=== PATIENT | male | born 1965 | race Caucasian/White ===

== ENCOUNTER 2021-06-26 15:10 | Emergency (ER) | payer OTHER, SELFPAY ==
[2021-06-26 15:10] VITALS: BP 147/91; PULSE 74; RESP 16; TEMP 36.4; O2SAT 99; BMI 35.6
--- NOTE | 2021-06-26 15:42 | EX.ED.VIS.EY ---
HPI History of Present Illness Chief Complaint: Vision Prob Informant: patient Onset/Context/Timing Location: Bilateral Eyes Onset: Days Context: Gradual Onset Timing: Continuous Current Severity: Mild Maximum Severity: Mild Associated Symptoms Associated Symptoms - Eyes: Photophobia; Negative for Burning, Crusting, Drainage, Eyelid swelling, Foreign body sensation, Itching, Matting and Redness History of injury: No Visual correction: Glasses Narrative Narrative: 56-year-old male history of migraine headaches and hypertension. States on Thursday he was driving to work he noticed the lights were bothering his eyes and they were kind of hazy around the lights or halos. He saw an temporary help agency referral clerk who told him there is nothing structurally wrong with his eyes. He has had no trauma. He wears glasses but not contacts. He is also developed now a headache in his forehead he does have a history of migraines. He denies any other complaints. He has had no head trauma. Patient had no fever. He has no other neurological symptoms. Prior similar symptoms: No Recent Illness/Hospitalization: No PFSH PFSH Allergy/AdvReac Type Severity Reaction Status Date / Time No Known Allergies Allergy Verified 06/26/21 15:10 Social History Smoking Status: Never smoker ROS ROS ED ROS Narrative Headache. Bilateral phobia and eye pain Review of Systems ROS Unobtainable: Denies due to encephalopathy Constitutional Constitutional ED: Denies fever(s) Eyes Eyes: Denies change in vision ENT ENT ED: Denies ear pain Cardiovascular Cardiovascular: Denies chest pain Respiratory/Chest Respiratory/Chest: Denies cough or dyspnea Gastrointestinal Gastrointestinal: Denies abdominal pain Genitourinary Genitourinary ED: Denies dysuria Musculoskeletal Musculoskeletal: Denies myalgias Integumentary Denies rash Neurologic Neurologic: Reports headache(s) Psychiatric Psychiatric: Denies depression Endocrine Endocrinology: Denies polyuria Hematologic/Lymphatic Hematologic/Lymphatic: Denies easy bruising Allergic/Immunologic Allergic/Immunologic ED: Denies urticaria EXAM Physical Exam Narrative Exam Narrative: Male no acute distress. Vital signs stable afebrile. H EENT exam shows rhinorrhea and lightish motions are intact. He seated in darkened room. No facial droop. No signs of trauma. Eyelids are normal. The eyes him cells are unremarkable other than he has pain with flashing lights in his eyes. There is no erythema. No drainage or discharge. No redness or swelling. Lungs clear to auscultation. Heart regular rhythm. Abdomen soft and nontender. Moving all 4 extremities. Neurovascular intact. Neuro exam normal. Const Vital Signs: 06/26/21 15:10 Temperature 97.6 F L Temperature Source Temporal Pulse Rate 74 Respiratory Rate 16 Blood Pressure 147/91 H Blood Pressure Mean 109 Pulse Ox 99 Oxygen Delivery Method Room Air HEENT atraumatic; Negative for trauma or tenderness Nose: external nose normal Eyes General Eye ED: Yes normal appearance of both eyes and normal light reflex; Negative for decreased light reflex, increased light reflex, enophthalmos, exophthalmos, proptosis, pale conjunctiva or scleral icterus Visual Acuity: Negative for complete vision loss Alignment: alignment normal Periorbital: periorbital findings normal Eyelid: eyelids normal Conjunctiva: conjunctiva normal Sclera: sclera normal Cornea: cornea normal Pupil: PERRL and accommodation reflex normal; Negative for anisocoria, dilated, fixed, irregular, not reactive, sluggish, Kwasi Asha pupil, pupil size - right, pupil size - left or pinpoint Direct Ophthalmoscopy: normal light reflex Neck no lymphadenopathy, supple and no JVD Resp normal respiratory effort, no retractions, no use of accessory muscles, clear to auscultation bilaterally and percussion normal Cardio regular rate, regular rhythm, S1 normal heart sound, S2 normal heart sound and no murmurs GI non-tender, non-distended and no masses Auscultation: normoactive bowel sounds Palpation: soft Back/Spine no CVA tenderness Extremity normal to inspection General Extremety ED: Negative for edema General Extremity: Negative for edema Neuro oriented x3, CN's II-XII intact bilaterally, moves all extremities and no sensory deficits noted Sensorium / Orientation: alert, oriented to person, oriented to place and oriented to time; Negative for orientation impaired Motor Exam: strength 5/5 throughout Psych Attitude: No agitated Mood & Affect: Negative for depressed or tearful Skin no wounds Lesions: no lesions Rashes: no rashes MDM MDM MDM Narrative Medical decision making narrative: He tolerated the 36-year-old male bilateral photophobia headache I think this may be a migraine. Last eye exam normal and his neurologic exam is normal. Will be treated with IV fluids, Toradol, Compazine and Benadryl and reassess. Repeat exam at 7:00 patient doing well. Neurologic exam normal. His photophobia is improved. His headache is almost resolved. He feels comfortable being discharged home. Discharge Plan Triage Chief Complaint: Vision Prob ED Provider: Jorge Rowland Dx/Rx/DC Orders Clinical Impression: Headache, migraine, Photophobia Instructions: ED, Migraine (Classical) Primary Care Provider: Care Physician,No Primary Referrals: Chino Fontenot MD [STAFF PHYSICIAN] - As Needed NOT,DEFINED [NON-STAFF] - Activity Restrictions/Additional Instructions: Plenty of fluids and rest. Motrin and Tylenol for pain. Follow-up with your primary care physician. Disposition Disposition: Home, Self Care
[2021-06-26] MEDS: Ketorolac 30 MG/ML Syringe IV (16:02)
[2021-06-26] MEDS: DiphenhydrAMINE 50 MG/ML Syringe IV (16:03)
[2021-06-26] MEDS: proCHLORPERazine 10 MG/2 ML Vial IV (16:06)
--- NOTE | 2021-06-26 17:12 | CM.ED ---
SW Note Referral Source: Case Find Referral Reason: No PCP SW met with patient. He reports that he has an appointment with Dr. Douglas PARIS at the [facility] at the end of July. No further SW needs reported at this time. SW remains available. Yin CHUNG
== END 2021-06-26 19:06 | disposition home or self-care (01) ==
PROVIDERS: Emergency Provider Emergency Medicine
DX: G43.909 Migraine, unspecified, not intractable, without status migrainosus (principal); I10 Essential (primary) hypertension
CPT/HCPCS: 96374; 96375; 99283; J7030; A4216

== ENCOUNTER → 2022-03-13 | Outpatient (CLI) | payer BC, SELFPAY ==
--- NOTE | 2022-03-13 15:57 | RAD_ITS ---
STUDY: X-RAY - LEFT KNEE REASON FOR EXAM: Male, 56 years old. KNEE PAIN TECHNIQUE: 3 view(s) of the knee. COMPARISON: None. FINDINGS: BONES: No fracture demonstrated. Mild degenerative changes of all 3 joint compartments with joint space narrowing, subchondral sclerosis and osteophytes. JOINTS: No dislocation. SOFT TISSUES: Unremarkable. RAD/Knee 3 Views IMPRESSION: No evidence of fracture. Degenerative changes. Electronically Signed: Cindy Canchola MD at 7:32 EDT ,
--- NOTE | 2022-03-13 15:57 | RAD_ITS ---
STUDY: X-RAY - LUMBAR SPINE REASON FOR EXAM: Male, 56 years old. BACK PAIN TECHNIQUE: 5 view(s) of the lumbar spine were obtained. COMPARISON: None FINDINGS: Surgical hardware with posterior vertical bars and pedicle screws and interbody device at L5-S1. Vertebral bodies are normal height. No definite fracture demonstrated. No subluxation. Mild disc space narrowing and facet arthropathy most pronounced at L4-5. No paravertebral soft tissue mass identified. RAD/L/S Spine Min 4 Views IMPRESSION: Postsurgical changes and degenerative changes. No evidence of fracture or subluxation. Electronically Signed: Cindy Canchola MD at 7:35 EDT ,
== END | disposition home or self-care (01) ==
LOC: MTRAD 15:55
PROVIDERS: PCP Internal Medicine; Referring Provider Nurse Practitioner Family; Visit Provider Nurse Practitioner Family
DX: M25.562 Pain in left knee (principal); M54.50 Low back pain, unspecified; M96.1 Postlaminectomy syndrome, not elsewhere classified
CPT/HCPCS: 72110; 73562

== ENCOUNTER 2022-04-05 16:34 | Emergency (ER) | payer BC, OTHER, SELFPAY ==
[2022-04-05 16:37] VITALS: BP 139/84; PULSE 92; RESP 16; TEMP 36.3; O2SAT 94; BMI 33.9
[2022-04-05 16:40] VITALS: BP 139/84; PULSE 92; RESP 16; TEMP 36.3; O2SAT 94
--- NOTE | 2022-04-05 17:18 | CT_ITS ---
INDICATION: Cough, COVID, bruising, PE EXAMINATION: CTA CHEST, ABDOMEN AND PELVIS WITH CONTRAST - TECHNIQUE: A CTA of the chest, abdomen, and pelvis is obtained with sagittal and coronal reconstructed MIP views. Three-dimensional surface rendered sequence of the thoracic and abdominal aorta was obtained. A radiation dose optimization technique was used for this scan. mL of Isovue-370. Oral contrast: None. COMPARISON: None. FINDINGS: CT CHEST: THORACIC AORTA: No atheromatous disease, no aneurysmal changes or dissection. ABDOMINAL AORTA: No aneurysm or dissection. No significant atheromatous disease. The iliac arteries are unremarkable. LUNGS: The lungs are well-expanded without acute or chronic changes. No effusions or pneumothorax. MEDIASTINUM: The thyroid gland is normal. No mediastinal or hilar adenopathy. HEART: Heart is normal size. No pericardial effusion. No CAD. CT ABDOMEN AND PELVIS: LIVER: The liver enhances homogeneously. No masses identified. GALLBLADDER: Status post cholecystectomy. SPLEEN: Normal. PANCREAS: No masses or inflammation. ADRENAL GLANDS: Normal. KIDNEYS AND URETERS: The kidneys both enhance appropriately. There are normal size and shape. No hydronephrosis or nephrolithiasis. No renal masses or cysts. STOMACH: Status post gastric surgery, possibly gastric jejunostomy. SMALL BOWEL: No abnormal distention of the small bowel. MESENTERY: No mesenteric inflammation. No ascites. COLON: No significant diverticulosis, masses or inflammation. The colon otherwise is normal. There is a large fatty ileocecal valve. APPENDIX: The appendix is not visualized. IVC: Normal. RETROPERITONEUM: No retroperitoneal lymphadenopathy. PELVIC STRUCTURES: Normal bladder. SOFT TISSUES ABDOMEN: Status post repair of umbilical hernia with mesh. No residual recurrent hernia. SOFT TISSUE CHEST: The extrathoracic soft tissues are normal. BONES: Status post discectomy, interbody fusion, transpedicular fixation at L5/S1. Chronic mild wedge compression fracture of L2 without retropulsion into the spinal canal. CT/CTA Chst, Abd, Pel W and/or WO IMPRESSION: No CT evidence of pulmonary embolism. Normal contrast-enhanced CT of the chest. Normal contrast-enhanced CT of the abdomen and pelvis. Electronically Signed: Anuj Cunha MD at 19:03 EDT ,
--- NOTE | 2022-04-05 17:21 | EX.ED.DYSGE1 ---
HPI History of Present Illness Chief Complaint: Other, Pain/Inj Informant: patient Narrative Narrative: Patient presents with bruising that started on his left lower flank and is now in the supraumbilical and epigastric area. This started yesterday. He thought it was from harsh coughing because a recent COVID. He started with COVID symptoms about 2 weeks ago. He had cough with some slightly pugh sputum production. He is still coughing and bringing up some more pale-colored sputum. No hemoptysis. He still has some dyspnea but is markedly improved. He does have chronic dyspnea and uses CPAP. He is not having the sore throat or headaches now. He is not having fevers now. He is eating and drinking normally. He denies any injury. But he has noticed bruising that started and then continues today. The area is sore. Pressing on it makes it worse and rest makes it better. Denies any fall impact or trauma directly other than coughing. [facility] Medical History Chronic pain COVID Hypertension Intestinal adhesions with partial obstruction Leg fracture Migraines Home Medications amitriptyline 10 mg tablet 20 mg PO QHS 04/05/22 [History Last Taken Unknown] [id number]-ybuulpzblmint-wwqbopvb 50 mg-300 mg-40 mg capsule (Fioricet) 1 cap PO Q6H PRN Migraine Headache 04/05/22 [History Last Taken Unknown] duloxetine 60 mg capsule,delayed release 60 mg PO QHS 04/05/22 [History Last Taken Unknown] gabapentin 600 mg tablet 1,200 mg PO QHS 04/05/22 [History Last Taken Unknown] gabapentin 600 mg tablet 600 mg PO BID 04/05/22 [History Last Taken Unknown] hydromorphone 4 mg tablet 4 mg PO Q6H PRN Back Pain 04/05/22 [History Last Taken Unknown] levocetirizine 5 mg tablet 5 mg PO QHS 04/05/22 [History Last Taken Unknown] lisinopril 40 mg tablet 40 mg PO DAILY 04/05/22 [History Last Taken Unknown] methocarbamol 500 mg tablet 500 mg PO TID 04/05/22 [History Last Taken Unknown] pantoprazole 40 mg tablet,delayed release 40 mg PO DAILY 04/05/22 [History Last Taken Unknown] trazodone 100 mg tablet 200 mg PO QHS 04/05/22 [History Last Taken Unknown] Allergy/AdvReac Type Severity Reaction Status Date / Time No Known Allergies Allergy Verified 04/05/22 16:40 Surgical History (Reviewed 04/05/22 @ 17: by Dr. Jordan Garcia MD) Gastric bypass status for obesity H/O hernia repair H/O spinal fusion Total knee replacement status Social History (Reviewed 04/05/22 @ : by Dr. Jordan Garcia MD) Smoking Status: Never smoker ROS ROS ED Constitutional Constitutional ED: Denies chills, fever(s) or subjective Eyes Eyes: Denies change in vision ENT ENT ED: Denies rhinorrhea or sore throat Cardiovascular Cardiovascular: Denies chest pain, palpitations or racing heartbeat Respiratory/Chest Respiratory/Chest: Reports cough, dyspnea and sputum Gastrointestinal Gastrointestinal: Reports other Details: See history of present ; Denies diarrhea, nausea or vomiting Genitourinary Genitourinary ED: Denies hematuria Musculoskeletal Musculoskeletal: Denies arthralgias or myalgias Integumentary Reports rash and other Details: See history of present illness. Neurologic Neurologic: Denies headache(s) Endocrine Endocrinology: Denies polydipsia or polyuria Hematologic/Lymphatic Hematologic/Lymphatic: Reports other Details: Patient did not has any anticoagulation use at all. I went through his med list on his phone. ; Denies easy bleeding or easy bruising Allergic/Immunologic Allergic/Immunologic ED: Denies urticaria EXAM Physical Exam Const Vital Signs: 04/05/22 16:37 04/05/22 16:40 04/05/22 16:40 Temperature 97.4 F L 97.4 F L Temperature Source Temporal Temporal Pulse Rate 92 92 Respiratory Rate 16 16 Respiratory Pattern Normal Blood Pressure 139/84 H 139/84 H Blood Pressure Mean 102 102 Pulse Ox 94 94 Oxygen Delivery Method Room Air Room Air Positive well nourished, well developed and obese General Appearance ED: well developed and NAD Nutritional Appearance: obese HEENT Reports moist mucous membranes HEENT Narrative: No petechiae. Eyes General Eye ED: Negative for scleral icterus Neck no lymphadenopathy Resp normal respiratory effort and clear to auscultation bilaterally Auscultation: Negative for rales, rhonchi or wheezes Cardio regular rate, regular rhythm and no murmurs Rate: Negative for tachycardic GI GI Narrative: Patient has some mild bruising in the epigastric area near his prior midline scar. I feel no actual hematoma though. He does have some mild tenderness just to the left of center. He has pretty notable hematoma bruising on the left lower flank. But it stops very abruptly at his belt line. This leads me to believe is more likely from a superficial source. Again, I do not feel a firm hematoma. Remainder of exam of abdomen is actually quite benign. Back/Spine no CVA tenderness Extremity normal to inspection General Extremety ED: Negative for edema General Extremity: Negative for edema Neuro Sensorium / Orientation: alert Skin Skin Narrative: See above. MDM MDM MDM Narrative Medical decision making narrative: Patient seen CT shows nonspecific elevation of white count and decreased hemoglobin. Platelets are actually high which is likely due to recent viral infection. Coagulation studies are normal. Electrolytes liver function test show no marked abnormalities. CT scan also shows no acute process. I can see stranding in the soft tissue consistent with a hematoma but no intra-abdominal source, pulmonary embolism, dissection etc. I believe he is safe for discharge. He is comfortable with the plan. Lab Data Attestation: I reviewed the patient's lab results. Labs: Laboratory Results - last 24 hr 04/05/22 04/05/22 04/05/22 17:40 17:40 17:40 WBC 12.0 H RBC 3.88 L Hgb 11.9 L Hct 35.2 L MCV 90.7 MCH 30.7 MCHC 33.8 RDW Std Deviation 43.6 RDW Coeff of Cari 13.3 Plt Count 559 H MPV 8.4 Immature Gran % (Auto) 1.300 H Neut % (Auto) 74.3 H Lymph % (Auto) 15.4 L M[place] % (Auto) 6.8 Eos % (Auto) 1.8 Baso % (Auto) 0.4 Absolute Neuts (auto) 8.9 H Absolute Lymphs (auto) 1.85 Nucleated RBC % 0 PT 13.4 INR 1.1 APTT 29.4 Sodium 139 Potassium 4.2 Chloride 102 Carbon Dioxide 32.0 Anion Gap 5 BUN 11 Creatinine 0.80 Estim Creat Clear Calc 110.47 Est GFR (MDRD) Af Amer 129 Est GFR (MDRD) Non-Af 106 BUN/Creatinine Ratio 13.8 Glucose 102 Calcium 9.0 Total Bilirubin 0.50 AST 20 ALT 33 Alkaline Phosphatase 124 H Total Protein 7.0 Albumin 3.3 Globulin 3.7 Albumin/Globulin Ratio 0.9 Radiography Diagnostic Testing: Clinical Impression(s) from Imaging Studies Chest/Abdomen/Pelvis CTA 04/05/22 17:18 IMPRESSION: No CT evidence of pulmonary embolism. Normal contrast-enhanced CT of the chest. Normal contrast-enhanced CT of the abdomen and pelvis. Electronically Signed: Anuj Cunha MD at 19:03 EDT , Discharge Plan Triage Chief Complaint: Other, Pain/Inj ED Provider: Jordan Garcia Dx/Rx/DC Orders Clinical Impression: Abdominal wall hematoma Instructions: ED Hematoma Prescriptions: No Action methocarbamol 500 mg Tablet 500 mg PO TID gabapentin 600 mg Tablet 600 mg PO BID gabapentin 600 mg Tablet 1,200 mg PO QHS trazodone 100 mg Tablet 200 mg PO QHS amitriptyline 10 mg Tablet 20 mg PO QHS pantoprazole 40 mg Tablet,Delayed Release (Dr/Ec) 40 mg PO DAILY hydromorphone 4 mg Tablet 4 mg PO Q6H PRN (Reason: Back Pain) lisinopril 40 mg Tablet 40 mg PO DAILY duloxetine 60 mg Capsule,Delayed Release(Dr/Ec) 60 mg PO QHS levocetirizine 5 mg Tablet 5 mg PO QHS [id number]-mnudghuikusps-[id number] [Fioricet] 50-300-40 mg Capsule 1 cap PO Q6H PRN (Reason: Migraine Headache) Primary Care Provider: Regan Tan Referrals: Regan Tan MD [Primary Care Provider] - 1 Week if not improving Disposition Disposition: Home, Self Care
[2022-04-05 17:54] LABS: Absolute Lymphocyte Count 1.85 X10^3/uL (0.83-4.51); Absolute Neutrophil Count 8.9 X10^3/uL (2.0-7.7); Basophil# 0.05 X10^3/uL; Basophil% 0.4 % (0-1); Eosinophil# 0.22 X10^3/uL; Eosinophils% 1.8 % (0-5); Hematocrit 35.2 % (40-54); Hemoglobin 11.9 g/dL (13.0-16.5); Lymphocyte # 1.85 X10^3/ul (0.83-4.51); Lymphocyte % 15.4 % (19-41); Mean Corp Hgb Conc 33.8 g/dL (32-36); Mean Corpuscular Hgb 30.7 pg (27.0-32.0); Mean Corpuscular Volume 90.7 fL (80-94); Mean Platelet Vol. 8.4 fl (6.2-12.0); Monocyte# 0.81 X10^3/uL; Monocyte% 6.8 % (0-10); NRBC Flagged by Analyzer 0 % (0-5); Neutrophil # 8.91 X10^3/uL (2.7-7.7); Neutrophil % 74.3 % (47-70); Platelet Count 559 K/mm3 (150-450); RBC Distribution Width CV 13.3 % (11.6-14.6); RBC Distribution Width SD 43.6 fl (35.1-43.9); Red Blood Count 3.88 M/mm3 (4.6-6.2)
[2022-04-05 18:02] LABS: International Normalized Ratio 1.1; Prothrombin Time (Protime)PT. 13.4 SECONDS (11.7-14.9)
[2022-04-05 18:03] LABS: Partial Thromboplast Time 29.4 Seconds (24.1-36.2)
[2022-04-05 18:12] LABS: ALB/GLOB Ratio 0.9 RATIO (0.9-2.4); AST(SGOT) 20 U/L (15-37); Alanine Aminotransfer ALT/SGPT 33 U/L (16-61); Albumin, Serum 3.3 g/dL (3.2-5.0); Alkaline Phosphatase 124 U/L (45-117); Anion Gap 5 (5-15); BUN 11 mg/dL (7-18); BUN/Creat Ratio 13.8 RATIO (10-20); Chloride 102 mmol/L (98-107); EST Glomerular Filtration Rate 106 mL/min (>60); Est Glom Filt Rate - Afr Amer 129 mL/min (>60); Estimated Creatinine Clearance 110.47 ml/min; Globulin 3.7 g/dL (2.2-4.2); Glucose 102 mg/dL (74-106); Potassium 4.2 mmol/L (3.5-5.1); Sodium Level 139 mmol/L (136-145)
[2022-04-05 19:16] VITALS: BP 144/82; PULSE 92; RESP 16; O2SAT 94
== END 2022-04-05 19:19 | disposition home or self-care (01) ==
PROVIDERS: Emergency Provider Emergency Medicine; PCP Internal Medicine; Visit Provider Emergency Medicine
DX: S30.1XXA Contusion of abdominal wall, initial encounter (principal); R06.00 Dyspnea, unspecified; I10 Essential (primary) hypertension; Z86.16 Personal history of COVID-19; X58.XXXA Exposure to other specified factors, initial encounter; Z98.84 Bariatric surgery status
CPT/HCPCS: 71275; 74174; 80053; 85025; 85610; 85730; 99283; J7030; Q9967; A4216

== ENCOUNTER 2022-04-30 15:56 | Emergency (ER) | payer BC, OTHER, SELFPAY ==
[2022-04-30 16:00] VITALS: BP 142/84; PULSE 81; RESP 16; TEMP 37.1; O2SAT 94; BMI 36.3
--- NOTE | 2022-04-30 16:36 | EKG12_ITS ---
Test Reason : ABD PAIN Blood Pressure : / mmHG Vent. Rate : 077 BPM Atrial Rate : 077 BPM P-R Int : 124 ms QRS Dur : 096 ms QT Int : 370 ms P-R-T Axes : 034 103 109 degrees QTc Int : 418 ms Normal sinus rhythm Low voltage QRS Borderline ECG Confirmed by MATIAS PARIS, XENIA ([id number]), brands editor JUN VERNON ([id number]) on 05/01/2022 2:04:01 P M Referred By: ROWAN Confirmed By:NANCY SALCEDO MD
--- NOTE | 2022-04-30 16:38 | EX.ED.DYSGE1 ---
HPI History of Present Illness Chief Complaint: Abd Pain Informant: patient Narrative Narrative: Patient presents with left upper quadrant pain that started sometime on Thursday. It is now occasionally radiating around to the left flank area. He has no chest pain or trouble breathing. He has no nausea or vomiting but he is a little bit decreased appetite. He has no change in his bowel habits and is moving them normally. No blood. No fevers or chills. Nothing consistently makes it better. Pressing on it makes it worse. Occasionally motion makes it worse but not as consistently. Patient did have a Jhonatan-en-Y gastric bypass but it was approximately 20 years ago and he has had no complications for some time. He had 1 episode of bowel obstruction but with that was caused by mesh and adhesions and the mesh was removed. He has no distention of his abdomen. He has had no urinary symptoms. He has no bruising this time. [facility] Medical History Chronic pain COVID Hypertension Intestinal adhesions with partial obstruction Leg fracture Migraines Home Medications amitriptyline 10 mg tablet 20 mg PO QHS 04/05/22 [History Last Taken Unknown] jochxukzkn-gacogjynrgygy-khkxkvhl 50 mg-300 mg-40 mg capsule (Fioricet) 1 cap PO Q6H PRN Migraine Headache 04/05/22 [History Last Taken Unknown] duloxetine 60 mg capsule,delayed release 60 mg PO QHS 04/05/22 [History Last Taken Unknown] gabapentin 600 mg tablet 1,200 mg PO QHS 04/05/22 [History Last Taken Unknown] gabapentin 600 mg tablet 600 mg PO BID 04/05/22 [History Last Taken Unknown] hydromorphone 4 mg tablet 4 mg PO Q6H PRN Back Pain 04/05/22 [History Last Taken Unknown] levocetirizine 5 mg tablet 5 mg PO QHS 04/05/22 [History Last Taken Unknown] lisinopril 40 mg tablet 40 mg PO DAILY 04/05/22 [History Last Taken Unknown] methocarbamol 500 mg tablet 500 mg PO TID 04/05/22 [History Last Taken Unknown] pantoprazole 40 mg tablet,delayed release 40 mg PO DAILY 04/05/22 [History Last Taken Unknown] trazodone 100 mg tablet 200 mg PO QHS 04/05/22 [History Last Taken Unknown] Allergy/AdvReac Type Severity Reaction Status Date / Time ampicillin AdvReac Nausea/Vom/ Verified 04/30/22 15:57 Diarrhea Surgical History Gastric bypass status for obesity H/O hernia repair H/O spinal fusion Total knee replacement status Social History Smoking Status: Never smoker ROS ROS ED Constitutional Constitutional ED: Denies chills, fever(s) or subjective Eyes Eyes: Denies change in vision ENT ENT ED: Denies rhinorrhea or sore throat Cardiovascular Cardiovascular: Denies chest pain, palpitations or racing heartbeat Respiratory/Chest Respiratory/Chest: Denies cough, dyspnea or dyspnea on exertion Gastrointestinal Gastrointestinal: Reports abdominal pain; Denies constipation, diarrhea, melena, nausea or vomiting Genitourinary Genitourinary ED: Denies dysuria, hematuria or urinary frequency Musculoskeletal Musculoskeletal: Denies arthralgias or myalgias Integumentary Denies abscess or rash Neurologic Neurologic: Denies paresthesias or weakness Psychiatric Psychiatric: Denies anxiety Endocrine Endocrinology: Denies polydipsia or polyuria Hematologic/Lymphatic Hematologic/Lymphatic: Denies easy bleeding or easy bruising Allergic/Immunologic Allergic/Immunologic ED: Denies urticaria EXAM Physical Exam Const Vital Signs: 04/30/22 16:00 Temperature 98.7 F Temperature Source Temporal Pulse Rate 81 Respiratory Rate 16 Blood Pressure 142/84 H Blood Pressure Mean 103 Pulse Ox 94 Oxygen Delivery Method Room Air Positive well nourished and well developed General Appearance ED: well developed and NAD; Negative for cyanotic or diaphoretic HEENT Reports moist mucous membranes Resp normal respiratory effort and clear to auscultation bilaterally Resp Narrative: No pain with a deep breath Cardio regular rate, regular rhythm and no murmurs GI normal to inspection, nondistended, normoactive bowel sounds GI Narrative: Abdomen is soft nondistended. No rashes. No bruising. There is isolated mild left upper quadrant tenderness but very mild. No rebound or guarding. No mass. No hernia. Palpation: soft Back/Spine no CVA tenderness Extremity normal to inspection Neuro oriented x3 Sensorium / Orientation: alert Psych mental status grossly normal Skin no rashes or lesions noted and no wounds MDM MDM MDM Narrative Medical decision making narrative: Patient CBC shows minimal anemia that is not an explanation for his overall tiredness. Electrolytes are overall unremarkable. Liver function test lactic acid was unremarkable. I had a troponin because of a subtle change in inferior leads but his symptoms are not consistent with heart disease and troponin is totally negative. Urine is clean I discussed options with the patient. He has significant tiredness and some soreness in left upper quadrant. I explained that this could be splenomegaly. There is no indication of rupture. I do not palpate it. His abdomen is relatively benign. He now states he has had chronic fatigue syndrome since his 20s and occasionally it comes back and this is somewhat like it. I explained he should not take part in any impact sports or activities. If he worsens pain we will scan her images upper quadrant but at this point we agree that is not required. He would like to go home and rest. He is already on outpatient pain meds for chronic pain. Lab Data Attestation: I reviewed the patient's lab results. Labs: Laboratory Results - last 24 hr 04/30/22 04/30/22 04/30/22 16:45 16:45 16:45 WBC 9.1 RBC 3.89 L Hgb 11.8 L Hct 35.3 L MCV 90.7 MCH 30.3 MCHC 33.4 RDW Std Deviation 44.9 H RDW Coeff of Cari 13.3 Plt Count 279 MPV 9.0 Immature Gran % (Auto) 0.200 Neut % (Auto) 64.9 Lymph % (Auto) 22.2 [place] % (Auto) 8.6 Eos % (Auto) 3.3 Baso % (Auto) 0.8 Absolute Neuts (auto) 5.9 Absolute Lymphs (auto) 2.01 Nucleated RBC % 0 Sodium 135 L Potassium 4.6 Chloride 100 Carbon Dioxide 31.0 Anion Gap 4 L BUN 16 Creatinine 0.85 Estim Creat Clear Calc 103.97 Est GFR (MDRD) Af Amer 120 Est GFR (MDRD) Non-Af 99 BUN/Creatinine Ratio 18.9 Glucose 108 H Lactic Acid 0.5 Calcium 8.8 Total Bilirubin 0.40 AST 29 ALT 36 Alkaline Phosphatase 96 Troponin I High Sens Total Protein 6.8 Albumin 3.4 Globulin 3.4 Albumin/Globulin Ratio 1.0 Lipase 65 L Urine Color Urine Clarity Urine pH Ur Specific [place] Urine Protein Urine Glucose (UA) Urine Ketones Urine Occult Blood Urine Nitrite Urine Bilirubin Urine Urobilinogen Ur Leukocyte Esterase Urine RBC Urine WBC Ur Squamous Epith Cells Urine Bacteria Urine Mucus 04/30/22 04/30/22 16:45 17:25 WBC RBC Hgb Hct MCV MCH MCHC RDW Std Deviation RDW Coeff of Cari Plt Count MPV Immature Gran % (Auto) Neut % (Auto) Lymph % (Auto) [place] % (Auto) Eos % (Auto) Baso % (Auto) Absolute Neuts (auto) Absolute Lymphs (auto) Nucleated RBC % Sodium Potassium Chloride Carbon Dioxide Anion Gap BUN Creatinine Estim Creat Clear Calc Est GFR (MDRD) Af Amer Est GFR (MDRD) Non-Af BUN/Creatinine Ratio Glucose Lactic Acid Calcium Total Bilirubin AST ALT Alkaline Phosphatase Troponin I High Sens 4 Total Protein Albumin Globulin Albumin/Globulin Ratio Lipase Urine Color Yellow Urine Clarity Clear Urine pH 6.5 Ur Specific [place] 1.010 Urine Protein Negative Urine Glucose (UA) Normal Urine Ketones Negative Urine Occult Blood Negative Urine Nitrite Negative Urine Bilirubin Negative Urine Urobilinogen Normal Ur Leukocyte Esterase Negative Urine RBC 0 SEEN Urine WBC 0 SEEN Ur Squamous Epith Cells 0 SEEN Urine Bacteria 0 SEEN Urine Mucus 0 SEEN EKG Initial EKG: Comments: EKG done due to upper abdominal pain at 57 years old and read by me. EKG shows normal sinus rhythm. Overall rate of 77. No ventricular ectopy. No acute ST elevation. WA interval, QRS duration and QTc normal. Discharge Plan Triage Chief Complaint: Abd Pain ED Provider: Jordan Garcia Dx/Rx/DC Orders Clinical Impression: Abdominal pain, left upper quadrant, Fatigue Instructions: ED Abdominal Pain Unkn Cause Male... Prescriptions: No Action methocarbamol 500 mg Tablet 500 mg PO TID gabapentin 600 mg Tablet 600 mg PO BID gabapentin 600 mg Tablet 1,200 mg PO QHS trazodone 100 mg Tablet 200 mg PO QHS amitriptyline 10 mg Tablet 20 mg PO QHS pantoprazole 40 mg Tablet,Delayed Release (Dr/Ec) 40 mg PO DAILY hydromorphone 4 mg Tablet 4 mg PO Q6H PRN (Reason: Back Pain) lisinopril 40 mg Tablet 40 mg PO DAILY duloxetine 60 mg Capsule,Delayed Release(Dr/Ec) 60 mg PO QHS levocetirizine 5 mg Tablet 5 mg PO QHS [id number]-aogsdaednslgr-aqbg [Fioricet] 50-300-40 mg Capsule 1 cap PO Q6H PRN (Reason: Migraine Headache) Primary Care Provider: Regan Tan Referrals: Regan Tan MD [Primary Care Provider] - 3-5 Days if not improving Disposition Disposition: Home, Self Care
[2022-04-30 17:08] LABS: Absolute Lymphocyte Count 2.01 X10^3/uL (0.83-4.51); Absolute Neutrophil Count 5.9 X10^3/uL (2.0-7.7); Basophil# 0.07 X10^3/uL; Basophil% 0.8 % (0-1); Eosinophils% 3.3 % (0-5); Hematocrit 35.3 % (40-54); Hemoglobin 11.8 g/dL (13.0-16.5); Lymphocyte # 2.01 X10^3/ul (0.83-4.51); Lymphocyte % 22.2 % (19-41); Mean Corp Hgb Conc 33.4 g/dL (32-36); Mean Corpuscular Hgb 30.3 pg (27.0-32.0); Mean Corpuscular Volume 90.7 fL (80-94); Monocyte# 0.78 X10^3/uL; Monocyte% 8.6 % (0-10); NRBC Flagged by Analyzer 0 % (0-5); Neutrophil # 5.88 X10^3/uL (2.7-7.7); Neutrophil % 64.9 % (47-70); Platelet Count 279 K/mm3 (150-450); RBC Distribution Width CV 13.3 % (11.6-14.6); RBC Distribution Width SD 44.9 fl (35.1-43.9); Red Blood Count 3.89 M/mm3 (4.6-6.2); White Blood Count 9.1 K/mm3 (4.4-11.0)
[2022-04-30 17:28] LABS: AST(SGOT) 29 U/L (15-37); Alanine Aminotransfer ALT/SGPT 36 U/L (16-61); Albumin, Serum 3.4 g/dL (3.2-5.0); Alkaline Phosphatase 96 U/L (45-117); Anion Gap 4 (5-15); BUN 16 mg/dL (7-18); BUN/Creat Ratio 18.9 RATIO (10-20); Calcium,Total 8.8 mg/dL (8.5-10.1); Chloride 100 mmol/L (98-107); Creatinine, Serum 0.85 mg/dL (0.70-1.30); EST Glomerular Filtration Rate 99 mL/min (>60); Est Glom Filt Rate - Afr Amer 120 mL/min (>60); Estimated Creatinine Clearance 103.97 ml/min; Globulin 3.4 g/dL (2.2-4.2); Glucose 108 mg/dL (74-106); Lipase 65 U/L (73-393); Potassium 4.6 mmol/L (3.5-5.1); Protein, Total 6.8 g/dL (6.4-8.2); Sodium Level 135 mmol/L (136-145)
[2022-04-30 17:34] LABS: Bacteria 0 SEEN /hpf (None Seen); Mucous, Urine 0 SEEN /hpf (<or=2+); Red Blood Cells-Urine 0 SEEN /hpf (0-5); Squamous Epithelial Cells - UA 0 SEEN /hpf (0-5); White Blood Cells 0 SEEN /hpf (0-5)
[2022-04-30 17:40] LABS: Lactic Acid 0.5 mmol/L (0.4-1.9)
[2022-04-30 17:51] LABS: Color, Urine Yellow (Yellow); Glucose, Dipstick Normal (Normal); Ketone-Dipstick Negative (Negative); Leukocyte Esterase-Dipstick Negative /ul (Negative); Nitrite-Dipstick Negative (Negative); Occult Blood-Urine Negative /ul (Negative); Protein-Dipstick Negative (Negative); Urine Bilirubin Dipstick Negative (Negative); Urine Clarity Clear (Clear); Urine Urobilinogen Normal (Normal); Urine pH 6.5 (5.0 - 8.0)
[2022-04-30 18:35] LABS: Troponin-I HS 4 pg/mL (3.0-78.0)
[2022-04-30 19:20] VITALS: RESP 18
== END 2022-04-30 19:20 | disposition home or self-care (01) ==
PROVIDERS: Emergency Provider Emergency Medicine; PCP Internal Medicine; Visit Provider Emergency Medicine
DX: R10.12 Left upper quadrant pain (principal); D64.9 Anemia, unspecified; I10 Essential (primary) hypertension; G89.29 Other chronic pain; R53.83 Other fatigue; Z86.16 Personal history of COVID-19; Z98.84 Bariatric surgery status
CPT/HCPCS: 80053; 81001; 83605; 83690; 84484; 85025; 93005; 99283

== ENCOUNTER 2022-05-21 17:16 | Inpatient (IN) | payer BC, OTHER, SELFPAY ==
[2022-05-21] VITALS (9 sets, daily range): BP systolic 159–177; BP diastolic 74–92; PULSE 83–109; RESP 18–20; TEMP 36.3–37.1; O2SAT 93–97; BMI 35.6; BMI 36.2
--- NOTE | 2022-05-21 18:14 | ED.VIS.DYS ---
HPI History of Present Illness Chief Complaint: Cold Sx Narrative Narrative: 57-year-old male presenting with cough, shortness of breath, overall generalized weakness. He states he had COVID at the end of March which was confirmed. He took 3 days of the Paxil [place] but stopped because it tasted so awful. He states he never really recovered he is coughing and more short of breath and is progressively worse. He does not have any fevers anymore. He is not vomiting. He states he has chronic back pain and takes gabapentin and Dilaudid for this at home. Patient was seen by his PCP today and he was ambulated with pulse ox and dropped to 88%. Patient states that he is coughing but does not have specific chest pain. [facility] Medical History (Updated 05/21/22 @ 21:39 by Aida Foote) Anemia Chronic pain COVID CPAP (continuous positive airway pressure) dependence Hypertension Intestinal adhesions with partial obstruction Leg fracture Migraines Sleep apnea Home Medications amitriptyline 10 mg tablet 20 mg PO QHS 04/05/22 [History Last Taken 05/20/22] lwtrgoxukd-hjmilvcmrbkvo-tgkiadgv 50 mg-300 mg-40 mg capsule (Fioricet) 1 cap PO Q6H PRN Migraine Headache 04/05/22 [History Last Taken 05/20/22] duloxetine 60 mg capsule,delayed release 60 mg PO QHS 04/05/22 [History Last Taken 05/21/22] gabapentin 600 mg tablet 1,200 mg PO QHS 04/05/22 [History Last Taken 05/20/22] gabapentin 600 mg tablet 600 mg PO BID 04/05/22 [History Last Taken 05/21/22] hydromorphone 4 mg tablet 4 mg PO Q6H PRN Back Pain 04/05/22 [History Last Taken 05/21/22] levocetirizine 5 mg tablet 5 mg PO QHS 04/05/22 [History Last Taken 05/20/22] lisinopril 40 mg tablet 40 mg PO DAILY 04/05/22 [History Last Taken 05/21/22] methocarbamol 500 mg tablet 500 mg PO TID 04/05/22 [History Last Taken 05/21/22] pantoprazole 40 mg tablet,delayed release 40 mg PO DAILY 04/05/22 [History Last Taken 05/21/22] trazodone 100 mg tablet 200 mg PO QHS 04/05/22 [History Last Taken 05/20/22] Allergy/AdvReac Type Severity Reaction Status Date / Time ampicillin AdvReac Nausea/Vom/ Verified 05/21/22 17:18 Diarrhea Family History (Updated 05/21/22 @ 21:[address] Roberta Mckeon, DO) Other Hypertension Surgical History Gastric bypass status for obesity H/O hernia repair H/O spinal fusion Total knee replacement status Social History (Updated 05/21/22 @ 21:[address] Roberta Mckeon DO) household members: spouse housing: house Smoking Status: Never smoker alcohol intake: current alcohol intake frequency: 0-2 drinks per day details: Drinks 1 shot of whiskey with soda daily substance use type: does not use ROS ROS ED Eyes Eyes: Denies change in vision or diplopia ENT ENT ED: Reports rhinorrhea; Denies sore throat Cardiovascular Cardiovascular: Denies chest pain Respiratory/Chest Respiratory/Chest: Reports cough, dyspnea and dyspnea on exertion Gastrointestinal Gastrointestinal: Denies abdominal pain, nausea or vomiting Genitourinary Genitourinary ED: Denies dysuria or hematuria Musculoskeletal Musculoskeletal: Reports myalgias Integumentary Denies abscess or Abrasions Neurologic Neurologic: Denies headache(s) or paresthesias Psychiatric Psychiatric: Denies anxiety or depression EXAM Physical Exam Const Vital Signs: 05/21/22 17:16 05/21/22 17:43 05/21/22 18:30 Temperature 97.4 F L Temperature Source Temporal Pulse Rate 109 H Respiratory Rate 20 H Respiratory Effort Short of Breath Respiratory Depth Normal Respiratory Pattern Normal Blood Pressure 175/92 H Blood Pressure Mean 119 Pulse Ox 94 93 Oxygen Delivery Method Room Air Room Air Room Air Oxygen Flow Rate (L/min) 05/21/22 19:15 Temperature Temperature Source Pulse Rate Respiratory Rate 18 Respiratory Effort Respiratory Depth Respiratory Pattern Blood Pressure Blood Pressure Mean Pulse Ox 95 Oxygen Delivery Method Nasal Cannula Oxygen Flow Rate (L/min) 2 Positive well nourished General Appearance ED: NAD; Negative for pallor HEENT Reports moist mucous membranes atraumatic Eyes PERRL and EOMs intact bilaterally General Eye ED: Negative for pale conjunctiva or scleral icterus Neck no lymphadenopathy and supple Resp normal respiratory effort Auscultation: rhonchi throughout Cardio regular rhythm Rate: tachycardic GI non-tender Back/Spine no CVA tenderness Neuro oriented x3 and CN's II-XII intact bilaterally Sensorium / Orientation: alert Speech: speech normal Motor Exam: strength 5/5 throughout Psych mental status grossly normal Skin no wounds General Skin Exam: Negative for jaundice or pallor MDM MDM MDM Narrative Medical decision making narrative: Patient presents with persistent shortness of breath after having COVID in March. Has been coughing. He denies recent fevers. He is tachycardic, tachypneic on arrival and he was hypoxic down to 88% on room air while ambulating in the doctor's office today. Sepsis work-up initiated. Patient denies any pain right now and does not want anything. He does not feel nauseous. I will ambulate with pulse ox as well. Patient states that he is usually treated with steroids and albuterol for bronchitis when he gets ill. He does not have a specific diagnosis of asthma or COPD. Blood work is obtained and CBC shows a slight leukocytosis at 13.2. Hemoglobin stable 11.7. Platelets normal at 330. Renal function electrolytes within normal limits. Urinalysis negative for infection. High-sensitivity troponin is 7. EKG sinus rhythm with a ventricular rate of 82 bpm without sign of ischemic change or dysrhythmia on my interpretation. Lactic acid 0.5. Coagulation studies normal. Chest x-ray on my interpretation shows no acute cardiopulmonary process. Given recent history of illness and COVID I did obtain a CTA of the chest which shows bibasilar pneumonia. Patient was ambulated in the hallway without oxygen and dropped to 87% on room air. He will need to be admitted for this. Patient was discussed with the hospitalist. We will start Rocephin and azithromycin in ER. Cultures are pending. Impression: 1. Bilateral pneumonia 2. Leukocytosis 3. Hypoxic respiratory failure Lab Data Attestation: I reviewed the patient's lab results. Labs: Laboratory Results - last 24 hr 05/21/22 05/21/22 05/21/22 18:25 18:35 18:35 WBC 13.2 H RBC 3.89 L Hgb 11.7 L Hct 35.1 L MCV 90.2 MCH 30.1 MCHC 33.3 RDW Std Deviation 44.8 H RDW Coeff of Cari 13.6 Plt Count 330 MPV 9.2 Immature Gran % (Auto) 0.500 Neut % (Auto) 78.1 H Lymph % (Auto) 10.6 L [place] % (Auto) 8.2 Eos % (Auto) 2.2 Baso % (Auto) 0.4 Absolute Neuts (auto) 10.4 H Absolute Lymphs (auto) 1.40 Nucleated RBC % 0 PT INR Sodium 137 Potassium 4.0 Chloride 102 Carbon Dioxide 30.0 Anion Gap 5 BUN 10 Creatinine 0.76 Estim Creat Clear Calc 116.29 Est GFR (MDRD) Af Amer 136 Est GFR (MDRD) Non-Af 112 BUN/Creatinine Ratio 13.2 Glucose 97 Lactic Acid Calcium 8.9 Troponin I High Sens 7 Urine Color Yellow Urine Clarity Clear Urine pH 7.0 Ur Specific [place] 1.010 Urine Protein Negative Urine Glucose (UA) Normal Urine Ketones Negative Urine Occult Blood Negative Urine Nitrite Negative Urine Bilirubin Negative Urine Urobilinogen 4 H Ur Leukocyte Esterase Negative Urine RBC 0 SEEN Urine WBC 0 SEEN Ur Squamous Epith Cells 0 SEEN Urine Bacteria 0 SEEN Urine Mucus 0 SEEN 05/21/22 05/21/22 18:35 18:35 WBC RBC Hgb Hct MCV MCH MCHC RDW Std Deviation RDW Coeff of Cari Plt Count MPV Immature Gran % (Auto) Neut % (Auto) Lymph % (Auto) [place] % (Auto) Eos % (Auto) Baso % (Auto) Absolute Neuts (auto) Absolute Lymphs (auto) Nucleated RBC % PT 14.0 INR 1.1 Sodium Potassium Chloride Carbon Dioxide Anion Gap BUN Creatinine Estim Creat Clear Calc Est GFR (MDRD) Af Amer Est GFR (MDRD) Non-Af BUN/Creatinine Ratio Glucose Lactic Acid 0.5 Calcium Troponin I High Sens Urine Color Urine Clarity Urine pH Ur Specific [place] Urine Protein Urine Glucose (UA) Urine Ketones Urine Occult Blood Urine Nitrite Urine Bilirubin Urine Urobilinogen Ur Leukocyte Esterase Urine RBC Urine WBC Ur Squamous Epith Cells Urine Bacteria Urine Mucus Radiography Diagnostic Testing: Clinical Impression(s) from Imaging Studies Chest X-Ray 05/21/22 18:36 IMPRESSION: No acute cardiopulmonary disease. Electronically Signed: Dina Morris MD at 19:09 EDT [place] Location ID and State: [id number] / Tel , Service support , Chest CTA 05/21/22 19:25 IMPRESSION: Bilateral lower lobe pneumonia. Old healed granulomatous disease. Electronically Signed: Dina Morris MD at 20:26 EDT [place] Location ID and State: [id number] / Tel , Service support , Discharge Plan Disposition Disposition: Acute Care Hospital [facility] Discharge Date/Time: 05/21/22 21:17
--- NOTE | 2022-05-21 18:36 | RAD_ITS ---
EXAM: XR CHEST, 1 VIEW CLINICAL INDICATION: chest pain TECHNIQUE: Frontal view of the chest. This report was created using [employer] report generation technology. COMPARISON: CTA chest 04/05/2022. FINDINGS: LUNGS AND PLEURAL SPACES: Unremarkable. No consolidation or edema. No pneumothorax. No effusion. HEART: Unremarkable. Cardiac silhouette not enlarged. MEDIASTINUM: Central airways and mediastinal contour are unremarkable. BONES/JOINTS: Unremarkable. No displaced fracture. No destructive or sclerotic lesions. Visualized joint spaces are unremarkable. SOFT TISSUES: Unremarkable. RAD/Chest 1 View (Portable) IMPRESSION: No acute cardiopulmonary disease. Electronically Signed: Dina Morris MD at 19:09 EDT Reading Location ID and State: [id number] / Tel , Service support ,
[2022-05-21 18:45] LABS: Bacteria 0 SEEN /hpf (None Seen); Mucous, Urine 0 SEEN /hpf (<or=2+); Red Blood Cells-Urine 0 SEEN /hpf (0-5); Squamous Epithelial Cells - UA 0 SEEN /hpf (0-5); White Blood Cells 0 SEEN /hpf (0-5)
[2022-05-21 18:48] LABS: Absolute Neutrophil Count 10.4 X10^3/uL (2.0-7.7); Basophil# 0.05 X10^3/uL; Basophil% 0.4 % (0-1); Eosinophil# 0.29 X10^3/uL; Eosinophils% 2.2 % (0-5); Hematocrit 35.1 % (40-54); Hemoglobin 11.7 g/dL (13.0-16.5); Lymphocyte % 10.6 % (19-41); Mean Corp Hgb Conc 33.3 g/dL (32-36); Mean Corpuscular Hgb 30.1 pg (27.0-32.0); Mean Corpuscular Volume 90.2 fL (80-94); Mean Platelet Vol. 9.2 fl (6.2-12.0); Monocyte# 1.08 X10^3/uL; Monocyte% 8.2 % (0-10); NRBC Flagged by Analyzer 0 % (0-5); Neutrophil # 10.35 X10^3/uL (2.7-7.7); Neutrophil % 78.1 % (47-70); Platelet Count 330 K/mm3 (150-450); RBC Distribution Width CV 13.6 % (11.6-14.6); RBC Distribution Width SD 44.8 fl (35.1-43.9); Red Blood Count 3.89 M/mm3 (4.6-6.2); White Blood Count 13.2 K/mm3 (4.4-11.0)
[2022-05-21 18:56] LABS: International Normalized Ratio 1.1
[2022-05-21 18:57] LABS: Color, Urine Yellow (Yellow); Glucose, Dipstick Normal (Normal); Ketone-Dipstick Negative (Negative); Leukocyte Esterase-Dipstick Negative /ul (Negative); Nitrite-Dipstick Negative (Negative); Occult Blood-Urine Negative /ul (Negative); Protein-Dipstick Negative (Negative); Urine Bilirubin Dipstick Negative (Negative); Urine Clarity Clear (Clear); Urine Urobilinogen 4 mg/dl (Normal)
[2022-05-21 19:06] LABS: Anion Gap 5 (5-15); BUN 10 mg/dL (7-18); BUN/Creat Ratio 13.2 RATIO (10-20); Calcium,Total 8.9 mg/dL (8.5-10.1); Chloride 102 mmol/L (98-107); Creatinine, Serum 0.76 mg/dL (0.70-1.30); EST Glomerular Filtration Rate 112 mL/min (>60); Est Glom Filt Rate - Afr Amer 136 mL/min (>60); Estimated Creatinine Clearance 116.29 ml/min; Glucose 97 mg/dL (74-106); Sodium Level 137 mmol/L (136-145); Troponin-I HS 7 pg/mL (3.0-78.0)
[2022-05-21 19:12] LABS: Lactic Acid 0.5 mmol/L (0.4-1.9)
--- NOTE | 2022-05-21 19:25 | CT_ITS ---
EXAM: CT ANGIOGRAPHY CHEST WITHOUT AND WITH INTRAVENOUS CONTRAST CLINICAL INDICATION: hypoxic respiratory failure TECHNIQUE: Helically acquired angiography images were obtained of the chest without and with intravenous contrast. This CT exam was performed using one or more of the following dose reduction techniques: automated exposure control, adjustment of the mA and/or kV according to patient size, and/or use of iterative reconstruction technique. This report was created using [email or web address] report generation technology. MIP reconstructed images were created and reviewed. CONTRAST: IV 100mL [id number] COMPARISON: 04/05/2022. FINDINGS: PULMONARY ARTERIES: Unremarkable. Normal in caliber. No evidence of pulmonary embolism. AORTA: Unremarkable. Normal in caliber. No evidence of dissection. GREAT VESSELS OF AORTIC ARCH: Unremarkable. Normal in caliber. No evidence of dissection. LUNGS AND PLEURAL SPACES: Patchy airspace disease in the lower lobes bilaterally, greater on the left. Very mild airspace disease in the upper lobes. No mass. No pleural effusion or thickening. HEART: Unremarkable. Heart size is normal. No pericardial effusion. No signs of right heart strain, ratio of right ventricle to left ventricle measures less than 1. MEDIASTINUM: Esophagus is unremarkable. No hiatal hernia. Calcified right hilar lymph nodes. THYROID: Unremarkable. No thyroid lesions. BONES/JOINTS: Unremarkable. No suspicious lytic or blastic abnormality. CT/CTA Chest W/WO Contrast IMPRESSION: Bilateral lower lobe pneumonia. Old healed granulomatous disease. Electronically Signed: Dina Morris MD at 20:26 EDT Reading Location ID and State: [id number] / Tel , Service support ,
--- NOTE | 2022-05-21 21:06 | PCM.HP.STD ---
HPI - General General Date of Admission: 05/21/22 Date of Service: 05/21/22 Chief Complaint: Shortness of breath HPI Narrative ANGELA NG, is a 57 M who presented to the emergency department at [facility] on 04/20/2022 with a chief complaint of shortness of breath. Patient evidently had COVID at the end of March and has had ongoing coughing however in the last week he is developed a more persistent cough that has been productive of brown sputum. He denies any fever but complains of some intermittent chills and sweats. He indicates he has had significant rhinorrhea and postnasal drip. He denies any nausea or vomiting, diarrhea or constipation. He denies any tingling or numbness. He does report increased fatigue and decreased appetite. Vital signs on presentation showed a temperature of 97.4, heart rate 109, blood pressure 175/92, respiratory rate of 20, pulse ox of 94% on room air. He was ambulated and oxygen dropped to 87% on room air with exertion. CBC shows a mild leukocytosis with a white count of 13.2 and a left shift was present. He also was noted to have a mild chronic stable anemia with a hemoglobin of 11.7. Coags were normal. His chemistry panel was completely normal. Troponin was 7. Lactate was 0.5. EKG shows normal sinus rhythm with normal intervals and no ST-T wave changes consistent with acute ischemia. His chest x-ray showed no acute cardiopulmonary process however a CTA of his chest was suggestive of bilateral lower lobe infiltrates. In the emergency department he was started on community-acquired coverage with ceftriaxone and azithromycin and request for admission was made given his hypoxia with exertion. [facility] Medical History Anemia Chronic pain COVID Hypertension Intestinal adhesions with partial obstruction Leg fracture Migraines Home Medications amitriptyline 10 mg tablet 20 mg PO QHS 04/05/22 [History Last Taken Unknown] xjulsgnyta-hgeyhifeclrzm-cwmaaejk 50 mg-300 mg-40 mg capsule (Fioricet) 1 cap PO Q6H PRN Migraine Headache 04/05/22 [History Last Taken Unknown] duloxetine 60 mg capsule,delayed release 60 mg PO QHS 04/05/22 [History Last Taken Unknown] gabapentin 600 mg tablet 1,200 mg PO QHS 04/05/22 [History Last Taken Unknown] gabapentin 600 mg tablet 600 mg PO BID 04/05/22 [History Last Taken Unknown] hydromorphone 4 mg tablet 4 mg PO Q6H PRN Back Pain 04/05/22 [History Last Taken Unknown] levocetirizine 5 mg tablet 5 mg PO QHS 04/05/22 [History Last Taken Unknown] lisinopril 40 mg tablet 40 mg PO DAILY 04/05/22 [History Last Taken Unknown] methocarbamol 500 mg tablet 500 mg PO TID 04/05/22 [History Last Taken Unknown] pantoprazole 40 mg tablet,delayed release 40 mg PO DAILY 04/05/22 [History Last Taken Unknown] trazodone 100 mg tablet 200 mg PO QHS 04/05/22 [History Last Taken Unknown] Allergy/AdvReac Type Severity Reaction Status Date / Time ampicillin AdvReac Nausea/Vom/ Verified 05/21/22 17:18 Diarrhea Family History (Updated 05/21/22 @ 21:[address] Roberta Mckeon DO) Other Hypertension Surgical History Gastric bypass status for obesity H/O hernia repair H/O spinal fusion Total knee replacement status Social History (Updated 05/21/22 @ 21:[address] Roberta Mckeon DO) household members: spouse housing: house Smoking Status: Never smoker alcohol intake: current alcohol intake frequency: 0-2 drinks per day details: Drinks 1 shot of whiskey with soda daily substance use type: does not use ROS Constitutional Constitutional: Reports chills, fatigue, malaise and weakness; Denies anorexia, change in weight, fever(s), night sweats or other Eyes Eyes: Denies blurry vision, change in eye color, change in vision, discharge from eye(s), double vision, erythema, eye pain, loss of vision or other ENT HEENT: Reports nasal congestion, nasal discharge and post nasal drip; Denies abnormal hearing, dysphagia, ear pain, epistaxis, headache(s), hearing loss, sinus pressure, sore throat or other Cardiovascular Cardiovascular: Reports dyspnea on exertion; Denies chest pain, claudication, edema, lightheadedness, orthopnea, palpitations, paroxysmal nocturnal dyspnea, rapid heart rate, syncope or other Respiratory/Chest Respiratory/Chest: Reports cough, dyspnea, excessive phlegm production, productive cough and shortness of breath with exertion; Denies hemoptysis, shortness of breath at rest, wheezing or other Gastrointestinal Gastrointestinal: Denies abdominal pain, coffee ground emesis, constipation, diarrhea, dyspepsia, hematemesis, hematochezia, loose stools, melena, nausea, vomiting or other Genitourinary Genitourinary: Denies burning urination, difficulty urinating, dysuria, hematuria, nocturia, urinary frequency, urinary hesitancy, urinary incontinence, urinary urgency or other Musculoskeletal Musculoskeletal: Reports back pain and joint stiffness; Denies arthralgias, joint pain, joint swelling, myalgias, neck pain or other Neurologic Neurologic: Denies abnormal gait, abnormal speech, confusion, disequilibrium, dizziness, focal weakness, headache(s), numbness, paresthesias, seizure-like activity, seizures, syncope, tingling, tremor(s) or other Psychiatric Psychiatric: Reports anxiety and depression; Denies homicidal ideation, suicidal ideation or other Endocrine Endocrinology: Denies change in body appearance, cold intolerance, excessive sweating, heat intolerance, polydipsia, polyuria or other Hematologic/Lymphatic Hematologic/Lymphatic: Denies anemia, easy bleeding, easy bruising, lymphadenopathy or other Allergic/Immunologic Allergic/Immunologic: Denies rhinitis, hives, eczemia, asthma or other Vital Signs Vital Signs Vital Signs: 05/21/22 17:16 05/21/22 17:43 05/21/22 18:30 Temperature 97.4 F L Temperature Source Temporal Pulse Rate 109 H Respiratory Rate 20 H Respiratory Effort Short of Breath Respiratory Depth Normal Respiratory Pattern Normal Blood Pressure 175/92 H Blood Pressure Mean 119 Pulse Ox 94 93 Oxygen Delivery Method Room Air Room Air Room Air Oxygen Flow Rate (L/min) 05/21/22 19:15 Temperature Temperature Source Pulse Rate Respiratory Rate 18 Respiratory Effort Respiratory Depth Respiratory Pattern Blood Pressure Blood Pressure Mean Pulse Ox 95 Oxygen Delivery Method Nasal Cannula Oxygen Flow Rate (L/min) 2 Weight Weight: 119 kg Body Mass Index (BMI) 35.6 Physical Exam Const alert, oriented x3, no apparent distress and well nourished Constitutional Narrative: Middle-aged white male lying in bed, iPad on abdomen, at bedside, patient appears comfortable at this time with no signs of respiratory distress and nontoxic-appearing General Appearance: cooperative HEENT normocephalic, head/scalp atraumatic, hearing grossly normal bilaterally and moist oral mucous membranes HEENT Narrative: Dentition is good, Mallampati is 1, no thrush is present Mouth: oral and palatal mucosa normal Eyes PERRL, EOMs intact bilaterally and conjunctivae normal Eyes Narrative: No scleral icterus Neck no lymphadenopathy, supple and no carotid bruits Neck Narrative: Trachea midline, no thyroid enlargement Resp normal respiratory effort, no retractions, no use of accessory muscles and No clear to auscultation bilaterally Resp Narrative: Diminished at bases with few crackles at bilateral bases Auscultation: crackles; Negative for rhonchi or wheezes Cardio regular rate, regular rhythm, S1 normal heart sound, S2 normal heart sound, no murmurs, no rub, no gallops, no clicks and no JVD GI normal to inspection, nondistended, normoactive bowel sounds, soft to palpation, non-tender and non-distended; Negative for hepatosplenomegaly Extremity no clubbing, cyanosis or edema Extremity Narrative: 2+ pedal pulses Skin no rashes or lesions noted, no wounds, skin turgor normal, no jaundice, no petechiae and no mottling Neuro oriented x3, CN's II-XII intact bilaterally, moves all extremities and no focal motor deficits Speech: speech normal Motor Exam: strength 5/5 throughout Psych affect normal Psych Narrative: Appropriately interactive, pleasant Results Lab / Micro Data Attestation: I reviewed the patient's lab results. Result Diagrams: 05/21/22 18:35 05/21/22 18:35 Labs: Laboratory Results - last 24 hr 05/21/22 18:25: Urine Color Yellow, Urine Clarity Clear, Urine pH 7.0, Ur Specific [place] 1.010, Urine Protein Negative, Urine Glucose (UA) Normal, Urine Ketones Negative, Urine Occult Blood Negative, Urine Nitrite Negative, Urine Bilirubin Negative, Urine Urobilinogen 4 H, Ur Leukocyte Esterase Negative, Urine RBC 0 SEEN, Urine WBC 0 SEEN, Ur Squamous Epith Cells 0 SEEN, Urine Bacteria 0 SEEN, Urine Mucus 0 SEEN 05/21/22 18:35: WBC 13.2 H, RBC 3.89 L, Hgb 11.7 L, Hct 35.1 L, MCV 90.2, MCH 30.1, MCHC 33.3, RDW Std Deviation 44.8 H, RDW Coeff of Cari 13.6, Plt Count 330, MPV 9.2, Immature Gran % (Auto) 0.500, Neut % (Auto) 78.1 H, Lymph % (Auto) 10.6 L, [place] % (Auto) 8.2, Eos % (Auto) 2.2, Baso % (Auto) 0.4, Absolute Neuts (auto) 10.4 H, Absolute Lymphs (auto) 1.40, Nucleated RBC % 0 05/21/22 18:35: Sodium 137, Potassium 4.0, Chloride 102, Carbon Dioxide 30.0, Anion Gap 5, BUN 10, Creatinine 0.76, Estim Creat Clear Calc 116.29, Est GFR (MDRD) Af Amer 136, Est GFR (MDRD) Non-Af 112, BUN/Creatinine Ratio 13.2, Glucose 97, Calcium 8.9, Troponin I High Sens 7 05/21/22 18:35: PT 14.0, INR 1.1 05/21/22 18:35: Lactic Acid 0.5 Micro: Microbiology 05/21/22 18:24 Interface Orders Rapid RSV (DFA) - Final 05/21/22 18:24 Mucosa - Nasopharyngeal Influenza Types A,B Direct FA (DELFINO) - Final Radiology Impression Chest X-Ray 05/21/22 18:36 IMPRESSION: No acute cardiopulmonary disease. Electronically Signed: Dina Morris MD at 19:09 EDT Reading Location ID and State: [place] Garcia MD Tel , Service support , Chest CTA 05/21/22 19:25 IMPRESSION: Bilateral lower lobe pneumonia. Old healed granulomatous disease. Electronically Signed: Dina Morris MD at 20:26 EDT Reading Location ID and State: [place] Garcia MD Tel , Service support , Assessment & Plan Assessment/Plan (1) Pneumonia: (2) Hypoxia: (3) Leukocytosis: PLAN: Plan Hypoxia secondary to community-acquired pneumonia -Unclear if this is viral or bacterial etiology -CTA performed emergency department shows bilateral lower lobe pneumonia with no PE -Curb 65 score is 0 however patient was hypoxic with exertion requiring 2 L of oxygen for sat of 87% on room air -Sat at rest was 90 and 92 on room air -Given the above I will admit as observation as if he was not hypoxic with exertion he could be managed as an outpatient with oral antibiotics -Flu and RSV are negative -Check respiratory viral panel -Patient had recent COVID at the end of March -Check sputum culture -Aggressive pulmonary toilet with nebulizers -I-S -Acapella -Check strep pneumo and Legionella antigens -Start ceftriaxone and azithromycin Leukocytosis -Likely related to the above -Mild at 13.2 -Repeat CBC in a.m. Chronic low back pain -Continue high at home hydromorphone -Continue home Ativan -Continue home amitriptyline GERD -Continue home Protonix Hypertension -Continue lisinopril History of migraine headaches -As needed Fioricet per home med reconciliation Depression -Continue home duloxetine -Continue home trazodone DVT prophylaxis -Lovenox 40 mg daily subcu -SCDs CODE STATUS -Full code as per discussion prior to admission the emergency department with his at bedside Charges/Coding Visit Charges OBSV E&M: 87589 Initial observation care L2
[2022-05-21] MEDS: HYDROmorphone 2 MG TABLET 4 MG PO (22:44)
[2022-05-21] MEDS: Gabapentin 600 MG Tablet 1200 MG PO (22:44)
[2022-05-21] MEDS: DULoxetine Hcl 60 MG Capsule PO (22:45)
[2022-05-21] MEDS: guaiFENesin 1,200 MG Tablet 1200 MG PO (22:46)
[2022-05-21] MEDS: Loratadine 10 MG Tablet PO (22:46)
[2022-05-22] VITALS (8 sets, daily range): BP systolic 145–152; BP diastolic 68–83; PULSE 72–85; RESP 16–20; TEMP 36.6–36.9; O2SAT 93–97
[2022-05-22] MEDS: traZODone 100 MG Tablet 200 MG PO ×2 (00:09→23:10)
[2022-05-22] MEDS: Amitriptyline 10 MG Tablet 20 MG PO ×2 (00:10→23:09)
[2022-05-22] MEDS: Methocarbamol 500 MG Tablet PO ×4 (00:10→23:09)
[2022-05-22 03:25] LABS: M R Staph aureus DNA By PCR Negative (Negative); Probe Check PASS; Specimen Processing Control PASS
[2022-05-22 06:40] LABS: Absolute Lymphocyte Count 1.23 X10^3/uL (0.83-4.51); Absolute Neutrophil Count 8.6 X10^3/uL (2.0-7.7); Basophil# 0.05 X10^3/uL; Basophil% 0.5 % (0-1); Eosinophil# 0.25 X10^3/uL; Eosinophils% 2.3 % (0-5); Hematocrit 33.3 % (40-54); Hemoglobin 11.2 g/dL (13.0-16.5); Lymphocyte # 1.23 X10^3/ul (0.83-4.51); Lymphocyte % 11.1 % (19-41); Mean Corp Hgb Conc 33.6 g/dL (32-36); Mean Corpuscular Hgb 30.4 pg (27.0-32.0); Mean Corpuscular Volume 90.2 fL (80-94); Mean Platelet Vol. 9.3 fl (6.2-12.0); Monocyte# 0.96 X10^3/uL; Monocyte% 8.6 % (0-10); NRBC Flagged by Analyzer 0 % (0-5); Neutrophil # 8.58 X10^3/uL (2.7-7.7); Neutrophil % 77.1 % (47-70); Platelet Count 307 K/mm3 (150-450); RBC Distribution Width CV 13.6 % (11.6-14.6); RBC Distribution Width SD 44.9 fl (35.1-43.9); Red Blood Count 3.69 M/mm3 (4.6-6.2); White Blood Count 11.1 K/mm3 (4.4-11.0)
[2022-05-22] MEDS: Ipratropium/Albuterol Sulfate 3 ML AMPUL.NEB INHALATION ×3 (06:52→19:45)
[2022-05-22 07:07] LABS: ALB/GLOB Ratio 0.9 RATIO (0.9-2.4); AST(SGOT) 18 U/L (15-37); Alanine Aminotransfer ALT/SGPT 33 U/L (16-61); Albumin, Serum 2.9 g/dL (3.2-5.0); Alkaline Phosphatase 97 U/L (45-117); Anion Gap 3 (5-15); BUN 9 mg/dL (7-18); BUN/Creat Ratio 12.6 RATIO (10-20); Calcium,Total 8.5 mg/dL (8.5-10.1); Chloride 105 mmol/L (98-107); Creatinine, Serum 0.72 mg/dL (0.70-1.30); EST Glomerular Filtration Rate 120 mL/min (>60); Est Glom Filt Rate - Afr Amer 145 mL/min (>60); Estimated Creatinine Clearance 119.11 ml/min; Globulin 3.3 g/dL (2.2-4.2); Glucose 97 mg/dL (74-106); Magnesium 2.2 mg/dL (1.6-2.6); Phosphorus 3.6 mg/dL (2.5-4.9); Potassium 4.1 mmol/L (3.5-5.1); Protein, Total 6.2 g/dL (6.4-8.2); Sodium Level 138 mmol/L (136-145)
--- NOTE | 2022-05-22 07:59 | PCM.PN.HOSP ---
Subjective Subjective Follow-up for hypoxia due to community-acquired pneumonia. Patient has cough and bringing up brownish sputum. No fever. Objective Data Objective Data Vital Signs: Vital Signs Temp Pulse Resp BP Pulse Ox O2 Del Method O2 Flow Rate 98.2 F 85 17 146/75 H 93 Nasal Cannula 2 05/22/22 05:42 05/22/22 06:53 05/22/22 06:53 05/22/22 05:42 05/22/22 06:53 05/22/22 06:53 05/22/22 06:53 Oxygen Flow Rate (L/min) 2 Oxygen Delivery Method Nasal Cannula Weight: 259 lb 11.272 oz Body Mass Index (BMI) 36.2 Intake & Output: Intake and Output for Last 24 Hours 05/20/22 05/21/22 05/22/22 23:59 23:59 23:59 Intake Total 255 / 255 Output Total 750 / 750 800 / 800 Balance -495 / -495 -800 / -800 Lab / Micro Data Result Diagrams: 05/22/22 05:55 05/22/22 05:55 Labs: Laboratory Results - last 24 hr 05/21/22 18:25: Urine Color Yellow, Urine Clarity Clear, Urine pH 7.0, Ur Specific [place] 1.010, Urine Protein Negative, Urine Glucose (UA) Normal, Urine Ketones Negative, Urine Occult Blood Negative, Urine Nitrite Negative, Urine Bilirubin Negative, Urine Urobilinogen 4 H, Ur Leukocyte Esterase Negative, Urine RBC 0 SEEN, Urine WBC 0 SEEN, Ur Squamous Epith Cells 0 SEEN, Urine Bacteria 0 SEEN, Urine Mucus 0 SEEN 05/21/22 18:35: WBC 13.2 H, RBC 3.89 L, Hgb 11.7 L, Hct 35.1 L, MCV 90.2, MCH 30.1, MCHC 33.3, RDW Std Deviation 44.8 H, RDW Coeff of Cari 13.6, Plt Count 330, MPV 9.2, Immature Gran % (Auto) 0.500, Neut % (Auto) 78.1 H, Lymph % (Auto) 10.6 L, [place] % (Auto) 8.2, Eos % (Auto) 2.2, Baso % (Auto) 0.4, Absolute Neuts (auto) 10.4 H, Absolute Lymphs (auto) 1.40, Nucleated RBC % 0 05/21/22 18:35: Sodium 137, Potassium 4.0, Chloride 102, Carbon Dioxide 30.0, Anion Gap 5, BUN 10, Creatinine 0.76, Estim Creat Clear Calc 116.29, Est GFR (MDRD) Af Amer 136, Est GFR (MDRD) Non-Af 112, BUN/Creatinine Ratio 13.2, Glucose 97, Calcium 8.9, Troponin I High Sens 7 05/21/22 18:35: PT 14.0, INR 1.1 05/21/22 18:35: Lactic Acid 0.5 05/22/22 00:05: MRSA (PCR) Negative 05/22/22 05:55: WBC 11.1 H, RBC 3.69 L, Hgb 11.2 L, Hct 33.3 L, MCV 90.2, MCH 30.4, MCHC 33.6, RDW Std Deviation 44.9 H, RDW Coeff of Cari 13.6, Plt Count 307, MPV 9.3, Immature Gran % (Auto) 0.400, Neut % (Auto) 77.1 H, Lymph % (Auto) 11.1 L, [place] % (Auto) 8.6, Eos % (Auto) 2.3, Baso % (Auto) 0.5, Absolute Neuts (auto) 8.6 H, Absolute Lymphs (auto) 1.23, Nucleated RBC % 0 05/22/22 05:55: Sodium 138, Potassium 4.1, Chloride 105, Carbon Dioxide 30.0, Anion Gap 3 L, BUN 9, Creatinine 0.72, Estim Creat Clear Calc 119.11, Est GFR (MDRD) Af Amer 145, Est GFR (MDRD) Non-Af 120, BUN/Creatinine Ratio 12.6, Glucose 97, Calcium 8.5, Phosphorus 3.6, Magnesium 2.2, Total Bilirubin 0.40, AST 18, ALT 33, Alkaline Phosphatase 97, Total Protein 6.2 L, Albumin 2.9 L, Globulin 3.3, Albumin/Globulin Ratio 0.9 Micro: Microbiology 05/21/22 22:10 Mucosa - Nasopharyngeal Respiratory Panel (PCR) - Final 05/21/22 18:25 Urine, Random Legionella Antigen - Final 05/21/22 18:25 Urine, Random Streptococcus pneumoniae Antigen (M - Final 05/21/22 18:24 Interface Orders Rapid RSV (DFA) - Final 05/21/22 18:24 Mucosa - Nasopharyngeal Influenza Types A,B Direct FA (DELFINO) - Final Radiography Diagnostic Testing: Radiology Impression Chest X-Ray 05/21/22 18:36 IMPRESSION: No acute cardiopulmonary disease. Electronically Signed: Dina Morris MD at 19:09 EDT Reading Location ID and State: [place] Tel , Service support , Chest CTA 05/21/22 19:25 IMPRESSION: Bilateral lower lobe pneumonia. Old healed granulomatous disease. Electronically Signed: Dina Morris MD at 20:26 EDT Reading Location ID and State: Juan / Tel , Service support , Physical Exam Narrative Patient has thick brownish sputum production and cough. Patient had COVID infection probably first week of March and he got cleared on the last week with negative COVID test. I do not know what exact COVID test he had with a rapid antigen or PCR. Currently patient has bilateral lobar pneumonia. Denies history of smoking, current or past. Denies chronic lung disease or heart disease, stroke or liver disease. No fever. Physical exam General: Alert, Oriented x3, Cooperative HEENT: Atraumatic, PERRLA, EOMI, Normocephalic Oral: No Gingival or Mucosal Lesions/ Ulcerations Neck: Supple, No JVD, Negative Carotid Bruits Lungs: Air entry diminished in bilateral lung bases. Bilateral coarse crepitations. On 2 L of oxygen. No tachypnea. Cardiovascular: Regular rate, Regular Rhythm, Normal S1, Normal S2, No murmurs Abdomen: Bowel Sounds Present, Soft, Non Tender, Non-Distended : No renal angle tenderness. No suprapubic tenderness. Extremities: No edema, Capillary Refill Less than 3 Seconds Skin: No rashes, No breakdown Musculoskeletal: No Tenderness to Palpation of Joints or Extremities Neurological: Cranial nerves II-XII grossly intact, DTR 2+/4 and Symmetrical, Neuro grossly intact Psych/Mental Status: Normal Affect, Appropriate. Assessment & Plan Assessment/Plan (1) Pneumonia: (2) Hypoxia: (3) Leukocytosis: PLAN: Plan 1. Community-acquired pneumonia and mild hypoxia: Patient is being admitted in [facility] floor. CTA and chest x-ray initially reviewed and shows bilateral pneumonia with no PE. Patient does not meet criteria for acute hypoxic respiratory failure. Curb 65 score is 0. Pulse ox 97% on room air currently on 2 L of oxygen. Patient flu and RSV rapid antigens, respiratory panel and urinary antigens negative. Preliminary sputum culture growing normal respiratory contreras. On IV ceftriaxone and Zithromax. Continue incentive spirometry, PEP and Mucinex D. Patient had mild leukocytosis, improving Chronic low back pain -Continue high at home hydromorphone -Continue home Ativan -Continue home amitriptyline GERD -Continue home Protonix Hypertension -Continue lisinopril History of migraine headaches -As needed Fioricet per home med reconciliation Depression -Continue home duloxetine -Continue home trazodone DVT prophylaxis -Lovenox 40 mg daily subcu -SCDs CODE STATUS-Full code Clinical Impression(s) from Imaging Studies Chest X-Ray 05/21/22 18:36 IMPRESSION: No acute cardiopulmonary disease. Electronically Signed: Dina Morris MD at 19:09 EDT Reading Location ID and State: [place] Garcia MD Tel , Service support , Chest CTA 05/21/22 19:25 IMPRESSION: Bilateral lower lobe pneumonia. Old healed granulomatous disease. Electronically Signed: Dina Morris MD at 20:26 EDT Reading Location ID and State: [place] Garcia MD Tel , Service support , Microbiology Past 72 Hours 05/21/22 23:20 Sputum, Expectorated/Coughed Gram Stain - Final 05/21/22 23:20 Sputum, Expectorated/Coughed Respiratory Culture - Preliminary Appears to be normal respiratory contreras. Further studies to follow. 05/21/22 22:10 Mucosa - Nasopharyngeal Respiratory Panel (PCR) - Final 05/21/22 18:25 Urine, Random Legionella Antigen - Final 05/21/22 18:25 Urine, Random Streptococcus pneumoniae Antigen (M - Final 05/21/22 18:24 Interface Orders Rapid RSV (DFA) - Final 05/21/22 18:24 Mucosa - Nasopharyngeal Influenza Types A,B Direct FA (DELFINO) - Final Laboratory Results 05/21/22 18:25: Urine Color Yellow, Urine Clarity Clear, Urine pH 7.0, Ur Specific [place] 1.010, Urine Protein Negative, Urine Glucose (UA) Normal, Urine Ketones Negative, Urine Occult Blood Negative, Urine Nitrite Negative, Urine Bilirubin Negative, Urine Urobilinogen 4 H, Ur Leukocyte Esterase Negative, Urine RBC 0 SEEN, Urine WBC 0 SEEN, Ur Squamous Epith Cells 0 SEEN, Urine Bacteria 0 SEEN, Urine Mucus 0 SEEN 05/21/22 18:35: WBC 13.2 H, RBC 3.89 L, Hgb 11.7 L, Hct 35.1 L, MCV 90.2, MCH 30.1, MCHC 33.3, RDW Std Deviation 44.8 H, RDW Coeff of Cari 13.6, Plt Count 330, MPV 9.2, Immature Gran % (Auto) 0.500, Neut % (Auto) 78.1 H, Lymph % (Auto) 10.6 L, [place] % (Auto) 8.2, Eos % (Auto) 2.2, Baso % (Auto) 0.4, Absolute Neuts (auto) 10.4 H, Absolute Lymphs (auto) 1.40, Nucleated RBC % 0 05/21/22 18:35: Sodium 137, Potassium 4.0, Chloride 102, Carbon Dioxide 30.0, Anion Gap 5, BUN 10, Creatinine 0.76, Estim Creat Clear Calc 116.29, Est GFR (MDRD) Af Amer 136, Est GFR (MDRD) Non-Af 112, BUN/Creatinine Ratio 13.2, Glucose 97, Calcium 8.9, Troponin I High Sens 7 05/21/22 18:35: PT 14.0, INR 1.1 05/21/22 18:35: Lactic Acid 0.5 05/22/22 00:05: MRSA (PCR) Negative 05/22/22 05:55: WBC 11.1 H, RBC 3.69 L, Hgb 11.2 L, Hct 33.3 L, MCV 90.2, MCH 30.4, MCHC 33.6, RDW Std Deviation 44.9 H, RDW Coeff of Cari 13.6, Plt Count 307, MPV 9.3, Immature Gran % (Auto) 0.400, Neut % (Auto) 77.1 H, Lymph % (Auto) 11.1 L, [place] % (Auto) 8.6, Eos % (Auto) 2.3, Baso % (Auto) 0.5, Absolute Neuts (auto) 8.6 H, Absolute Lymphs (auto) 1.23, Nucleated RBC % 0 05/22/22 05:55: Sodium 138, Potassium 4.1, Chloride 105, Carbon Dioxide 30.0, Anion Gap 3 L, BUN 9, Creatinine 0.72, Estim Creat Clear Calc 119.11, Est GFR (MDRD) Af Amer 145, Est GFR (MDRD) Non-Af 120, BUN/Creatinine Ratio 12.6, Glucose 97, Calcium 8.5, Phosphorus 3.6, Magnesium 2.2, Total Bilirubin 0.40, AST 18, ALT 33, Alkaline Phosphatase 97, Total Protein 6.2 L, Albumin 2.9 L, Globulin 3.3, Albumin/Globulin Ratio 0.9 Charges/Coding Visit Charges Inpatient E&M: 70674 Subs Hosp L2
[2022-05-22] MEDS: Gabapentin 600 MG Tablet PO ×2 (08:17→16:30)
--- NOTE | 2022-05-22 10:20 | CASEMGMT ---
DALJIT ESPINOZA Assessment: Face to Face with pt for initial transition planning/care coordination assessment. DALJIT ESPINOZA introduced self and role at [facility], pt voices understanding and consents to assessment. Pt is A/O x4 and answers all questions appropriately at this time. Pt in bed advising he has a Migraine. Lights were turned down per Pt's request. Care providers, pharmacy, and demographics verified/updated. Admitting Dx: Hypoxic respiratory failure, bilateral pneumonia. PCP: Dominick. Specialists: Pain Management, [facility]. Pt unsure of Physician. Preferred Pharmacy: [facility]. Insurance: [employer]. Prescription Benefit: yes. LW/HPOA: Pt denies having a LW/DPOA. LNOK: Estella Ridley, . Living Arrangements: Pt lives with his and [id number] in a one story home with no steps to enter. Pt reports being I in ADLs. Transportation: Pt drives self and denies concerns with transportation. Pt's can assist if needed. DME/HHC/SNF: Pt reports having the following at home: walker, wheelchair, grab bars, and a shower chair. Pt denied using any of the DME but has it if needed. Pt reports having SN, PT, and OT HHC in the past. Pt said he wasn't living in the area during that time so doesn't know the name of the provider. Pt denied any SNF stays. Pt denied having oxygen at home but is currently on oxygen at [facility]. Pt states no concerns with going home at time of dc. Pt states no further concerns/needs. CM to follow. Advised pt to ask CM if any further question/concerns/needs arise, voices understanding. Pt Goal: Home. Plan: Home. ? ?
[2022-05-22] MEDS: Acetaminophen/Butalbital/Caffe 1 Tablet PO ×2 (10:33→20:59)
[2022-05-22] MEDS: Lisinopril 40 MG Tablet PO (10:34)
[2022-05-22] MEDS: Enoxaparin 40 MG/0.4 ML Syringe SC (10:34)
[2022-05-22] MEDS: Pantoprazole Sodium 40 MG Tablet PO (10:34)
[2022-05-22] MEDS: HYDROmorphone 2 MG TABLET 4 MG PO ×3 (10:38→23:07)
[2022-05-22] MEDS: guaiFENesin 1,200 MG Tablet 1200 MG PO ×2 (11:50→23:09)
[2022-05-22] MEDS: Gabapentin 600 MG Tablet 1200 MG PO (23:08)
[2022-05-22] MEDS: Loratadine 10 MG Tablet PO (23:09)
[2022-05-22] MEDS: DULoxetine Hcl 60 MG Capsule PO (23:10)
[2022-05-23] VITALS (10 sets, daily range): BP systolic 146–164; BP diastolic 69–86; PULSE 73–96; RESP 18–21; TEMP 36.7–36.9; O2SAT 91–97
[2022-05-23] MEDS: HYDROmorphone 2 MG TABLET 4 MG PO (06:09)
[2022-05-23] MEDS: Acetaminophen/Butalbital/Caffe 1 Tablet PO (06:09)
[2022-05-23 07:15] LABS: Absolute Lymphocyte Count 1.49 X10^3/uL (0.83-4.51); Absolute Neutrophil Count 6.1 X10^3/uL (2.0-7.7); Basophil# 0.07 X10^3/uL; Basophil% 0.8 % (0-1); Eosinophils% 3.4 % (0-5); Hemoglobin 11.8 g/dL (13.0-16.5); Lymphocyte # 1.49 X10^3/ul (0.83-4.51); Lymphocyte % 16.8 % (19-41); Mean Corp Hgb Conc 33.7 g/dL (32-36); Mean Corpuscular Hgb 30.1 pg (27.0-32.0); Mean Corpuscular Volume 89.3 fL (80-94); Mean Platelet Vol. 9.5 fl (6.2-12.0); Monocyte# 0.88 X10^3/uL; Monocyte% 9.9 % (0-10); NRBC Flagged by Analyzer 0 % (0-5); Neutrophil # 6.11 X10^3/uL (2.7-7.7); Neutrophil % 68.7 % (47-70); Platelet Count 329 K/mm3 (150-450); RBC Distribution Width CV 13.4 % (11.6-14.6); RBC Distribution Width SD 43.8 fl (35.1-43.9); Red Blood Count 3.92 M/mm3 (4.6-6.2); White Blood Count 8.9 K/mm3 (4.4-11.0)
[2022-05-23 07:44] LABS: Anion Gap 5 (5-15); BUN 8 mg/dL (7-18); Calcium,Total 8.9 mg/dL (8.5-10.1); Chloride 103 mmol/L (98-107); Creatinine, Serum 0.67 mg/dL (0.70-1.30); EST Glomerular Filtration Rate 130 mL/min (>60); Est Glom Filt Rate - Afr Amer 157 mL/min (>60); Glucose 102 mg/dL (74-106); Potassium 3.8 mmol/L (3.5-5.1); Sodium Level 138 mmol/L (136-145)
--- NOTE | 2022-05-23 07:55 | DCINST_ITS ---
Discharge Instructions Diet Discharge Diet: No restrictions Activity Discharge Activity: Return to Normal Activity Weight Bearing Status: Weight bearing as tolerated Dressing / Incision Call your doctor if you observe: Fever of 101 or Higher, Coldness, Increased Pain, Numbness or Tingling, Change in Color, Inability to urinate, Inability to have a bowel movement, Shortness of breath, Dizziness, Fainting spells, Swelling in the ankles, Chest pain, Prolonged hiccupping, Increased palpitations (irregular heartbeat), Calf discomfort and Uncontrolled pain Follow Up Care Test Results: Test results from this visit will be discussed in further detail at your follow- up appointment, if applicable. Discharge Plan Admission Admit Date/Time: 05/21/22 20:49 Primary Reason for Your Visit: bilateral pneumonia Attending Provider: Oswald Root Primary Care Provider: Regan Tan Consulting Providers: Roberta Mckeon Discharge Orders/Prescriptions Prescriptions: New levofloxacin 500 mg tablet 500 mg PO DAILY Qty: 5 0RF gabapentin 600 mg Tablet 1,200 mg PO QHS Qty: 0 0RF pseudoephedrine-guaifenesin [Mucus D] 60-600 mg tablet extended release 12 hr 1 tab PO BID Qty: 14 0RF Continued methocarbamol 500 mg Tablet 500 mg PO TID gabapentin 600 mg Tablet 600 mg PO BID amitriptyline 10 mg Tablet 20 mg PO QHS pantoprazole 40 mg Tablet,Delayed Release (Dr/Ec) 40 mg PO DAILY hydromorphone 4 mg Tablet 4 mg PO Q6H PRN (Reason: Back Pain) lisinopril 40 mg Tablet 40 mg PO DAILY duloxetine 60 mg Capsule,Delayed Release(Dr/Ec) 60 mg PO QHS levocetirizine 5 mg Tablet 5 mg PO QHS gufzcbisqz-krfygfbjzmlzt-typr [Fioricet] 50-300-40 mg Capsule 1 cap PO Q6H PRN (Reason: Migraine Headache) Held trazodone 100 mg Tablet 200 mg PO QHS Hold Instructions: Decreased to 100 mg daily at bedtime while patient is taking Levaquin because of drug drug interaction with levofloxacin Discontinued gabapentin 600 mg Tablet 1,200 mg PO QHS Referrals / Follow Up: Regan Tan MD [Primary Care Provider] - Within 2 Weeks Disposition Disposition (needs filled in before D/C Order can be placed): Home, Self Care
[2022-05-23] MEDS: Enoxaparin 40 MG/0.4 ML Syringe SC (08:36)
[2022-05-23] MEDS: guaiFENesin 1,200 MG Tablet 1200 MG PO (08:36)
[2022-05-23] MEDS: Methocarbamol 500 MG Tablet PO (08:36)
[2022-05-23] MEDS: Lisinopril 40 MG Tablet PO (08:36)
[2022-05-23] MEDS: Pantoprazole Sodium 40 MG Tablet PO (08:36)
[2022-05-23] MEDS: Gabapentin 600 MG Tablet PO (08:38)
[2022-05-23] MEDS: Ipratropium/Albuterol Sulfate 3 ML AMPUL.NEB INHALATION (09:11)
[2022-05-23] MEDS: Ibuprofen 600 MG Tablet PO (09:53)
--- NOTE | 2022-05-23 11:36 | DS.PCM_ITS ---
Providers Date of Admission: 05/21/22 Date of Discharge: 05/23/22 Primary Care Physician: Dr. Regan Tan MD Reason For Visit: HYPOXIC RESPIRATORY FAILURE, BILATERAL PNEUMONIA Diagnosis Discharge Diagnosis (1) Pneumonia: Status: Acute Code(s): J18.9 - Pneumonia, unspecified organism (2) Hypoxia: Status: Acute Code(s): R09.02 - Hypoxemia (3) Leukocytosis: Status: Acute Code(s): D72.829 - Elevated white blood cell count, unspecified Medications at Discharge Home Medications amitriptyline 10 mg tablet 20 mg PO QHS 04/05/22 kaadpdpngc-nzxuaihiibyik-gftgvynq 50 mg-300 mg-40 mg capsule (Fioricet) 1 cap PO Q6H PRN Migraine Headache 04/05/22 duloxetine 60 mg capsule,delayed release 60 mg PO QHS 04/05/22 gabapentin 600 mg tablet 600 mg PO BID 04/05/22 hydromorphone 4 mg tablet 4 mg PO Q6H PRN Back Pain 04/05/22 levocetirizine 5 mg tablet 5 mg PO QHS 04/05/22 lisinopril 40 mg tablet 40 mg PO DAILY 04/05/22 methocarbamol 500 mg tablet 500 mg PO TID 04/05/22 pantoprazole 40 mg tablet,delayed release 40 mg PO DAILY 04/05/22 trazodone 100 mg tablet 200 mg PO QHS 04/05/22 gabapentin 600 mg tablet 1,200 mg PO QHS #0 tabs 05/23/22 levofloxacin 500 mg tablet 500 mg PO DAILY #5 tabs 05/23/22 pseudoephedrine-guaifenesin ER 60 mg-600 mg tablet,extend release 12hr (Mucus D) 1 tab PO BID cold symptoms #14 tabs 05/23/22 Hospital Course Summary of Care Provided Hospital Course: This 49-year-old patient [facility] was admitted with chief complaint of shortness of breath, persistent cough productive of brownish sputum and mild hypoxia. Patient had COVID infection probably first week of March and he got cleared on the last week with negative COVID test. 1. Community-acquired pneumonia and mild hypoxia: [facility]. CTA and chest x-ray initially reviewed and shows bilateral pneumonia with no PE. Patient does not meet criteria for acute hypoxic respiratory failure. Curb 65 score is 0. Pulse ox 97% on room air currently on 2 L of oxygen. Patient flu and RSV rapid antigens, respiratory panel and urinary antigens negative. Preliminary sputum culture growing normal respiratory contreras. On IV ceftriaxone and Zithromax. Continue incentive spirometry, PEP and Mucinex D. Patient had mild leukocytosis, improving 05/23: Patient discharged on 5 more days of Levaquin to complete a total of 7 days of antibiotic. Patient pulse ox is 91% on room air. Chronic low back pain -Continue high at home hydromorphone -Continue home Ativan -Continue home amitriptyline. Patient on gabapentin 600 mg twice daily and 1200 mg p.o. at bedtime home dose. GERD -Continue home Protonix Hypertension -Continue lisinopril History of migraine headaches -As needed Fioricet per home med reconciliation Depression -Continue home duloxetine -Continue home trazodone DVT prophylaxis -Lovenox 40 mg daily subcu -SCDs CODE STATUS-Full code Discharge medication reconciliation done. Discharge follow-up instructions completed. Discharge process discussed with the patient and all questions were answered to patient's satisfaction. Total time spent, exact 35 minutes on discharge meds reconciliation, examination, coordination of care with nurses and ancillary staff, review of imaging and blood test and discussion with the patient on follow-up instru ctions. Clinical Impression(s) from Imaging Studies Chest X-Ray 05/21/22 18:36 IMPRESSION: No acute cardiopulmonary disease. Electronically Signed: Dina Morris MD at 19:09 EDT Reading Location ID and State: Juan Garcia MD Tel , Service support , Chest CTA 05/21/22 19:25 IMPRESSION: Bilateral lower lobe pneumonia. Old healed granulomatous disease. Electronically Signed: Dina Morris MD at 20:26 EDT Reading Location ID and State: Juan Garcia MD Tel , Service support , Microbiology Past 72 Hours 05/21/22 23:20 Sputum, Expectorated/Coughed Gram Stain - Final 05/21/22 23:20 Sputum, Expectorated/Coughed Respiratory Culture - Preliminary Appears to be normal respiratory contreras. Further studies to follow. 05/21/22 22:10 Mucosa - Nasopharyngeal Respiratory Panel (PCR) - Final 05/21/22 18:25 Urine, Random Legionella Antigen - Final 05/21/22 18:25 Urine, Random Streptococcus pneumoniae Antigen (M - Final 05/21/22 18:24 Interface Orders Rapid RSV (DFA) - Final 05/21/22 18:24 Mucosa - Nasopharyngeal Influenza Types A,B Direct FA ([facility]) - Final Laboratory Results 05/21/22 18:25: Urine Color Yellow, Urine Clarity Clear, Urine pH 7.0, Ur Specific [place] 1.010, Urine Protein Negative, Urine Glucose (UA) Normal, Urine Ketones Negative, Urine Occult Blood Negative, Urine Nitrite Negative, Urine Bilirubin Negative, Urine Urobilinogen 4 H, Ur Leukocyte Esterase Negative, Urine RBC 0 SEEN, Urine WBC 0 SEEN, Ur Squamous Epith Cells 0 SEEN, Urine Bacteria 0 SEEN, Urine Mucus 0 SEEN 05/21/22 18:35: WBC 13.2 H, RBC 3.89 L, Hgb 11.7 L, Hct 35.1 L, MCV 90.2, MCH 30.1, MCHC 33.3, RDW Std Deviation 44.8 H, RDW Coeff of Cari 13.6, Plt Count 330, MPV 9.2, Immature Gran % (Auto) 0.500, Neut % (Auto) 78.1 H, Lymph % (Auto) 10.6 L, [place]cd[place] % (Auto) 8.2, Eos % (Auto) 2.2, Baso % (Auto) 0.4, Absolute Neuts (auto) 10.4 H, Absolute Lymphs (auto) 1.40, Nucleated RBC % 0 05/21/22 18:35: Sodium 137, Potassium 4.0, Chloride 102, Carbon Dioxide 30.0, Anion Gap 5, BUN 10, Creatinine 0.76, Estim Creat Clear Calc 116.29, Est GFR (MDRD) Af Amer 136, Est GFR (MDRD) Non-Af 112, BUN/Creatinine Ratio 13.2, Glucose 97, Calcium 8.9, Troponin I High Sens 7 05/21/22 18:35: PT 14.0, INR 1.1 05/21/22 18:35: Lactic Acid 0.5 05/22/22 00:05: MRSA (PCR) Negative 05/22/22 05:55: WBC 11.1 H, RBC 3.69 L, Hgb 11.2 L, Hct 33.3 L, MCV 90.2, MCH 30.4, MCHC 33.6, RDW Std Deviation 44.9 H, RDW Coeff of Cari 13.6, Plt Count 307, MPV 9.3, Immature Gran % (Auto) 0.400, Neut % (Auto) 77.1 H, Lymph % (Auto) 11.1 L, [place]cdowell % (Auto) 8.6, Eos % (Auto) 2.3, Baso % (Auto) 0.5, Absolute Neuts (auto) 8.6 H, Absolute Lymphs (auto) 1.23, Nucleated RBC % 0 05/22/22 05:55: Sodium 138, Potassium 4.1, Chloride 105, Carbon Dioxide 30.0, Anion Gap 3 L, BUN 9, Creatinine 0.72, Estim Creat Clear Calc 119.11, Est GFR (MDRD) Af Amer 145, Est GFR (MDRD) Non-Af 120, BUN/Creatinine Ratio 12.6, Glucose 97, Calcium 8.5, Phosphorus 3.6, Magnesium 2.2, Total Bilirubin 0.40, AST 18, ALT 33, Alkaline Phosphatase 97, Total Protein 6.2 L, Albumin 2.9 L, Globulin 3.3, Albumin/Globulin Ratio 0.9 Physical Exam Narrative The patient patient has bilateral lobar pneumonia. Denies history of smoking, current or past. Denies chronic lung disease or heart disease, stroke or liver disease. No fever. Physical exam General: Alert, Oriented x3, Cooperative HEENT: Atraumatic, PERRLA, EOMI, Normocephalic Oral: No Gingival or Mucosal Lesions/ Ulcerations Neck: Supple, No JVD, Negative Carotid Bruits Lungs: Air entry diminished in bilateral lung bases. Bilateral coarse crepitations. On 2 L of oxygen. No tachypnea. Cardiovascular: Regular rate, Regular Rhythm, Normal S1, Normal S2, No murmurs Abdomen: Bowel Sounds Present, Soft, Non Tender, Non-Distended : No renal angle tenderness. No suprapubic tenderness. Extremities: No edema, Capillary Refill Less than 3 Seconds Skin: No rashes, No breakdown Musculoskeletal: No Tenderness to Palpation of Joints or Extremities Neurological: Cranial nerves II-XII grossly intact, DTR 2+/4 and Symmetrical, Neuro grossly intact Psych/Mental Status: Normal Affect, Appropriate. Weight / BMI Weight Weight: 259 lb 11.272 oz Body Mass Index (BMI) 36.2 ABG / Lab / Microbiology Data Result Diagrams: 05/23/22 05:35 05/23/22 05:35 Laboratory: Laboratory Results - last 24 hr 05/23/22 05:35: WBC 8.9, RBC 3.92 L, Hgb 11.8 L, Hct 35.0 L, MCV 89.3, MCH 30.1, MCHC 33.7, RDW Std Deviation 43.8, RDW Coeff of Cari 13.4, Plt Count 329, MPV 9.5, Immature Gran % (Auto) 0.400, Neut % (Auto) 68.7, Lymph % (Auto) 16.8 L, Mcdowell % (Auto) 9.9, Eos % (Auto) 3.4, Baso % (Auto) 0.8, Absolute Neuts (auto) 6.1, Absolute Lymphs (auto) 1.49, Nucleated RBC % 0 05/23/22 05:35: Sodium 138, Potassium 3.8, Chloride 103, Carbon Dioxide 30.0, Anion Gap 5, BUN 8, Creatinine 0.67 L, Estim Creat Clear Calc 128.00, Est GFR (MDRD) Af Amer 157, Est GFR (MDRD) Non-Af 130, BUN/Creatinine Ratio 12.0, Glucose 102, Calcium 8.9 Microbiology: Microbiology 05/21/22 18:25 Urine, Clean Catch Urine Culture - Preliminary Mixed Gram Positive Organisms 05/21/22 23:20 Sputum, Expectorated/Coughed Gram Stain - Final 05/21/22 23:20 Sputum, Expectorated/Coughed Respiratory Culture - P reliminary Appears to be normal respiratory contreras. Further studies to follow. 05/21/22 22:10 Mucosa - Nasopharyngeal Respiratory Panel (PCR) - Final 05/21/22 18:25 Urine, Random Legionella Antigen - Final 05/21/22 18:25 Urine, Random Streptococcus pneumoniae Antigen (M - Final 05/21/22 18:24 Interface Orders Rapid RSV (DFA) - Final 05/21/22 18:24 Mucosa - Nasopharyngeal Influenza Types A,B Direct FA ([facility]) - Final D/C Instructions Discharge Diet: No restrictions Weight Bearing Status: Weight bearing as tolerated Call your doctor if you observe: Fever of 101 or Higher, Coldness, Increased Pain, Numbness or Tingling, Change in Color, Inability to urinate, Inability to have a bowel movement, Shortness of breath, Dizziness, Fainting spells, Swelling in the ankles, Chest pain, Prolonged hiccupping, Increased palpitations (irregular heartbeat), Calf discomfort and Uncontrolled pain Meaningful Use Info Meaningful Use Diagnoses (Choose all that apply): None applicable Discharge Plan Admission Admit Date/Time: 05/21/22 20:49 Primary Reason for Your Visit: bilateral pneumonia Attending Provider: Oswald Root Primary Care Provider: Regan Tan Consulting Providers: Roberta Mckeon Discharge Orders/Prescriptions Prescriptions: New levofloxacin 500 mg tablet 500 mg PO DAILY Qty: 5 0RF gabapentin 600 mg Tablet 1,200 mg PO QHS Qty: 0 0RF pseudoephedrine-guaifenesin [Mucus D] 60-600 mg tablet extended release 12 hr 1 tab PO BID Qty: 14 0RF Continued methocarbamol 500 mg Tablet 500 mg PO TID gabapentin 600 mg Tablet 600 mg PO BID amitriptyline 10 mg Tablet 20 mg PO QHS pantoprazole 40 mg Tablet,Delayed Release (Dr/Ec) 40 mg PO DAILY hydromorphone 4 mg Tablet 4 mg PO Q6H PRN (Reason: Back Pain) lisinopril 40 mg Tablet 40 mg PO DAILY duloxetine 60 mg Capsule,Delayed Release(Dr/Ec) 60 mg PO QHS levocetirizine 5 mg Tablet 5 mg PO QHS unkgftfkph-ygxssjndgoklx-gpln [Fioricet] 50-300-40 mg Capsule 1 cap PO Q6H PRN (Reason: Migraine Headache) Held trazodone 100 mg Tablet 200 mg PO QHS Hold Instructions: Decreased to 100 mg daily at bedtime while patient is taking Levaquin because of drug drug interaction with levofloxacin Discontinued gabapentin 600 mg Tablet 1,200 mg PO QHS Referrals / Follow Up: Regan Tan MD [Primary Care Provider] - Within 2 Weeks Disposition Disposition (needs filled in before D/C Order can be placed): Home, Self Care Charges/Coding Visit Charges Inpatient E&M: 93778 Disch Hosp
== END 2022-05-23 13:35 | disposition home or self-care (01) | DRG 195 ==
LOC: ED 18:44 → MS3 05-22 07:26
PROVIDERS: Admitting Provider Internal Medicine; Emergency Provider Student in an Organized Health Care Education/Training Program; PCP Internal Medicine; Visit Provider Internal Medicine
DX: J18.9 Pneumonia, unspecified organism (principal); D72.829 Elevated white blood cell count, unspecified; K21.9 Gastro-esophageal reflux disease without esophagitis; I10 Essential (primary) hypertension; F32.A Depression, unspecified; G89.29 Other chronic pain; Z86.16 Personal history of COVID-19; M54.50 Low back pain, unspecified; R09.02 Hypoxemia
CPT/HCPCS: 36415; 71045; 71275; 80048; 80053; 81001; 83605; 83735; 84100; 84484; 85025; 85610; 87040; 87070; 87077; 87086; 87088; 87205; 87449; 87633; 87641; 87804; 87807; 93005; 94640; 94667; 94668; 99251; 99285; J7030; Q9967; A4216; G0463; J0696; J3490

== ENCOUNTER 2022-06-18 16:56 | Emergency (ER) | payer BC, OTHER, SELFPAY ==
[2022-06-18] VITALS (7 sets, daily range): BP systolic 137–149; BP diastolic 68–94; PULSE 74–94; RESP 12–18; TEMP 36.6; O2SAT 93–98; BMI 35.5
--- NOTE | 2022-06-18 17:25 | RAD_ITS ---
STUDY: X-RAY CHEST REASON FOR EXAM: Male, 57 years old. SOB TECHNIQUE: AP portable COMPARISON: 05/21/2022 FINDINGS: The lungs are clear and expanded. There is no demonstrated pleural abnormality. Normal size heart. Normal mediastinum. Calcified right infrahilar nodes.. Normal visualized pulmonary arteries. Normal visualized aortic arch and descending thoracic aorta. Normal visualized thoracic spine. Normal visualized ribs, clavicles, and shoulders. There is no demonstrated abnormality of the visualized soft tissue structures of the upper abdomen. There has been clearing of the bibasilar interstitial infiltrates. No new infiltrates identified RAD/Chest 1 View (Portable) IMPRESSION: Old granulomatous disease on the right. No acute cardiopulmonary pathology Electronically Signed: Monty Crane MD at 17:38 EST ,
[2022-06-18 17:33] LABS: Absolute Lymphocyte Count 1.22 X10^3/uL (0.83-4.51); Absolute Neutrophil Count 9.2 X10^3/uL (2.0-7.7); Basophil# 0.04 X10^3/uL; Basophil% 0.4 % (0-1); Eosinophil# 0.06 X10^3/uL; Eosinophils% 0.5 % (0-5); Hematocrit 41.5 % (40-54); Hemoglobin 13.5 g/dL (13.0-16.5); Lymphocyte # 1.22 X10^3/ul (0.83-4.51); Lymphocyte % 10.7 % (19-41); Mean Corp Hgb Conc 32.5 g/dL (32-36); Mean Corpuscular Hgb 28.8 pg (27.0-32.0); Mean Corpuscular Volume 88.7 fL (80-94); Mean Platelet Vol. 8.9 fl (6.2-12.0); Monocyte# 0.82 X10^3/uL; Monocyte% 7.2 % (0-10); NRBC Flagged by Analyzer 0 % (0-5); Neutrophil # 9.19 X10^3/uL (2.7-7.7); Neutrophil % 80.8 % (47-70); Platelet Count 283 K/mm3 (150-450); RBC Distribution Width CV 13.8 % (11.6-14.6); RBC Distribution Width SD 44.5 fl (35.1-43.9); Red Blood Count 4.68 M/mm3 (4.6-6.2); White Blood Count 11.4 K/mm3 (4.4-11.0)
[2022-06-18 17:48] LABS: Anion Gap 7 (5-15); BUN 5 mg/dL (7-18); BUN/Creat Ratio 6.2 RATIO (10-20); Calcium,Total 9.3 mg/dL (8.5-10.1); Chloride 98 mmol/L (98-107); Creatinine, Serum 0.81 mg/dL (0.70-1.30); EST Glomerular Filtration Rate 104 mL/min (>60); Est Glom Filt Rate - Afr Amer 125 mL/min (>60); Estimated Creatinine Clearance 105.87 ml/min; Glucose 141 mg/dL (74-106); Potassium 3.9 mmol/L (3.5-5.1); Sodium Level 137 mmol/L (136-145)
[2022-06-18] MEDS: 0.9% Normal Saline 1,000 ML 999 ML IV (19:17)
--- NOTE | 2022-06-18 19:39 | EX.ED.DYSGE1 ---
HPI History of Present Illness Chief Complaint: General Illness Narrative Narrative: Patient has a history of recent pneumonia with hypoxia with admission, he has ANDREW and is on a CPAP at night. He feels like he has been having loose stools for the past few days, he also feels lightheaded when he stands up. He has no fevers or chills. He has no cough or congestion. His dyspnea is baseline and he does not feel any worse today. He has no cough. He has no abdominal pain. No back pain. [facility] Medical History Anemia Chronic pain COVID CPAP (continuous positive airway pressure) dependence Hypertension Intestinal adhesions with partial obstruction Leg fracture Migraines Pneumonia Sleep apnea Home Medications amitriptyline 10 mg tablet 20 mg PO QHS 04/05/22 [History Last Taken 05/20/22] adgqishwqf-jbauumzufloyr-uvwwbfkd 50 mg-300 mg-40 mg capsule (Fioricet) 1 cap PO Q6H PRN Migraine Headache 04/05/22 [History Last Taken 05/20/22] duloxetine 60 mg capsule,delayed release 60 mg PO QHS 04/05/22 [History Last Taken 05/21/22] gabapentin 600 mg tablet 600 mg PO BID 04/05/22 [History Last Taken 05/21/22] hydromorphone 4 mg tablet 4 mg PO Q6H PRN Back Pain 04/05/22 [History Last Taken 05/21/22] levocetirizine 5 mg tablet 5 mg PO QHS 04/05/22 [History Last Taken 05/20/22] lisinopril 40 mg tablet 40 mg PO DAILY 04/05/22 [History Last Taken 05/21/22] methocarbamol 500 mg tablet 500 mg PO TID 04/05/22 [History Last Taken 05/21/22] pantoprazole 40 mg tablet,delayed release 40 mg PO DAILY 04/05/22 [History Last Taken 05/21/22] trazodone 100 mg tablet 200 mg PO QHS 04/05/22 [History Last Taken 05/20/22] gabapentin 600 mg tablet 1,200 mg PO QHS #0 tabs 05/23/22 [Rx Last Taken Unknown] levofloxacin 500 mg tablet 500 mg PO DAILY #5 tabs 05/23/22 [Rx Last Taken Unknown] pseudoephedrine-guaifenesin ER 60 mg-600 mg tablet,extend release 12hr (Mucus D) 1 tab PO BID cold symptoms #14 tabs 05/23/22 [Rx Last Taken Unknown] Allergy/AdvReac Type Severity Reaction Status Date / Time ampicillin AdvReac Nausea/Vom/ Verified 06/18/22 16:57 Diarrhea Family History Other Hypertension Surgical History Gastric bypass status for obesity H/O hernia repair H/O spinal fusion Total knee replacement status Social History household members: spouse housing: house Smoking Status: Never smoker alcohol intake: current alcohol intake frequency: 0-2 drinks per day details: Drinks 1 shot of whiskey with soda daily substance use type: does not use ROS ROS ED ROS Narrative Past medical history: Reviewed, includes ANDREW, chronic pain, hypertension, GERD and migraines Medications: Reviewed Social history: Noncontributory Review of systems: All systems negative except as indicated General: No fever Eyes: No visual changes ENT: No upper airway congestion, normal voice Neck: No neck pain Cardiovascular: No chest pain. He does feel lightheaded. No palpitations. Respiratory: No shortness of breath or cough Gastrointestinal: No abdominal pain, nausea vomiting or diarrhea Genitourinary: No dysuria Musculoskeletal: Denies myalgias no difficulty with ambulation Skin: No rash Neurological: No memory loss, confusion or any focal weakness Psych: No recent behavioral changes Hematologic: No easy bleeding or easy bruising EXAM Physical Exam Narrative Exam Narrative: Physical exam General: Well nourished, Well developed, No Acute Distress Head: Normocephalic, Atraumatic Eyes: Conjunctiva not pale ENT: Moist mucous membranes Neck: Supple, Nontender, No lymphadenopathy Cardiovascular: Regular rate, Regular rhythm Respiratory: No distress, coarse breath sounds but speaks in full sentences some end expiratory wheezing. Abdomen: Soft, Nontender, Nondistended Back: Nontender, Normal Inspection. Negative for: CVA tenderness Extremities: Nontender, No edema, no calf pain Skin: Normal color, No rash Neurological: Alert, Normal Strength, Normal Sensation Psychological: Normal affect Const Vital Signs: 06/18/22 16:58 06/18/22 17:03 06/18/22 17:03 Temperature 97.8 F Temperature Source Temporal Pulse Rate 88 Respiratory Rate 18 15 Respiratory Effort Respiratory Pattern Blood Pressure 144/77 H Blood Pressure Mean 99 Pulse Ox 97 95 94 Oxygen Delivery Method Room Air Room Air Room Air 06/18/22 17:01 06/18/22 17:56 06/18/22 18:36 Temperature 97.8 F 97.8 F Temperature Source Temporal Temporal Pulse Rate 88 83 Respiratory Rate 15 14 Respiratory Effort Normal Non-Labored Respiratory Pattern Normal Blood Pressure 144/77 H 149/83 H Blood Pressure Mean 99 105 Pulse Ox 94 93 Oxygen Delivery Method Room Air Room Air 06/18/22 20:16 06/18/22 20:31 Temperature 97.8 F Temperature Source Temporal Pulse Rate 83 74 Respiratory Rate 18 12 Respiratory Effort Respiratory Pattern Normal Blood Pressure 143/94 H Blood Pressure Mean 110 Pulse Ox 98 Oxygen Delivery Method Room Air MDM MDM Lab Data Labs: Laboratory Results - last 24 hr 06/18/22 06/18/22 17:25 17:25 WBC 11.4 H RBC 4.68 Hgb 13.5 Hct 41.5 MCV 88.7 MCH 28.8 MCHC 32.5 RDW Std Deviation 44.5 H RDW Coeff of Cari 13.8 Plt Count 283 MPV 8.9 Immature Gran % (Auto) 0.400 Neut % (Auto) 80.8 H Lymph % (Auto) 10.7 L [place] % (Auto) 7.2 Eos % (Auto) 0.5 Baso % (Auto) 0.4 Absolute Neuts (auto) 9.2 H Absolute Lymphs (auto) 1.22 Nucleated RBC % 0 Sodium 137 Potassium 3.9 Chloride 98 Carbon Dioxide 32.0 Anion Gap 7 BUN 5 L Creatinine 0.81 Estim Creat Clear Calc 105.87 Est GFR (MDRD) Af Amer 125 Est GFR (MDRD) Non-Af 104 BUN/Creatinine Ratio 6.2 L Glucose 141 H Calcium 9.3 Radiography Diagnostic Testing: Clinical Impression(s) from Imaging Studies Chest X-Ray 06/18/22 17:25 IMPRESSION: Old granulomatous disease on the right. No acute cardiopulmonary pathology Electronically Signed: Monty Crane MD at 17:38 EST , X-ray read by me and radiology shows chronic changes no acute changes EKG Initial EKG: Comments: Sinus rhythm with a rate of 79. Normal IL and QTc intervals. No ischemic changes. Treatment and Re-Evaluation Narrative: Patient appears well, I did listen to him again and he had some wheezing I gave him a breathing treatment and significantly improved he wants to be discharged after the IV fluids which I think is reasonable. If anything changes he is to return. Discharge Plan Triage Chief Complaint: General Illness ED Provider: Tono Calles Dx/Rx/DC Orders Clinical Impression: Wheezing, Dehydration Instructions: Dehydration Prescriptions: No Action methocarbamol 500 mg Tablet 500 mg PO TID gabapentin 600 mg Tablet 600 mg PO BID trazodone 100 mg Tablet 200 mg PO QHS Hold Instructions: Decreased to 100 mg daily at bedtime while patient is taking Levaquin because of drug drug interaction with levofloxacin amitriptyline 10 mg Tablet 20 mg PO QHS pantoprazole 40 mg Tablet,Delayed Release (Dr/Ec) 40 mg PO DAILY hydromorphone 4 mg Tablet 4 mg PO Q6H PRN (Reason: Back Pain) lisinopril 40 mg Tablet 40 mg PO DAILY duloxetine 60 mg Capsule,Delayed Release(Dr/Ec) 60 mg PO QHS levocetirizine 5 mg Tablet 5 mg PO QHS xkudbvqrzy-uiuvudzhjnlnj-wtiq [Fioricet] 50-300-40 mg Capsule 1 cap PO Q6H PRN (Reason: Migraine Headache) levofloxacin 500 mg tablet 500 mg PO DAILY Qty: 5 0RF gabapentin 600 mg Tablet 1,200 mg PO QHS Qty: 0 0RF pseudoephedrine-guaifenesin [Mucus D] 60-600 mg tablet extended release 12 hr 1 tab PO BID Qty: 14 0RF Primary Care Provider: Regan Tan Referrals: Regan Tan MD [Primary Care Provider] - 3-5 Days Disposition Disposition: Home, Self Care
[2022-06-18] MEDS: Ipratropium/Albuterol Sulfate 3 ML AMPUL.NEB INHALATION (20:27)
== END 2022-06-18 21:30 | disposition home or self-care (01) ==
PROVIDERS: Emergency Provider Emergency Medicine; PCP Internal Medicine; Visit Provider Emergency Medicine
DX: R06.2 Wheezing (principal); E86.0 Dehydration; G47.33 Obstructive sleep apnea (adult) (pediatric); Z86.16 Personal history of COVID-19
CPT/HCPCS: 71045; 80048; 85025; 87811; 93005; 94640; 94760; 96360; 99283; J7030

== ENCOUNTER → 2022-11-25 | Outpatient (CLI) | payer BC, OTHER, SELFPAY ==
--- NOTE | 2022-11-25 13:39 | CPS ---
Sterile saline for inhalation dose given as well as increasing doses of Methacholine. Patient received all doses of Methacholine except for the last dose of 16mg/ml due to meeting the requirements to stop methacholine challenge. 16mg/ml dose was discarded in the pharmaceutical waste bin.
--- NOTE | 2022-11-25 14:37 | BRONCHALL ---
Bronchoprovocation Challenge Bronchoprovocation Challenge Bronchoprovocation Challenge: BRONCHOPROVOCATION STUDY INTERPRETATION Brief HPI: Patient is a 57 year old male, currently under the care of Fern Carrillo, who presents to [facility] for a bronchoprovocation study secondary to diagnosis of asthma. Respiratory therapist reports good effort and reproducible results. Interpretation: Initial spirometry showed no large airways obstructive ventilatory defect. The patient was then given increasingly concentrated doses of methacholine in a stepwise/standardized fashion, using a modified ATS protocol. [The patient had a significant reduction in FEV1 by] 33% and a calculated PD20 of 0.085. Impression: Positive bronchoprovocation study in a range consistent with a diagnosis of asthma
== END | disposition home or self-care (01) ==
LOC: PSN 13:03
PROVIDERS: PCP Internal Medicine
DX: J45.30 Mild persistent asthma, uncomplicated (principal)
CPT/HCPCS: 94070; 95070; J3490; J7674

== ENCOUNTER → 2023-09-02 | Outpatient (CLI) | payer BC, SELFPAY ==
--- NOTE | 2023-09-02 16:16 | MRI_ITS ---
EXAM: MR LUMBAR SPINE WITHOUT INTRAVENOUS CONTRAST CLINICAL INDICATION: DDD, lbp, left hip pain TECHNIQUE: Multiplanar and multisequence MR images of the lumbar spine without intravenous contrast. Magnetic field strength 1.5 T. COMPARISON: Lumbosacral spine x-rays 03/13/2022. FINDINGS: VERTEBRAE: S1 laminectomy. SPINAL CORD: Unremarkable. Normal position and signal intensity of the conus medullaris. SOFT TISSUES: Unremarkable. /SPINAL CANAL/NEURAL FORAMINA: L1-L2: Unremarkable. Normal disc height and morphology. Normal spinal canal and lateral recesses. Normal neuroforamina. L2-L3: Unremarkable. Normal disc height and morphology. Normal spinal canal and lateral recesses. Normal neuroforamina. L3-L4: Mild loss of disc height and disc signal. Mild generalized disc bulge. AP diameter of the dural sac measures 8 mm. Mild ligamentum flavum thickening bilaterally. Canal appears congenitally narrowed. Normal neuroforamina. L4-L5: Moderate disc space narrowing. Congenital narrowing of the canal. Generalized disc bulge and mild central disc protrusion. AP diameter of the dural sac measures 8 mm. Ligamentum flavum thickening bilaterally. Normal neuroforamina. L5-S1: Discectomy with intervertebral spacer. No spinal canal or foraminal stenosis. Posterior fusion L5-S1 with pedicle screws and rods. MRI/Spine Lumbar (Routine) IMPRESSION: 1. L3-L4 mild spondylosis. 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 2. L4-L5 mild spondylosis. Mild spinal stenosis due to congenital narrowing of the canal, mild generalized disc bulge and central disc protrusion, and ligamentum flavum thickening. 3. L5-S1 discectomy with intervertebral spacer. No spinal canal or foraminal stenosis. 4. S1 laminectomy. 5. Posterior fusion L5-S1 with pedicle screws and rods. Electronically Signed: Leonel Mayen MD at 2:21 EST ,
== END | disposition home or self-care (01) ==
PROVIDERS: PCP Internal Medicine; Referring Provider Anesthesiology Pain Medicine; Visit Provider Anesthesiology Pain Medicine
DX: M51.37 Other intervertebral disc degeneration, lumbosacral region (principal)
CPT/HCPCS: 72148

== ENCOUNTER 2023-10-01 16:42 | Emergency (ER) | payer BC, SELFPAY ==
[2023-10-01] VITALS (11 sets, daily range): BP systolic 149–173; BP diastolic 60–95; PULSE 57–81; RESP 10–19; TEMP 36–36.3; O2SAT 92–98; BMI 40.7
--- NOTE | 2023-10-01 17:00 | EDS_ITS ---
HPI History of Present Illness Chief Complaint: Edema Informant: patient Narrative Narrative: 58-year-old male presenting to the emergency room stating that he is miserable from sinus issues and that his legs are swollen. Patient has a history of sinus issues and was recently on steroids as well as doxycycline. He states continues to have congestion. But what brought him to the emergency room is that he went to urgent care mention the leg swelling and they were concerned about the possibility of heart failure. He denies any chest pain or palpitations. He denies any significant dyspnea. No fevers. He states has not had leg swelling before. He does have a history of obstructive sleep apnea but does not wear CPAP due to his asthma and that CPAP causes him to have anxiety makes his breathing worse. He states he has been urinating. He denies any known renal issues. He states he had a heart cath in 2017 that was negative for vascular disease. He does not recall any recent echocardiogram. [facility] Medical History Anemia Chronic pain COVID CPAP (continuous positive airway pressure) dependence Hypertension Intestinal adhesions with partial obstruction Leg fracture Migraines Pneumonia Sleep apnea Home Medications amitriptyline 10 mg tablet 20 mg PO QHS 04/05/22 [History Last Taken 05/20/22] kaibyxtwev-mtujhzqwfbhit-mognquke 50 mg-300 mg-40 mg capsule (Fioricet) 1 cap PO Q6H PRN Migraine Headache 04/05/22 [History Last Taken 05/20/22] duloxetine 60 mg capsule,delayed release 60 mg PO QHS 04/05/22 [History Last Taken 05/21/22] gabapentin 600 mg tablet 600 mg PO BID 04/05/22 [History Last Taken 05/21/22] hydromorphone 4 mg tablet 4 mg PO Q6H PRN Back Pain 04/05/22 [History Last Taken 05/21/22] lisinopril 40 mg tablet 40 mg PO DAILY 04/05/22 [History Last Taken 05/21/22] pantoprazole 40 mg tablet,delayed release 40 mg PO DAILY 04/05/22 [History Last Taken 05/21/22] trazodone 100 mg tablet 200 mg PO QHS 04/05/22 [History Last Taken 05/20/22] gabapentin 600 mg tablet 1,200 mg (2 x 600 mg) PO QHS #0 tabs 05/23/22 [Rx Last Taken Unknown] pseudoephedrine-guaifenesin ER 60 mg-600 mg tablet,extend release 12hr (Mucus D) 1 tab PO BID cold symptoms #14 tabs 05/23/22 [Rx Last Taken Unknown] baclofen 10 mg tablet 10 mg PO TID 10/01/23 [History Last Taken Unknown] furosemide 40 mg tablet (Lasix) 40 mg PO BID #10 tabs 10/01/23 [Rx Last Taken Unknown] triamcinolone acetonide 55 mcg nasal spray aerosol (Nasacort) 2 spray intranasal DAILY #16.9 mL 10/01/23 [Rx Last Taken Unknown] Allergy/AdvReac Type Severity Reaction Status Date / Time ampicillin AdvReac Nausea/Vom/ Verified 10/01/23 16:43 Diarrhea Family History Other Hypertension Surgical History Gastric bypass status for obesity H/O hernia repair H/O spinal fusion Total knee replacement status Social History household members: spouse housing: house Smoking Status: Never smoker alcohol intake: current alcohol intake frequency: 0-2 drinks per day details: Drinks 1 shot of whiskey with soda daily substance use type: does not use ROS ROS ED Constitutional Constitutional ED: Denies chills or weight loss Eyes Eyes: Denies change in vision or diplopia ENT ENT ED: Reports rhinorrhea and other Details: Nasal congestion ; Denies ear pain or sore throat Cardiovascular Cardiovascular: Reports other Details: Bilateral lower leg swelling ; Denies chest pain, orthopnea, palpitations or racing heartbeat Respiratory/Chest Respiratory/Chest: Reports cough; Denies dyspnea or orthopnea Gastrointestinal Gastrointestinal: Denies abdominal pain, diarrhea, nausea or vomiting Genitourinary Genitourinary ED: Denies dysuria, hematuria or urinary frequency Musculoskeletal Musculoskeletal: Denies arthralgias or myalgias Integumentary Denies abscess or rash Neurologic Neurologic: Denies headache(s) or weakness Psychiatric Psychiatric: Denies anxiety, depression, suicidal ideation or suicidal thoughts Endocrine Endocrinology: Denies polydipsia, polyphagia or polyuria Allergic/Immunologic Allergic/Immunologic ED: Denies mouth swelling, tongue swelling or urticaria EXAM Physical Exam Const Vital Signs: 10/01/23 16:43 10/01/23 17:00 10/01/23 17:50 Temperature 96.8 F L Temperature Source Temporal Pulse Rate 76 71 Respiratory Rate 18 18 Respiratory Pattern Normal Blood Pressure 173/93 H 152/90 H Blood Pressure Mean 119 110 Pulse Ox 92 94 Oxygen Delivery Method Room Air Room Air Positive well nourished, well developed and obese General Appearance ED: well developed Nutritional Appearance: obese HEENT Reports normocephalic, head/scalp atraumatic and moist mucous membranes HEENT Narrative: Patient with turbinate edema Eyes PERRL and EOMs intact bilaterally Neck no lymphadenopathy, supple and no JVD Resp normal respiratory effort and clear to auscultation bilaterally Cardio regular rate, regular rhythm and no murmurs GI normal to inspection, nondistended, normoactive bowel sounds and non-tender Palpation: soft Back/Spine no CVA tenderness and normal ROM Extremity General Extremety ED: Yes edema General Extremity: edema bilateral lower extremity Details: moderate Neuro oriented x3 and CN's II-XII intact bilaterally Sensorium / Orientation: alert Motor Exam: strength 5/5 throughout Psych mental status grossly normal Mood & Affect: Negative for depressed or tearful Skin no rashes or lesions noted and no wounds MDM MDM MDM Narrative Medical decision making narrative: EKG showed a sinus rhythm without ischemic changes. I do not see right atrial enlargement on the EKG. My independent interpretation of the chest x-ray is no acute process. No overt signs of heart failure. Hemoglobin 12.3. White count 8.4 platelet count of 207. BNP is 27 troponin is 7 creatinine 0.81 with a potassium of 4.3. Clinically I am concerned about the potential for pulmonary artery hypertension and right-sided heart failure. I do not believe he needs to be admitted to obtain an echocardiogram. We talked about other causes of lymphedema including salt in the diet and vascular disease. Will be placing him on Lasix and have him follow-up next week with his primary care doctor. Talked we talked about compression socks and elevation. As far as his sinusitis/nasal congestion. He has been using Afrin spray. I cautioned him about prolonged use and rebound which he understands. When I recommend some Nasacort spray and he may benefit from an ENT valve. History & Record Review Discussion w/independent historian: Patient Lab Data Attestation: I reviewed the patient's lab results. Labs: Laboratory Results - last 24 hr 10/01/23 17:43 WBC 8.4 RBC 4.07 L Hgb 12.3 L Hct 36.9 L MCV 90.7 MCH 30.2 MCHC 33.3 RDW Std Deviation 42.2 RDW Coeff of Cari 12.8 Plt Count 207 MPV 10.5 Immature Gran % (Auto) 0.400 Neut % (Auto) 62.4 Lymph % (Auto) 20.1 Park % (Auto) 10.2 H Eos % (Auto) 6.1 H Baso % (Auto) 0.8 Absolute Neuts (auto) 5.2 Absolute Lymphs (auto) 1.69 Nucleated RBC % 0 Differential Comment SCANNED Sodium 137 Potassium 4.3 Chloride 104 Carbon Dioxide 28.0 Anion Gap 5 BUN 12 Creatinine 0.81 Estim Creat Clear Calc 136.41 Est GFR (MDRD) Af Amer 125 Est GFR (MDRD) Non-Af 103 BUN/Creatinine Ratio 14.7 Glucose 99 Calcium 8.9 Troponin I High Sens 7 B-Natriuretic Peptide 27.3 Radiography Diagnostic Testing: Clinical Impression(s) from Imaging Studies Chest X-Ray 10/01/23 17:31 IMPRESSION: No acute cardiopulmonary pathology Electronically Signed: Monty Crane MD at 17:56 EDT Reading Location ID and State: [address] [place] [address] Tel , Service support , EKG Initial EKG: Attestation: I personally reviewed and interpreted this EKG as follows: Comments: Normal sinus rhythm ventricular rate of 68 bpm Discharge Plan Triage Chief Complaint: Edema ED Provider: Zaheer Saenz Dx/Rx/DC Orders Clinical Impression: Swelling of both lower extremities, Sinusitis Instructions: ED Peripheral Edema, Bilateral Prescriptions: New furosemide [Lasix] 40 mg tablet 40 mg PO BID Qty: 10 0RF triamcinolone acetonide [Nasacort] 55 mcg aerosol,spray 2 spray intranasal DAILY Qty: 16.9 0RF Rx Instructions: administer into each nostril No Action gabapentin 600 mg Tablet 600 mg PO BID trazodone 100 mg Tablet 200 mg PO QHS Hold Instructions: Decreased to 100 mg daily at bedtime while patient is taking Levaquin because of drug drug interaction with levofloxacin amitriptyline 10 mg Tablet 20 mg PO QHS pantoprazole 40 mg Tablet,Delayed Release (Dr/Ec) 40 mg PO DAILY hydromorphone 4 mg Tablet 4 mg PO Q6H PRN (Reason: Back Pain) lisinopril 40 mg Tablet 40 mg PO DAILY duloxetine 60 mg Capsule,Delayed Release(Dr/Ec) 60 mg PO QHS atqtilnzci-sdkaiagbzjoda-wdke [Fioricet] 50-300-40 mg Capsule 1 cap PO Q6H PRN (Reason: Migraine Headache) gabapentin 600 mg Tablet 1,200 mg PO QHS Qty: 0 0RF pseudoephedrine-guaifenesin [Mucus D] 60-600 mg tablet extended release 12 hr 1 tab PO BID Qty: 14 0RF baclofen 10 mg tablet 10 mg PO TID Primary Care Provider: Regan Tan Referrals: Regan Tan MD [Primary Care Provider] - 5-7 Days Disposition Disposition: Home, Self Care
--- NOTE | 2023-10-01 17:31 | RAD_ITS ---
STUDY: X-RAY CHEST REASON FOR EXAM: Male, 58 years old. hypertension TECHNIQUE: AP portable COMPARISON: June 18, 2022. FINDINGS: The lungs are clear and expanded. There is no demonstrated pleural abnormality. Normal size heart. Normal mediastinum. Tiny calcified right hilar nodes. Normal visualized pulmonary arteries. Normal visualized aortic arch and descending thoracic aorta. Normal visualized thoracic spine. Normal visualized ribs, clavicles, and shoulders. There is no demonstrated abnormality of the visualized soft tissue structures of the upper abdomen. RAD/Chest 1 View (Portable) IMPRESSION: No acute cardiopulmonary pathology Electronically Signed: Monty Crane MD at 17:56 EDT ,
[2023-10-01 17:51] LABS: Absolute Lymphocyte Count 1.69 X10^3/uL (0.83-4.51); Absolute Neutrophil Count 5.2 X10^3/uL (2.0-7.7); Basophil# 0.07 X10^3/uL; Basophil% 0.8 % (0-1); Eosinophil# 0.51 X10^3/uL; Eosinophils% 6.1 % (0-5); Hematocrit 36.9 % (40-54); Hemoglobin 12.3 g/dL (13.0-16.5); Lymphocyte # 1.69 X10^3/ul (0.83-4.51); Lymphocyte % 20.1 % (19-41); Mean Corp Hgb Conc 33.3 g/dL (32-36); Mean Corpuscular Hgb 30.2 pg (27.0-32.0); Mean Corpuscular Volume 90.7 fL (80-94); Mean Platelet Vol. 10.5 fl (6.2-12.0); Monocyte# 0.86 X10^3/uL; Monocyte% 10.2 % (0-10); NRBC Flagged by Analyzer 0 % (0-5); Neutrophil # 5.24 X10^3/uL (2.7-7.7); Neutrophil % 62.4 % (47-70); POSITIVE COUNT YES; Platelet Count 207 K/mm3 (150-450); RBC Distribution Width CV 12.8 % (11.6-14.6); RBC Distribution Width SD 42.2 fl (35.1-43.9); Red Blood Count 4.07 M/mm3 (4.6-6.2); White Blood Count 8.4 K/mm3 (4.4-11.0)
[2023-10-01 17:56] LABS: Differential Indicated SCAN CRITERIA MET
[2023-10-01 18:10] LABS: Differential Comment SCANNED
[2023-10-01 18:15] LABS: Anion Gap 5 (5-15); BUN 12 mg/dL (7-18); BUN/Creat Ratio 14.7 RATIO (10-20); Calcium,Total 8.9 mg/dL (8.5-10.1); Chloride 104 mmol/L (98-107); Creatinine, Serum 0.81 mg/dL (0.70-1.30); EST Glomerular Filtration Rate 103 mL/min (>60); Est Glom Filt Rate - Afr Amer 125 mL/min (>60); Estimated Creatinine Clearance 136.41 ml/min; Glucose 99 mg/dL (74-106); Potassium 4.3 mmol/L (3.5-5.1); Sodium Level 137 mmol/L (136-145); Troponin-I HS 7 pg/mL (3.0-78.0)
[2023-10-01 18:22] LABS: BNP,B-Type NATRIURETIC PEPTIDE 27.3 pg/mL (0-100)
--- OUTSIDE RECORDS SUMMARY | 2023-10-01 22:38 | XMS RPT_ITS | CCD ---
Author Name Unknown Address [address] [place] [address] Organization [facility] Care Team Providers Care Bail Agent Name Role Phone NO, PHYSICIAN Unavailable Unavailable Jamir, Sanjana L Primary Care Provider Jamir, Sanjana L Primary Care Provider [phone] RAMSES LOWE Referring Unavailable JAMIR, SANJANA L Primary Care Unavailable JAMIR, SANJANA L Primary Care Unavailable ANTONIO TOURE Referring Unavailable JAMIR, SANJANA L Primary Care Unavailable JAMIR, SANJANA L Primary Care Unavailable KAELYN SIERRA Referring Unavailable JAMIR, SANJANA L Primary Care Unavailable SIERRAKAELYN Referring Unavailable JAMIR, SANJANA L Primary Care Unavailable KAELYN SIERRA Referring Unavailable JAMIR, SANJANA L Primary Care Unavailable LEONIDAS HAYDEN Attending Unavailab le Jamir, Sanjana Goldie Primary Care Unavailable Jamir, Sanjana Goldie Consulting Unavailable LEONIDAS HAYDEN Attending Unavailab le Jamir, Sanjana Goldie Primary Care Unavailable STEPH HICKEY Attending Unavailable Kemmerer, Sanjana Goldie Primary Care Unavailable Jamir, Sanjana Goldie Consulting Unavailable LEONIDAS HAYDEN Attending Unavailab le Jamir, Sanjana Goldie Primary Care Unavailable FLORESITA MORENO Attending Unavailable FLORESITA MORENO Admitting Unavailable UNKNOWN, PHYSICIAN Primary Care Unavailable UNKNOWN, PHYSICIAN Referring Unavailable UNKNOWN, PHYSICIAN Referring Unavailable MACEY FISH Surgeon Unavailable MACEY FISH Attending Unavailable MACEY FISH Admitting Unavailable [place] Procedure Practitioner Unavailab le UNKNOWN, PHYSICIAN Primary Care Unavailable Regan Echavarria MD Primary Care Provider [phone] Regan Echavarria MD Primary Care Provider [phone] Regan Echavarria MD Primary Care Provider [phone] ITALIA, REGAN Bowling Primary Care Unavailable RAYNA BECERRA Attending Unavailable ITALIA, JOAQUIN Primary Care Unavailable TRACY, FERN Lomax Attending Unavailable ECHAVARRIA, JOAQUIN Primary Care Unavailable TRACY, FERN Lomax Attending Unavailable ITALIA, JOAQUIN Primary Care Unavailable ITALIA, REGAN Bowling Attending Unavailable TRACY, FERN Lomax Referring Unavailable ECHAVARRIA, JOAQUIN Primary Care Unavailable TRACY, FERN Lomax Attending Unavailable TRACY, FERN Lomax Referring Unavailable ECHAVARRIA, JOAQUIN Primary Care Unavailable ITALIA, JOAUQIN Primary Care Unavailable ERIN LEAL Attending Unavailable ITALIA, JOAQUIN Referring Unavailable ECHAVARRIA, JOAQUIN Primary Care Unavailable TRACY, FERN Lomax Attending Unavailable ECHAVARRIA, JOAQUIN Primary Care Unavailable ECHAVARRIA, JOAQUIN Primary Care Unavailable SANG CAMACHO Attending Unavailable ITALIA, JOAQUIN Primary Care Unavailable RAYNA BECERRA Referring Unavailable AN RIDLEY Attending Unavailable ECHAVARRIA, JOAQUIN Primary Care Unavailable Allergies Allergy Classification Reported Allergen(s) Allergy Type Date of Onset Reaction(s) Facility (18 sources) Morphine Drug Allergy 7 Other (See Comments), Mental Status Change [place], [place] (1 source) [address],00; Translations: [53024,00] Propensity to adverse reactions (disorder) 0 [facility] Repository (20 sources) Ampicillin; Translations: [AMPICILLIN] Drug Allergy 2 GI Upset [facility] Medications Current Medications Medication Drug Class(es) Dates Sig (Normalized) Sig (Original) acetaminophen 325 mg / butalbital 50 mg / caffeine 40 mg oral tablet (20 sources) Barbiturate, Central Nervous System Stimulant, Methylxanthine Start: 09-17-2023 End: 10-17-2023 take 1 tablet by mouth every four hours as needed for headache acetaminophen 325 mg-caffeine 40 mg-butalbital 50 mg (FIORICET) per tablet Indications: Migraine with aura and without status migrainosus, not intractable Take 1 tablet by mouth every 4 hours as needed for headache for up to 30 days. 30 tablet 0 09/17/2023 10/17/2023 Active Completed/Discontinued Medications Medication Drug Class(es) Dates Sig (Normalized) Sig (Original) [id number] 200 actuat albuterol 0.09 mg/actuat metered dose inhaler (20 sources) beta2-Adrenergic Agonist Start: 12-29-2022 End: 01-28-2023 albuterol (PROVENTIL) 2.5 mg /3 mL (0.083 %) nebulizer solution Indications: Mild intermittent asthma without complication Use 3 mL via nebulizer every 4 hours as needed for wheezing/shortness of breath. Use over 5-15minutes. 90 mL 3 12/29/2022 Active Problems Active Problems Problem Classification Problem Date Documented Date Episodic/Chronic Abdominal pain (1 source) Upper abdominal pain; Translations: [Upper abdominal pain, unspecified] Episodic Asthma (20 sources) Mild intermittent asthma; Translations: [Mild intermittent asthma, uncomplicated] Onset: 10-27-2022 Chronic Chronic ulcer of skin (4 sources) Ulcer of lower extremity; Translations: [Skin ulcer of left lower leg, limited to breakdown of skin (HCC)] Onset: 12-13-2019 12-13-2019 Chronic Conditions associated with dizziness or vertigo (1 source) Postural dizziness; Translations: [Dizziness and giddiness] Episodic Deficiency and other anemia (1 source) Anemia; Translations: [Anemia, unspecified] Episodic Disorders of lipid metabolism (20 sources) Hypercholesterolemia; Translations: [Pure hypercholesterolemia, unspecified] Onset: 08-19-2021 08-19-2021 Chronic Esophageal disorders (20 sources) Gastroesophageal reflux disease; Translations: [Gastro-esophageal reflux disease without esophagitis] Onset: 08-19-2021 08-19-2021 Chronic Essential hypertension (20 sources) Essential hypertension; Translations: [Essential (primary) hypertension] Onset: 08-19-2021 08-19-2021 Chronic Gout and other crystal arthropathies (20 sources) Gout; Translations: [Gout, unspecified] Onset: 08-19-2021 08-19-2021 Chronic Headache; including migraine (20 sources) Migraine; Translations: [Migraine, unspecified, not intractable, without status migrainosus] Onset: 08-19-2021 08-19-2021 Chronic Immunizations and screening for infectious disease (3 sources) Needs influenza immunization; Translations: [Encounter for immunization] Episodic Malaise and fatigue (2 sources) Fatigue; Translations: [Other fatigue] Episodic Mood disorders (20 sources) Depressive disorder; Translations: [Depressive disorder] Onset: 08-19-2021 08-19-2021 Chronic Other circulatory disease (1 source) Orthostatic hypotension; Translations: [Orthostatic hypotension] Episodic Other injuries and conditions due to external causes (4 sources) Traumatic hematoma; Translations: [Traumatic hematoma of left lower leg, initial encounter] Onset: 12-13-2019 12-13-2019 Episodic Other lower respiratory disease (5 sources) Cough; Translations: [Acute cough] Episodic Other lower respiratory disease (2 sources) Dyspnea; Translations: [Shortness of breath] Episodic Other lower respiratory disease (1 source) Hypoxia; Translations: [Hypoxemia] Episodic Other lower respiratory disease (1 source) Wheezing; Translations: [Wheezing] Episodic Other male genital disorders (20 sources) Male erectile dysfunction, unspecified; Translations: [Impotence of organic origin] Onset: 08-20-2021 08-20-2021 Chronic Other nutritional; endocrine; and metabolic disorders (20 sources) Obese class II; Translations: [Obesity, unspecified] Onset: 08-19-2021 08-19-2021 Chronic Other skin disorders (1 source) Disorder of flank; Translations: [Disorder of pigmentation, unspecified] Episodic Other upper respiratory disease (20 sources) Seasonal allergy; Translations: [Other seasonal allergic rhinitis] Onset: 08-20-2021 08-20-2021 Chronic Other upper respiratory disease (1 source) Allergic rhinitis; Translations: [Allergic rhinitis, unspecified] Chronic Other upper respiratory disease (2 sources) Chronic rhinitis; Translations: [Chronic rhinitis] Chronic Other upper respiratory disease (1 source) Allergic rhinitis, unspecified; Translations: [Allergic rhinitis, unspecified seasonality, unspecified trigger] Onset: 10-27-2022 Chronic Other upper respiratory infections (3 sources) Sinusitis; Translations: [Chronic sinusitis, unspecified] Chronic Other upper respiratory infections (2 sources) Acute sinusitis; Translations: [Acute sinusitis, unspecified] Episodic Pneumonia (except that caused by tuberculosis or sexually transmitted disease) (1 source) Infective pneumonia; Translations: [Pneumonia, unspecified organism] Episodic Residual codes; unclassified (20 sources) Obstructive sleep apnea syndrome; Translations: [Obstructive sleep apnea (adult) (pediatric)] Onset: 12-30-2021 Chronic Residual codes; unclassified (1 source) Daytime somnolence; Translations: [Other hypersomnia] 09-28-2023 Chronic Residual codes; unclassified (1 source) Obstructive sleep apnea (adult) (pediatric); Translations: [ANDREW (obstructive sleep apnea)] Onset: 12-30-2021 Chronic Spondylosis; intervertebral disc disorders; other back problems (20 sources) Lumbar post-laminectomy syndrome; Translations: [Postlaminectomy syndrome, not elsewhere classified] Onset: 08-19-2021 08-21-2021 Chronic Past or Other Problems Problem Classification Problem Date Documented Da te Episodic/Chronic Fracture of upper limb (6 sources) Fracture of proximal phalanx of finger; Translations: [Disp fx of proximal phalanx of right little finger with routine heal] Onset: 12-23-2016 12-23-2016 Episodic Other screening for suspected conditions (not mental disorders or infectious disease) (2 sources) Patient encounter status; Translations: [Encounter for screening for malignant neoplasm of colon] Onset: 04-29-2023 04-28-2023 Episodic Residual codes; unclassified (20 sources) Insomnia; Translations: [Insomnia, unspecified] Onset: 08-20-2021 08-20-2021 Episodic Spondylosis; intervertebral disc disorders; other back problems (20 sources) Lumbosacral radiculopathy; Translations: [Radiculopathy, lumbosacral region] Onset: 08-21-2021 08-21-2021 Episodic Substance-related disorders (18 sources) Continuous opioid dependence; Translations: [Opioid use, unspecified, uncomplicated] Onset: 12-29-2022 12-29-2022 Episodic Results Test Name Value Interpretation Reference Range Facil ity Vital Signs Date Time Vital Sign Value Performing Clinician Facility 09-28-2023 15:39-0400 Body weight 130.82 kg Sang Camacho APRN.CNP Work Phone: [facility] 09-28-2023 15:39-0400 Diastolic blood pressure 61 mm[Hg] Sang Camacho APRN.CNP Work Phone: [facility] 09-28-2023 15:39-0400 Heart rate 75 /min Sang Janice BOX FINISHER.[employer] LEAD FORMER Work Phone: [facility] 09-28-2023 15:39-0400 Respiratory rate 18 /min Sang Janice [employer] FINISHER.[employer] LEAD FORMER Work Phone: [facility] 09-28-2023 15:39-0400 SaO2% (BldA) [Mass fraction] 94 % Sang Janice [employer] FINISHER.[employer] LEAD FORMER Work Phone: [facility] 09-28-2023 15:39-0400 Systolic blood pressure 136 mm[Hg] Sang Janice BOX FINISHER.[employer] LEAD FORMER Work Phone: [facility] 09-01-2023 14:42-0500 Body weight 127.01 kg An Ridley MD Work Phone: [facility] 09-01-2023 14:42-0500 Heart rate 80 /min An Ridley MD Work Phone: [facility] 09-01-2023 14:42-0500 Respiratory rate 17 /min An Ridley MD Work Phone: [facility] 09-01-2023 14:42-0500 SaO2% (BldA) [Mass fraction] 93 % An Ridley MD Work Phone: [facility] 06-03-2023 15:23-0500 Body weight 127.01 kg Fern Tracy PA-C Work Phone: [facility] 06-03-2023 15:23-0500 Diastolic blood pressure 82 mm[Hg] Fern Tracy PA-C Work Phone: [facility] 06-03-2023 15:23-0500 Heart rate 71 /min Fern Tracy PA-C Work Phone: [facility] 06-03-2023 15:23-0500 Respiratory rate 17 /min Fern Tarcy PA-C Work Phone: [facility] 06-03-2023 15:23-0500 SaO2% (BldA) [Mass fraction] 95 % Fern Tracy PA-C Work Phone: [facility] 06-03-2023 15:23-0500 Systolic blood pressure 136 mm[Hg] Fern Tracy PA-C Work Phone: [facility] 04-29-2023 11:54-0400 Diastolic blood pressure 77 mm[Hg] Erin Leal MD Work Phone: [facility] 04-29-2023 11:54-0400 Heart rate 70 /min Erin Leal MD Work Phone: [facility] 04-29-2023 11:54-0400 SaO2% (BldA) [Mass fraction] 92 % Erin Leal MD Work Phone: [facility] 04-29-2023 11:54-0400 Systolic blood pressure 129 mm[Hg] Erin Leal MD Work Phone: [facility] 04-29-2023 11:44-0400 Respiratory rate 16 /min Erin Leal MD Work Phone: [facility] 04-29-2023 09:56-0400 Body temperature 97.11 [degF] Erin Leal MD Work Phone: [facility] 02-25-2023 15:31-0400 Body height 182.9 cm Fern Tracy PA-C Work Phone: [facility] 02-25-2023 15:31-0400 Body weight 126.1 kg Fern Tracy PA-C Work Phone: [facility] 02-25-2023 15:31-0400 Diastolic blood pressure 68 mm[Hg] Fern Tracy PA-C Work Phone: [facility] 02-25-2023 15:31-0400 Heart rate 78 /min Fern Tracy PA-C Work Phone: [facility] 02-25-2023 15:31-0400 Respiratory rate 12 /min Fern Tracy PA-C Work Phone: [facility] 02-25-2023 15:31-0400 SaO2% (BldA) [Mass fraction] 94 % Fern Tracy PA-C Work Phone: [facility] 02-25-2023 15:31-0400 Systolic blood pressure 108 mm[Hg] Fern Conleyone PA-C Work Phone: [facility] 01-05-2023 15:02-0400 Body weight 124.29 kg Fern Conleyone PA-C Work Phone: [facility] 10-27-2022 15:25-0400 Body weight 125.19 kg Fern Tracy PA-C Work Phone: [facility] 08-25-2022 14:42-0500 Body height 177.8 cm Pulm Wstr Work Phone: [facility] 08-25-2022 14:42-0500 Body weight 120.2 kg Pulm Wstr Work Phone: [facility] 08-25-2022 14:42-0500 Heart rate 83 /min Pulm Wstr Work Phone: [facility] 08-25-2022 14:42-0500 Respiratory rate 14 /min Pulm Wstr Work Phone: [facility] 08-25-2022 14:42-0500 SaO2% (BldA) [Mass fraction] 97 % Pulm Wstr Work Phone: [facility] 07-24-2022 16:53-0500 Body temperature 98.49 [degF] Angela Salinas BOX FINISHER.STEM LEAD FORMER Work Phone: [facility] 07-24-2022 16:53-0500 Diastolic blood pressure 86 mm[Hg] Angela Salinas [employer]OX FINISHER.STEM LEAD FORMER Work Phone: [facility] 07-24-2022 16:53-0500 Heart rate 88 /min Angela Salinas BOX FINISHER.STEM LEAD FORMER Work Phone: [facility] 07-24-2022 16:53-0500 Respiratory rate 18 /min Angela Salinas BOX FINISHER.STEM LEAD FORMER Work Phone: [facility] 07-24-2022 16:53-0500 SaO2% (BldA) [Mass fraction] 97 % Angela Salinas BOX FINISHER.STEM LEAD FORMER Work Phone: [facility] 07-24-2022 16:53-0500 Systolic blood pressure 148 mm[Hg] Angela Salinas BOX FINISHER.STEM LEAD FORMER Work Phone: [facility] 07-07-2022 17:43-0500 Diastolic blood pressure 88 mm[Hg] Regan Echavarria MD Work Phone: [facility] 07-07-2022 17:43-0500 Heart rate 83 /min Regan Echavarria MD Work Phone: [facility] 07-07-2022 17:43-0500 Systolic blood pressure 138 mm[Hg] Regan Echavarria MD Work Phone: [facility] 07-07-2022 17:39-0500 Body temperature 97.3 [degF] Regan Echavarria MD Work Phone: [facility] 07-07-2022 17:39-0500 Body weight 116.57 kg Regan Echavarria MD Work Phone: [facility] 07-07-2022 17:39-0500 Respiratory rate 12 /min Regan Echavarria MD Work Phone: [facility] 06-18-2022 16:05-0500 Body temperature 96.91 [degF] Rayna Older BOX FINISHER.STEM LEAD FORMER Work Phone: [facility] 06-18-2022 16:05-0500 Body weight 115.67 kg Rayna Older BOX FINISHER.STEM LEAD FORMER Work Phone: [facility] 06-18-2022 16:05-0500 Diastolic blood pressure 78 mm[Hg] Rayna Older BOX FINISHER.STEM LEAD FORMER Work Phone: [facility] 06-18-2022 16:05-0500 Heart rate 95 /min Rayna Older BOX FINISHER.STEM LEAD FORMER Work Phone: [facility] 06-18-2022 16:05-0500 Respiratory rate 20 /min Rayna Older BOX FINISHER.STEM LEAD FORMER Work Phone: [facility] 06-18-2022 16:05-0500 SaO2% (BldA) [Mass fraction] 96 % Rayna Older BOX FINISHER.STEM LEAD FORMER Work Phone: [facility] 06-18-2022 16:05-0500 Systolic blood pressure 140 mm[Hg] Rayna Older BOX FINISHER.STEM LEAD FORMER Work Phone: [facility] 05-29-2022 17:44-0500 Body temperature 96.49 [degF] Regan Echavarria MD Work Phone: [facility] 05-29-2022 17:44-0500 Body weight 118.39 kg Regan Echavarria MD Work Phone: [facility] 05-29-2022 17:44-0500 Diastolic blood pressure 70 mm[Hg] Regan Echavarria MD Work Phone: [facility] 05-29-2022 17:44-0500 Heart rate 81 /min Regan Echavarria MD Work Phone: [facility] 05-29-2022 17:44-0500 Respiratory rate 16 /min Regan Echavarira MD Work Phone: [facility] 05-29-2022 17:44-0500 SaO2% (BldA) [Mass fraction] 97 % Regan Echavarria MD Work Phone: [facility] 05-29-2022 17:44-0500 Systolic blood pressure 130 mm[Hg] Regan Echavarria MD Work Phone: [facility] 05-21-2022 16:47-0400 Body temperature 97.11 [degF] Rayna Older BOX FINISHER.STEM LEAD FORMER Work Phone: [facility] 05-21-2022 16:47-0400 Body weight 117.48 kg Rayna Older BOX FINISHER.STEM LEAD FORMER Work Phone: [facility] 05-21-2022 16:47-0400 Diastolic blood pressure 88 mm[Hg] Rayna Older BOX FINISHER.STEM LEAD FORMER Work Phone: [facility] 05-21-2022 16:47-0400 Heart rate 100 /min Rayna Older BOX FINISHER.STEM LEAD FORMER Work Phone: [facility] 05-21-2022 16:47-0400 Respiratory rate 18 /min Rayna Older BOX FINISHER.STEM LEAD FORMER Work Phone: [facility] 05-21-2022 16:47-0400 SaO2% (BldA) [Mass fraction] 93 % Rayna Older BOX FINISHER.STEM LEAD FORMER Work Phone: [facility] 05-21-2022 16:47-0400 Systolic blood pressure 152 mm[Hg] Rayna Older BOX FINISHER.STEM LEAD FORMER Work Phone: [facility] 04-16-2022 16:08-0400 Diastolic blood pressure 86 mm[Hg] Regan Echavarria MD Work Phone: [facility] 04-16-2022 16:08-0400 Heart rate 77 /min Regan Echavarria MD Work Phone: [facility] 04-16-2022 16:08-0400 Systolic blood pressure 144 mm[Hg] Regan Echavarria MD Work Phone: [facility] 04-16-2022 15:56-0400 Body temperature 97 [degF] Regan Echavarria MD Work Phone: [facility] 04-16-2022 15:56-0400 Body weight 118.3 kg Regan Echavarria MD Work Phone: [facility] 04-16-2022 15:56-0400 Respiratory rate 16 /min Regan Echavarria MD Work Phone: [facility] 12-30-2021 14:01-0400 Diastolic blood pressure 74 mm[Hg] Rayna Older BOX FINISHER.STEM LEAD FORMER Work Phone: [facility] 12-30-2021 14:01-0400 Systolic blood pressure 130 mm[Hg] Rayna Older BOX FINISHER.STEM LEAD FORMER Work Phone: [facility] 12-30-2021 13:45-0400 Body weight 118.84 kg Rayna Older BOX FINISHER.STEM LEAD FORMER Work Phone: [facility] 12-30-2021 13:45-0400 Heart rate 88 /min Rayna Older BOX FINISHER.STEM LEAD FORMER Work Phone: [facility] 12-30-2021 13:45-0400 Respiratory rate 14 /min Rayna Older BOX FINISHER.STEM LEAD FORMER Work Phone: [facility] 12-27-2019 13:21-0400 BMI (Body Mass Index) 33.91 kg/m2 [facility], [place] 12-27-2019 13:21-0400 Body Temperature 95.59 [degF] [facility], [place] 12-27-2019 13:21-0400 Body weight 113.4 kg [facility] , [place] 12-27-2019 13:21-0400 BP Diastolic 77 mm[Hg] [facility] , [place] 12-27-2019 13:21-0400 BP Systolic 137 mm[Hg] [facility] , [place] 12-27-2019 13:21-0400 Height 182.9 cm [facility] , [place] 12-27-2019 13:21-0400 Pulse (Heart Rate) 92 /min [facility], [place] 12-27-2019 13:21-0400 Pulse Oximetry 94 % [facility] , [place] 12-27-2019 13:21-0400 Respiratory Rate 16 /min [facility], [place] 12-20-2019 16:08-0400 Body Temperature 99.61 [degF] [facility], [place] 12-20-2019 16:08-0400 BP Diastolic 76 mm[Hg] [facility] , [place] 12-20-2019 16:08-0400 BP Systolic 141 mm[Hg] [facility] , [place] 12-20-2019 16:08-0400 Pulse (Heart Rate) 97 /min [facility], [place] 12-20-2019 16:08-0400 Pulse Oximetry 94 % [facility] , [place] 12-20-2019 16:08-0400 Respiratory Rate 16 /min [facility], [place] 12-13-2019 15:56-0400 Body Temperature 99.1 [degF] [facility] , [place] 12-13-2019 15:56-0400 BP Diastolic 79 mm[Hg] [facility] , [place] 12-13-2019 15:56-0400 BP Systolic 141 mm[Hg] [facility] , [place] 12-13-2019 15:56-0400 Pulse (Heart Rate) 93 /min [facility], [place] 12-13-2019 15:56-0400 Pulse Oximetry 98 % [facility] , [place] 12-13-2019 15:56-0400 Respiratory Rate 16 /min [place], [place] Encounters Encounter Date Encounter Type Care Provider Facility Start: 09-28-2023 ambulatory SANG CAMACHO Facility :[facility] Start: 09-28-2023 End: 09-28-2023 Patient encounter procedure Sang Camacho APRN.CNP Work Phone: Neurology Procedures Date Procedure Procedure Detail Performing Clinician Start: 06-03-2023 INFLUENZA VACCINE, A GE 6 MO - 64 YR, QUADRIVALENT (AFLURIA, FLULAVAL, FLUZONE) Fern Carrillo PA-C Work Phone: Start: 04-29-2023 Colonoscopy flx dx w /collj spec when pfrmd Regan Echavarria MD Work Phone: Start: 04-29-2023 Colonoscopy Erin Leal MD Work Phone: Start: 08-25-2022 Nitric oxide gas determination An Ridley MD Work Phone: Start: 08-25-2022 Brncdilat rspse spmt ry pre&post-brncdilat admn An Ridley MD Work Phone: Start: 04-16-2022 INFLUENZA VACCINE QUADRIVALENT 6 MO - 63 YRS IM Regan Echavarria MD Work Phone: Start: 08-24-2021 Lipid 1996 panel - S leticia or Plasma Erin Leal MD Work Phone: Start: 07-04-2020 ANESTH KNEE ARTHROPLASTY FLORESITA MORENO Start: 07-04-2020 Arthrp kne condyle&p latu medial&lat compartments FLORESITA MORENO Start: 07-04-2020 KNEE ARTHROSCOPY/SURGERY FLORESITA MORENO Start: 07-04-2020 REMOVAL OF SUPPORT IMPLANT MACEY FISH Start: 06-30-2020 Antibody screen FLORESITA Dash ZEESHAN Plan of Treatment Date Care Activity Detail Author Start: 04-16-2032 Urine microalbumin profile [facility] Start: 08-24-2026 Lipid 1996 panel - S leticia or Plasma Lipid Screening [facility] Start: 08-24-2026 Lipid panel Lipid Screening [facility] Start: 08-24-2026 LIPID SCREEN LIPID SCREEN [facility] Start: 08-24-2026 PROSTATE CANCER SCRE ENING DISCUSSION PROSTATE CANCER SCREENING DISCUSSION [facility] Start: 08-24-2026 Prostate specific an tigen measurement Prostate Cancer Screening Discussion [facility] Start: 06-03-2025 DIABETES SCREEN DIABETES SCREEN [facility] Start: 06-03-2025 Diabetes Screening Diabetes Screenin g [facility] Start: 04-29-2025 DIABETES SCREEN DIABETES SCREEN [facility] Start: 08-24-2024 DIABETES SCREEN DIABETES SCREEN [facility] Start: 07-01-2024 Annual PCP Team International Relations Professor katia Disease Visit Annual PCP Team Chronic Disease Visit [facility] Start: 04-29-2024 Colonoscopy Colonoscopy [facility] Start: 04-29-2024 Colorectal Cancer Screening Colorectal Cancer Screening [facility] Start: 04-29-2024 Screening for malign ant neoplasm of colon [facility] Start: 02-26-2024 BP CONTROLLED (<130/80) BP CONTROLLE D (<130/80) [facility] Start: 01-06-2024 BP CONTROLLED (<130/80) BP CONTROLLE D (<130/80) [facility] Start: 12-30-2023 ANNUAL PCP TEAM CLERICAL OFFICE KATIA DISEASE VISIT ANNUAL PCP TEAM CHRONIC DISEASE VISIT [facility] Start: 12-04-2023 BP CONTROLLED (<130/80) BP CONTROLLE D (<130/80) [facility] Start: 10-28-2023 BP CONTROLLED (<130/80) BP CONTROLLE D (<130/80) [facility] Start: 07-07-2023 ANNUAL PCP TEAM CLERICAL OFFICE KATIA DISEASE VISIT ANNUAL PCP TEAM CHRONIC DISEASE VISIT [facility] Start: 07-07-2023 COVID-19 VACCINE (4 - Booster for Pfizer series) COVID-19 VACCINE (4 - Booster for Pfizer series) [facility] Immunizations Immunization Date Immunization Notes Care Provider Fa cility 07-01-2023 pneumococcal conjuga te (PCV20) vaccine, 20 valent (PREVNAR 20) An Ridley MD Work Phone: [facility] 06-03-2023 influenza, injectabl e, quadrivalent, contains preservative Fern Carrillo PA-C Work Phone: [facility] 04-16-2022 influenza, injectabl e, quadrivalent, contains preservative Regan Echavarria MD Work Phone: [facility] Work Phone: 04-16-2022 tetanus toxoid, redu johnathon diphtheria toxoid, and acellular pertussis vaccine, adsorbed Regan Echavarria MD Work Phone: [facility] Work Phone: 04-16-2022 influenza virus vacc ine, unspecified formulation Erin Leal MD Work Phone: [facility] 08-19-2021 influenza, injectabl e, quadrivalent, contains preservative Regan Echavarria MD Work Phone: [facility] Work Phone: 07-10-2021 COVID-19 vaccine, ag e 12+ yr ([employer]-Dibbz - PURPLE TOP) Regan Echavarria MD Work Phone: [facility] Work Phone: 10-02-2020 COVID-19 vaccine, ag e 12+ yr (P[employer]ZER-[employer]IONTE[employer] - PURPLE TOP) Regan Echavarria MD Work Phone: [facility] Work Phone: 09-11-2020 COVID-19 vaccine, ag e 12+ yr (PFIZER-BIONTECH - PURPLE TOP) Regan Echavarria MD Work Phone: [facility] Work Phone: 07-01-2019 pneumococcal polysaccharide vaccine, 23 valent Regan Echavarria MD Work Phone: [facility] Work Phone: Payers Date Payer Category Payer Unknown SELF 2022 Unknown [id number] 2022 Unknown [id number] 2021 Unknown [facility]LY [facility] [id number] 2021-Present [phone] [address] [place] [address] PPO [id number] 2019 Unknown 2014 Unknown EMELINA CABRERA NICHOLE xxxxxxxxxxx 2014-Present [phone] [address] [place] [address] xxxxxxxxxxx [id number] 2014 Unknown [id number] 1964 Unknown [id number] 1964 Unknown [id number] 1964 Unknown [id number] 1964 Unknown [id number] 1964 Unknown [id number] 1964 Unknown [id number] 1964 Unknown [id number] 1964 Unknown [id number] 1964 Unknown [id number] 1964 Unknown [id number] 1964 Unknown [id number] 1964 Unknown [id number] 1964 Unknown [id number] Social History Date Type Detail Facility Start: 12-23-2016 End: 05-21-2022 Tobacco smoking status VAIS Never smoker [facility] Work Phone: Start: 12-23-2016 End: 12-27-2019 Alcohol intake Current non-drinker of alcohol (finding) [place], [place] Sex Assigned At Not on file [place] Exposure to SARS-CoV -2 (event) Unable to assess [place] [facility] consumption unknown [facility] Start: 1965 Sex Assigned At Male [facility] Start: 12-30-2021 End: 05-21-2022 Tobacco use and exposure Smokeless tobacco non-user [facility] Work Phone: Start: 12-30-2021 End: 06-03-2023 Alcohol intake Current drinker of alcohol (finding) [facility] Start: 12-30-2021 End: 12-29-2022 Alcohol intake [facility] Start: 12-29-2021 End: 07-06-2022 History SDOH Alcohol Frequency 4 [facility] Start: 12-29-2021 End: 04-16-2022 History SDOH Alcohol Std Drinks 1 [facility] Start: 12-29-2021 End: 07-06-2022 History SDOH Social Connections Phone 5 [facility] Start: 12-29-2021 End: 07-06-2022 History SDOH Social Connections [facility] 3 [facility] Start: 12-29-2021 End: 07-06-2022 History SDOH Food Worry 2 [facility] Start: 12-15-2021 End: 06-17-2022 Exposure to SARS-CoV-2 (event) Not sure [facility] Start: 03-28-2022 End: 04-07-2022 Exposure to SARS-CoV-2 (event) Yes [facility] Start: 07-06-2022 History SDOH Social Connections Meetings 98 [facility] Start: 07-05-2022 End: 12-29-2022 Social connection and isolation panel [facility] Do you belong to any clubs or organizations such as synagogue groups, [employer] or athletic groups, or school groups? No [facility] How often do you att end meetings of the clubs or organizations you belong to? Patient refused [facility] Are you now , , , , never or living with a partner? [facility] How often to you hav e a drink containing alcohol? 2-3 time sa week [facility] How many standard dr inks containing alcohol do you have on a typical day? 1 or 2 [facility] How often do you hav e 6 or more drinks on 1 occasion? Never [facility] Do you feel stress - tense, restless, nervous, or anxious, or unable to sleep at night because your mind is troubled all the time - these days [OSQ] Only a little [facility] (I/We) worried wheth er (my/our) food would run out before (I/we) got money to buy more. Never true [facility] Start: 08-15-2021 Gender identity Identifies as male gender (finding) [facility] Start: 08-15-2021 Sexual orientation Heterosexual (finding) [facility] Start: 04-29-2023 Alcohol Comment 4x week [facility] Start: 09-01-2023 End: 09-28-2023 Alcohol intake Ex-drinker (finding) [facility] Start: 07-01-2023 Alcohol Comment drinks about one cider a day [facility] Clinical Notes 08-19-2021 to 09-28-2023 Sang Camacho APRN.BONNY - 09/28/2023 3:30 PM EDTTelephone Encounter - Rayna Becerra APRN.BONNY - 09/28/2023 10:02 AM EDTTelephone Encounter - Tiffanie Capellan Ma - 09/28/2023 9:42 AM EDT Note Date & Type Note Facility 09-28-2023 Note HNO ID: [id number] Author: SANG CAMACHO APRN.STEM LEAD FORMER Service: ? Author Type: Nurse Practitioner Type: Progress Notes Filed: 09/28/2023 16:22 Note Text: [facility] New Patient Evaluation PATIENT NAME: Wolf Ridley DATE OF SERVICE: September 28, 2023 CONSULTING PROVIDER: Rayna Becerra [address] [facility] [address] REASON FOR CONSULT: Rayna Becerra sends the patient for an opinion about ANDREW, CPAP intolerant, interested in [facility]. My findings and recommendations will be transmitted electronically via shared medical record to the consulting provider. HPI: Wolf Ridley is a 58 year old male. Sleep-related history: ANDREW, CPAP intolerant, interested in [employer]. He has excessive daytime sleepiness. He tried different masks for PAP--always felt claustrophobic. Taking trazodone 200 mg and amitriptyline 20 mg to help with sleep. Still not sleeping well due to pain--has a knee injury. SLEEP-WAKE SCHEDULE Bedtime: 8:30 PM. Reads in bed. He does not have a hard time falling asleep. Wake time: 6:15-6:45 AM, with an alarm. After falling asleep: he wakes up 1-2 time(s) per night, because of the need to urinate. Able to fall back asleep quickly. On weekends, he sleeps until noon or 1 PM. Average total sleep time (in a 24 hour period): 7-9 hours. SLEEP-RELATED DETAILS Preferred sleep position: back Breathing disturbances and other behaviors during sleep: snoring. Bruxism: No GERD or aspiration: No Waking up with heart pounding or racing: No Anxiety or rumination: No He does not report having an urge to move the legs in the evening (when resting) that is accompanied or caused by uncomfortable and/or unpleasant sensations in the legs. He has not been told that he has leg kicking during sleep. He denies any history of parasomnias. Excessive daytime sleepiness / fatigue is a problem. Excessive Daytime sleepiness/fatigue has been a problem for 1 years. There is no history of a viral illness or significant head injury prior to the start of daytime sleepiness. He does not report sleep paralysis or sleep-related hallucinations or cataplexy WAKE-RELATED DETAILS He works but is not a shift worker. He does have difficulty with memory or concentration. He denies falling asleep or dozing off when driving. But does feel sleepy while driving to work in [employer]. He does take naps, more frequently recently, 1 hr, not refreshing He does drink 4 caffeinated beverages per day. Iced tea He has gained 30 pounds since 2 yrs. Patient Questionnaires Sleep Scores PHQ-9 12/28/2021 Score 4 PROMIS Global Health - (T-Scores - the mean of general population = 50. Five points is a clinically meaningful difference.) 05/27/2023 06/01/2023 06/30/2023 Physical T-Score 34.9 32.4 34.9 Mental T-Score 50.8 59 50.8 PAST TREATMENTS: CPAP--used it in 2000 prior to bariatric surgery, like it then. Tried CPAP again in 2020 but didn't tolerate mask then; has tried several times since then w/o success. Now has asthma which seems to make tolerating mask worse. PRIOR SLEEP STUDIES: 2020 not available for today's visit, he can't recall where it was done PAST MEDICAL HISTORY Diagnosis Date Arthritis Asthma Chronic pain 08/19/2021 Closed fracture of distal end of right femur ([facility]) 06/30/2019 Closed fracture of right tibial plateau 06/30/2019 Complication of surgical procedure 08/19/2021 COVID-19 03/26/2022 Deep vein thrombosis (DVT) ([facility]) 06/30/2019 setting R leg fracture Depressive disorder 08/19/2021 Erectile dysfunction 08/20/2021 GERD (gastroesophageal reflux disease) 08/19/2021 Gout 08/19/2021 HTN (hypertension) Hypercholesterolemia 08/19/2021 Insomnia 08/20/2021 Lumbosacral radiculopathy 08/21/2021 Migraine headache 08/19/2021 ANDREW on CPAP Pneumonia 05/21/2022 Postlaminectomy syndrome of lumbosacral region 08/19/2021 Secondary male hypogonadism 2018 Traumatic hematoma of left lower leg 11/23/2019 Left leg ulcer PAST SURGICAL HISTORY Procedure Laterality Date BACK SURGERY HX 2007 COLONOSCOPY 04/29/2023 repeat 1 year, MAC sedation recommended. COLONOSCOPY SCREENING 06/02/2019 x 5, last one [facility]. FRACTURE SURGERY GASTRIC BYPASS HX 2001 INGUINAL HERNIA REPAIR HX Left 1981 LEFT HEART CATH,PERCUTANEOUS 2015 normal. PAST SURGICAL HISTORY OF Right 2019 ORIF R knee fractures REMOVE MESH FROM ABD WALL 2004 adhesions REPAIR ABDOMINAL HERNIA 2001 TONSILLECTOMY HX TOTAL KNEE REPLACEMENT Right 07/04/2020 Complex R knee arthroplasty ACTIVE PROBLEM LIST Obesity, Class II, Bmi 35-39.9 Postlaminectomy Syndrome of Lumbosacral Region Depressive Disorder Gout Hypercholesterolemia Migraine Headache Primary Hypertension Gerd (Gastroesophageal Reflux Disease) Erectile Dysfunction Seasonal Allergies Insomnia Lumbosacral Radiculopathy Andrew (Obstructive Sleep Apnea) Mild Intermittent Asthm (more content not included)... [facility] 09-28-2023 History of Present illness Narrative Images from the original note were not included. [facility] New Patient Evaluation PATIENT NAME: Wolf Ridley DATE OF SERVICE: September 28, 2023 CONSULTING PROVIDER: Rayna Becerra [address] [facility] [address] REASON FOR CONSULT: Rayna Becerra sends the patient for an opinion about ANDREW, CPAP intolerant, interested in [employer]. My findings and recommendations will be transmitted electronically via shared medical record to the consulting provider. HPI: Wolf Ridley is a 58 year old male. Sleep-related history: ANDREW, CPAP intolerant, interested in [employer]. He has excessive daytime sleepiness. He tried different masks for PAP--always felt claustrophobic. Taking trazodone 200 mg and amitriptyline 20 mg to help with sleep. Still not sleeping well due to pain--has a knee injury. SLEEP-WAKE SCHEDULE Bedtime: 8:30 PM. Reads in bed. He does not have a hard time falling asleep. Wake time: 6:15-6:45 AM, with an alarm. After falling asleep: he wakes up 1-2 time(s) per night, because of the need to urinate. Able to fall back asleep quickly. On weekends, he sleeps until noon or 1 PM. Average total sleep time (in a 24 hour period): 7-9 hours. SLEEP-RELATED DETAILS Preferred sleep position: back Breathing disturbances and other behaviors during sleep: snoring. Bruxism: No GERD or aspiration: No Waking up with heart pounding or racing: No Anxiety or rumination: No He does not report having an urge to move the legs in the evening (when resting) that is accompanied or caused by uncomfortable and/or unpleasant sensations in the legs. He has not been told that he has leg kicking during sleep. He denies any history of parasomnias. Excessive daytime sleepiness / fatigue is a problem. Excessive Daytime sleepiness/fatigue has been a problem for 1 years. There is no history of a viral illness or significant head injury prior to the start of daytime sleepiness. He does not report sleep paralysis or sleep-related hallucinations or cataplexy WAKE-RELATED DETAILS He works but is not a shift worker. He does have difficulty with memory or concentration. He denies falling asleep or dozing off when driving. But does feel sleepy while driving to work in [place]. He does take naps, more frequently recently, 1 hr, not refreshing He does drink 4 caffeinated beverages per day. Iced tea He has gained 30 pounds since 2 yrs. Patient Questionnaires Sleep Scores PHQ-9 12/28/2021 Score 4 PROMIS Global Health - (T-Scores - the mean of general population = 50. Five points is a clinically meaningful difference.) 05/27/2023 06/01/2023 06/30/2023 Physical T-Score 34.9 32.4 34.9 Mental T-Score 50.8 59 50.8 PAST TREATMENTS: CPAP--used it in 2000 prior to bariatric surgery, like it then. Tried CPAP again in 2020 but didn't tolerate mask then; has tried several times since then w/o success. Now has asthma which seems to make tolerating mask worse. PRIOR SLEEP STUDIES: 2020 not available for today's visit, he can't recall where it was done PAST MEDICAL HISTORY Diagnosis Date Arthritis Asthma Chronic pain 08/19/2021 Closed fracture of distal end of right femur ([facility]) 06/30/2019 Closed fracture of right tibial plateau 06/30/2019 Complication of surgical procedure 08/19/2021 COVID-19 03/26/2022 Deep vein thrombosis (DVT) ([facility]) 06/30/2019 setting R leg fracture Depressive disorder 08/19/2021 Erectile dysfunction 08/20/2021 GERD (gastroesophageal reflux disease) 08/19/2021 Gout 08/19/2021 HTN (hypertension) Hypercholesterolemia 08/19/2021 Insomnia 08/20/2021 Lumbosacral radiculopathy 08/21/2021 Migraine headache 08/19/2021 ANDREW on CPAP Pneumonia 05/21/2022 Postlaminectomy syndrome of lumbosacral region 08/19/2021 Secondary male hypogonadism 2018 Traumatic hematoma of left lower leg 11/23/2019 Left leg ulcer PAST SURGICAL HISTORY Procedure Laterality Date BACK SURGERY HX 2007 COLONOSCOPY 04/29/2023 repeat 1 year, MAC sedation recommended. COLONOSCOPY SCREENING 06/02/2019 x 5, last one [facility]. FRACTURE SURGERY GASTRIC BYPASS HX 2001 INGUINAL HERNIA REPAIR HX Left 1981 LEFT HEART CATH,PERCUTANEOUS 2016 normal. PAST SURGICAL HISTORY OF Right 2019 ORIF R knee fractures REMOVE MESH FROM ABD WALL 2004 adhesions REPAIR ABDOMINAL HERNIA 2001 TONSILLECTOMY HX TOTAL KNEE REPLACEMENT Right 07/04/2020 Complex R knee arthroplasty ACTIVE PROBLEM LIST Obesity, Class II, Bmi 35-39.9 Postlaminectomy Syndrome of Lumbosacral Region Depressive Disorder Gout Hypercholesterolemia Migraine Headache Primary Hypertension Gerd (Gastroesophageal Reflux Disease) Erectile Dysfunction Seasonal Allergies Insomnia Lumbosacral Radiculopathy Andrew (Obstructive Sleep Apnea) Mild Intermittent Asthma Without Complication Chronic, Continuous Use of Opioids Allergies As of Date: 09/28/2023 Allergen Noted Reaction AMPICILLIN 04/30/2022 GI Upset Fully Assessed 09/28/2023 CURRENT MEDICATIONS: acetaminophen 325 mg-caffeine 40 mg-butalbital 50 mg (FIORICET) per tablet Take 1 tablet by mouth every 4 hours as needed for headache for up to 30 days. meloxicam (MOBIC) 15 mg tablet lisinopril (ZESTRIL) 40 mg tablet Take 1 tablet by mouth once daily. pregabalin (LYRICA) 75 mg capsule Take 1 capsule by mouth three times a day. amLODIPine (NORVASC) 2.5 mg tablet Take 1 tablet by mouth once daily. amitriptyline (ELAVIL) 10 mg tablet Take 2 tablets by mouth daily at bedtime. traZODone (DESYREL) 100 mg tablet Take 2 tablets by mouth daily at bedtime. albuterol HFA (VENTOLIN HFA) 90 mcg/actuation inhaler Inhale 2 Puffs as instructed every 4 hours as needed for wheezing/shortness of breath. fluticasone (FLOVENT HFA) 110 mcg/actuation inhaler Inhale 2 Puffs as instructed twice daily. VIA SPACER THEN RINSE AND GARGLE MOUTH WITH WATER. sildenafil (VIAGRA) 100 mg tablet Take 1 tablet by mouth as needed. pantoprazole DR (PROTONIX) 40 mg tablet Take 1 tablet by mouth once daily. DULoxetine (CYMBALTA) 60 mg capsule Take 1 capsule by mouth once daily. At bedtime levocetirizine 5 mg tablet Take 1 tablet by mouth once daily. HYDROmorphone (DILAUDID) 4 mg tablet Take 1 tablet by mouth every 6 hours as needed (FROM PAIN MANAGEMENT). methocarbamol (ROBAXIN) 500 mg tablet Take 500 mg by mouth three times daily. carBAMazepine (TEGRETOL) 200 mg tablet Take 200 mg by mouth twice daily. albuterol (PROVENTIL) 2.5 mg /3 mL (0.083 %) nebulizer solution Use 3 mL via nebulizer every 4 hours as needed for wheezing/shortness of breath. Use over 5-15minutes. Review of Systems Constitutional: Positive for fatigue. Cardiovascular: Negative for palpitations. Gastrointestinal: Negative for heartburn. Genitourinary: Positive for nocturia. Musculoskeletal: Positive for arthralgias (knee) and back pain. Neurological: Positive for headaches (sometimes morning). SOCIAL HISTORY: Social History Tobacco Use Smoking status: Never Smokeless tobacco: Never Vaping Use Vaping Use: Never used Substance Use Topics Alcohol use: Not Currently Alcohol/week: 7.0 standard drinks of alcohol Types: 7 Standard drinks or equivalent per week Comment: drinks about one cider a day Drug use: Never FAMILY HISTORY: FAMILY HISTORY Problem Relation Age of Onset Colon Cancer Mother Heart Father Asthma Sister There is a family history of: Sleep apnea. Relative: father and sister PHYSICAL EXAMINATION: Vital Signs: BP 136/61 Pulse 75 Resp 18 Wt 130.8 kg (288 lb 6.4 oz) SpO2 94% BMI 40.38 kg/m PHYSICAL EXAM: General appearance: pleasant, appears to be in pain Mental status: alert and oriented, able to provide own history Constitutional: obese Skin: No visible rashes on exposed skin Neuro: No focal deficits observed, no tremors IMPRESSION/PLAN: G47.33 ANDREW (obstructive sleep apnea) (primary encounter diagnosis) G47.19 Excessive daytime sleepiness Wolf Ridley is a 58 year old male with ANDREW. Hx CPAP intolerance. He snores, has unrefreshing sleep, excessive daytime sleepiness. PMH of chronic pain in back and knee, obesity, migraines, HTN, HLD, asthma, GERD. Hx ANDREW, severity unknown. Will update sleep study. Discussed treatment with oral mandibular advancement device for mild ANDREW (or even moderate since he doesn't tolerate PAP therapy). We discussed hypoglossal nerve stimulation ([employer])--at this time his BMI (40.38) is higher than insurance will accept. [facility] criteria: 18 years of age or older Moderate to Severe ANDREW - AHI range 15-100 - <25% central apneas Appropriate upper airway anatomy - Without complete concentric collapse at the level of soft palate (during sedated endoscopy) Unable to use CPAP - Inability to use (less than 5 nights per week of usage; usage defined as greater than 4 hours of usage per night), or - Unwillingness to use (for example, a patient returns the system after attempting to use it) BMI <40 per [facility] (<35 Medicare, 32-25 commercial insurance depending on plan) - Home Sleep Apnea Test (HST) to evaluate for obstructive sleep apnea. Will update sleep study to determine severity of ANDREW. Will notify him of result, discuss next steps. - Discussed with the patient the possible diagnosis, causes, and conditions associated with obstructive sleep apnea. - Avoid driving when drowsy. Recommend that if you are dozing off while driving, that you do not drive until your sleepiness is appropriately treated. -Encouraged healthy lifestyle with adequate sleep ( 7-9 hours per night), diet and exercise. - Results are usually available within 7-10 business days. If you do not hear from us within 1-2 weeks after testing, please contact us directly. - Follow up visit TBD Sang Camacho APRN.STEM LEAD FORMER documented in this encounter [facility] 09-28-2023 Miscellaneous Notes If he is still experiencing symptoms from July and August he needs to be seen in the office for further evaluation Rayna Becerra APRN.STEM LEAD FORMER Seen [facility] 08/10/23, and pulm on 09/01/23 documented in this encounter [facility] 09-24-2023 Miscellaneous Notes Phone call placed patient reported CPAP x3 years prior, reported DME in 2021 as [facility] ph [phone]. Patient unsure where sleep study was performed, reported PCP as [facility] phone number [phone], CPAP used approximately two months upon receipt, attempted in 2021 for one week, no usage to date. Faxed medical records request to [facility] fax # [phone]. Faxed CPAP download request to [facility] fax # [phone]. Chelle Branch LPN documented in this encounter [facility] 09-17-2023 Miscellaneous Notes Rx taken to medical records. Patient notified. Demetrio Proctor Ma Spoke with pt and information listed below given. Pt verbalizes understanding. Dina Branch LPN Patient has been identified by name and date of : Yes Patient phones for refill(s): Requested Prescriptions Pending Prescriptions Disp Refills acetaminophen 325 mg-caffeine 40 mg-butalbital 50 mg (FIORICET) per tablet 30 tablet 0 Sig: Take 1 tablet by mouth every 4 hours as needed for headache for up to 30 days. Date of last office visit in primary care: 07/01/2023 Date of next office visit in primary care: 01/01/2024 Please advise. Thank you. Clemencia Solomon LPN. documented in this encounter [facility] 09-01-2023 Note HNO ID: [id number] Author: AN RIDLEY MD Service: ? Author Type: Physician Type: Progress Notes Filed: 09/01/2023 21:31 Note Text: . Respiratory [place] Note Patient name: Wolf Ridley PCP: Regan Echavarria MD CC: Follow-up asthma HPI: Wolf Ridley 58 year old male never smoker with PMH significant for obesity, status post gastric bypass, migraine headaches, ANDREW on CPAP, DVT, GERD, gout, HLD, HTN, with persistent respiratory issues following COVID-pneumonia 05/2022. Imaging negative for pulmonary embolism but pertinent for bilateral patchy lower lobe infiltrates, PFTs shows small airways obstruction and exhaled nitric oxide level was slightly elevated, bronchospasm confirmed by positive DELFINO. Started on inhaled corticosteroid, Flovent, with as needed albuterol. At [facility] with HAYDEE, he was complaining of headaches which he felt may be related to Singulair. He has known chronic rhinosinusitis. Headaches resolved once stopped Singulair. Today he states that he had recent bronchitis requiring a course of oral steroids. No current wheezing, chest pain, shortness of breath. His current major complaint is of back pain. He has had previous spinal fusion and is being evaluated for possible surgery. PAST MEDICAL HISTORY Diagnosis Date Arthritis Asthma Chronic pain 08/19/2021 Closed fracture of distal end of right femur (HCC) 06/30/2019 Closed fracture of right tibial plateau 06/30/2019 Complication of surgical procedure 08/19/2021 COVID-19 03/26/2022 Deep vein thrombosis (DVT) (HCC) 06/30/2019 setting R leg fracture Depressive disorder 08/19/2021 Erectile dysfunction 08/20/2021 GERD (gastroesophageal reflux disease) 08/19/2021 Gout 08/19/2021 HTN (hypertension) Hypercholesterolemia 08/19/2021 Insomnia 08/20/2021 Lumbosacral radiculopathy 08/21/2021 Migraine headache 08/19/2021 ANDREW on CPAP Pneumonia 05/21/2022 Postlaminectomy syndrome of lumbosacral region 08/19/2021 Secondary male hypogonadism 2018 Traumatic hematoma of left lower leg 11/23/2019 Left leg ulcer ALLERGIES Allergen Reactions Ampicillin GI Upset acetaminophen 325 mg-caffeine 40 mg-butalbital 50 mg (FIORICET) per tablet Take 1 tablet by mouth every 4 hours as needed for headache for up to 30 days. albuterol HFA (VENTOLIN HFA) 90 mcg/actuation inhaler Inhale 2 Puffs as instructed every 4 hours as needed for wheezing/shortness of breath. fluticasone (FLOVENT HFA) 110 mcg/actuation inhaler Inhale 2 Puffs as instructed twice daily. VIA SPACER THEN RINSE AND GARGLE MOUTH WITH WATER. albuterol (PROVENTIL) 2.5 mg /3 mL (0.083 %) nebulizer solution Use 3 mL via nebulizer every 4 hours as needed for wheezing/shortness of breath. Use over 5-15minutes. meloxicam (MOBIC) 15 mg tablet predniSONE (DELTASONE) 10 mg tablet Take two tablets daily for 5 days, one tablet daily for 10 days lisinopril (ZESTRIL) 40 mg tablet Take 1 tablet by mouth once daily. pregabalin (LYRICA) 75 mg capsule Take 1 capsule by mouth three times a day. amLODIPine (NORVASC) 2.5 mg tablet Take 1 tablet by mouth once daily. amitriptyline (ELAVIL) 10 mg tablet Take 2 tablets by mouth daily at bedtime. traZODone (DESYREL) 100 mg tablet Take 2 tablets by mouth daily at bedtime. sildenafil (VIAGRA) 100 mg tablet Take 1 tablet by mouth as needed. pantoprazole DR (PROTONIX) 40 mg tablet Take 1 tablet by mouth once daily. DULoxetine (CYMBALTA) 60 mg capsule Take 1 capsule by mouth once daily. At bedtime levocetirizine 5 mg tablet Take 1 tablet by mouth once daily. (Patient not taking: Reported on 08/10/2023) HYDROmorphone (DILAUDID) 4 mg tablet Take 1 tablet by mouth every 6 hours as needed (FROM PAIN MANAGEMENT). methocarbamol (ROBAXIN) 500 mg tablet Take 500 mg by mouth three times daily. carBAMazepine (TEGRETOL) 200 mg tablet Take 200 mg by mouth twice daily. Social History Tobacco Use Smoking status: Never Smokeless tobacco: Never Vaping Use Vaping Use: Never used Substance Use Topics Alcohol use: Not Currently Alcohol/week: 7.0 standard drinks of alcohol Types: 7 Standard drinks or equivalent per week Comment: drinks about one cider a day Drug use: Never FAMILY HISTORY Problem Relation Age of Onset Colon Cancer Mother Heart Father Asthma Sister PAST SURGICAL HISTORY Procedure Laterality Date BACK SURGERY HX 2006 COLONOSCOPY 04/29/2023 repeat 1 year, MAC sedation recommended. COLONOSCOPY SCREENING 06/02/2019 x 5, last one [facility]. FRACTURE SURGERY GASTRIC BYPASS HX 2001 INGUINAL HERNIA REPAIR HX Left 1982 LEFT HEART CATH,PERCUTANEOUS 2016 normal. PAST SURGICAL HISTORY OF Right 2019 ORIF R knee fractures REMOVE MESH FROM ABD WALL 2004 adhesions REPAIR ABDOMINAL HERNIA 2001 TONSILLECTOMY HX TOTAL KNEE REPLACEMENT Right 07/04/2020 Complex R knee arthroplasty PMH, Social history, family history and surgical history reviewed and upda (more content not included)... [facility] 09-01-2023 History of Present illness Narrative Images from the original note were not included. . [facility] [place] Note Patient name: Wolf Ridley PCP: Regan Echavarria MD CC: Follow-up asthma HPI: Wolf Ridley 58 year old male never smoker with PMH significant for obesity, status post gastric bypass, migraine headaches, ANDREW on CPAP, DVT, GERD, gout, HLD, HTN, with persistent respiratory issues following COVID-pneumonia 05/2022. Imaging negative for pulmonary embolism but pertinent for bilateral patchy lower lobe infiltrates, PFTs shows small airways obstruction and exhaled nitric oxide level was slightly elevated, bronchospasm confirmed by positive DELFINO. Started on inhaled corticosteroid, Flovent, with as needed albuterol. At [facility] with HAYDEE, he was complaining of headaches which he felt may be related to Singulair. He has known chronic rhinosinusitis. Headaches resolved once stopped Singulair. Today he states that he had recent bronchitis requiring a course of oral steroids. No current wheezing, chest pain, shortness of breath. His current major complaint is of back pain. He has had previous spinal fusion and is being evaluated for possible surgery. PAST MEDICAL HISTORY Diagnosis Date Arthritis Asthma Chronic pain 08/19/2021 Closed fracture of distal end of right femur ([facility]) 06/30/2019 Closed fracture of right tibial plateau 06/30/2019 Complication of surgical procedure 08/19/2021 COVID-19 03/26/2022 Deep vein thrombosis (DVT) ([facility]) 06/30/2019 setting R leg fracture Depressive disorder 08/19/2021 Erectile dysfunction 08/20/2021 GERD (gastroesophageal reflux disease) 08/19/2021 Gout 08/19/2021 HTN (hypertension) Hypercholesterolemia 08/19/2021 Insomnia 08/20/2021 Lumbosacral radiculopathy 08/21/2021 Migraine headache 08/19/2021 ANDREW on CPAP Pneumonia 05/21/2022 Postlaminectomy syndrome of lumbosacral region 08/19/2021 Secondary male hypogonadism 2018 Traumatic hematoma of left lower leg 11/23/2019 Left leg ulcer ALLERGIES Allergen Reactions Ampicillin GI Upset acetaminophen 325 mg-caffeine 40 mg-butalbital 50 mg (FIORICET) per tablet Take 1 tablet by mouth every 4 hours as needed for headache for up to 30 days. albuterol HFA (VENTOLIN HFA) 90 mcg/actuation inhaler Inhale 2 Puffs as instructed every 4 hours as needed for wheezing/shortness of breath. fluticasone (FLOVENT HFA) 110 mcg/actuation inhaler Inhale 2 Puffs as instructed twice daily. VIA SPACER THEN RINSE AND GARGLE MOUTH WITH WATER. albuterol (PROVENTIL) 2.5 mg /3 mL (0.083 %) nebulizer solution Use 3 mL via nebulizer every 4 hours as needed for wheezing/shortness of breath. Use over 5-15minutes. meloxicam (MOBIC) 15 mg tablet predniSONE (DELTASONE) 10 mg tablet Take two tablets daily for 5 days, one tablet daily for 10 days lisinopril (ZESTRIL) 40 mg tablet Take 1 tablet by mouth once daily. pregabalin (LYRICA) 75 mg capsule Take 1 capsule by mouth three times a day. amLODIPine (NORVASC) 2.5 mg tablet Take 1 tablet by mouth once daily. amitriptyline (ELAVIL) 10 mg tablet Take 2 tablets by mouth daily at bedtime. traZODone (DESYREL) 100 mg tablet Take 2 tablets by mouth daily at bedtime. sildenafil (VIAGRA) 100 mg tablet Take 1 tablet by mouth as needed. pantoprazole DR (PROTONIX) 40 mg tablet Take 1 tablet by mouth once daily. DULoxetine (CYMBALTA) 60 mg capsule Take 1 capsule by mouth once daily. At bedtime levocetirizine 5 mg tablet Take 1 tablet by mouth once daily. (Patient not taking: Reported on 08/10/2023) HYDROmorphone (DILAUDID) 4 mg tablet Take 1 tablet by mouth every 6 hours as needed (FROM PAIN MANAGEMENT). methocarbamol (ROBAXIN) 500 mg tablet Take 500 mg by mouth three times daily. carBAMazepine (TEGRETOL) 200 mg tablet Take 200 mg by mouth twice daily. Social History Tobacco Use Smoking status: Never Smokeless tobacco: Never Vaping Use Vaping Use: Never used Substance Use Topics Alcohol use: Not Currently Alcohol/week: 7.0 standard drinks of alcohol Types: 7 Standard drinks or equivalent per week Comment: drinks about one cider a day Drug use: Never FAMILY HISTORY Problem Relation Age of Onset Colon Cancer Mother Heart Father Asthma Sister PAST SURGICAL HISTORY Procedure Laterality Date BACK SURGERY HX 2006 COLONOSCOPY 04/29/2023 repeat 1 year, MAC sedation recommended. COLONOSCOPY SCREENING 06/02/2019 x 5, last one [facility]. FRACTURE SURGERY GASTRIC BYPASS HX 2001 INGUINAL HERNIA REPAIR HX Left 1982 LEFT HEART CATH,PERCUTANEOUS 2016 normal. PAST SURGICAL HISTORY OF Right 2019 ORIF R knee fractures REMOVE MESH FROM ABD WALL 2004 adhesions REPAIR ABDOMINAL HERNIA 2001 TONSILLECTOMY HX TOTAL KNEE REPLACEMENT Right 07/04/2020 Complex R knee arthroplasty PMH, Social history, family history and surgical history reviewed and updated in EMR REVIEW OF SYSTEMS: CONSTITUTIONAL: No fevers, chills, nightsweats, unintended weight loss HEENT: Current nasal congestion/sinus symptoms but no postnasal drip or headache CARDIOVASCULAR: No chest pain, dyspnea, palpitations, orthopnea. Chronic edema PULM: ]]See HPI GI: No dysphagia/odynophagia, problematic reflux NEURO: No new balance problems, peripheral weakness/paresthesias or numbness of concern. MUSC-SKEL: Back pain PSY: No concerns regarding depression, anxiety INTEGUMENTARY: No new skin changes or rashes PHYSICAL EXAMINATION: Pulse 80 Resp 17 Wt 280 lb (127.0kg) SpO2 93% General Appearance: Obese male, NAD. Skin: Skin color, texture, turgor normal, no suspicious rashes or lesions. Head: Normocephalic, no masses, lesions, tenderness or abnormalities. Eyes: Sclera, conjunctiva normal. Oropharynx: No oral lesions or thrush. Neck: No JVD, masses, adenopathy. Lungs: Not labored, normal to percussion. Rhonchi and wheezes on the right Heart: Regular rate and rhythm, no murmur. Extremities: Edema left leg, no clubbing. Assessment/Plan: 1. Mild intermittent asthma, with exacerbation -Recent bronchitis with persistent wheezing -Longer course of oral steroids -Continue Flovent and as needed albuterol 2. Chronic rhinosinusitis -Unable to take Singulair -Continue antihistamines and Flonase nasal spray 3. Class II obesity -BMI 39 -Previous gastric bypass. Should consider Elida Ridley MD [facility] [place] documented in this encounter [facility] 08-10-2023 Note HNO ID: [id number] Author: KAUSHIK ALVARADO APRN.STEM LEAD FORMER Service: ? Author Type: Nurse Practitioner Type: Progress Notes Filed: 08/10/2023 13:59 Note Text: Subjective Cough Associated symptoms include shortness of breath and wheezing. Pertinent negatives include no chills and no sore throat. Wolf Ridley is a 58 year old male who presents with 3 days of cough, chest congestion, wheezing and shortness of breath. He has not had a fever or nasal congestion/drainage. He has been using robaxin and mucinex and albuterol inhaler. Cough is worse at night and productive. He has a history of bronchitis. Sees pulmonology on 08/21/23 for follow up. Review of Systems Constitutional: Negative for chills and fever. HENT: Negative for congestion and sore throat. Respiratory: Positive for cough, sputum production, shortness of breath and wheezing. Cardiovascular: Negative. Musculoskeletal: Positive for back pain. BP 120/72 Pulse 100 Temp 36.1 ?C (97 ?F) Resp 20 Wt 122.9 kg (271 lb) SpO2 97% BMI 37.94 kg/m? PAST MEDICAL HISTORY Diagnosis Date Arthritis Asthma Chronic pain 08/19/2021 Closed fracture of distal end of right femur (HCC) 06/30/2019 Closed fracture of right tibial plateau 06/30/2019 Complication of surgical procedure 08/19/2021 COVID-19 03/26/2022 Deep vein thrombosis (DVT) ([facility]) 06/30/2019 setting R leg fracture Depressive disorder 08/19/2021 Erectile dysfunction 08/20/2021 GERD (gastroesophageal reflux disease) 08/19/2021 Gout 08/19/2021 HTN (hypertension) Hypercholesterolemia 08/19/2021 Insomnia 08/20/2021 Lumbosacral radiculopathy 08/21/2021 Migraine headache 08/19/2021 ANDREW on CPAP Pneumonia 05/21/2022 Postlaminectomy syndrome of lumbosacral region 08/19/2021 Secondary male hypogonadism 2019 Traumatic hematoma of left lower leg 11/23/2019 Left leg ulcer PAST SURGICAL HISTORY Procedure Laterality Date BACK SURGERY HX 2007 COLONOSCOPY 04/29/2023 repeat 1 year, MAC sedation recommended. COLONOSCOPY SCREENING 06/02/2019 x 5, last one [facility]. FRACTURE SURGERY GASTRIC BYPASS HX 2001 INGUINAL HERNIA REPAIR HX Left 1982 LEFT HEART CATH,PERCUTANEOUS 2016 normal. PAST SURGICAL HISTORY OF Right 2019 ORIF R knee fractures REMOVE MESH FROM ABD WALL 2004 adhesions REPAIR ABDOMINAL HERNIA 2001 TONSILLECTOMY HX TOTAL KNEE REPLACEMENT Right 07/04/2020 Complex R knee arthroplasty ALLERGIES Ampicillin MEDICATIONS lisinopril (ZESTRIL) 40 mg tablet Take 1 tablet by mouth once daily. pregabalin (LYRICA) 75 mg capsule Take 1 capsule by mouth three times a day. acetaminophen 325 mg-caffeine 40 mg-butalbital 50 mg (FIORICET) per tablet Take 1 tablet by mouth every 4 hours as needed for headache for up to 30 days. amLODIPine (NORVASC) 2.5 mg tablet Take 1 tablet by mouth once daily. amitriptyline (ELAVIL) 10 mg tablet Take 2 tablets by mouth daily at bedtime. traZODone (DESYREL) 100 mg tablet Take 2 tablets by mouth daily at bedtime. albuterol HFA (VENTOLIN HFA) 90 mcg/actuation inhaler Inhale 2 Puffs as instructed every 4 hours as needed for wheezing/shortness of breath. fluticasone (FLOVENT HFA) 110 mcg/actuation inhaler Inhale 2 Puffs as instructed twice daily. VIA SPACER THEN RINSE AND GARGLE MOUTH WITH WATER. albuterol (PROVENTIL) 2.5 mg /3 mL (0.083 %) nebulizer solution Use 3 mL via nebulizer every 4 hours as needed for wheezing/shortness of breath. Use over 5-15minutes. sildenafil (VIAGRA) 100 mg tablet Take 1 tablet by mouth as needed. pantoprazole DR (PROTONIX) 40 mg tablet Take 1 tablet by mouth once daily. DULoxetine (CYMBALTA) 60 mg capsule Take 1 capsule by mouth once daily. At bedtime HYDROmorphone (DILAUDID) 4 mg tablet Take 1 tablet by mouth every 6 hours as needed (FROM PAIN MANAGEMENT). methocarbamol (ROBAXIN) 500 mg tablet Take 500 mg by mouth three times daily. carBAMazepine (TEGRETOL) 200 mg tablet Take 200 mg by mouth twice daily. predniSONE (DELTASONE) 20 mg tablet Take 2 tablets by mouth once daily for 4 days. Take daily with food. benzonatate (TESSALON PERLE) 100 mg capsule Take 2 capsules by mouth three times a day as needed for up to 10 days. levocetirizine 5 mg tablet Take 1 tablet by mouth once daily. (Patient not taking: Reported on 08/10/2023) FAMILY HISTORY Problem Relation Age of Onset Colon Cancer Mother Heart Father Asthma Sister Social History Tobacco Use Smoking status: Never Smokeless tobacco: Never Vaping Use Vaping Use: Never used Substance Use Topics Alcohol use: Not Currently Alcohol/week: 7.0 standard drinks of alcohol Types: 7 Standard drinks or equivalent per week Comment: drinks about one cider a day Drug use: Never Objective Physical Exam Vitals and nursing note reviewed. Constitutional: Appearance: Normal appearance. Cardiovascular: Rate and Rhythm: Normal rate and regular rhythm. Heart sounds: Normal heart sounds. (more content not included)... [place] [id number] Note HNO ID: [id number] Author: Rayna Becerra, SCOTT.STEM LEAD FORMER Service: ? Author Type: Nurse Practitioner Type: Progress Notes Filed: 07/01/2023 5:41 PM Note Text: CC: Patient presents with: Physical: 6 months HPI Wolf Ridley is a 58 year old male who presents today for above. He has chronic sinus issues, currently taking Zyrtec without any relief. He has tried various OTC treatments without any improvement including Flonase and antihistamines. 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 He has sleep apnea and is intolerant to CPAP. Has tried multiple masks. Would like to discuss Inspire device. Exercise: has limited mobility and can not participate in aerobic exercise. Diet: Watches diet for salt (salty snacks, added salt, processed frozen/canned foods), sugary/sweet snacks, unhealthy fats: Yes Review of Systems Constitutional: Positive for fatigue. Negative for chills, diaphoresis, fever and unexpected weight change. HENT: Positive for sinus pressure. Respiratory: Negative for cough, chest tightness, shortness of breath and wheezing. Cardiovascular: Negative for chest pain, palpitations and leg swelling. Gastrointestinal: Negative for abdominal pain, blood in stool, constipation and diarrhea. PAST MEDICAL HISTORY Diagnosis Date Arthritis Asthma Chronic pain 08/19/2021 Closed fracture of distal end of right femur ([facility]) 06/30/2019 Closed fracture of right tibial plateau 06/30/2019 Complication of surgical procedure 08/19/2021 COVID-19 03/26/2022 Deep vein thrombosis (DVT) (HCC) 06/30/2019 setting R leg fracture Depressive disorder 08/19/2021 Erectile dysfunction 08/20/2021 GERD (gastroesophageal reflux disease) 08/19/2021 Gout 08/19/2021 HTN (hypertension) Hypercholesterolemia 08/19/2021 Insomnia 08/20/2021 Lumbosacral radiculopathy 08/21/2021 Migraine headache 08/19/2021 ANDREW on CPAP Pneumonia 05/21/2022 Postlaminectomy syndrome of lumbosacral region 08/19/2021 Secondary male hypogonadism 2019 Traumatic hematoma of left lower leg 11/23/2019 Left leg ulcer PAST SURGICAL HISTORY Procedure Laterality Date BACK SURGERY HX 2007 COLONOSCOPY 04/29/2023 repeat 1 year, MAC sedation recommended. COLONOSCOPY SCREENING 06/02/2019 x 5, last one [facility]. FRACTURE SURGERY GASTRIC BYPASS HX 2001 INGUINAL HERNIA REPAIR HX Left 1982 LEFT HEART CATH,PERCUTANEOUS 2016 normal. PAST SURGICAL HISTORY OF Right 2019 ORIF R knee fractures REMOVE MESH FROM ABD WALL 2004 adhesions REPAIR ABDOMINAL HERNIA 2001 TONSILLECTOMY HX TOTAL KNEE REPLACEMENT Right 07/04/2020 Complex R knee arthroplasty ALLERGIES Ampicillin MEDICATIONS pregabalin (LYRICA) 75 mg capsule Take 1 capsule by mouth three times a day. acetaminophen 325 mg-caffeine 40 mg-butalbital 50 mg (FIORICET) per tablet Take 1 tablet by mouth every 4 hours as needed for headache for up to 30 days. amLODIPine (NORVASC) 2.5 mg tablet Take 1 tablet by mouth once daily. amitriptyline (ELAVIL) 10 mg tablet Take 2 tablets by mouth daily at bedtime. traZODone (DESYREL) 100 mg tablet Take 2 tablets by mouth daily at bedtime. albuterol HFA (VENTOLIN HFA) 90 mcg/actuation inhaler Inhale 2 Puffs as instructed every 4 hours as needed for wheezing/shortness of breath. fluticasone (FLOVENT HFA) 110 mcg/actuation inhaler Inhale 2 Puffs as instructed twice daily. VIA SPACER THEN RINSE AND GARGLE MOUTH WITH WATER. albuterol (PROVENTIL) 2.5 mg /3 mL (0.083 %) nebulizer solution Use 3 mL via nebulizer every 4 hours as needed for wheezing/shortness of breath. Use over 5-15minutes. sildenafil (VIAGRA) 100 mg tablet Take 1 tablet by mouth as needed. pantoprazole DR (PROTONIX) 40 mg tablet Take 1 tablet by mouth once daily. DULoxetine (CYMBALTA) 60 mg capsule Take 1 capsule by mouth once daily. At bedtime levocetirizine 5 mg tablet Take 1 tablet by mouth once daily. lisinopril (ZESTRIL) 40 mg tablet Take 1 tablet by mouth once daily. HYDROmorphone (DILAUDID) 4 mg tablet Take 1 tablet by mouth every 6 hours as needed (FROM PAIN MANAGEMENT). methocarbamol (ROBAXIN) 500 mg tablet Take 500 mg by mouth three times daily. carBAMazepine (TEGRETOL) 200 mg tablet Take 200 mg by mouth twice daily. FAMILY HISTORY Problem Relation Age of Onset Colon Cancer Mother Heart Father Asthma Sister Social History Tobacco Use Smoking status: Never Smokeless tobacco: Never Vaping Use Vaping Use: Never used Substance Use Topics Alcohol use: Yes Alcohol/week: 4.3 standard drinks of alcohol Types: 3 Glasses of Wine (5oz), 1 Mixed Drinks per week Comment: 4x week Drug use: Never BP 126/82 Pulse 96 Temp 36.3 ?C (97.4 ?F) (Temporal) Resp 14 Ht 180 cm (5' 10.87 ) Wt 124.3 kg (274 lb) SpO2 98% BMI 38.36 kg/m? Physical Exam Vitals reviewed. Constitutional: Appearance: Normal appearance. Neck: Thyro (more content not included)... [facility] 06-03-2023 Note HNO ID: [id number] Author: Fern Carrillo PA-C Service: ? Author Type: Physician Control Systems Specialist Type: Progress Notes Filed: 06/03/2023 4:00 PM Note Text: Patient: Wolf Ridley PCP: Regan Echavarria MD CC: follow-up HPI: Wolf Ridley 58 year old male never smoker with PMH significant for morbid obesity s/p gastric bypass, migraines, ANDREW on CPAP, provoked DVT, GERD, gout, HLD, chronic back pain s/p fusion 2007, HTN, history of Covid 03/2022, treated with Paxlovid, but discontinued after a couple of days secondary to metallic taste. Covid infection followed by pneumonia. He was hospitalized at [facility] 05/21 - 05/23/2022 with pneumonia and hypoxemia. CTA negative for PE, but pertinent for bilateral mainly lower lobe patchy infiltrates left greater than right. He had influenza A around [place] time and since that time had increased cough, wheezing and SOB. PFTs demonstrate small airway obstruction and slight elevation of exhaled nitric oxide level consistent with asthma. Patient had DELFINO done at [facility] 11/25/2022 which was positive for asthma. Current therapy with Flovent and Singulair with as needed Albuterol. Today, patient states he has not been using his Flovent. He was under the impression that it was as needed. Minimal wheezing at night. No significant cough, sputum production or SOB. Has headaches that he attributes to allergies. He is not sure if the Singulair is contributing. PAST MEDICAL HISTORY Diagnosis Date Arthritis Asthma Chronic pain 08/19/2021 Closed fracture of distal end of right femur ([facility]) 06/30/2019 Closed fracture of right tibial plateau 06/30/2019 Complication of surgical procedure 08/19/2021 COVID-19 03/26/2022 Deep vein thrombosis (DVT) ([facility]) 06/30/2019 setting R leg fracture Depressive disorder 08/19/2021 Erectile dysfunction 08/20/2021 GERD (gastroesophageal reflux disease) 08/19/2021 Gout 08/19/2021 HTN (hypertension) Hypercholesterolemia 08/19/2021 Insomnia 08/20/2021 Lumbosacral radiculopathy 08/21/2021 Migraine headache 08/19/2021 ANDREW on CPAP Pneumonia 05/21/2022 Postlaminectomy syndrome of lumbosacral region 08/19/2021 Secondary male hypogonadism 2018 Traumatic hematoma of left lower leg 11/23/2019 Left leg ulcer Allergies: Ampicillin GI Upset acetaminophen 325 mg-caffeine 40 mg-butalbital 50 mg (FIORICET) per tablet Take 1 tablet by mouth every 4 hours as needed for headache for up to 30 days. amLODIPine (NORVASC) 2.5 mg tablet Take 1 tablet by mouth once daily. amitriptyline (ELAVIL) 10 mg tablet Take 2 tablets by mouth daily at bedtime. traZODone (DESYREL) 100 mg tablet Take 2 tablets by mouth daily at bedtime. montelukast (SINGULAIR) 10 mg tablet Take 1 tablet by mouth daily at bedtime. albuterol HFA (VENTOLIN HFA) 90 mcg/actuation inhaler Inhale 2 Puffs as instructed every 4 hours as needed for wheezing/shortness of breath. fluticasone (FLOVENT HFA) 110 mcg/actuation inhaler Inhale 2 Puffs as instructed twice daily. VIA SPACER THEN RINSE AND GARGLE MOUTH WITH WATER. albuterol (PROVENTIL) 2.5 mg /3 mL (0.083 %) nebulizer solution Use 3 mL via nebulizer every 4 hours as needed for wheezing/shortness of breath. Use over 5-15minutes. sildenafil (VIAGRA) 100 mg tablet Take 1 tablet by mouth as needed. pantoprazole DR (PROTONIX) 40 mg tablet Take 1 tablet by mouth once daily. DULoxetine (CYMBALTA) 60 mg capsule Take 1 capsule by mouth once daily. At bedtime levocetirizine 5 mg tablet Take 1 tablet by mouth once daily. lisinopril (ZESTRIL) 40 mg tablet Take 1 tablet by mouth once daily. pregabalin (LYRICA) 100 mg capsule Take 100 mg by mouth three times daily. HYDROmorphone (DILAUDID) 4 mg tablet Take 1 tablet by mouth every 6 hours as needed (FROM PAIN MANAGEMENT). methocarbamol (ROBAXIN) 500 mg tablet Take 500 mg by mouth three times daily. carBAMazepine (TEGRETOL) 200 mg tablet Take 200 mg by mouth twice daily. Social History Tobacco Use Smoking status: Never Smokeless tobacco: Never Vaping Use Vaping Use: Never used Substance Use Topics Alcohol use: Yes Alcohol/week: 4.3 standard drinks of alcohol Types: 3 Glasses of Wine (5oz), 1 Mixed Drinks per week Comment: 4x week Drug use: Never Family History Problem Relation Age of Onset Colon Cancer Mother Heart Father Asthma Sister PAST SURGICAL HISTORY Procedure Laterality Date BACK SURGERY HX 2007 COLONOSCOPY SCREENING 06/02/2019 x 5, last one [facility]. FRACTURE SURGERY GASTRIC BYPASS HX 2001 INGUINAL HERNIA REPAIR HX Left 1982 LEFT HEART CATH,PERCUTANEOUS 2015 normal. PAST SURGICAL HISTORY OF Right 2019 ORIF R knee fractures REMOVE MESH FROM ABD WALL 2004 adhesions REPAIR ABDOMINAL HERNIA 2001 TONSILLECTOMY HX TOTAL KNEE REPLACEMENT Right 07/04/2020 Complex R knee arthroplasty I reviewed the past medical history, family h (more content not included)... [facility] 06-03-2023 Instructions Fern Carrillo PA-C - 06/03/2023 3:47 PM EST Stop Singulair at this time secondary to headaches to see if it is contributing. If after 1 month you do not feel the headaches are any different and your allergy are worse then resume the Singulair. If after 1 month you do not feel the headaches are any different and your allergies are well controlled, stay off of Singulair until August. If after 1 month you feel the headaches are significantly improved with being off Singulair, stay off Singulair documented in this encounter [facility] 06-03-2023 History of Present illness Narrative Images from the original note were not included. Patient: Wolf Ridley PCP: Regan Echavarria MD CC: follow-up HPI: Wolf Ridley 58 year old male never smoker with PMH significant for morbid obesity s/p gastric bypass, migraines, ANDREW on CPAP, provoked DVT, GERD, gout, HLD, chronic back pain s/p fusion 2007, HTN, history of Covid 03/2022, treated with Paxlovid, but discontinued after a couple of days secondary to metallic taste. Covid infection followed by pneumonia. He was hospitalized at [facility] 05/21 - 05/23/2022 with pneumonia and hypoxemia. CTA negative for PE, but pertinent for bilateral mainly lower lobe patchy infiltrates left greater than right. He had influenza A around [place] time and since that time had increased cough, wheezing and SOB. PFTs demonstrate small airway obstruction and slight elevation of exhaled nitric oxide level consistent with asthma. Patient had DELFINO done at [facility] 11/25/2022 which was positive for asthma. Current therapy with Flovent and Singulair with as needed Albuterol. Today, patient states he has not been using his Flovent. He was under the impression that it was as needed. Minimal wheezing at night. No significant cough, sputum production or SOB. Has headaches that he attributes to allergies. He is not sure if the Singulair is contributing. PAST MEDICAL HISTORY Diagnosis Date Arthritis Asthma Chronic pain 08/19/2021 Closed fracture of distal end of right femur (HCC) 06/30/2019 Closed fracture of right tibial plateau 06/30/2019 Complication of surgical procedure 08/19/2021 COVID-19 03/26/2022 Deep vein thrombosis (DVT) (HCC) 06/30/2019 setting R leg fracture Depressive disorder 08/19/2021 Erectile dysfunction 08/20/2021 GERD (gastroesophageal reflux disease) 08/19/2021 Gout 08/19/2021 HTN (hypertension) Hypercholesterolemia 08/19/2021 Insomnia 08/20/2021 Lumbosacral radiculopathy 08/21/2021 Migraine headache 08/19/2021 ANDREW on CPAP Pneumonia 05/21/2022 Postlaminectomy syndrome of lumbosacral region 08/19/2021 Secondary male hypogonadism 2019 Traumatic hematoma of left lower leg 11/23/2019 Left leg ulcer Allergies: Ampicillin GI Upset acetaminophen 325 mg-caffeine 40 mg-butalbital 50 mg (FIORICET) per tablet Take 1 tablet by mouth every 4 hours as needed for headache for up to 30 days. amLODIPine (NORVASC) 2.5 mg tablet Take 1 tablet by mouth once daily. amitriptyline (ELAVIL) 10 mg tablet Take 2 tablets by mouth daily at bedtime. traZODone (DESYREL) 100 mg tablet Take 2 tablets by mouth daily at bedtime. montelukast (SINGULAIR) 10 mg tablet Take 1 tablet by mouth daily at bedtime. albuterol HFA (VENTOLIN HFA) 90 mcg/actuation inhaler Inhale 2 Puffs as instructed every 4 hours as needed for wheezing/shortness of breath. fluticasone (FLOVENT HFA) 110 mcg/actuation inhaler Inhale 2 Puffs as instructed twice daily. VIA SPACER THEN RINSE AND GARGLE MOUTH WITH WATER. albuterol (PROVENTIL) 2.5 mg /3 mL (0.083 %) nebulizer solution Use 3 mL via nebulizer every 4 hours as needed for wheezing/shortness of breath. Use over 5-15minutes. sildenafil (VIAGRA) 100 mg tablet Take 1 tablet by mouth as needed. pantoprazole DR (PROTONIX) 40 mg tablet Take 1 tablet by mouth once daily. DULoxetine (CYMBALTA) 60 mg capsule Take 1 capsule by mouth once daily. At bedtime levocetirizine 5 mg tablet Take 1 tablet by mouth once daily. lisinopril (ZESTRIL) 40 mg tablet Take 1 tablet by mouth once daily. pregabalin (LYRICA) 100 mg capsule Take 100 mg by mouth three times daily. HYDROmorphone (DILAUDID) 4 mg tablet Take 1 tablet by mouth every 6 hours as needed (FROM PAIN MANAGEMENT). methocarbamol (ROBAXIN) 500 mg tablet Take 500 mg by mouth three times daily. carBAMazepine (TEGRETOL) 200 mg tablet Take 200 mg by mouth twice daily. Social History Tobacco Use Smoking status: Never Smokeless tobacco: Never Vaping Use Vaping Use: Never used Substance Use Topics Alcohol use: Yes Alcohol/week: 4.3 standard drinks of alcohol Types: 3 Glasses of Wine (5oz), 1 Mixed Drinks per week Comment: 4x week Drug use: Never Family History Problem Relation Age of Onset Colon Cancer Mother Heart Father Asthma Sister PAST SURGICAL HISTORY Procedure Laterality Date BACK SURGERY HX 2006 COLONOSCOPY SCREENING 06/02/2019 x 5, last one [facility]. FRACTURE SURGERY GASTRIC BYPASS HX 2001 INGUINAL HERNIA REPAIR HX Left 1982 LEFT HEART CATH,PERCUTANEOUS 2016 normal. PAST SURGICAL HISTORY OF Right 2019 ORIF R knee fractures REMOVE MESH FROM ABD WALL 2004 adhesions REPAIR ABDOMINAL HERNIA 2001 TONSILLECTOMY HX TOTAL KNEE REPLACEMENT Right 07/04/2020 Complex R knee arthroplasty I reviewed the past medical history, family history, social history and surgical history with changes noted above and updated in EMR. IMMUNIZATIONS Prevnar - xx Pneumovax 23 - 07/01/2019 Influenza - 06/03/2023 COVID-19 - most recent 07/10/2021 ROS: General: No fevers, chills or night sweats. No unintended weight loss. Appetite good. Eyes, Ears, nose, throat: Post nasal drip, rhinorrhea. No purulent nasal discharge, epistaxis. No hoarseness. Vision stable. Cardiac: No angina, edema, orthopnea. Resp: See HPI. GI: No heartburn, dysphagia. Musculoskeletal: Chronic back pain. Neuro: No focal weakness, tremor. Skin: No new skin changes or rash. Dry skin. Otherwise negative. PHYSICAL EXAMINATION: BP 136/82 Pulse 71 Resp 17 Wt 127 kg (280 lb) SpO2 95% BMI 37.97 kg/m Gen: No acute distress. Cooperative with examination. HEENT: Normocephalic. Sclera, conjunctiva clear. Oral hygeine and dentition good. No thrush. Resp: No stridor, accessory respiratory muscle use, supra-sternal or intercostal retractions. No wheezes, crackles. CV: Regular rythm. Heart tones normal. Radial pulses normal. MSK: No kyphoscoliosis. Ext: Warm and well perfused. No clubbing, cyanosis, edema. Skin: No rash, ecchymoses. Neuro: Mental status normal. Affect normal. No tremor. DATA: [facility], 11/2022 Positive bronchoprovocation study in a range consistent with asthma. Exhaled nitric oxide (Linda), 08/25/2022: 23 (normal < 20). PFT, 08/25/2022 IMPRESSION: Spirometry is normal. FVL conformation show small airways obstruction. There was not a significant bronchodilator response. Electronically Signed On 08-25-2022 17:07:14 EST by An Ridley M.D. CXR, 07/24/2022 IMPRESSION: No acute radiographic abnormality. RESULT: Lines, tubes, and devices: None. Lungs and pleura: No consolidation. No lung mass. No pleural effusion. No pneumothorax. Cardiomediastinal silhouette: Normal cardiomediastinal silhouette. Bones and soft tissues: Unremarkable. ASSESSMENT/PLAN: 1. Mild persistent asthma without complication - ICD9: 493.90, ICD10: J45.30 (primary diagnosis) Instructed patient to use Flovent daily. Rinse mouth after each use to help prevent oral thrush. Albuterol HFA inhaler, 2 inhalations 10-15 minutes prior to activities associated with shortness of breath, and as needed for rescue relief of shortness of breath or wheezing, up to 4 times daily. Stop Singulair at this time secondary to headaches to see if it is contributing. - If after 1 month you do not feel the headaches are any different and your allergy are worse then resume the Singulair. - If after 1 month you do not feel the headaches are any different and your allergies are well controlled, stay off of Singulair until August. - If after 1 month you feel the headaches are significantly improved with being off Singulair, stay off Singulair 2. Chronic rhinosinusitis - ICD9: 472.0, 473.9, ICD10: J32.9 See #1. 3. Need for influenza vaccination - ICD9: V04.81, ICD10: Z23 - INFLUENZA VACCINE, AGE 6 MO - 64 YR, QUADRIVALENT (AFLURIA, FLULAVAL, FLUZONE) Portions of this documentation were copied and pasted from previous office visit notes in order to provide a cohesive continuity of the history. The note has been reviewed and edited and updated as necessary. Fern Carrillo PA-C documented in this encounter [facility] 04-29-2023 Nurse Note Arrived in phase II via cart. Left lateral position. Sedated, but responds to verbal stimuli. Color normal; skin warm and dry. Respirations wnl and unlabored. Abdomen soft and with + bowel sounds in quads X 4. Patient resting comfortably. Mylene Lynch RN documented in this encounter [facility] 04-29-2023 History and physical note UPDATED PROCEDURAL SEDATION HISTORY AND PHYSICAL EXAMINATION SERVICE DATE: 04/29/2023 SERVICE TIME: 9:45 PHYSICAL EXAM MUST BE COMPLETED ON ADMISSION PROCEDURE: colonoscopy, possible biopsies Procedure Indications: screening for colon cancer The History and Physical (completed in the past 30 days) has been reviewed and the patient has been examined. The contents accurately reflect the patient's condition with the following additions or revisions since the H&P was completed. ASA Class: ASA Class:: Patient with severe systemic disease Examination indicates no changes. AIRWAY: Airway Visualization of Uvula: Yes Mouth opening greater than 2 fingerbreadths: Yes Neck Full Range of Motion: Yes LUNGS: Lungs clear to auscultation CARDIAC: Regular rhythm,Regular rate Provisional Diagnosis/Treatment Plan: colonoscopy, possible biopsies SEDATION GOAL: Moderate This H&P can be found in the Electronic Medical Record . SIGNATURE: Erin Leal MD PATIENT NAME: Wolf Ridley DATE: April 29, 2023 TIME: 9:50 AM Source Note - Erin Leal MD - 04/29/2023 10:30 AM EDT HISTORY AND PHYSICAL Wolf Ridley 1965 REFERRING PHYSICIAN: Regan Echavarria MD CHIEF COMPLAINT: No chief complaint on file. HPI: The patient is a 58 year old male presents for screening for colon cancer via colonoscopy The patient denies blood in stools, denies abdominal pain, and denies changes in bowel habits. The patient notes that a parent of colon cancer, was dx'd at the age of 70s. The patient has had previous colonoscopy in 2019. PAST MEDICAL HISTORY Diagnosis Date Chronic pain 08/19/2021 Closed fracture of distal end of right femur (HCC) 06/30/2019 Closed fracture of right tibial plateau 06/30/2019 Complication of surgical procedure 08/19/2021 COVID-19 03/26/2022 Deep vein thrombosis (DVT) (HCC) 06/30/2019 setting R leg fracture Depressive disorder 08/19/2021 Erectile dysfunction 08/20/2021 GERD (gastroesophageal reflux disease) 08/19/2021 Gout 08/19/2021 HTN (hypertension) Hypercholesterolemia 08/19/2021 Insomnia 08/20/2021 Lumbosacral radiculopathy 08/21/2021 Migraine headache 08/19/2021 ANDREW on CPAP Pneumonia 05/21/2022 Postlaminectomy syndrome of lumbosacral region 08/19/2021 Secondary male hypogonadism 2018 Traumatic hematoma of left lower leg 11/23/2019 Left leg ulcer PAST SURGICAL HISTORY Procedure Laterality Date BACK SURGERY HX 2007 COLONOSCOPY SCREENING 06/02/2019 x 5, last one [facility]. GASTRIC BYPASS HX 2001 INGUINAL HERNIA REPAIR HX Left 1981 LEFT HEART CATH,PERCUTANEOUS 2015 normal. PAST SURGICAL HISTORY OF Right 2019 ORIF R knee fractures REMOVE MESH FROM ABD WALL 2004 adhesions REPAIR ABDOMINAL HERNIA 2001 TOTAL KNEE REPLACEMENT Right 07/04/2020 Complex R knee arthroplasty Current Outpatient Medications Medication Sig acetaminophen 325 mg-caffeine 40 mg-butalbital 50 mg (FIORICET) per tablet Take 1 tablet by mouth every 4 hours as needed for headache for up to 30 days. albuterol (PROVENTIL) 2.5 mg /3 mL (0.083 %) nebulizer solution Use 3 mL via nebulizer every 4 hours as needed for wheezing/shortness of breath. Use over 5-15minutes. albuterol HFA (VENTOLIN HFA) 90 mcg/actuation inhaler Inhale 2 Puffs as instructed every 4 hours as needed for wheezing/shortness of breath. amitriptyline (ELAVIL) 10 mg tablet Take 2 tablets by mouth daily at bedtime. amLODIPine (NORVASC) 2.5 mg tablet Take 1 tablet by mouth once daily. carBAMazepine (TEGRETOL) 200 mg tablet Take 200 mg by mouth twice daily. DULoxetine (CYMBALTA) 60 mg capsule Take 1 capsule by mouth once daily. At bedtime fluticasone (FLOVENT HFA) 110 mcg/actuation inhaler Inhale 2 Puffs as instructed twice daily. VIA SPACER THEN RINSE AND GARGLE MOUTH WITH WATER. HYDROmorphone (DILAUDID) 4 mg tablet Take 1 tablet by mouth every 6 hours as needed (FROM PAIN MANAGEMENT). levocetirizine 5 mg tablet Take 1 tablet by mouth once daily. lisinopril (ZESTRIL) 40 mg tablet Take 1 tablet by mouth once daily. methocarbamol (ROBAXIN) 500 mg tablet Take 500 mg by mouth three times daily. montelukast (SINGULAIR) 10 mg tablet Take 1 tablet by mouth daily at bedtime. pantoprazole DR (PROTONIX) 40 mg tablet Take 1 tablet by mouth once daily. pregabalin (LYRICA) 100 mg capsule Take 100 mg by mouth three times daily. sildenafil (VIAGRA) 100 mg tablet Take 1 tablet by mouth as needed. traZODone (DESYREL) 100 mg tablet Take 2 tablets by mouth daily at bedtime. No current facility-administered medications for this encounter. ALLERGIES: Ampicillin PERSONAL HISTORY: Social History Tobacco Use Smoking status: Never Smokeless tobacco: Never Vaping Use Vaping Use: Never used Substance Use Topics Alcohol use: Yes Alcohol/week: 7.0 standard drinks of alcohol Types: 7 Glasses of Wine (5oz) per week Drug use: Never FAMILY HISTORY Problem Relation Age of Onset Colon Cancer Mother Heart Father Asthma Sister REVIEW OF SYSTEMS: Denies fevers. Denies chest pain Denies shortness of breath Physical examination: Vital signs in chart, reviewed and noted by me General - WD/WN in no apparent distress, alert and oriented Head - Normocephalic. EOM intact with sclera clear. Mouth with mucus membranes moist. Neck - supple with no jugular venous distention noted. Trachea is midline. Lungs - clear to auscultation. Normal breath sounds. No rales/rhonchi/wheezing noted. Heart - normal heart sounds. No rubs/clicks/murmurs noted. Regular rate. Abdomen - soft and benign. Extremities - no pitting edema noted. Skin - Normal skin integrity. Neurological - non focal Psych - calm and appropriate Impression: screening for colon cancer, Discussion/Plan/Recommendations: I have discussed the above with the patient. I have offered colonoscopy , possible biopsies I have explained the procedure to the patient. I have counseled the patient as to the risks of the procedure, including but not limited to: infection, bleeding, injury to any intrabdominal organs such as liver/spleen, perforation of the GI tract, inability to complete the procedure, complications of anesthesia, etc. - the patient understands. The patient wishes to proceed. I have answered all questions to the patient s satisfaction and the patient has no further questions. Erin Leal MD HISTORY AND PHYSICAL Wolf Ridley 1965 REFERRING PHYSICIAN: Regan Echavarria MD CHIEF COMPLAINT: No chief complaint on file. HPI: The patient is a 58 year old male presents for screening for colon cancer via colonoscopy The patient denies blood in stools, denies abdominal pain, and denies changes in bowel habits. The patient notes that a parent of colon cancer, was dx'd at the age of 70s. The patient has had previous colonoscopy in 2019. PAST MEDICAL HISTORY Diagnosis Date Chronic pain 08/19/2021 Closed fracture of distal end of right femur (HCC) 06/30/2019 Closed fracture of right tibial plateau 06/30/2019 Complication of surgical procedure 08/19/2021 COVID-19 03/26/2022 Deep vein thrombosis (DVT) (HCC) 06/30/2019 setting R leg fracture Depressive disorder 08/19/2021 Erectile dysfunction 08/20/2021 GERD (gastroesophageal reflux disease) 08/19/2021 Gout 08/19/2021 HTN (hypertension) Hypercholesterolemia 08/19/2021 Insomnia 08/20/2021 Lumbosacral radiculopathy 08/21/2021 Migraine headache 08/19/2021 ANDREW on CPAP Pneumonia 05/21/2022 Postlaminectomy syndrome of lumbosacral region 08/19/2021 Secondary male hypogonadism 2019 Traumatic hematoma of left lower leg 11/23/2019 Left leg ulcer PAST SURGICAL HISTORY Procedure Laterality Date BACK SURGERY HX 2006 COLONOSCOPY SCREENING 06/02/2019 x 5, last one [facility]. GASTRIC BYPASS HX 2001 INGUINAL HERNIA REPAIR HX Left 1981 LEFT HEART CATH,PERCUTANEOUS 2016 normal. PAST SURGICAL HISTORY OF Right 2019 ORIF R knee fractures REMOVE MESH FROM ABD WALL 2004 adhesions REPAIR ABDOMINAL HERNIA 2001 TOTAL KNEE REPLACEMENT Right 07/04/2020 Complex R knee arthroplasty Current Outpatient Medications Medication Sig acetaminophen 325 mg-caffeine 40 mg-butalbital 50 mg (FIORICET) per tablet Take 1 tablet by mouth every 4 hours as needed for headache for up to 30 days. albuterol (PROVENTIL) 2.5 mg /3 mL (0.083 %) nebulizer solution Use 3 mL via nebulizer every 4 hours as needed for wheezing/shortness of breath. Use over 5-15minutes. albuterol HFA (VENTOLIN HFA) 90 mcg/actuation inhaler Inhale 2 Puffs as instructed every 4 hours as needed for wheezing/shortness of breath. amitriptyline (ELAVIL) 10 mg tablet Take 2 tablets by mouth daily at bedtime. amLODIPine (NORVASC) 2.5 mg tablet Take 1 tablet by mouth once daily. carBAMazepine (TEGRETOL) 200 mg tablet Take 200 mg by mouth twice daily. DULoxetine (CYMBALTA) 60 mg capsule Take 1 capsule by mouth once daily. At bedtime fluticasone (FLOVENT HFA) 110 mcg/actuation inhaler Inhale 2 Puffs as instructed twice daily. VIA SPACER THEN RINSE AND GARGLE MOUTH WITH WATER. HYDROmorphone (DILAUDID) 4 mg tablet Take 1 tablet by mouth every 6 hours as needed (FROM PAIN MANAGEMENT). levocetirizine 5 mg tablet Take 1 tablet by mouth once daily. lisinopril (ZESTRIL) 40 mg tablet Take 1 tablet by mouth once daily. methocarbamol (ROBAXIN) 500 mg tablet Take 500 mg by mouth three times daily. montelukast (SINGULAIR) 10 mg tablet Take 1 tablet by mouth daily at bedtime. pantoprazole DR (PROTONIX) 40 mg tablet Take 1 tablet by mouth once daily. pregabalin (LYRICA) 100 mg capsule Take 100 mg by mouth three times daily. sildenafil (VIAGRA) 100 mg tablet Take 1 tablet by mouth as needed. traZODone (DESYREL) 100 mg tablet Take 2 tablets by mouth daily at bedtime. No current facility-administered medications for this encounter. ALLERGIES: Ampicillin PERSONAL HISTORY: Social History Tobacco Use Smoking status: Never Smokeless tobacco: Never Vaping Use Vaping Use: Never used Substance Use Topics Alcohol use: Yes Alcohol/week: 7.0 standard drinks of alcohol Types: 7 Glasses of Wine (5oz) per week Drug use: Never FAMILY HISTORY Problem Relation Age of Onset Colon Cancer Mother Heart Father Asthma Sister REVIEW OF SYSTEMS: Denies fevers. Denies chest pain Denies shortness of breath Physical examination: Vital signs in chart, reviewed and noted by me General - WD/WN in no apparent distress, alert and oriented Head - Normocephalic. EOM intact with sclera clear. Mouth with mucus membranes moist. Neck - supple with no jugular venous distention noted. Trachea is midline. Lungs - clear to auscultation. Normal breath sounds. No rales/rhonchi/wheezing noted. Heart - normal heart sounds. No rubs/clicks/murmurs noted. Regular rate. Abdomen - soft and benign. Extremities - no pitting edema noted. Skin - Normal skin integrity. Neurological - non focal Psych - calm and appropriate Impression: screening for colon cancer, Discussion/Plan/Recommendations: I have discussed the above with the patient. I have offered colonoscopy , possible biopsies I have explained the procedure to the patient. I have counseled the patient as to the risks of the procedure, including but not limited to: infection, bleeding, injury to any intrabdominal organs such as liver/spleen, perforation of the GI tract, inability to complete the procedure, complications of anesthesia, etc. - the patient understands. The patient wishes to proceed. I have answered all questions to the patient s satisfaction and the patient has no further questions. Erin Leal MD documented in this encounter [facility] 03-24-2023 Miscellaneous Notes Last office visit: 12/29/22 Next appointment scheduled: 07/01/23 Last labs: 06/03/22 Patient phones requesting refills as follows: Requested Prescriptions Pending Prescriptions Disp Refills acetaminophen 325 mg-caffeine 40 mg-butalbital 50 mg (FIORICET) per tablet 30 tablet 0 Sig: Take 1 tablet by mouth every 4 hours as needed for headache. Sera Fernandez LPN documented in this encounter [facility] 03-24-2023 Miscellaneous Notes ANTOLIN 02/25/23 Patient phones requesting refills as follows: Requested Prescriptions Pending Prescriptions Disp Refills montelukast (SINGULAIR) 10 mg tablet 30 tablet 5 Sig: Take 1 tablet by mouth daily at bedtime. Please review and advise. Tati Nation LPN documented in this encounter [facility] 03-09-2023 Miscellaneous Notes Last office visit: 12/29/2022 Next appointment scheduled: 07/01/23 Patient phones requesting refills as follows: Requested Prescriptions Pending Prescriptions Disp Refills albuterol HFA (VENTOLIN HFA) 90 mcg/actuation inhaler 1 Each 0 Sig: Inhale 2 Puffs as instructed every 4 hours as needed for wheezing/shortness of breath. Please review and advise. Sera Fernandez LPN documented in this encounter [facility] 03-04-2023 Miscellaneous Notes Called in verbal order for Fioricet, spoke to Piper/pharmacist/[place]. Clemencia Solomon LPN Please call pharmacy with verbal order Rayna Mac APRN.BONNY Piper with [facility] called and the prescription for Fioricet still did not come thru with an electronic signature. She reports that Dr. Echavarria's office can call with a verbal. This has happen in the past for this prescription. Dina Branch LPN documented in this encounter [facility] 03-03-2023 Miscellaneous Notes Pharmacy called and the prescription for Fioricet did not come thru completely and she is asking to have it sent again to the pharmacy. Dina Branch LPN documented in this encounter [facility] 03-02-2023 Miscellaneous Notes ANTOLIN: 12/29/2022 Last refill: 02/07/2023 QTY: 30 Refills: 0 documented in this encounter [facility] 02-25-2023 Note HNO ID: [id number] Author: Fern Carrillo PA-C Service: ? Author Type: Physician Control Systems Specialist Type: Progress Notes Filed: 02/25/2023 3:55 PM Note Text: Patient: Wolf Ridley PCP: Regan Echavarria MD CC: follow up HPI: Wolf Ridley 57 year old male never smoker with PMH significant for morbid obesity s/p gastric bypass, migraines, ANDREW on CPAP, provoked DVT, GERD, gout, HLD, chronic back pain s/p fusion 2007, HTN, history of Covid 03/2022, treated with Paxlovid, but discontinued after a couple of days secondary to metallic taste. Covid infection followed by pneumonia. He was hospitalized at [facility] 05/21 - 05/23/2022 with pneumonia and hypoxemia. CTA negative for PE, but pertinent for bilateral mainly lower lobe patchy infiltrates left greater than right. He had influenza A around [place] time and since that time had increased cough, wheezing and SOB. PFTs demonstrate small airway obstruction and slight elevation of exhaled nitric oxide level consistent with asthma. Patient had DELFINO done at [facility] 11/25/2022 which was positive for asthma. Current therapy with Flovent and Singulair with as needed Albuterol. Today, patient reports improvement in symptoms with Singulair. Denies headaches or mood changes. Has not needed Albuterol. Daily cough productive of phlegm. No hemoptysis. Wheezing. Exertional dyspnea with climbing stairs. No nocturnal awakenings. PAST MEDICAL HISTORY Diagnosis Date Chronic pain 08/19/2021 Closed fracture of distal end of right femur ([facility]) 06/30/2019 Closed fracture of right tibial plateau 06/30/2019 Complication of surgical procedure 08/19/2021 COVID-19 03/26/2022 Deep vein thrombosis (DVT) ([facility]) 06/30/2019 setting R leg fracture Depressive disorder 08/19/2021 Erectile dysfunction 08/20/2021 GERD (gastroesophageal reflux disease) 08/19/2021 Gout 08/19/2021 HTN (hypertension) Hypercholesterolemia 08/19/2021 Insomnia 08/20/2021 Lumbosacral radiculopathy 08/21/2021 Migraine headache 08/19/2021 ANDREW on CPAP Pneumonia 05/21/2022 Postlaminectomy syndrome of lumbosacral region 08/19/2021 Secondary male hypogonadism 2019 Traumatic hematoma of left lower leg 11/23/2019 Left leg ulcer Allergies: Ampicillin GI Upset acetaminophen 325 mg-caffeine 40 mg-butalbital 50 mg (FIORICET) per tablet Take 1 tablet by mouth every 4 hours as needed for headache. fluticasone (FLOVENT HFA) 110 mcg/actuation inhaler Inhale 2 Puffs as instructed twice daily. VIA SPACER THEN RINSE AND GARGLE MOUTH WITH WATER. montelukast (SINGULAIR) 10 mg tablet Take 1 tablet by mouth daily at bedtime. amitriptyline (ELAVIL) 10 mg tablet Take 2 tablets by mouth daily at bedtime. albuterol (PROVENTIL) 2.5 mg /3 mL (0.083 %) nebulizer solution Use 3 mL via nebulizer every 4 hours as needed for wheezing/shortness of breath. Use over 5-15minutes. albuterol HFA (VENTOLIN HFA) 90 mcg/actuation inhaler Inhale 2 Puffs as instructed every 4 hours as needed for wheezing/shortness of breath. sildenafil (VIAGRA) 100 mg tablet Take 1 tablet by mouth as needed. pantoprazole DR (PROTONIX) 40 mg tablet Take 1 tablet by mouth once daily. traZODone (DESYREL) 100 mg tablet Take 2 tablets by mouth daily at bedtime. DULoxetine (CYMBALTA) 60 mg capsule Take 1 capsule by mouth once daily. At bedtime levocetirizine 5 mg tablet Take 1 tablet by mouth once daily. lisinopril (ZESTRIL) 40 mg tablet Take 1 tablet by mouth once daily. amLODIPine (NORVASC) 2.5 mg tablet Take 1 tablet by mouth once daily. pregabalin (LYRICA) 100 mg capsule HYDROmorphone (DILAUDID) 4 mg tablet Take 1 tablet by mouth every 6 hours as needed (FROM PAIN MANAGEMENT). methocarbamol (ROBAXIN) 500 mg tablet Take 500 mg by mouth three times daily. carBAMazepine (TEGRETOL) 200 mg tablet Take 200 mg by mouth twice daily. Social History Tobacco Use Smoking status: Never Smokeless tobacco: Never Vaping Use Vaping Use: Never used Substance Use Topics Alcohol use: Yes Alcohol/week: 7.0 standard drinks of alcohol Types: 7 Glasses of Wine (5oz) per week Drug use: Never Family History Problem Relation Age of Onset Colon Cancer Mother Heart Father Asthma Sister PAST SURGICAL HISTORY Procedure Laterality Date BACK SURGERY HX 2007 COLONOSCOPY SCREENING 06/02/2019 x 5, last one [facility]. GASTRIC BYPASS HX 2001 INGUINAL HERNIA REPAIR HX Left 1982 LEFT HEART CATH,PERCUTANEOUS 2016 normal. PAST SURGICAL HISTORY OF Right 2019 ORIF R knee fractures REMOVE MESH FROM ABD WALL 2004 adhesions REPAIR ABDOMINAL HERNIA 2001 TOTAL KNEE REPLACEMENT Right 07/04/2020 Complex R knee arthroplasty I reviewed the past medical history, family history, social history and surgical history with changes noted above and updated in EMR. IMMUNIZATIONS Prevnar - xx Pneumovax 23 - 07/01/2019 Influenza - 04/16/2022 COVID-19 - (more content not included)... [facility] 02-25-2023 History of Present illness Narrative Images from the original note were not included. Patient: Wolf Ridley PCP: Regan Echavarria MD CC: follow up HPI: Wolf Ridley 57 year old male never smoker with PMH significant for morbid obesity s/p gastric bypass, migraines, ANDREW on CPAP, provoked DVT, GERD, gout, HLD, chronic back pain s/p fusion 2007, HTN, history of Covid 03/2022, treated with Paxlovid, but discontinued after a couple of days secondary to metallic taste. Covid infection followed by pneumonia. He was hospitalized at [facility] 05/21 - 05/23/2022 with pneumonia and hypoxemia. CTA negative for PE, but pertinent for bilateral mainly lower lobe patchy infiltrates left greater than right. He had influenza A around [place] time and since that time had increased cough, wheezing and SOB. PFTs demonstrate small airway obstruction and slight elevation of exhaled nitric oxide level consistent with asthma. Patient had DELFINO done at [facility] 11/25/2022 which was positive for asthma. Current therapy with Flovent and Singulair with as needed Albuterol. Today, patient reports improvement in symptoms with Singulair. Denies headaches or mood changes. Has not needed Albuterol. Daily cough productive of phlegm. No hemoptysis. Wheezing. Exertional dyspnea with climbing stairs. No nocturnal awakenings. PAST MEDICAL HISTORY Diagnosis Date Chronic pain 08/19/2021 Closed fracture of distal end of right femur ([facility]) 06/30/2019 Closed fracture of right tibial plateau 06/30/2019 Complication of surgical procedure 08/19/2021 COVID-19 03/26/2022 Deep vein thrombosis (DVT) ([facility]) 06/30/2019 setting R leg fracture Depressive disorder 08/19/2021 Erectile dysfunction 08/20/2021 GERD (gastroesophageal reflux disease) 08/19/2021 Gout 08/19/2021 HTN (hypertension) Hypercholesterolemia 08/19/2021 Insomnia 08/20/2021 Lumbosacral radiculopathy 08/21/2021 Migraine headache 08/19/2021 ANDREW on CPAP Pneumonia 05/21/2022 Postlaminectomy syndrome of lumbosacral region 08/19/2021 Secondary male hypogonadism 2019 Traumatic hematoma of left lower leg 11/23/2019 Left leg ulcer Allergies: Ampicillin GI Upset acetaminophen 325 mg-caffeine 40 mg-butalbital 50 mg (FIORICET) per tablet Take 1 tablet by mouth every 4 hours as needed for headache. fluticasone (FLOVENT HFA) 110 mcg/actuation inhaler Inhale 2 Puffs as instructed twice daily. VIA SPACER THEN RINSE AND GARGLE MOUTH WITH WATER. montelukast (SINGULAIR) 10 mg tablet Take 1 tablet by mouth daily at bedtime. amitriptyline (ELAVIL) 10 mg tablet Take 2 tablets by mouth daily at bedtime. albuterol (PROVENTIL) 2.5 mg /3 mL (0.083 %) nebulizer solution Use 3 mL via nebulizer every 4 hours as needed for wheezing/shortness of breath. Use over 5-15minutes. albuterol HFA (VENTOLIN HFA) 90 mcg/actuation inhaler Inhale 2 Puffs as instructed every 4 hours as needed for wheezing/shortness of breath. sildenafil (VIAGRA) 100 mg tablet Take 1 tablet by mouth as needed. pantoprazole DR (PROTONIX) 40 mg tablet Take 1 tablet by mouth once daily. traZODone (DESYREL) 100 mg tablet Take 2 tablets by mouth daily at bedtime. DULoxetine (CYMBALTA) 60 mg capsule Take 1 capsule by mouth once daily. At bedtime levocetirizine 5 mg tablet Take 1 tablet by mouth once daily. lisinopril (ZESTRIL) 40 mg tablet Take 1 tablet by mouth once daily. amLODIPine (NORVASC) 2.5 mg tablet Take 1 tablet by mouth once daily. pregabalin (LYRICA) 100 mg capsule HYDROmorphone (DILAUDID) 4 mg tablet Take 1 tablet by mouth every 6 hours as needed (FROM PAIN MANAGEMENT). methocarbamol (ROBAXIN) 500 mg tablet Take 500 mg by mouth three times daily. carBAMazepine (TEGRETOL) 200 mg tablet Take 200 mg by mouth twice daily. Social History Tobacco Use Smoking status: Never Smokeless tobacco: Never Vaping Use Vaping Use: Never used Substance Use Topics Alcohol use: Yes Alcohol/week: 7.0 standard drinks of alcohol Types: 7 Glasses of Wine (5oz) per week Drug use: Never Family History Problem Relation Age of Onset Colon Cancer Mother Heart Father Asthma Sister PAST SURGICAL HISTORY Procedure Laterality Date BACK SURGERY HX 2007 COLONOSCOPY SCREENING 06/02/2019 x 5, last one [facility] GASTRIC BYPASS HX 2001 INGUINAL HERNIA REPAIR HX Left 1982 LEFT HEART CATH,PERCUTANEOUS 2016 normal. PAST SURGICAL HISTORY OF Right 2020 ORIF R knee fractures REMOVE MESH FROM ABD WALL 2004 adhesions REPAIR ABDOMINAL HERNIA 2001 TOTAL KNEE REPLACEMENT Right 07/04/2020 Complex R knee arthroplasty I reviewed the past medical history, family history, social history and surgical history with changes noted above and updated in EMR. IMMUNIZATIONS Prevnar - xx Pneumovax 23 - 07/01/2019 Influenza - 04/16/2022 COVID-19 - 07/10/2021, 10/02/2020, 09/11/2020 ROS: General: No fevers, chills or night sweats. No unintended weight loss. Appetite good. Eyes, Ears, nose, throat: Post nasal drip, rhinorrhea. No purulent nasal discharge, epistaxis. No hoarseness. Vision stable. Cardiac: No angina, edema, orthopnea. Resp: See HPI. GI: No heartburn, dysphagia. Musculoskeletal: Chronic back pain. Neuro: No headache, focal weakness, tremor. Skin: No rash. Otherwise negative. PHYSICAL EXAMINATION: BP 108/68 (BP Site: Left Arm, BP Position: Sitting, BP Cuff Size: Large Adult) Pulse 78 Resp 12 Ht 182.9 cm (6') Wt 126.1 kg (278 lb) SpO2 94% BMI 37.70 kg/m Gen: No acute distress. Cooperative with examination. HEENT: Normocephalic. Sclera, conjunctiva clear. Oral hygeine and dentition good. No thrush. Resp: No stridor, accessory respiratory muscle use, supra-sternal or intercostal retractions. No wheezes, crackles. CV: Regular rythm. Heart tones normal. Radial pulses normal. Abd: Non distended. MSK: No kyphoscoliosis. Ext: Warm and well perfused. No clubbing, cyanosis, edema. Skin: No rash, ecchymoses. Neuro: Mental status normal. Affect normal. No tremor. DATA: DELFINO, 11/2022 Positive bronchoprovocation study in a range consistent with asthma. Exhaled nitric oxide (Linda), 08/25/2022: 23 (normal < 20). PFT, 08/25/2022 IMPRESSION: Spirometry is normal. FVL conformation show small airways obstruction. There was not a significant bronchodilator response. Electronically Signed On 08-25-2022 17:07:14 EST by An Ridley M.D. CXR, 07/24/2022 IMPRESSION: No acute radiographic abnormality. RESULT: Lines, tubes, and devices: None. Lungs and pleura: No consolidation. No lung mass. No pleural effusion. No pneumothorax. Cardiomediastinal silhouette: Normal cardiomediastinal silhouette. Bones and soft tissues: Unremarkable. ASSESSMENT/PLAN: 1. Mild persistent asthma without complication - ICD9: 493.90, ICD10: J45.30 (primary diagnosis) DELFINO positive for asthma. Considered changing therapy to ICS/LABA, but patient concerned that he will get jittery as Albuterol makes him feel this way. Albuterol HFA inhaler, 2 inhalations 10-15 minutes prior to activities associated with shortness of breath, and as needed for rescue relief of shortness of breath or wheezing, up to 4 times daily. Continue Singulair Portions of this documentation were copied and pasted from previous office visit notes in order to provide a cohesive continuity of the history. The note has been reviewed and edited and updated as necessary. Fern Carrillo PA-C documented in this encounter [facility] 01-29-2023 Miscellaneous Notes Patient calling back for refill of Fioricet. He states he filled the script sent in on 01/20/23 to [facility] and has some left. But he is going on vacation for two and a half weeks, leaving today and is requesting a refill so he has enough medication to take while on vacation. He says he has been under a lot of stress which has been triggering migraines and he is taking Fioricet every other day. [facility] Sandra Dudley, RN documented in this encounter [facility] 01-19-2023 Miscellaneous Notes Patient has been identified by name and date of : Yes Patient phones for refill(s): Requested Prescriptions Pending Prescriptions Disp Refills acetaminophen 325 mg-caffeine 40 mg-butalbital 50 mg (FIORICET) per tablet 30 tablet 0 Sig: Take 1 tablet by mouth every 4 hours as needed for headache. Date of last office visit in primary care: 12/29/2022 Yearly: 07/01/2023 Last 2 Encounter Wt Readings: Date: Wt: 01/05/2023 124.3 kg (274 lb) 12/29/2022 121.6 kg (268 lb) Previous labs/tests for medication: Not applicable Please advise. Thank you. Clemencia Solomon LPN documented in this encounter [facility] 01-05-2023 Note HNO ID: [id number] Author: Fern Carrillo PA-C Service: ? Author Type: Physician Control Systems Specialist Type: Progress Notes Filed: 01/05/2023 4:31 PM Note Text: Patient: Wolf Ridley PCP: Regan Echavarria MD CC: asthma HPI: Wolf Ridley 57 year old male never smoker with PMH significant for morbid obesity s/p gastric bypass, migraines, ANDREW on CPAP, provoked DVT, GERD, gout, HLD, chronic back pain s/p fusion 2007, HTN, history of Covid 03/2022, treated with Paxlovid, but discontinued after a couple of days secondary to metallic taste. Covid infection followed by pneumonia. He was hospitalized at [facility] 05/21 - 05/23/2022 with pneumonia and hypoxemia. CTA negative for PE, but pertinent for bilateral mainly lower lobe patchy infiltrates left greater than right. He had influenza A around [place] time and since that time had increased cough, wheezing and SOB. PFTs demonstrate small airway obstruction and slight elevation of exhaled nitric oxide level consistent with asthma. Patient had DELFINO done at [facility] 11/25/2022 which was positive for asthma. Today, he states his asthma symptoms were worse with the Arnuity. Daily cough that is worse with laying down. Productive of bright yellow phlegm. No hemoptysis. Wheezing. Exertional dyspnea with minimal effort. Does not wear CPAP. States with his sinus congestion it makes it harder to breath. PAST MEDICAL HISTORY Diagnosis Date Chronic pain 08/19/2021 Closed fracture of distal end of right femur ([facility]) 06/30/2019 Closed fracture of right tibial plateau 06/30/2019 Complication of surgical procedure 08/19/2021 COVID-19 03/26/2022 Deep vein thrombosis (DVT) ([facility]) 06/30/2019 setting R leg fracture Depressive disorder 08/19/2021 Erectile dysfunction 08/20/2021 GERD (gastroesophageal reflux disease) 08/19/2021 Gout 08/19/2021 HTN (hypertension) Hypercholesterolemia 08/19/2021 Insomnia 08/20/2021 Lumbosacral radiculopathy 08/21/2021 Migraine headache 08/19/2021 ANDREW on CPAP Pneumonia 05/21/2022 Postlaminectomy syndrome of lumbosacral region 08/19/2021 Secondary male hypogonadism 2018 Traumatic hematoma of left lower leg 11/23/2019 Left leg ulcer Allergies: Ampicillin GI Upset amitriptyline (ELAVIL) 10 mg tablet Take 2 tablets by mouth daily at bedtime. albuterol (PROVENTIL) 2.5 mg /3 mL (0.083 %) nebulizer solution Use 3 mL via nebulizer every 4 hours as needed for wheezing/shortness of breath. Use over 5-15minutes. albuterol HFA (VENTOLIN HFA) 90 mcg/actuation inhaler Inhale 2 Puffs as instructed every 4 hours as needed for wheezing/shortness of breath. sildenafil (VIAGRA) 100 mg tablet Take 1 tablet by mouth as needed. pantoprazole DR (PROTONIX) 40 mg tablet Take 1 tablet by mouth once daily. traZODone (DESYREL) 100 mg tablet Take 2 tablets by mouth daily at bedtime. DULoxetine (CYMBALTA) 60 mg capsule Take 1 capsule by mouth once daily. At bedtime acetaminophen 325 mg-caffeine 40 mg-butalbital 50 mg (FIORICET) per tablet Take 1 tablet by mouth every 4 hours as needed for headache. levocetirizine 5 mg tablet Take 1 tablet by mouth once daily. lisinopril (ZESTRIL) 40 mg tablet Take 1 tablet by mouth once daily. amLODIPine (NORVASC) 2.5 mg tablet Take 1 tablet by mouth once daily. pregabalin (LYRICA) 100 mg capsule HYDROmorphone (DILAUDID) 4 mg tablet Take 1 tablet by mouth every 6 hours as needed (FROM PAIN MANAGEMENT). methocarbamol (ROBAXIN) 500 mg tablet Take 500 mg by mouth three times daily. carBAMazepine (TEGRETOL) 200 mg tablet Take 200 mg by mouth twice daily. Social History Tobacco Use Smoking status: Never Smokeless tobacco: Never Vaping Use Vaping Use: Never used Substance Use Topics Alcohol use: Yes Alcohol/week: 7.0 standard drinks Types: 7 Glasses of Wine (5oz) per week Drug use: Never Family History Problem Relation Age of Onset Colon Cancer Mother Heart Father Asthma Sister PAST SURGICAL HISTORY Procedure Laterality Date BACK SURGERY HX 2006 COLONOSCOPY SCREENING 06/02/2019 x 5, last one [facility]. GASTRIC BYPASS HX 2001 INGUINAL HERNIA REPAIR HX Left 1981 LEFT HEART CATH,PERCUTANEOUS 2016 normal. PAST SURGICAL HISTORY OF Right 2019 ORIF R knee fractures REMOVE MESH FROM ABD WALL 2004 adhesions REPAIR ABDOMINAL HERNIA 2001 TOTAL KNEE REPLACEMENT Right 07/04/2020 Complex R knee arthroplasty I reviewed the past medical history, family history, social history and surgical history with changes noted above and updated in EMR. IMMUNIZATIONS Prevnar - xx Pneumovax - 07/01/2019 Influenza - 04/16/2022 COVID- - 07/10/2021, 10/02/2020, 09/11/2020 ROS: General: No fevers, chills or night sweats. No unintended weight loss. Appetite good. Eyes, Ears, nose, throat: Post nasal drip, rhinorrhea. No purulent nasal discharge, epistaxis. No hoarseness. Vision stable. Card (more content not included)... [facility] 01-05-2023 History of Present illness Narrative Images from the original note were not included. Patient: Wolf Ridley PCP: Regan Echavarria MD CC: asthma HPI: Wolf Ridley 57 year old male never smoker with PMH significant for morbid obesity s/p gastric bypass, migraines, ANDREW on CPAP, provoked DVT, GERD, gout, HLD, chronic back pain s/p fusion 2007, HTN, history of Covid 03/2022, treated with Paxlovid, but discontinued after a couple of days secondary to metallic taste. Covid infection followed by pneumonia. He was hospitalized at [facility] 05/21 - 05/23/2022 with pneumonia and hypoxemia. CTA negative for PE, but pertinent for bilateral mainly lower lobe patchy infiltrates left greater than right. He had influenza A around [place] time and since that time had increased cough, wheezing and SOB. PFTs demonstrate small airway obstruction and slight elevation of exhaled nitric oxide level consistent with asthma. Patient had DELFINO done at [facility] 11/25/2022 which was positive for asthma. Today, he states his asthma symptoms were worse with the Arnuity. Daily cough that is worse with laying down. Productive of bright yellow phlegm. No hemoptysis. Wheezing. Exertional dyspnea with minimal effort. Does not wear CPAP. States with his sinus congestion it makes it harder to breath. PAST MEDICAL HISTORY Diagnosis Date Chronic pain 08/19/2021 Closed fracture of distal end of right femur ([facility]) 06/30/2019 Closed fracture of right tibial plateau 06/30/2019 Complication of surgical procedure 08/19/2021 COVID-19 03/26/2022 Deep vein thrombosis (DVT) ([facility]) 06/30/2019 setting R leg fracture Depressive disorder 08/19/2021 Erectile dysfunction 08/20/2021 GERD (gastroesophageal reflux disease) 08/19/2021 Gout 08/19/2021 HTN (hypertension) Hypercholesterolemia 08/19/2021 Insomnia 08/20/2021 Lumbosacral radiculopathy 08/21/2021 Migraine headache 08/19/2021 ANDREW on CPAP Pneumonia 05/21/2022 Postlaminectomy syndrome of lumbosacral region 08/19/2021 Secondary male hypogonadism 2019 Traumatic hematoma of left lower leg 11/23/2019 Left leg ulcer Allergies: Ampicillin GI Upset amitriptyline (ELAVIL) 10 mg tablet Take 2 tablets by mouth daily at bedtime. albuterol (PROVENTIL) 2.5 mg /3 mL (0.083 %) nebulizer solution Use 3 mL via nebulizer every 4 hours as needed for wheezing/shortness of breath. Use over 5-15minutes. albuterol HFA (VENTOLIN HFA) 90 mcg/actuation inhaler Inhale 2 Puffs as instructed every 4 hours as needed for wheezing/shortness of breath. sildenafil (VIAGRA) 100 mg tablet Take 1 tablet by mouth as needed. pantoprazole DR (PROTONIX) 40 mg tablet Take 1 tablet by mouth once daily. traZODone (DESYREL) 100 mg tablet Take 2 tablets by mouth daily at bedtime. DULoxetine (CYMBALTA) 60 mg capsule Take 1 capsule by mouth once daily. At bedtime acetaminophen 325 mg-caffeine 40 mg-butalbital 50 mg (FIORICET) per tablet Take 1 tablet by mouth every 4 hours as needed for headache. levocetirizine 5 mg tablet Take 1 tablet by mouth once daily. lisinopril (ZESTRIL) 40 mg tablet Take 1 tablet by mouth once daily. amLODIPine (NORVASC) 2.5 mg tablet Take 1 tablet by mouth once daily. pregabalin (LYRICA) 100 mg capsule HYDROmorphone (DILAUDID) 4 mg tablet Take 1 tablet by mouth every 6 hours as needed (FROM PAIN MANAGEMENT). methocarbamol (ROBAXIN) 500 mg tablet Take 500 mg by mouth three times daily. carBAMazepine (TEGRETOL) 200 mg tablet Take 200 mg by mouth twice daily. Social History Tobacco Use Smoking status: Never Smokeless tobacco: Never Vaping Use Vaping Use: Never used Substance Use Topics Alcohol use: Yes Alcohol/week: 7.0 standard drinks Types: 7 Glasses of Wine (5oz) per week Drug use: Never Family History Problem Relation Age of Onset Colon Cancer Mother Heart Father Asthma Sister PAST SURGICAL HISTORY Procedure Laterality Date BACK SURGERY HX 2007 COLONOSCOPY SCREENING 06/02/2019 x 5, last one [facility]. GASTRIC BYPASS HX 2001 INGUINAL HERNIA REPAIR HX Left 1982 LEFT HEART CATH,PERCUTANEOUS 2016 normal. PAST SURGICAL HISTORY OF Right 2019 ORIF R knee fractures REMOVE MESH FROM ABD WALL 2004 adhesions REPAIR ABDOMINAL HERNIA 2001 TOTAL KNEE REPLACEMENT Right 07/04/2020 Complex R knee arthroplasty I reviewed the past medical history, family history, social history and surgical history with changes noted above and updated in EMR. IMMUNIZATIONS Prevnar - xx Pneumovax - 07/01/2019 Influenza - 04/16/2022 COVID-19 - 07/10/2021, 10/02/2020, 09/11/2020 ROS: General: No fevers, chills or night sweats. No unintended weight loss. Appetite good. Eyes, Ears, nose, throat: Post nasal drip, rhinorrhea. No purulent nasal discharge, epistaxis. No hoarseness. Vision stable. Cardiac: No angina, edema, orthopnea. Resp: See HPI. GI: No heartburn, dysphagia. Musculoskeletal: Chronic back pain. Neuro: No headache, focal weakness, tremor. Skin: No rash. Otherwise negative. PHYSICAL EXAMINATION: BP (P) 108/64 Pulse (P) 104 Resp (P) 20 Wt 124.3 kg (274 lb) SpO2 (P) 94% BMI 39.31 kg/m Gen: No acute distress. Cooperative with examination. HEENT: Normocephalic. Sclera, conjunctiva clear. Oral hygeine and dentition good. No thrush. Resp: No stridor, accessory respiratory muscle use, supra-sternal or intercostal retractions. No wheezes, crackles. CV: Regular rythm. Heart tones normal. Radial pulses normal. Abd: Non distended. MSK: No kyphoscoliosis. Ext: Warm and well perfused. No clubbing, cyanosis, edema. Skin: No rash, ecchymoses. Neuro: Mental status normal. Affect normal. No tremor. DATA: DELFINO, 11/2022 Positive bronchoprovocation study in a range consistent with asthma. Exhaled nitric oxide (Linda), 08/25/2022: 23 (normal < 20). PFT, 08/25/2022 IMPRESSION: Spirometry is normal. FVL conformation show small airways obstruction. There was not a significant bronchodilator response. Electronically Signed On 08-25-2022 17:07:14 EST by An Ridley M.D. CXR, 07/24/2022 IMPRESSION: No acute radiographic abnormality. RESULT: Lines, tubes, and devices: None. Lungs and pleura: No consolidation. No lung mass. No pleural effusion. No pneumothorax. Cardiomediastinal silhouette: Normal cardiomediastinal silhouette. Bones and soft tissues: Unremarkable. Labs Component Latest Ref Rng & Units 10/27/2022 [place] IgE <0.35 kU/l <0.35 [place] Class Class 0 Class 0 [id number] Luis Daniel Grass <0.35 kU/l <0.35 Luis Daniel Grass Class Class 0 Class 0 December Grass IgE <0.35 kU/l <0.35 December Grass Class Class 0 Class 0 Short Ragweed IgE <0.35 kU/l <0.35 Short Ragweed Class Class 0 Class 0 [place] IgE <0.35 kU/l <0.35 [place] Class Class 0 Class 0 Cat Dander IgE <0.35 kU/l <0.35 Cat Dander Class Class 0 Class 0 Dog Dander IgE <0.35 kU/l <0.35 Dog Dander Class Class 0 Class 0 Cladosporium herbarum IgE <0.35 kU/l <0.35 Cladosporium herbarum Class Class 0 Class 0 Alternaria tenuis IgE <0.35 kU/l <0.35 Alternaria tenuis Class Class 0 Class 0 D. farinae IgE <0.35 kU/l <0.35 D. farinae Class Class 0 Class 0 IgE <114.0 kU/l 20.4 Abs Eosin <0.46 k/uL 0.36 ASSESSMENT/PLAN: 1. Mild persistent asthma without complication - ICD9: 493.90, ICD10: J45.30 (primary diagnosis) DELFINO positive. Patient did not tolerate Arnuity. Will change to Flovent HFA with Aerochamber. Albuterol HFA inhaler, 2 inhalations 10-15 minutes prior to activities associated with shortness of breath, and as needed for rescue relief of shortness of breath or wheezing, up to 4 times daily. Add Montelukast. Discussed side effect profile. - FLUTICASONE PROPIONATE 110 MCG/ACTUATION HFA AEROSOL INHALER - MONTELUKAST 10 MG TABLET 2. Chronic rhinosinusitis - ICD9: 472.0, 473.9, ICD10: J31.0, J32.9 See #1. Previously did not tolerate Flonase. - MONTELUKAST 10 MG TABLET Portions of this documentation were copied and pasted from previous office visit notes in order to provide a cohesive continuity of the history. The note has been reviewed and edited and updated as necessary. Fern Carrillo PA-C documented in this encounter [facility] 12-29-2022 Note HNO ID: [id number] Author: Regan Echavarria MD Service: ? Author Type: Physician Type: Progress Notes Filed: 12/29/2022 2:00 PM Note Text: This note was created using NoteWriter. Subjective Wolf Ridley is a 57 year old male. He was concerned about low T, which was found in the past. Risk factor for this was shelter opioid use. He had no other concerns, other than needing colonoscopy before his insurance changes or is lost by the end of this month. Chronic conditions were controlled, and stable. He was diagnosed with asthma. Arnuity was prescribed but he felt worse on the medication so he stopped. Review of Systems Constitutional: Negative for fever and unexpected weight change. HENT: Negative. Respiratory: Negative for cough, chest tightness and shortness of breath. Cardiovascular: Negative for chest pain, palpitations and leg swelling. Gastrointestinal: Negative for abdominal pain, blood in stool, constipation and diarrhea. Genitourinary: Negative for difficulty urinating. ACTIVE PROBLEM LIST Obesity, Class II, Bmi 35-39.9 Postlaminectomy Syndrome of Lumbosacral Region Depressive Disorder Gout Hypercholesterolemia Migraine Headache Primary Hypertension Gerd (Gastroesophageal Reflux Disease) Erectile Dysfunction Seasonal Allergies Insomnia Lumbosacral Radiculopathy Andrew (Obstructive Sleep Apnea) Social History Tobacco Use Smoking status: Never Smokeless tobacco: Never Vaping Use Vaping Use: Never used Substance Use Topics Alcohol use: Yes Alcohol/week: 7.0 standard drinks Types: 7 Glasses of Wine (5oz) per week Drug use: Never Current Outpatient Medications Medication Sig DULoxetine (CYMBALTA) 60 mg capsule Take 1 capsule by mouth once daily. At bedtime acetaminophen 325 mg-caffeine 40 mg-butalbital 50 mg (FIORICET) per tablet Take 1 tablet by mouth every 4 hours as needed for headache. levocetirizine 5 mg tablet Take 1 tablet by mouth once daily. lisinopril (ZESTRIL) 40 mg tablet Take 1 tablet by mouth once daily. amLODIPine (NORVASC) 2.5 mg tablet Take 1 tablet by mouth once daily. pregabalin (LYRICA) 100 mg capsule albuterol (PROVENTIL) 2.5 mg /3 mL (0.083 %) nebulizer solution Use 3 mL via nebulizer every 4 hours as needed for wheezing/shortness of breath. Use over 5-15minutes. albuterol HFA (VENTOLIN HFA) 90 mcg/actuation inhaler Inhale 2 Puffs as instructed every 4 hours as needed for wheezing/shortness of breath. amitriptyline (ELAVIL) 10 mg tablet Take 2 tablets by mouth daily at bedtime. sildenafil (VIAGRA) 100 mg tablet Take 1 tablet by mouth as needed. pantoprazole DR (PROTONIX) 40 mg tablet Take 1 tablet by mouth once daily. HYDROmorphone (DILAUDID) 4 mg tablet Take 1 tablet by mouth every 6 hours as needed (FROM PAIN MANAGEMENT). methocarbamol (ROBAXIN) 500 mg tablet Take 500 mg by mouth three times daily. carBAMazepine (TEGRETOL) 200 mg tablet Take 200 mg by mouth twice daily. ARNUITY ELLIPTA 100 mcg/actuation inhaler (Patient not taking: Reported on 12/29/2022) traZODone (DESYREL) 100 mg tablet Take 2 tablets by mouth daily at bedtime. gabapentin (NEURONTIN) 600 mg tablet Take 600mg in am, 600mg in afternoon, 1,200mg at bedtime (FROM PAIN MANAGEMENT) (Patient not taking: Reported on 12/29/2022) No current facility-administered medications for this visit. Objective BP 128/70 (BP Site: Left Arm, BP Position: Sitting, BP Cuff Size: Large Adult) Pulse 96 Resp 20 Wt 121.6 kg (268 lb) BMI 38.45 kg/m? Physical Exam Constitutional: Appearance: He is not ill-appearing. Cardiovascular: Rate and Rhythm: Normal rate and regular rhythm. Heart sounds: No murmur heard. No gallop. Pulmonary: Effort: Pulmonary effort is normal. Breath sounds: Normal breath sounds. Abdominal: Palpations: Abdomen is soft. Tenderness: There is no abdominal tenderness. Musculoskeletal: Right lower leg: No edema. Left lower leg: No edema. Neurological: Mental Status: He is alert. Assessment and Plan 1. Mild intermittent asthma without complication - ICD9: 493.90, ICD10: J45.20 (primary diagnosis) Stable. - Continue current medications - ALBUTEROL SULFATE 2.5 MG/3 ML (0.083 %) SOLUTION FOR NEBULIZATION - ALBUTEROL SULFATE HFA 90 MCG/ACTUATION AEROSOL INHALER 2. 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 - AMITRIPTYLINE 10 MG TABLET - TRAZODONE 100 MG TABLET 3. Erectile dysfunction, unspecified erectile dysfunction type - ICD9: 607.84, ICD10: N52.9 Refilled. - SILDENAFIL 100 MG TABLET 4. Gastroesophageal reflux disease, unspecified whether esophagitis present - ICD9: 530.81, ICD10: K21.9 Controlled. - PANTOPRAZOLE 40 MG TABLET,DELAYED RELEASE 5. Family history of colon cancer in mother - ICD9: V16.0, ICD10: Z80.0 - CONSULT TO GENERAL SURGERY 6. Screening for colon cancer - ICD9: V76.51, ICD10: Z12.11 - CONSULT TO GENERAL S (more content not included)... [facility] 12-22-2022 Miscellaneous Notes Patient has been identified by name and date of : Yes Patient phones for refill(s): Requested Prescriptions Pending Prescriptions Disp Refills DULoxetine (CYMBALTA) 60 mg capsule 90 capsule 1 Sig: Take 1 capsule by mouth once daily. At bedtime Date of last office visit in primary care: 11/25/2022 Appt. 12/29/2022 Last 2 Encounter Wt Readings: Date: Wt: 12/03/2022 125.2 kg (276 lb) 10/27/2022 125.2 kg (276 lb) Previous labs/tests for medication: Not applicable Please advise. Thank you. Clemencia Solomon LPN documented in this encounter [facility] 12-19-2022 Miscellaneous Notes ANTOLIN: 07/07/2022 Last refill: 12/05/2022 QTY: 30 Refills: 0 documented in this encounter [facility] 12-03-2022 Note HNO ID: [id number] Author: Ramses Villagomez APRN.[employer] FORMER Service: ? Author Type: Nurse Practitioner Type: Progress Notes Filed: 12/03/2022 5:36 PM Note Text: Subjective HPI HPI Wolf Ridley is a 57 year old male who presents today for CC of st, congestion, h/a, cough. This started 1 day ago. Has tried otc medication for relief. Symptoms are worsened by nothing. Risk factors strep exposure recently. .Patient presents with: Sore Throat: ST, OMER and cough x 1 day PAST MEDICAL HISTORY Diagnosis Date Chronic pain 08/19/2021 Closed fracture of distal end of right femur (HCC) 06/30/2019 Closed fracture of right tibial plateau 06/30/2019 Complication of surgical procedure 08/19/2021 COVID-19 03/26/2022 Deep vein thrombosis (DVT) ([facility]) 06/30/2019 setting R leg fracture Depressive disorder 08/19/2021 Erectile dysfunction 08/20/2021 GERD (gastroesophageal reflux disease) 08/19/2021 Gout 08/19/2021 HTN (hypertension) Hypercholesterolemia 08/19/2021 Insomnia 08/20/2021 Lumbosacral radiculopathy 08/21/2021 Migraine headache 08/19/2021 ANDREW on CPAP Pneumonia 05/21/2022 Postlaminectomy syndrome of lumbosacral region 08/19/2021 Secondary male hypogonadism 2018 Traumatic hematoma of left lower leg 11/23/2019 Left leg ulcer PAST SURGICAL HISTORY Procedure Laterality Date BACK SURGERY HX 2007 COLONOSCOPY SCREENING 06/02/2019 x 5, last one [facility]. GASTRIC BYPASS HX 2001 INGUINAL HERNIA REPAIR HX Left 1982 LEFT HEART CATH,PERCUTANEOUS 2016 normal. PAST SURGICAL HISTORY OF Right 2019 ORIF R knee fractures REMOVE MESH FROM ABD WALL 2004 adhesions REPAIR ABDOMINAL HERNIA 2001 TOTAL KNEE REPLACEMENT Right 07/04/2020 Complex R knee arthroplasty ALLERGIES Ampicillin MEDICATIONS levocetirizine 5 mg tablet Take 1 tablet by mouth once daily. lisinopril (ZESTRIL) 40 mg tablet Take 1 tablet by mouth once daily. amLODIPine (NORVASC) 2.5 mg tablet Take 1 tablet by mouth once daily. acetaminophen 325 mg-caffeine 40 mg-butalbital 50 mg (FIORICET) per tablet Take 1 tablet by mouth every 4 hours as needed for headache. ARNUITY ELLIPTA 100 mcg/actuation inhaler pregabalin (LYRICA) 100 mg capsule albuterol (PROVENTIL) 2.5 mg /3 mL (0.083 %) nebulizer solution Use 3 mL via nebulizer every 4 hours as needed for wheezing/shortness of breath. Use over 5-15minutes. albuterol HFA (VENTOLIN HFA) 90 mcg/actuation inhaler Inhale 2 Puffs as instructed every 4 hours as needed for wheezing/shortness of breath. amitriptyline (ELAVIL) 10 mg tablet Take 2 tablets by mouth daily at bedtime. traZODone (DESYREL) 100 mg tablet Take 2 tablets by mouth daily at bedtime. sildenafil (VIAGRA) 100 mg tablet Take 1 tablet by mouth as needed. DULoxetine (CYMBALTA) 60 mg capsule Take 1 capsule by mouth once daily. At bedtime pantoprazole DR (PROTONIX) 40 mg tablet Take 1 tablet by mouth once daily. HYDROmorphone (DILAUDID) 4 mg tablet Take 1 tablet by mouth every 6 hours as needed (FROM PAIN MANAGEMENT). methocarbamol (ROBAXIN) 500 mg tablet Take 500 mg by mouth three times daily. carBAMazepine (TEGRETOL) 200 mg tablet Take 200 mg by mouth twice daily. predniSONE (DELTASONE) 10 mg tablet Take 4 tabs daily for 3 days, then 2 tabs daily for 3 days, then 1 tab daily for 3 days with food. gabapentin (NEURONTIN) 600 mg tablet Take 600mg in am, 600mg in afternoon, 1,200mg at bedtime (FROM PAIN MANAGEMENT) FAMILY HISTORY Problem Relation Age of Onset Colon Cancer Mother Heart Father Asthma Sister Social History Tobacco Use Smoking status: Never Smokeless tobacco: Never Vaping Use Vaping Use: Never used Substance Use Topics Alcohol use: Yes Alcohol/week: 7.0 standard drinks Types: 7 Glasses of Wine (5oz) per week Drug use: Never Review of Systems Constitutional: Negative for fever. HENT: Positive for congestion and sore throat. Negative for ear pain, nosebleeds and sinus pain. Respiratory: Positive for cough. Negative for shortness of breath and wheezing. Cardiovascular: Negative for chest pain. Gastrointestinal: Negative for diarrhea and vomiting. Musculoskeletal: Negative for neck pain. Skin: Negative for itching and rash. Neurological: Positive for headaches. Objective Blood pressure 122/72, pulse 84, temperature 36.1 ?C (97 ?F), temperature source Tympanic, resp. rate 16, weight 125.2 kg (276 lb), SpO2 99 %. Physical Exam Constitutional: General: He is not in acute distress. Appearance: He is not toxic-appearing or diaphoretic. HENT: Head: Normocephalic and atraumatic. Nose: Nose normal. Mouth/Throat: Pharynx: Uvula midline. No pharyngeal swelling, oropharyngeal exudate, posterior oropharyngeal erythema or uvula swelling. Eyes: General: Lids are normal. No scleral icterus. Right eye: No discharge. Left eye: No discharge. Conjunctiva/sclera: Conjunctivae normal. Pupils: Pupils are equal, round, and reactive to lig (more content not included)... [facility] 11-27-2022 Miscellaneous Notes Patient has been identified by name and date of : Yes Patient phones for refill(s): Requested Prescriptions Pending Prescriptions Disp Refills levocetirizine 5 mg tablet 90 tablet 1 Sig: Take 1 tablet by mouth once daily. lisinopril (ZESTRIL) 40 mg tablet 90 tablet 1 Sig: Take 1 tablet by mouth once daily. amLODIPine (NORVASC) 2.5 mg tablet 30 tablet 2 Sig: Take 1 tablet by mouth once daily. Date of last office visit in primary care: 07/07/2022 Appt: 12/29/2022 Last 2 Encounter Wt Readings: Date: Wt: 10/27/2022 125.2 kg (276 lb) 08/25/2022 120.2 kg (265 lb) Previous labs/tests for medication: Blood Pressure: BUN (mg/dL) Date Value 06/03/2022 15 08/24/2021 10 Sodium (mmol/L) Date Value 06/03/2022 130 08/24/2021 136 Last 1 Encounter BP Readings: Date: BP: 08/25/2022 140/82 Please advise. Thank you. Clemencia Solomon LPN documented in this encounter [facility] 11-05-2022 Miscellaneous Notes ANTOLIN: 07/07/2022 Last refill: 10/10/2022 QTY: 30 Refills: 0 Patient's request for medication is as follows: Requested Prescriptions Pending Prescriptions Disp Refills acetaminophen 325 mg-caffeine 40 mg-butalbital 50 mg (FIORICET) per tablet 30 tablet 0 Sig: Take 1 tablet by mouth every 4 hours as needed for headache. Please approve the above prescription(s) to electronically send to pharmacy. Demetrio Proctor Ma documented in this encounter [facility] 10-27-2022 Note HNO ID: [id number] Author: Fern Carrillo PA-C Service: ? Author Type: Physician Control Systems Specialist Type: Progress Notes Filed: 10/27/2022 4:46 PM Note Text: Patient: Wolf Ridley PCP: Regan Echavarria MD CC: asthma HPI: Wolf Ridley 57 year old male never smoker with PMH significant for morbid obesity s/p gastric bypass, migraines, ANDREW on CPAP, provoked DVT, GERD, gout, HLD, chronic back pain s/p fusion 2007, HTN, history of Covid 03/2022, treated with Paxlovid, but discontinued after a couple of days secondary to metallic taste. Covid infection followed by pneumonia. He was hospitalized at [facility] 05/21 - 05/23/2022 with pneumonia and hypoxemia. CTA negative for PE, but pertinent for bilateral mainly lower lobe patchy infiltrates left greater than right. He had influenza A around [place] time and since that time had increased cough, wheezing and SOB. Initially evaluated by Dr. Ridley on 08/25/2022 at which time PFT showed small airway obstruction and slight elevation of exhaled nitric oxide level consistent with asthma. Patient was started on ICS. Today, patient states since starting Arnuity he does not notice in symptoms. The patient has not required ED care for exacerbation. There has been no hospital admission for exacerbation. Claims to be consistently compliant with prescribed maintenance Rx Arnuity daily. Using rescue bronchodilator a couple times a week with minimal. No cough. Frequent wheezing primarily at night. No dyspnea at rest. Exertional dyspnea with climbing stairs and minimal exertion. Limited by back pain. Post nasal drip and rhinorrhea. Takes Sudafed for relief. Previously tried Flonase, Claritin and Zyrtec with no relief. PAST MEDICAL HISTORY Diagnosis Date Chronic pain 08/19/2021 Closed fracture of distal end of right femur (HCC) 06/30/2019 Closed fracture of right tibial plateau 06/30/2019 Complication of surgical procedure 08/19/2021 COVID-19 03/26/2022 Deep vein thrombosis (DVT) ([facility]) 06/30/2019 setting R leg fracture Depressive disorder 08/19/2021 Erectile dysfunction 08/20/2021 GERD (gastroesophageal reflux disease) 08/19/2021 Gout 08/19/2021 HTN (hypertension) Hypercholesterolemia 08/19/2021 Insomnia 08/20/2021 Lumbosacral radiculopathy 08/21/2021 Migraine headache 08/19/2021 ANDREW on CPAP Pneumonia 05/21/2022 Postlaminectomy syndrome of lumbosacral region 08/19/2021 Secondary male hypogonadism 2019 Traumatic hematoma of left lower leg 11/23/2019 Left leg ulcer Allergies: Ampicillin GI Upset acetaminophen 325 mg-caffeine 40 mg-butalbital 50 mg (FIORICET) per tablet Take 1 tablet by mouth every 4 hours as needed for headache. budesonide (PULMICORT FLEXHALER) 90 mcg/actuation aepb Inhale 2 Puffs as instructed twice daily. Rinse mouth and gargle with water after use. albuterol (PROVENTIL) 2.5 mg /3 mL (0.083 %) nebulizer solution Use 3 mL via nebulizer every 4 hours as needed for wheezing/shortness of breath. Use over 5-15minutes. albuterol HFA (VENTOLIN HFA) 90 mcg/actuation inhaler Inhale 2 Puffs as instructed every 4 hours as needed for wheezing/shortness of breath. levocetirizine 5 mg tablet Take 1 tablet by mouth once daily. lisinopril (ZESTRIL, PRINIVIL) 40 mg tablet Take 1 tablet by mouth once daily. amitriptyline (ELAVIL) 10 mg tablet Take 2 tablets by mouth daily at bedtime. traZODone (DESYREL) 100 mg tablet Take 2 tablets by mouth daily at bedtime. sildenafil (VIAGRA) 100 mg tablet Take 1 tablet by mouth as needed. amLODIPine (NORVASC) 2.5 mg tablet Take 1 tablet by mouth once daily. DULoxetine (CYMBALTA) 60 mg capsule Take 1 capsule by mouth once daily. At bedtime gabapentin (NEURONTIN) 600 mg tablet Take 600mg in am, 600mg in afternoon, 1,200mg at bedtime (FROM PAIN MANAGEMENT) pantoprazole DR (PROTONIX) 40 mg tablet Take 1 tablet by mouth once daily. HYDROmorphone (DILAUDID) 4 mg tablet Take 1 tablet by mouth every 6 hours as needed (FROM PAIN MANAGEMENT). methocarbamol (ROBAXIN) 500 mg tablet Take 500 mg by mouth three times daily. carBAMazepine (TEGRETOL) 200 mg tablet Take 200 mg by mouth twice daily. Social History Tobacco Use Smoking status: Never Smokeless tobacco: Never Vaping Use Vaping Use: Never used Substance Use Topics Alcohol use: Yes Alcohol/week: 7.0 standard drinks Types: 7 Glasses of Wine (5oz) per week Drug use: Never Family History Problem Relation Age of Onset Colon Cancer Mother Heart Father Asthma Sister PAST SURGICAL HISTORY Procedure Laterality Date BACK SURGERY HX 2006 COLONOSCOPY SCREENING 06/02/2019 x 5, last one [facility] GASTRIC BYPASS HX 2001 INGUINAL HERNIA REPAIR HX Left 1982 LEFT HEART CATH,PERCUTANEOUS 2016 normal. PAST SURGICAL HISTORY OF Right 2019 ORIF R knee fractures REMOVE MESH FROM ABD WALL 2004 adhesions REPAIR ABDOMINAL HERNIA 2001 TOTAL KNEE REPL (more content not included)... [facility] 10-27-2022 History of Present illness Narrative Patient: Wolf Ridley PCP: Regan Echavarria MD CC: asthma HPI: Wolf Ridley 57 year old male never smoker with PMH significant for morbid obesity s/p gastric bypass, migraines, ANDREW on CPAP, provoked DVT, GERD, gout, HLD, chronic back pain s/p fusion 2007, HTN, history of Covid 03/2022, treated with Paxlovid, but discontinued after a couple of days secondary to metallic taste. Covid infection followed by pneumonia. He was hospitalized at [facility] 05/21 - 05/23/2022 with pneumonia and hypoxemia. CTA negative for PE, but pertinent for bilateral mainly lower lobe patchy infiltrates left greater than right. He had influenza A around [place] time and since that time had increased cough, wheezing and SOB. Initially evaluated by Dr. Ridley on 08/25/2022 at which time PFT showed small airway obstruction and slight elevation of exhaled nitric oxide level consistent with asthma. Patient was started on ICS. Today, patient states since starting Arnuity he does not notice in symptoms. The patient has not required ED care for exacerbation. There has been no hospital admission for exacerbation. Claims to be consistently compliant with prescribed maintenance Rx Arnuity daily. Using rescue bronchodilator a couple times a week with minimal. No cough. Frequent wheezing primarily at night. No dyspnea at rest. Exertional dyspnea with climbing stairs and minimal exertion. Limited by back pain. Post nasal drip and rhinorrhea. Takes Sudafed for relief. Previously tried Flonase, Claritin and Zyrtec with no relief. PAST MEDICAL HISTORY Diagnosis Date Chronic pain 08/19/2021 Closed fracture of distal end of right femur ([facility]) 06/30/2019 Closed fracture of right tibial plateau 06/30/2019 Complication of surgical procedure 08/19/2021 COVID-19 03/26/2022 Deep vein thrombosis (DVT) ([facility]) 06/30/2019 setting R leg fracture Depressive disorder 08/19/2021 Erectile dysfunction 08/20/2021 GERD (gastroesophageal reflux disease) 08/19/2021 Gout 08/19/2021 HTN (hypertension) Hypercholesterolemia 08/19/2021 Insomnia 08/20/2021 Lumbosacral radiculopathy 08/21/2021 Migraine headache 08/19/2021 ANDREW on CPAP Pneumonia 05/21/2022 Postlaminectomy syndrome of lumbosacral region 08/19/2021 Secondary male hypogonadism 2018 Traumatic hematoma of left lower leg 11/23/2019 Left leg ulcer Allergies: Ampicillin GI Upset acetaminophen 325 mg-caffeine 40 mg-butalbital 50 mg (FIORICET) per tablet Take 1 tablet by mouth every 4 hours as needed for headache. budesonide (PULMICORT FLEXHALER) 90 mcg/actuation aepb Inhale 2 Puffs as instructed twice daily. Rinse mouth and gargle with water after use. albuterol (PROVENTIL) 2.5 mg /3 mL (0.083 %) nebulizer solution Use 3 mL via nebulizer every 4 hours as needed for wheezing/shortness of breath. Use over 5-15minutes. albuterol HFA (VENTOLIN HFA) 90 mcg/actuation inhaler Inhale 2 Puffs as instructed every 4 hours as needed for wheezing/shortness of breath. levocetirizine 5 mg tablet Take 1 tablet by mouth once daily. lisinopril (ZESTRIL, PRINIVIL) 40 mg tablet Take 1 tablet by mouth once daily. amitriptyline (ELAVIL) 10 mg tablet Take 2 tablets by mouth daily at bedtime. traZODone (DESYREL) 100 mg tablet Take 2 tablets by mouth daily at bedtime. sildenafil (VIAGRA) 100 mg tablet Take 1 tablet by mouth as needed. amLODIPine (NORVASC) 2.5 mg tablet Take 1 tablet by mouth once daily. DULoxetine (CYMBALTA) 60 mg capsule Take 1 capsule by mouth once daily. At bedtime gabapentin (NEURONTIN) 600 mg tablet Take 600mg in am, 600mg in afternoon, 1,200mg at bedtime (FROM PAIN MANAGEMENT) pantoprazole DR (PROTONIX) 40 mg tablet Take 1 tablet by mouth once daily. HYDROmorphone (DILAUDID) 4 mg tablet Take 1 tablet by mouth every 6 hours as needed (FROM PAIN MANAGEMENT). methocarbamol (ROBAXIN) 500 mg tablet Take 500 mg by mouth three times daily. carBAMazepine (TEGRETOL) 200 mg tablet Take 200 mg by mouth twice daily. Social History Tobacco Use Smoking status: Never Smokeless tobacco: Never Vaping Use Vaping Use: Never used Substance Use Topics Alcohol use: Yes Alcohol/week: 7.0 standard drinks Types: 7 Glasses of Wine (5oz) per week Drug use: Never Family History Problem Relation Age of Onset Colon Cancer Mother Heart Father Asthma Sister PAST SURGICAL HISTORY Procedure Laterality Date BACK SURGERY HX 2007 COLONOSCOPY SCREENING 06/02/2019 x 5, last one [facility]. GASTRIC BYPASS HX 2001 INGUINAL HERNIA REPAIR HX Left 1981 LEFT HEART CATH,PERCUTANEOUS 2015 normal. PAST SURGICAL HISTORY OF Right 2019 ORIF R knee fractures REMOVE MESH FROM ABD WALL 2004 adhesions REPAIR ABDOMINAL HERNIA 2001 TOTAL KNEE REPLACEMENT Right 07/04/2020 Complex R knee arthroplasty I reviewed the past medical history, family history, social history and surgical history with changes noted above and updated in EMR. IMMUNIZATIONS Prevnar - xx Pneumovax - 07/01/2019 Influenza - 04/16/2022 COVID-19 - 07/10/2021, 10/02/2020, 09/11/2020 ROS: General: No fevers, chills or night sweats. Appetite good. No unintentional weight loss. Eyes, Ears, nose, throat: See HPI. No hoarseness. Vision stable. Cardiac: No angina, edema, orthopnea. Resp: See HPI. GI: No heartburn, dysphagia. Musculoskeletal: Chronic back pain. Neuro: No headache, focal weakness, tremor. Skin: No rash. Otherwise negative. PHYSICAL EXAMINATION: BP (P) 122/70 Pulse (P) 85 Resp (P) 19 Wt 125.2 kg (276 lb) SpO2 (P) 95% BMI 39.60 kg/m Gen: No acute distress. Cooperative with examination. HEENT: Normocephalic. Sclera, conjunctiva clear. Oral hygeine and dentition good. No thrush. Resp: No stridor, accessory respiratory muscle use, supra-sternal or intercostal retractions. No wheezes, crackles. CV: Regular rythm. Heart tones normal. Radial pulses normal. Abd: Non distended. MSK: No kyphoscoliosis. Ext: Warm and well perfused. No clubbing, cyanosis, edema. Skin: No rash, ecchymoses. Neuro: Mental status normal. Affect normal. No tremor. DATA: PFT, 08/25/2022 IMPRESSION: Spirometry is normal. FVL conformation show small airways obstruction. There was not a significant bronchodilator response. Electronically Signed On 08-25-2022 17:07:14 EST by An Ridley M.D. Exhaled nitric oxide (Linda), 08/25/2022: 23 (normal < 20). CXR, 07/24/2022 IMPRESSION: No acute radiographic abnormality. RESULT: Lines, tubes, and devices: None. Lungs and pleura: No consolidation. No lung mass. No pleural effusion. No pneumothorax. Cardiomediastinal silhouette: Normal cardiomediastinal silhouette. Bones and soft tissues: Unremarkable. ASSESSMENT/PLAN: 1. Mild persistent asthma without complication - ICD9: 493.90, ICD10: J45.30 (primary diagnosis) Clinical history, pulmonary function test and exhaled nitric oxide level consistent with asthma. However, patient did not respond to ICS. Will obtain [facility] for definitive diagnosis. Patient would like to have done locally at [facility]. Albuterol HFA inhaler, 2 inhalations 10-15 minutes prior to activities associated with shortness of breath, and as needed for rescue relief of shortness of breath or wheezing, up to 4 times daily. Check allergy labs, IgE and eosinophil. - IGE BLD - EOSINOPHIL ABS COUNT - [facility] 2. Allergic rhinitis, unspecified seasonality, unspecified trigger - ICD9: 477.9, ICD10: J30.9 See #1. - IGE BLD - EOSINOPHIL ABS COUNT - [facility] Fern Carrillo PA-C documented in this encounter [facility] 10-09-2022 Miscellaneous Notes Patient has been identified by name and date of : Yes Patient phones for refill(s): Requested Prescriptions Pending Prescriptions Disp Refills acetaminophen 325 mg-caffeine 40 mg-butalbital 50 mg (FIORICET) per tablet 30 tablet 0 Sig: Take 1 tablet by mouth every 4 hours as needed for headache. Date of last office visit in primary care: 07/07/2022 6 month follow-up: 12/29/2022 Last 2 Encounter Wt Readings: Date: Wt: 08/25/2022 120.2 kg (265 lb) 08/25/2022 120.2 kg (265 lb) Previous labs/tests for medication: Not applicable Please advise. Thank you. Clemencia Solomon LPN documented in this encounter [facility] 09-08-2022 Miscellaneous Notes Bowen you also have a refill for Cymbalta, please check with [facility]. Clemencia Solomon LPN documented in this encounter [facility] 09-08-2022 Miscellaneous Notes Bowen our office did receive your refill request for Amitriptyline & Trazodone however, Dr. Echavarria did write new prescriptions 07/07/2022 for both medications for 90 days with 1 refill. Please check with your pharmacy. Clemencia Solomon LPN documented in this encounter [facility] 09-03-2022 Miscellaneous Notes ANTOLIN: 07/06/2022 Last refill: 07/16/2022 QTY: 30 Refills: 0 documented in this encounter [facility] 08-27-2022 Miscellaneous Notes Spoke with [facility]. Formulary is Arnuity, Qvar, or Flovent. Tati Nation LPN documented in this encounter [facility] 08-25-2022 Procedure note Associated Ord er(s): NITRIC OXIDE, EXHALED RESPIRATORY THERAPY ORAL EXHALED NITRIC OXIDE SERVICE DATE: 08/25/2022 SERVICE TIME: 2:44 PM Oral Exhaled Nitric Oxide measurement: 23.0 (ppb) Normal: Adult 5-20 ppb, pediatric (<12 years) 5-15 ppb High Normal / Increased: Adult 20-35 ppb, pediatric (<12 years) 15-25 ppb Moderately raised exhaled Nitric Oxide may indicate underlying inflammation, but note that: Cold and influenza can raise exhaled Nitric Oxide and some patients have higher baseline exhaled Nitric Oxide levels than others. High: Adult >35 ppb, pediatric (<12 years) >25 ppb Indicative of ongoing eosinophilic inflammation. Symptomatic patient likely to respond to steroids. Possible causes (if already on steroids): Poor compliance, recent allergen exposure, steroid dose inadequate, and steroid resistance. Note that not all patients with high exhaled nitric oxide levels display symptoms. Oral Exhaled Nitric Oxide measurement (Previous Encounters) Test Date Oral Exhaled Nitric Oxide (ppb) 08/25/2022 23.0 NAME: SANFORD Chambers PATIENT NAME: Wolf Ridley DATE: August 25, 2022 TIME: 2:44 PM documented in this encounter [facility] 08-25-2022 History of Present illness Narrative PULM FUNCTION SMARTBLOCK: Provider: Regan Echavarria MD Assisting Tech: SANFORD Chambers Spirometry w/BD: 1 Exhaled Nitric Oxide: 1 documented in this encounter [facility] 07-24-2022 Miscellaneous Notes Seen in [facility]. Patient calls in to check on provider response. Recommended patient come in to [facility] for evaluation if wanting antibiotic or to be seen today as expressed. Patient reports he will wait until 530 pm to see if provider responds to message and then head in if no call back. Carolina Velarde RN Patient calls and states that he started feeling better after taking amoxicillin. Patient states that after a week after taking last dose he now has headache, nasal congestion, and he is hacking up crud. Patient asking if provider can send in another antibiotic? Please review and advise, Ivonne Sharp RN documented in this encounter [facility] 07-24-2022 History of Present illness Narrative This note was created using Qbixriter. Subjective Wolf Ridley is a 57 year old male. 57 year old male with PMH GERD, migraine headaches, HTN, presents for complaints of sinus infection. Acute onset around 07/07/22 +frontal +sinus pressure +productive cough Denies SOB or CP Has attempted nasal spray-Mucinex He was seen by Dr. Lowe on 07/07/22 and took Amoxicillin [place] better for a week, but symptoms have returned and worsen. The history is provided by the patient. No byproduct engineer was used. Sinus Problem This is a recurrent problem. The current episode started 1 to 4 weeks ago. The problem occurs constantly. The problem has been gradually worsening. Associated symptoms include congestion, coughing and headaches. Pertinent negatives include no abdominal pain, anorexia, arthralgias, change in bowel habit, chest pain, chills, diaphoresis, fatigue, fever, joint swelling, myalgias, nausea, neck pain, numbness, rash, sore throat, swollen glands, urinary symptoms, vertigo, visual change, vomiting or weakness. Nothing aggravates the symptoms. Treatments tried: Nasal Vidal/Mucinex. The treatment provided no relief. PAST MEDICAL HISTORY Diagnosis Date Chronic pain 08/19/2021 Closed fracture of distal end of right femur (HCC) 06/30/2019 Closed fracture of right tibial plateau 06/30/2019 Complication of surgical procedure 08/19/2021 COVID-19 03/26/2022 Deep vein thrombosis (DVT) (HCC) 06/30/2019 setting R leg fracture Depressive disorder 08/19/2021 Erectile dysfunction 08/20/2021 GERD (gastroesophageal reflux disease) 08/19/2021 Gout 08/19/2021 Hypercholesterolemia 08/19/2021 Insomnia 08/20/2021 Lumbosacral radiculopathy 08/21/2021 Migraine headache 08/19/2021 Pneumonia 05/21/2022 Postlaminectomy syndrome of lumbosacral region 08/19/2021 Secondary male hypogonadism 2018 Traumatic hematoma of left lower leg 11/23/2019 Left leg ulcer PAST SURGICAL HISTORY Procedure Laterality Date BACK SURGERY HX 2007 COLONOSCOPY SCREENING 06/02/2019 x 5, last one [facility]. GASTRIC BYPASS HX 2001 INGUINAL HERNIA REPAIR HX Left 1982 LEFT HEART CATH,PERCUTANEOUS 2016 normal. PAST SURGICAL HISTORY OF Right 2019 ORIF R knee fractures REMOVE MESH FROM ABD WALL 2004 adhesions REPAIR ABDOMINAL HERNIA 2001 TOTAL KNEE REPLACEMENT Right 07/04/2020 Complex R knee arthroplasty ALLERGIES Ampicillin MEDICATIONS acetaminophen 325 mg-caffeine 40 mg-butalbital 50 mg (FIORICET) per tablet Take 1 tablet by mouth every 4 hours as needed for headache. Do not start before July 16, 2022. albuterol (PROVENTIL) 2.5 mg /3 mL (0.083 %) nebulizer solution Use 3 mL via nebulizer every 4 hours as needed for wheezing/shortness of breath. Use over 5-15minutes. albuterol HFA (VENTOLIN HFA) 90 mcg/actuation inhaler Inhale 2 Puffs as instructed every 4 hours as needed for wheezing/shortness of breath. levocetirizine 5 mg tablet Take 1 tablet by mouth once daily. lisinopril (ZESTRIL, PRINIVIL) 40 mg tablet Take 1 tablet by mouth once daily. amitriptyline (ELAVIL) 10 mg tablet Take 2 tablets by mouth daily at bedtime. traZODone (DESYREL) 100 mg tablet Take 2 tablets by mouth daily at bedtime. sildenafil (VIAGRA) 100 mg tablet Take 1 tablet by mouth as needed. amLODIPine (NORVASC) 2.5 mg tablet Take 1 tablet by mouth once daily. DULoxetine (CYMBALTA) 60 mg capsule Take 1 capsule by mouth once daily. At bedtime gabapentin (NEURONTIN) 600 mg tablet Take 600mg in am, 600mg in afternoon, 1,200mg at bedtime (FROM PAIN MANAGEMENT) pantoprazole DR (PROTONIX) 40 mg tablet Take 1 tablet by mouth once daily. HYDROmorphone (DILAUDID) 4 mg tablet Take 1 tablet by mouth every 6 hours as needed (FROM PAIN MANAGEMENT). methocarbamol (ROBAXIN) 500 mg tablet Take 500 mg by mouth three times daily. carBAMazepine (TEGRETOL) 200 mg tablet Take 200 mg by mouth twice daily. doxycycline (VIBRA-TABS) 100 mg tablet Take 1 tablet by mouth twice daily for 10 days. predniSONE (DELTASONE) 10 mg tablet Take 4 tabs daily for 3 days, then 2 tabs daily for 3 days, then 1 tab daily for 3 days with food. FAMILY HISTORY Problem Relation Age of Onset Colon Cancer Mother Social History Tobacco Use Smoking status: Never Smokeless tobacco: Never Substance Use Topics Alcohol use: Yes Alcohol/week: 7.0 standard drinks Types: 7 Glasses of Wine (5oz) per week Drug use: Never Review of Systems Constitutional: Negative for chills, diaphoresis, fatigue and fever. HENT: Positive for congestion, sinus pressure and sinus pain. Negative for sore throat. Eyes: Negative for pain, discharge, redness and itching. Respiratory: Positive for cough. Negative for apnea, choking and chest tightness. Cardiovascular: Negative for chest pain, palpitations and leg swelling. Gastrointestinal: Negative for abdominal pain, anorexia, change in bowel habit, nausea and vomiting. Musculoskeletal: Negative for arthralgias, joint swelling, myalgias and neck pain. Skin: Negative for rash. Allergic/Immunologic: Negative for environmental allergies, food allergies and immunocompromised state. Neurological: Positive for headaches. Negative for dizziness, vertigo, facial asymmetry, weakness and numbness. Hematological: Negative for adenopathy. Does not bruise/bleed easily. Psychiatric/Behavioral: Negative for agitation and behavioral problems. Objective BP 148/86 Pulse 88 Temp 36.9 C (98.5 F) (Tympanic) Resp 18 SpO2 97% Physical Exam Vitals and nursing note reviewed. Constitutional: General: He is not in acute distress. Appearance: Normal appearance. He is not ill-appearing, toxic-appearing or diaphoretic. HENT: Head: Normocephalic and atraumatic. Comments: +frontal sinus pressure Right Ear: External ear normal. Left Ear: External ear normal. Ears: Comments: Mild bilateral erythema of TMs Nose: Nose normal. No congestion or rhinorrhea. Mouth/Throat: Mouth: Mucous membranes are moist. Pharynx: Oropharynx is clear. No oropharyngeal exudate or posterior oropharyngeal erythema. Eyes: General: Right eye: No discharge. Left eye: No discharge. Extraocular Movements: Extraocular movements intact. Conjunctiva/sclera: Conjunctivae normal. Pupils: Pupils are equal, round, and reactive to light. Cardiovascular: Rate and Rhythm: Normal rate and regular rhythm. Pulses: Normal pulses. Heart sounds: Normal heart sounds. No murmur heard. No friction rub. No gallop. Pulmonary: Effort: Pulmonary effort is normal. No respiratory distress. Breath sounds: Normal breath sounds. No stridor. No wheezing, rhonchi or rales. Chest: Chest wall: No tenderness. Abdominal: General: Abdomen is flat. There is no distension. Palpations: Abdomen is soft. There is no mass. Tenderness: There is no abdominal tenderness. There is no guarding or rebound. Hernia: No hernia is present. Musculoskeletal: General: No swelling, tenderness, deformity or signs of injury. Normal range of motion. Cervical back: Normal range of motion and neck supple. No rigidity or tenderness. Right lower leg: No edema. Left lower leg: No edema. Lymphadenopathy: Cervical: No cervical adenopathy. Skin: General: Skin is warm and dry. Capillary Refill: Capillary refill takes less than 2 seconds. Coloration: Skin is not jaundiced or pale. Findings: No bruising, lesion or rash. Neurological: General: No focal deficit present. Mental Status: He is alert and oriented to person, place, and time. Cranial Nerves: No cranial nerve deficit. Sensory: No sensory deficit. Motor: No weakness. Coordination: Coordination normal. Gait: Gait normal. Deep Tendon Reflexes: Reflexes normal. Psychiatric: Mood and Affect: Mood normal. Behavior: Behavior normal. Thought Content: Thought content normal. Assessment and Plan ASSESSMENT/PLAN: 1. Acute cough - ICD9: 786.2, ICD10: R05.1 (primary diagnosis) X several days Rhonchi noted right upper lobe - DOXYCYCLINE HYCLATE 100 MG TABLET - PREDNISONE 10 MG TABLET - XR CHEST 2V FRONTAL/LAT-negative 2. Sinusitis, unspecified chronicity, unspecified location - ICD9: 473.9, ICD10: J32.9 - Will begin treatment with as per antibiotic as written, see orders - The patient should also be given OTC cough and cold meds as needed, warm salt water gargles, throat lozenges and/or OTC throat spray as needed, and nasal saline gtts and suction prn for the first 5-7 days of treatment. - Supportive care with plenty of fluids, rest, and analgesia prn. - Follow up in 3-5 days if symptoms persist or worsen. Angela Salinas APRN.BONNY documented in this encounter [facility] 07-07-2022 History of Present illness Narrative This note was created using Qbixriter. Subjective Patient presents with: F/U 3 Month Wolf Ridley is a 57 year old male. He recovered from pneumonia and dehydration. However, he still had persistent sinus symptoms, sinus pressure, postnasal drainage. His hypertension, migraines, and insomnia were controlled on his current regimen. Refills were needed. Review of Systems Constitutional: Negative. HENT: Positive for postnasal drip and sinus pressure. Respiratory: Positive for wheezing. Cardiovascular: Negative. Gastrointestinal: Negative. Genitourinary: Negative. Psychiatric/Behavioral: Negative. ACTIVE PROBLEM LIST Obesity, Class II, Bmi 35-39.9 Postlaminectomy Syndrome of Lumbosacral Region Depressive Disorder Gout Hypercholesterolemia Migraine Headache Primary Hypertension Gerd (Gastroesophageal Reflux Disease) Erectile Dysfunction Seasonal Allergies Insomnia Lumbosacral Radiculopathy Andrew (Obstructive Sleep Apnea) Current Outpatient Medications Medication Sig DULoxetine (CYMBALTA) 60 mg capsule Take 1 capsule by mouth once daily. At bedtime acetaminophen 325 mg-caffeine 40 mg-butalbital 50 mg (FIORICET) per tablet Take 1 tablet by mouth every 4 hours as needed for headache. albuterol (PROVENTIL) 2.5 mg /3 mL (0.083 %) nebulizer solution Use 3 mL via nebulizer every 4 hours as needed for wheezing/shortness of breath. Use over 5-15minutes. gabapentin (NEURONTIN) 600 mg tablet Take 600mg in am, 600mg in afternoon, 1,200mg at bedtime (FROM PAIN MANAGEMENT) albuterol HFA (VENTOLIN HFA) 90 mcg/actuation inhaler Inhale 2 Puffs as instructed every 4 hours as needed for wheezing/shortness of breath. pantoprazole DR (PROTONIX) 40 mg tablet Take 1 tablet by mouth once daily. levocetirizine 5 mg tablet Take 1 tablet by mouth once daily. lisinopril (ZESTRIL, PRINIVIL) 40 mg tablet Take 1 tablet by mouth once daily. amitriptyline (ELAVIL) 10 mg tablet Take 2 tablets by mouth daily at bedtime. traZODone (DESYREL) 100 mg tablet Take 2 tablets by mouth daily at bedtime. HYDROmorphone (DILAUDID) 4 mg tablet Take 1 tablet by mouth every 6 hours as needed (FROM PAIN MANAGEMENT). methocarbamol (ROBAXIN) 500 mg tablet Take 500 mg by mouth three times daily. carBAMazepine (TEGRETOL) 200 mg tablet Take 200 mg by mouth twice daily. sildenafil (VIAGRA) 100 mg tablet Take 1 tablet by mouth as needed. No current facility-administered medications for this visit. Objective BP 144/86 (BP Site: Left Arm, BP Position: Sitting, BP Cuff Size: Large Adult) Pulse 84 Temp 36.3 C (97.3 F) (Temporal) Resp 12 Wt 116.6 kg (257 lb) BMI 37.14 kg/m Physical Exam Constitutional: General: He is not in acute distress. HENT: Head: Normocephalic. Nose: Congestion present. Right Turbinates: Swollen. Left Turbinates: Swollen. Right Sinus: Maxillary sinus tenderness and frontal sinus tenderness present. Left Sinus: Maxillary sinus tenderness and frontal sinus tenderness present. Cardiovascular: Rate and Rhythm: Normal rate and regular rhythm. Heart sounds: No murmur heard. No gallop. Pulmonary: Effort: No respiratory distress. Breath sounds: Wheezing present. No rales. Abdominal: Palpations: Abdomen is soft. Musculoskeletal: Right lower leg: No edema. Left lower leg: No edema. Lymphadenopathy: Cervical: No cervical adenopathy. Neurological: Mental Status: He is alert. Assessment and Plan 1. Wheezing - ICD9: 786.07, ICD10: R06.2 (primary diagnosis) Rule out asthma. - ALBUTEROL SULFATE 2.5 MG/3 ML (0.083 %) SOLUTION FOR NEBULIZATION - ALBUTEROL SULFATE HFA 90 MCG/ACTUATION AEROSOL INHALER - CONSULT TO PULMONARY MEDICINE 2. Migraine with aura and without status migrainosus, not intractable - ICD9: 346.00, ICD10: G43.109 Stable. Limit use. - [id number]-[id number] 50 MG-325 MG-40 MG TABLET 3. Seasonal allergies - ICD9: 477.9, ICD10: J30.2 Controlled. - LEVOCETIRIZINE 5 MG TABLET 4. Primary hypertension - ICD9: 401.9, ICD10: I10 - good control - Continue current medication(s) - Goal of BP <130/80 - LISINOPRIL 40 MG TABLET - AMLODIPINE 2.5 MG TABLET 5. Insomnia, unspecified type - ICD9: 780.52, ICD10: G47.00 Controlled on both medications on a chronic basis. No adverse effects. - AMITRIPTYLINE 10 MG TABLET - TRAZODONE 100 MG TABLET 6. Erectile dysfunction, unspecified erectile dysfunction type - ICD9: 607.84, ICD10: N52.9 - SILDENAFIL 100 MG TABLET 7. Acute non-recurrent sinusitis, unspecified location - ICD9: 461.9, ICD10: J01.90 - Will begin treatment with as per antibiotic as written, see orders - AMOXICILLIN 875 MG TABLET Regan Echavarria MD documented in this encounter [facility] 06-20-2022 Miscellaneous Notes Patient has been identified by name and date of : Yes Last office visit in this department: 06/18/2022 RX INSTRUCTIONS: Patient aware RX will be sent to pharmacy. No need to notify patient. Patient phones requesting refills as follows: Requested Prescriptions Pending Prescriptions Disp Refills DULoxetine (CYMBALTA) 60 mg capsule 90 capsule 1 Sig: Take 1 capsule by mouth once daily. At bedtime acetaminophen 325 mg-caffeine 40 mg-butalbital 50 mg (FIORICET) per tablet 30 tablet 0 Sig: Take 1 tablet by mouth every 4 hours as needed for headache. Please review and advise. Minerva Graham Pss documented in this encounter [facility] 06-18-2022 History of Present illness Narrative CC: Patient presents with: Follow Up HPI Wolf Ridley is a 57 year old male who presents today for above. He was seen in office on 05/29 for hospital f/u for pneumonia. At that visit he was feeling better but for the last several days he has been feeling worse than when he was originally hospitalized. He believes his pneumonia is back and has worsened. He is unsure of any recent fevers but does endorse chills at times. He has been lightheaded, dizzy, and very fatigued. States he has no appetite but trying to get enough fluids. He denies nausea or vomiting but endorses diarrhea which is described as very soft and at least 3 times a day over the last several days. Cough is described as wet and congested with greenish brown sputum. Endorses SOB, HEREDIA, and wheezing at times but denies hemoptysis. He called the office yesterday and was prescribed albuterol nebulizer which he says has helped. He has also been taking Robitussin DM for cough and Tylenol for headaches. Endorses a runny nose with clear drainage. Sore throat he describes is from coughing so much. He denies chest pain, pressure, palpitations, or edema. REVIEW OF SYSTEMS GENERAL: SEE HPI RESPIRATORY: SEE HPI CARDIOVASCULAR: SEE HPI GI: SEE HPI All other systems negative. PAST MEDICAL HISTORY Diagnosis Date Chronic pain 08/19/2021 Closed fracture of distal end of right femur (HCC) 06/30/2019 Closed fracture of right tibial plateau 06/30/2019 Complication of surgical procedure 08/19/2021 COVID-19 03/26/2022 Deep vein thrombosis (DVT) ([facility]) 06/30/2019 setting R leg fracture Depressive disorder 08/19/2021 Erectile dysfunction 08/20/2021 GERD (gastroesophageal reflux disease) 08/19/2021 Gout 08/19/2021 Hypercholesterolemia 08/19/2021 Insomnia 08/20/2021 Lumbosacral radiculopathy 08/21/2021 Migraine headache 08/19/2021 Pneumonia 05/21/2022 Postlaminectomy syndrome of lumbosacral region 08/19/2021 Secondary male hypogonadism 2018 Traumatic hematoma of left lower leg 11/23/2019 Left leg ulcer PAST SURGICAL HISTORY Procedure Laterality Date BACK SURGERY HX 2007 COLONOSCOPY SCREENING 06/02/2019 x 5, last one [facility]. GASTRIC BYPASS HX 2001 INGUINAL HERNIA REPAIR HX Left 1981 LEFT HEART CATH,PERCUTANEOUS 2016 normal. PAST SURGICAL HISTORY OF Right 2019 ORIF R knee fractures REMOVE MESH FROM ABD WALL 2004 adhesions REPAIR ABDOMINAL HERNIA 2001 TOTAL KNEE REPLACEMENT Right 07/04/2020 Complex R knee arthroplasty ALLERGIES Patient has no active allergies. MEDICATIONS albuterol (PROVENTIL) 2.5 mg /3 mL (0.083 %) nebulizer solution Use 3 mL via nebulizer every 4 hours as needed for wheezing/shortness of breath. Use over 5-15minutes. gabapentin (NEURONTIN) 600 mg tablet Take 600mg in am, 600mg in afternoon, 1,200mg at bedtime (FROM PAIN MANAGEMENT) albuterol HFA (VENTOLIN HFA) 90 mcg/actuation inhaler Inhale 2 Puffs as instructed every 4 hours as needed for wheezing/shortness of breath. pantoprazole DR (PROTONIX) 40 mg tablet Take 1 tablet by mouth once daily. acetaminophen 325 mg-caffeine 40 mg-butalbital 50 mg (FIORICET) per tablet Take 1 tablet by mouth every 4 hours as needed for headache. levocetirizine 5 mg tablet Take 1 tablet by mouth once daily. lisinopril (ZESTRIL, PRINIVIL) 40 mg tablet Take 1 tablet by mouth once daily. amitriptyline (ELAVIL) 10 mg tablet Take 2 tablets by mouth daily at bedtime. traZODone (DESYREL) 100 mg tablet Take 2 tablets by mouth daily at bedtime. DULoxetine (CYMBALTA) 60 mg capsule Take 1 capsule by mouth once daily. At bedtime HYDROmorphone (DILAUDID) 4 mg tablet Take 1 tablet by mouth every 6 hours as needed (FROM PAIN MANAGEMENT). methocarbamol (ROBAXIN) 500 mg tablet Take 500 mg by mouth three times daily. carBAMazepine (TEGRETOL) 200 mg tablet Take 200 mg by mouth twice daily. sildenafil (VIAGRA) 100 mg tablet Take 1 tablet by mouth as needed. FAMILY HISTORY Problem Relation Age of Onset Colon Cancer Mother Social History Tobacco Use Smoking status: Never Smokeless tobacco: Never Substance Use Topics Alcohol use: Yes Alcohol/week: 7.0 standard drinks Types: 7 Glasses of Wine (5oz) per week Drug use: Never PHYSICAL EXAM BP 140/78 Pulse 95 Temp 36.1 C (96.9 F) (Tympanic) Resp 20 Wt 115.7 kg (255 lb) SpO2 96% BMI 36.85 kg/m Pulse ox : pre: 93% RA HR 88 Ambulation: 92% RA HR 105 Post: 94% RA HR 96 BP w/Orthostatic Vitals Date and Time Orthostatic BP Orthostatic Pulse BP Pulse BP Position BP Site BP Cuff Size 06/18/22 1632 116/79 97 -- -- Standing Right Arm Large Adult 06/18/22 1630 155/84 88 -- -- Supine Right Arm Large Adult General Appearance: alert, no acute distress. Pale, warm, diaphoretic Lungs: Lungs clear to auscultation but diminished in bilateral bases. No wheezing, rhonchi, rales present. Heart: RRR without murmur, gallop, or rubs. No ectopy ASSESSMENT/PLAN: 1. Orthostatic hypotension - ICD9: 458.0, ICD10: I95.1 (primary diagnosis) Worsening symptoms over the past few days. Patient ill appearing, positive orthostatic vital signs. He is not acute distress however with recent history of hospitalization and pneumonia he needs urgent evaluation in the ER. Patient verbalized understanding and agreeable. He declined EMS transport, feels well enough to drive. Report given to [facility] via ER Passport online. Advised patient to schedule ER/hospital follow-up once discharged 2. Shortness of breath - ICD9: 786.05, ICD10: R06.02 As above 3. Acute cough - ICD9: 786.2, ICD10: R05.1 As above Prescription instructions reviewed with patient as applicable. Potential red flag symptoms discussed with the patient. Reviewed appropriate action plan to take if red flag symptoms occur. Patient agreeable to treatment plan. documented in this encounter [facility] 06-17-2022 Miscellaneous Notes calls with patient in background to request a prescription for albuterol for nebulizer. She reports that he continues to have chest congestion and a non-productive cough that is causing SOB. Pulse oximeter is around 93%. Afebrile. Patient has follow up appointment tomorrow with provider but patient didn't think request should wait. Pended per review. Carolina Velarde RN documented in this encounter [facility] 05-29-2022 Instructions Regan Echavarria MD - 05/29/2022 6:45 PM EST REDUCE LISINOPRIL 40 MG TO ONE HALF TABLET DAILY FOR 7 DAYS. documented in this encounter [facility] 05-29-2022 History of Present illness Narrative This note was created using Groovideoter. Subjective Transitional Care Management Progress Note The patients TCM visit was performed within the 7 days of discharge. Patient's Date of discharge: 05/23/2022 Date of initial coordinator contact after discharge: 05/26/2022neu Discharge diagnosis: Pneumonia. Medication review completed Yes Provider Documentation: In follow-up of hospitalization, Wolf Ridley is a 57 year old male with the chief complaint of transition of care. I have reviewed the patient s last hospital course including diagnostic testing performed during this hospitalization, their discharge medications, and my assessment and plan with the patient and any family members present at today s visit. Wolf was admitted for dyspnea 05/21/22. He was diagnosed with bilateral pneumonia. CXR was negative, but CTA of the chest showed bilateral infiltrates. He was hypoxic with ambulation. He was admitted for observation, IV antibiotics. Respiratory viral and bacterial panel were negative. He is labs showed mild leukocytosis and chronic anemia. He was discharged on levofloxacin 5 days course. He did not need home oxygen. He was better, but still feeling weak. He felt lightheaded and fatigued walking across the room. He had residual cough, and residual dyspnea. He returned to work this past Thursday, but was working from home. Review of Systems Constitutional: Positive for appetite change and fatigue. Negative for chills, diaphoresis and fever. HENT: Negative. Respiratory: Positive for wheezing. Negative for chest tightness. Cardiovascular: Negative for chest pain, palpitations and leg swelling. Gastrointestinal: Negative for abdominal pain, diarrhea, nausea and vomiting. Genitourinary: Negative. Skin: Negative. Neurological: Negative for headaches. ACTIVE PROBLEM LIST Obesity, Class II, Bmi 35-39.9 Postlaminectomy Syndrome of Lumbosacral Region Depressive Disorder Gout Hypercholesterolemia Migraine Headache Primary Hypertension Gerd (Gastroesophageal Reflux Disease) Erectile Dysfunction Seasonal Allergies Insomnia Lumbosacral Radiculopathy Andrew (Obstructive Sleep Apnea) Social History Tobacco Use Smoking status: Never Smokeless tobacco: Never Substance Use Topics Alcohol use: Yes Alcohol/week: 7.0 standard drinks Types: 7 Glasses of Wine (5oz) per week Drug use: Never Current Outpatient Medications Medication Sig albuterol HFA (VENTOLIN HFA) 90 mcg/actuation inhaler Inhale 2 Puffs as instructed every 4 hours as needed for wheezing/shortness of breath. pantoprazole DR (PROTONIX) 40 mg tablet Take 1 tablet by mouth once daily. acetaminophen 325 mg-caffeine 40 mg-butalbital 50 mg (FIORICET) per tablet Take 1 tablet by mouth every 4 hours as needed for headache. levocetirizine 5 mg tablet Take 1 tablet by mouth once daily. lisinopril (ZESTRIL, PRINIVIL) 40 mg tablet Take 1 tablet by mouth once daily. amitriptyline (ELAVIL) 10 mg tablet Take 2 tablets by mouth daily at bedtime. traZODone (DESYREL) 100 mg tablet Take 2 tablets by mouth daily at bedtime. DULoxetine (CYMBALTA) 60 mg capsule Take 1 capsule by mouth once daily. At bedtime HYDROmorphone (DILAUDID) 4 mg tablet Take 1 tablet by mouth every 6 hours as needed (FROM PAIN MANAGEMENT). methocarbamol (ROBAXIN) 500 mg tablet Take 500 mg by mouth three times daily. carBAMazepine (TEGRETOL) 200 mg tablet Take 200 mg by mouth twice daily. sildenafil (VIAGRA) 100 mg tablet Take 1 tablet by mouth as needed. gabapentin (NEURONTIN) 600 mg tablet Take 600mg in am, 600mg in afternoon, 1,200mg at bedtime (FROM PAIN MANAGEMENT) No current facility-administered medications for this visit. Objective BP 130/70 Pulse 81 Temp (!) 35.8 C (96.5 F) Resp 16 Wt 118.4 kg (261 lb) SpO2 97% BMI 37.72 kg/m Physical Exam Constitutional: General: He is not in acute distress. Appearance: He is not toxic-appearing or diaphoretic. HENT: Head: Normocephalic. Eyes: Conjunctiva/sclera: Conjunctivae normal. Cardiovascular: Rate and Rhythm: Normal rate and regular rhythm. Pulses: Normal pulses. Heart sounds: No murmur heard. No gallop. Pulmonary: Effort: No respiratory distress. Breath sounds: Wheezing present. No rhonchi or rales. Abdominal: Palpations: Abdomen is soft. Tenderness: There is no abdominal tenderness. Musculoskeletal: Right lower leg: No edema. Left lower leg: No edema. Neurological: General: No focal deficit present. Mental Status: He is alert. Gait: Gait normal. Vitals 05/29/2022 05/29/2022 05/29/2022 Orthostatic BP 149/72 131/86 139/87 Orthostatic Pulse 79 76 83 BP Position Supine Sitting Standing BP Site Left Arm Left Arm Left Arm BP Cuff Size Regular Adult Regular Adult Regular Adult Assessment and Plan 1. Pneumonia of both lungs due to infectious organism, unspecified part of lung - ICD9: 483.8, ICD10: J18.9 (primary diagnosis) Resolved. We discussed referral to PULMONARY. We'll discuss at follow up. 2. Hypoxia - ICD9: 799.02, ICD10: R09.02 Resolved. He was ambulated with no desaturation. 3. Orthostatic dizziness - ICD9: 780.4, ICD10: R42 He was hydrating adequately. - CBC - COMP METABOLIC PANEL - Reduce LISINOPRIL to 1/2 tablet for one week. 4. Other post infection and related fatigue syndromes - ICD9: 780.79, ICD10: G93.39 - CBC - COMP METABOLIC PANEL 5. Primary hypertension - ICD9: 401.9, ICD10: I10 Monitor at home. Regan Echavarria MD documented in this encounter [facility] 05-26-2022 History of Present illness Narrative TRANSITION CARE MANAGEMENT (TCM) INITIAL CONTACT [employer] Outreach Provider Action/FYI: TCm Initial contact with patient post discharge, spoke to patient. Patient identified by name and . TRANSITION CARE MANAGEMENT INITIAL OUTREACH DOCUMENTATION: Date of Outreach: 05/26/2022 Outreach Attempt 1: Contact Made Date of Discharge 05/23/2022 Some recent data might be hidden SUMMARY: -Pt discharged from [facility] on 05/23/22. -Admitted for: bilertal pneumonia Do you have a hospital follow up appointment with your PCP? Appointment on 05/29/22 with pcp. Yes. Remind patient of appointment date, time, and location. If not within 14 calendar days of discharge - please reschedule accordingly. MEDICATIONS: Many patients have questions or concerns about their medications once they are home. Were you prescribed any new medications? If yes, what are those medications? Levofloxacin 500mg by mouth daily #5 Pt reports they added albuterol Were you told to hold any medications? No Does note on d/c instructions he was told to decrease the trazadone to 100mg daily when on the levaquin. Pt says he did not get this info. Today is day 4 of antibodic Were any of your medications discontinued? No Do you have any questions about getting or taking your medications? No Your discharge instructions/After visit Summary (AVS) are important in guiding you through the recovery process. Is there anything I might help you understand? No Do you have all the necessary equipment and supplies at home? Yes Medical records from recent hospitalization: Placed for provider to review documented in this encounter [facility] 05-21-2022 History of Present illness Narrative CC: Patient presents with: cough and sinus drainage HPI: Wolf Ridley is a 57 year old male who presents to the office with complaint of respiratory symptoms. He had COVD in March. Only completed 3 days of Paxlovid due to side effects. Symptoms improved but never really resolved. Gradually worsening x 1 week. Associated symptoms includes nasal congestion, rhinorrhea, facial pain/pressure, headache, cough, wheezing, dyspnea, and fatigue. Denies fever, nausea, vomiting , and diarrhea. Treatments tried include Albuterol MDI/nebulilzer with temporary relief of symptoms. Sick contacts: no. History of asthma, frequent episodes of bronchitis, chronic bronchitis, bronchiectasis or COPD: Yes asthma with respiratory infections Smoker: No The ROS is otherwise negative. The patient's pmh, medications, allergies, and past visits are reviewed. PHYSICAL EXAM: BP 152/88 Pulse 100 Temp 36.2 C (97.1 F) (Temporal) Resp 18 Wt 117.5 kg (259 lb) SpO2 93% BMI 37.43 kg/m Pulse ox with ambulation- 86-88%, after ambulation- 88-90% General appearance: tired/ill appearing, diaphoretic, pale, no acute distress Eyes: conjunctiva pink and moist, no icterus, sclera white, non-injected Ears: Right ear: External ear/canal- Normal, TM - clear with good landmarks. Left ear: External ear/canal- Normal, TM - clear with good landmarks Nose: sinus tenderness over maxillary sinuses bilateral. Oropharynx:No erythema, exudates or tonsillar hypertrophy. Neck:supple and no adenopathy Heart: Negative. RRR without obvious murmur, gallop, or rubs. No ectopy. Lungs: clear to auscultation, without rales or wheeze, diminished breath sounds bibasilar. Rhonchi upper airways that clears with cough. ASSESSMENT/PLAN: 1. Shortness of breath - ICD9: 786.05, ICD10: R06.02 (primary diagnosis) Patient is not in acute distress however in light of recent infection with COVID, oxygen desaturation and patient appearance recommend further evaluation in ER. He feels safe to drive, denies dizziness, lightheadedness, feeling faint. He will go to [facility] ER. Report via ER Passport. He will call for ER follow-up. 2. Acute cough - ICD9: 786.2, ICD10: R05.1 As above 3. Migraine with aura and without status migrainosus, not intractable - ICD9: 346.00, ICD10: G43.109 - [id number] 50 MG-325 MG-40 MG TABLET Prescription instructions reviewed with patient as applicable. Potential red flag symptoms discussed with the patient. Reviewed appropriate action plan to take if red flag symptoms occur. Patient agreeable to treatment plan. Rayna Mac APRN.CNP documented in this encounter [facility] 04-30-2022 Miscellaneous Notes Patient contacted and given provider's response below. Agreeable to ER. Magy Berger RN Labs were essentially normal except for low blood sugar and mild anemia. Patient needs to be evaluated in the ER given the severity of his pain and now radiating to his left side. Rayna Mac APRN.CNP Pt calling to check status. Please call him back on his cell phone. Routing to INSTALL TECHNICIAN. Dina Branch LPN Patient calling and reports he was seen by Dr. Echavarria recently on 04/16. Per visit note, patient had extensive bruising of his left lower abdomen and flank for unclear reasons, with abdominal tenderness. He had no injury, no straining. He was coughing from Covid but not severe. Bruising was resolving. He went to the ER 04/05/22 when he noted the bruising, and his labs were unremarkable, and a CTA of his chest, abdomen, and pelvis showed no acute findings. Patient had multiple labs drawn yesterday and is waiting on results. Patient calling to update Dr. Echavarria that he continues to have abdominal tenderness and pain that is moving more into his left side which started about 3 days ago. Rates pain a 7 out of 10 and is constant. Decreased appetite and extreme fatigue. Denies fever, chills, vomiting, diarrhea or dizziness. Reports drinking fluids as well as he can. Patient asking PCP to advise. Thank you. documented in this encounter [facility] 04-16-2022 History of Present illness Narrative This note was created using Qbixriter. Subjective Wofl Ridley is a 57 year old male. He had Covid 19 earlier this month, prescribed Paxlovid, which he did not tolerate more than 3 days due to a bad taste in his mouth. He woke up with extensive bruising of his left lower abdomen and flank for unclear reasons, with abdominal tenderness. He had no injury, no straining. He was coughing from Covid but not severe. Bruising was resolving. He went to the ER 04/05/22 when he noted the bruising, and his labs were unremarkable, and a CTA of his chest, abdomen, and pelvis showed no acute findings. Review of Systems Constitutional: Negative for appetite change, chills and fever. HENT: Negative. Negative for nosebleeds. Respiratory: Positive for cough. Negative for chest tightness and shortness of breath. Cardiovascular: Negative. Gastrointestinal: Positive for abdominal pain. Negative for diarrhea, nausea and vomiting. Genitourinary: Negative for difficulty urinating, dysuria and hematuria. Skin: Positive for color change. Hematological: Does not bruise/bleed easily. ACTIVE PROBLEM LIST Obesity, Class II, Bmi 35-39.9 Postlaminectomy Syndrome of Lumbosacral Region Depressive Disorder Gout Hypercholesterolemia Migraine Headache Primary Hypertension Gerd (Gastroesophageal Reflux Disease) Erectile Dysfunction Seasonal Allergies Insomnia Lumbosacral Radiculopathy Andrew (Obstructive Sleep Apnea) Current Outpatient Medications Medication Sig acetaminophen 325 mg-caffeine 40 mg-butalbital 50 mg (FIORICET) per tablet Take 1 tablet by mouth every 4 hours as needed for headache. levocetirizine 5 mg tablet Take 1 tablet by mouth once daily. lisinopril (ZESTRIL, PRINIVIL) 40 mg tablet Take 1 tablet by mouth once daily. amitriptyline (ELAVIL) 10 mg tablet Take 2 tablets by mouth daily at bedtime. traZODone (DESYREL) 100 mg tablet Take 2 tablets by mouth daily at bedtime. DULoxetine (CYMBALTA) 60 mg capsule Take 1 capsule by mouth once daily. At bedtime HYDROmorphone (DILAUDID) 4 mg tablet Take 1 tablet by mouth every 6 hours as needed (FROM PAIN MANAGEMENT). gabapentin (NEURONTIN) 600 mg tablet Take 600 mg by mouth three times daily. Take 600mg in am, 600mg in afternoon, 1,200mg at bedtime. methocarbamol (ROBAXIN) 500 mg tablet Take 500 mg by mouth three times daily. carBAMazepine (TEGRETOL) 200 mg tablet Take 200 mg by mouth twice daily. pantoprazole DR (PROTONIX) 40 mg tablet Take 1 tablet by mouth once daily. sildenafil (VIAGRA) 100 mg tablet Take 1 tablet by mouth as needed. No current facility-administered medications for this visit. Objective BP 144/86 (BP Site: Left Arm, BP Position: Sitting, BP Cuff Size: Large Adult) Pulse 77 Temp 36.1 C (97 F) (Temporal) Resp 16 Wt 118.3 kg (260 lb 12.8 oz) BMI 37.69 kg/m Physical Exam Constitutional: General: He is not in acute distress. Appearance: He is not ill-appearing or diaphoretic. Eyes: General: No scleral icterus. Conjunctiva/sclera: Conjunctivae normal. Cardiovascular: Rate and Rhythm: Normal rate and regular rhythm. Heart sounds: No murmur heard. No gallop. Pulmonary: Effort: No respiratory distress. Breath sounds: Rhonchi present. No wheezing or rales. Abdominal: Tenderness: There is abdominal tenderness in the epigastric area and left upper quadrant. There is no guarding or rebound. Hernia: No hernia is present. Comments: Residual ecchymosis in epigastric, hypogastric, left lower quadrant, and left flank. Neurological: Mental Status: He is alert. ER report reviewed. Assessment and Plan 1. Discoloration of skin of flank resembling ecchymosis - ICD9: 709.00, ICD10: L81.9 (primary diagnosis) Resolving. He had bruising of his left arm when initially seen. Observe. Recheck labs. 2. Need for influenza vaccination - ICD9: V04.81, ICD10: Z23 - INFLUENZA VACCINE QUADRIVALENT 6 MO - 64 YRS IM 3. Primary hypertension - ICD9: 401.9, ICD10: I10 - poor control - Continue current medication(s) - INSTALL TECHNICIAN follow up in 2 months. - Goal of BP <130/80 4. Pain of upper abdomen - ICD9: 789.09, ICD10: R10.10 - CBC - COMP METABOLIC PANEL - LIPASE BLD - AMYLASE BLD 5. Need for vaccination - ICD9: V05.9, ICD10: Z23 - TDAP VACCINE AGE 7+ IM Regan Echavarria MD documented in this encounter [facility] 04-05-2022 Miscellaneous Notes Patient has been identified by name and date of : Yes Patient phones for refill(s): Requested Prescriptions Pending Prescriptions Disp Refills acetaminophen 325 mg-caffeine 40 mg-butalbital 50 mg (FIORICET) per tablet 30 tablet 0 Sig: Take 1 tablet by mouth every 4 hours as needed for headache. Date of last office visit in primary care: 12/30/21 Last 2 Encounter Wt Readings: Date: Wt: 12/30/2021 118.8 kg (262 lb) 08/19/2021 116.1 kg (256 lb) Previous labs/tests for medication: Not applicable Please advise. Thank you. Harleen Ford LPN documented in this encounter [facility] 03-10-2022 Miscellaneous Notes Patient notified of below recommendation, verbalized understanding. Clemencia Solomon LPN Attempted to contact patient. Unable to leave message due to mailbox full. Sandra Dudley RN You need rest, fluids, and over the counter medications for symptoms. Call us if symptoms worsen, persist, or if you have new symptoms in several days. Express care if needed. Wolf Ridley is calling Regan Echavarria MD today with concern regarding sinus pressure Patient has been identified by name and birthdate. Duration of symptoms: days Person calling: self Call patient at: at home [phone] (home) [phone] (cell) Was an appointment scheduled: No Closing statement: Symptom Call: Thank you for calling [facility], your call is very important. A nurse will call in approximately 2-4 hours during business hours. If this is an emergency, please contact 911. Geena Shah Pss documented in this encounter [facility] 03-10-2022 Miscellaneous Notes Patient has been identified by name and date of : Yes Patient phones for refill(s): Requested Prescriptions Pending Prescriptions Disp Refills levocetirizine 5 mg tablet 90 tablet 1 Sig: Take 1 tablet by mouth once daily. lisinopril (ZESTRIL, PRINIVIL) 40 mg tablet 90 tablet 1 Sig: Take 1 tablet by mouth once daily. amitriptyline (ELAVIL) 10 mg tablet 180 tablet 1 Sig: Take 2 tablets by mouth daily at bedtime. traZODone (DESYREL) 100 mg tablet 180 tablet 1 Sig: Take 2 tablets by mouth daily at bedtime. DULoxetine (CYMBALTA) 60 mg capsule 90 capsule 1 Sig: Take 1 capsule by mouth once daily. At bedtime Date of last office visit in primary care: 12/30/2021 Advised to follow-up in 6 months, No future appt scheduled. Last 2 Encounter Wt Readings: Date: Wt: 12/30/2021 118.8 kg (262 lb) 08/19/2021 116.1 kg (256 lb) Previous labs/tests for medication: Blood Pressure: BUN (mg/dL) Date Value 08/24/2021 10 Sodium (mmol/L) Date Value 08/24/2021 136 Last 1 Encounter BP Readings: Date: BP: 12/30/2021 130/74 Please advise. Thank you. Clemencia Solomon LPN documented in this encounter [facility] 02-17-2022 Miscellaneous Notes Patient has been identified by name and date of : Yes Patient phones for refill(s): Pending Prescriptions Disp Refills [id number] 50 MG-325 MG-40 MG TABLET 30 tablet 0 Sig: Take 1 tablet by mouth every 4 hours as needed for headache. JOHNSON: No Date of last office visit in primary care: 12/30/2021 No future appt scheduled. Last 2 Encounter Wt Readings: Date: Wt: 12/30/2021 118.8 kg (262 lb) 08/19/2021 116.1 kg (256 lb) Previous labs/tests for medication: Not applicable Please advise. Thank you. Clemencia Solomon LPN Patient has been identified by name and date of : Yes Pending Prescriptions Disp Refills [id number] 50 MG-325 MG-40 MG TABLET 30 tablet 0 Sig: Take 1 tablet by mouth every 4 hours as needed for headache. JOHNSON: No RX INSTRUCTIONS: Patient requesting a call when RX is approved and sent to the pharmacy. Please call patient at: [phone] Haily Branch Pss documented in this encounter [facility] 02-10-2022 Miscellaneous Notes Referral faxed. Patient notified. Demetrio Proctor Ma ASSESSMENT/PLAN: 1. Postlaminectomy syndrome of lumbosacral region - ICD9: 722.83, ICD10: M96.1 - CONSULT TO PAIN MGT Regan Echavarria MD Patient requesting pain management referral. He states the current pain clinic he sees, [facility], no longer takes his insurance. He is interested in seeing Dr. Marina, if provider agreeable. Order pended for review-DX needs added. Please call patient once referral order is placed. Thank you. documented in this encounter [facility] 12-30-2021 History of Present illness Narrative CC Patient presents with: F/U 3 Month HPI Wolf Ridley is a 56 year old male who presents to the office for blood pressure. His visit today is for follow-up. Patient was last seen for this approximately 5 months ago Medication changes: No Taking all medications as prescribed: Yes Side effects: No Home BP's: Yes 140's/70's Denies: chest pain, palpitations, dyspnea and peripheral edema. Chronic headaches/migraines. No worse than usual. Last 4 Encounter BP Readings: Date: BP: 12/30/2021 142/78 08/19/2021 139/83 Last 3 Encounter Wt Readings: Date: Wt: 12/30/2021 118.8 kg (262 lb) 08/19/2021 116.1 kg (256 lb) Exercise: has limited mobility and can not participate in aerobic exercise. Diet: Watch for salt, fat, cholesterol: No Alcohol intake: 1 glass of wine daily . Smoking: No Sleep disorders/snoring? Yes ANDREW. Patient admits to not wearing CPAP consistently. Reports chronic fatigue. He thought it was due to low testosterone as it has in the past however levels just checked and were normal. Even when he wears CPAP consistently the fatigue does not improve. He has depression however treated with Cymbalta and feels that it is working well. REVIEW OF SYSTEMS General: no fevers, no chills, no night sweats and no significant changes in weight Respiratory: no cough, no wheezing GI: Negative for abdominal discomfort, blood in stools or black stools, change in bowel habit PAST MEDICAL HISTORY Diagnosis Date Chronic pain 08/19/2021 Closed fracture of distal end of right femur ([facility]) 06/30/2019 Closed fracture of right tibial plateau 06/30/2019 Complication of surgical procedure 08/19/2021 Deep vein thrombosis (DVT) ([facility]) 06/30/2019 setting R leg fracture Depressive disorder 08/19/2021 Erectile dysfunction 08/20/2021 GERD (gastroesophageal reflux disease) 08/19/2021 Gout 08/19/2021 Hypercholesterolemia 08/19/2021 Insomnia 08/20/2021 Lumbosacral radiculopathy 08/21/2021 Migraine headache 08/19/2021 Postlaminectomy syndrome of lumbosacral region 08/19/2021 Secondary male hypogonadism 2018 Traumatic hematoma of left lower leg 11/23/2019 Left leg ulcer PAST SURGICAL HISTORY Procedure Laterality Date BACK SURGERY HX 2007 COLONOSCOPY SCREENING 06/02/2019 x 5, last one [facility]. GASTRIC BYPASS HX 2001 INGUINAL HERNIA REPAIR HX Left 1981 LEFT HEART CATH,PERCUTANEOUS 2015 normal. PAST SURGICAL HISTORY OF Right 2019 ORIF R knee fractures REMOVE MESH FROM ABD WALL 2004 adhesions REPAIR ABDOMINAL HERNIA 2001 TOTAL KNEE REPLACEMENT Right 07/04/2020 Complex R knee arthroplasty ALLERGIES Morphine MEDICATIONS lisinopril (ZESTRIL, PRINIVIL) 40 mg tablet Take 1 tablet by mouth once daily. DULoxetine (CYMBALTA) 60 mg capsule Take 1 capsule by mouth once daily. At bedtime acetaminophen 325 mg-caffeine 40 mg-butalbital 50 mg (FIORICET) per tablet Take 1 tablet by mouth every 4 hours as needed for headache. HYDROmorphone (HYDROMORPHONE) 4 mg tablet Take 1 tablet by mouth every 6 hours as needed (FROM PAIN MANAGEMENT). gabapentin (NEURONTIN) 600 mg tablet Take 600 mg by mouth three times daily. Take 600mg in am, 600mg in afternoon, 1,200mg at bedtime. methocarbamol (ROBAXIN) 500 mg tablet Take 500 mg by mouth three times daily. carBAMazepine (TEGRETOL) 200 mg tablet Take 200 mg by mouth twice daily. levocetirizine 5 mg tablet Take 1 tablet by mouth once daily. amitriptyline (ELAVIL) 10 mg tablet Take 2 tablets by mouth daily at bedtime. traZODone (DESYREL) 100 mg tablet Take 2 tablets by mouth daily at bedtime. pantoprazole DR (PROTONIX) 40 mg tablet Take 1 tablet by mouth once daily. sildenafil (VIAGRA) 100 mg tablet Take 1 tablet by mouth as needed. FAMILY HISTORY Problem Relation Age of Onset Colon Cancer Mother Social History Tobacco Use Smoking status: Not on file Smokeless tobacco: Not on file Substance Use Topics Alcohol use: Not on file Drug use: Not on file PHYSICAL EXAM BP 130/74 Pulse 88 Resp 14 Wt 118.8 kg (262 lb) BMI 37.86 kg/m General Appearance: well appearing, in no acute distress, alert Lungs: Lungs clear to auscultation. No wheezing, rhonchi, rales. Heart: RRR without murmur, gallop, or rubs. No ectopy DATA REVIEWED: Most recent labs ASSESSMENT/PLAN: 1. Primary hypertension - ICD9: 401.9, ICD10: I10 (primary diagnosis) - good control - Continue current medication(s) - Recommended regular aerobic exercise. - Recommend home blood pressure monitoring, to bring results in on next visit - Goal of BP <130/80 2. Fatigue, unspecified type - ICD9: 780.79, ICD10: R53.83 Chronic, ongoing. Normal testosterone levels. Further lab work-up with: - CBC + DIFF - IRON + TIBC - FERRITIN BLD - VITAMIN B12 BLOOD - FOLATE SERUM - TSH BLD 3. Anemia, unspecified type - ICD9: 285.9, ICD10: D64.9 Mildly on last CBC in July. Recheck along with anemia work-up - CBC + DIFF - IRON + TIBC - FERRITIN BLD - VITAMIN B12 BLOOD - FOLATE SERUM 4. Migraine with aura and without status migrainosus, not intractable - ICD9: 346.00, ICD10: G43.109 Stable - [id number]-[id number] 50 MG-325 MG-40 MG TABLET 5. ANDREW (obstructive sleep apnea) - ICD9: 327.23, ICD10: G47.33 Does not wear CPAP consistently Prescription instructions reviewed with patient as applicable. Potential red flag symptoms discussed with the patient. Reviewed appropriate action plan to take if red flag symptoms occur. Patient agreeable to treatment plan Rayna Mac APRN.BONNY documented in this encounter [facility] 12-06-2021 Miscellaneous Notes Patient has been identified by name and date of : Yes Patient phones for refill(s): Pending Prescriptions Disp Refills DULOXETINE 60 MG CAPSULE,DELAYED RELEASE Sig: Take 1 capsule by mouth once daily. At bedtime JOHNSON: No Date of last office visit in primary care: 08/19/2021 Last 2 Encounter Wt Readings: Date: Wt: 08/19/2021 116.1 kg (256 lb) Previous labs/tests for medication: Not applicable Please advise. Thank you. Chelsea Richter LPN Patient has been identified by name and date of : Yes Pending Prescriptions Disp Refills DULOXETINE 60 MG CAPSULE,DELAYED RELEASE Sig: Take 1 capsule by mouth once daily. At bedtime JOHNSON: No RX INSTRUCTIONS: Patient aware RX will be sent to pharmacy. No need to notify patient. Geena hSah Pss documented in this encounter [facility] documented as of this encounter (statuses as of 12/07/2021) [facility] History of Past illness Narrative* Problem Noted Date Resolved Date Complication of surgical procedure 08/19/2021 08/20/2021 Deep vein thrombosis (DVT) 08/19/202108/21 documented as of this encounter (statuses as of 12/30/2021) [facility] of Past illness Narrative* Problem Noted Date Resolved Date Complication of surgical procedure 08/19/2021 08/20/2021 Deep vein thrombosis (DVT) 08/19/202108/21 documented as of this encounter (statuses as of 02/10/2022) [facility] of Past illness Narrative* Problem Noted Date Resolved Date Complication of surgical procedure 08/19/2021 08/20/2021 Deep vein thrombosis (DVT) 08/19/202108/21 documented as of this encounter (statuses as of 02/18/2022) [facility] of Past illness Narrative* Problem Noted Date Resolved Date Complication of surgical procedure 08/19/2021 08/20/2021 Deep vein thrombosis (DVT) 08/19/202108/21 documented as of this encounter (statuses as of 03/10/2022) [address]-2022 History of Past illness Narrative* Problem Noted Date Resolved Date Complication of surgical procedure 08/19/2021 08/20/2021 Deep vein thrombosis (DVT) 08/19/202108/21 documented as of this encounter (statuses as of 03/10/2022) [facility] of Past illness Narrative* Problem Noted Date Resolved Date Complication of surgical procedure 08/19/2021 08/20/2021 Deep vein thrombosis (DVT) 08/19/202108/21 documented as of this encounter (statuses as of 03/26/2022) [facility] of Past illness Narrative* Problem Noted Date Resolved Date Complication of surgical procedure 08/19/2021 08/20/2021 Deep vein thrombosis (DVT) 08/19/202108/21 documented as of this encounter (statuses as of 04/09/2022) [facility] of Past illness Narrative* Problem Noted Date Resolved Date Complication of surgical procedure 08/19/2021 08/20/2021 Deep vein thrombosis (DVT) 08/19/202108/21 documented as of this encounter (statuses as of 04/17/2022) [facility] of Past illness Narrative* Problem Noted Date Resolved Date Complication of surgical procedure 08/19/2021 08/20/2021 Deep vein thrombosis (DVT) 08/19/202108/21 documented as of this encounter (statuses as of 04/30/2022) [facility] of Past illness Narrative* Problem Noted Date Resolved Date Complication of surgical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 will only be presented on the side monitors thus forcing the route relief driver to scan the entire scene, not just the center monitor. The DA events include only left and right arrows. The route relief driver will be presented with sixteen different DA events. The DA events will appear on the outside half of the left and right monitors with eight symbols being shown in the upper quadrant and four will be shown in the lower quadrant. The route relief driver will also need to maintain their speed and amber position during the drive.) Total off road crashes: 0 (Good performance is 0) Total collisions with vehicles and roadway objects: 0 (Good performance is 0) Percentage of time over the posted speed limit: 8% (Good performance would be less than 5%, moderate would be less than 10% and anything greater than 10% would be poor) Percentage of time out of lanes: 1% (Good performance would be less than 1%, moderate would be lessthan 2.5% and anything greater than 2.5% would be poor) Total correct attention responses: . (Good performance is all symbols responded to correctly, moderate performance would be missing 1-2.) Number of upper left symbols missed: 2/4 Number of lower left symbols missed: 0/4 Number of upper right symbols missed: 0/4 Number of lower right symbols missed: 0/4 Average speed: 53mph (Good performance is +/- 5 MPH of the posted speed limit. Average speed on this drive is 50 MPH.) Maximum speed: 62 moh Minimum speed: [address]: (Two-amber residential road and school zones by curved roadway sections. Hazards include: pedestrians, cross traffic not stopping at unmarked intersections, and vehicles backing out of drives.) Total number of off road crashes: 0 (Good performance is 0.) Total number of collisions with vehicles and other roadway objects: 0 (Good performance is 0.) Total number of traffic light tickets: 0 (Good performance is 0.) Total number of stop sign tickets: 0 (Good performance is 0.) Percentage of time over the posted speed limit: 2% (Good performance would be less than 5%, moderate would be less than 10% and anything greater than 10% would be poor) Collision with cross traffic vehicles? No Total pedal reaction time to cross traffic vehicles: 9 seconds (Average value is below 0.7 seconds) Collision with backing vehicle? No Total pedal reaction time to backing vehicle: 2 seconds (Average value is below 0.7 seconds) Collision with pedestrian or animal? No Total pedal reaction time to pedestrian or animal: 0.7 seconds (Average value is below 0.7 seconds) Did the route relief driver exceed the posted speed limit in school zone? No ASSESSMENT AND PLAN Bowen reported that he does get motion sickness. Therefore, as soon as Bowen demonstrated ability foradequate driving abilities, simulation stopped. RESULTS: Patient tested as safe to return to independent driving RECOMMENDATIONS: None Patient has been instructed to contact referring physician to discuss results of this evaluation. Patient has been informed that his or her physician is responsible for making the final decision regarding driving status. Thank you for this referral. History: Low Complexity: brief history completed. Reviewed medical and therapy records related to presenting problem Performance Deficits/Examination: Low Complexity: 1-2 performance deficits related to presenting problem that result in activity limitations or participation restrictions. Clinical Decision Making: Clinical Decision making was of Low Complexity as the result of analysis of data from a problem focused assessment, a consideration of a limited number of treatment options,no significant comorbidities affecting the plan of care and no modification or assistance required to complete the evaluation. Evaluation Complexity: Based on the findings of patient history, examination, clinical presentation, and decision making during this evaluation, this patient is of low complexity. Time in: 0800 Time out: 0904 Timed treatment: 45 Total time: 64 minutes BLUE Jacob, OTR/L 6962 documented in this encounter Assessments Diagnosis Cough Diagnosis Skin ulcer of left lower leg, limited to breakdown of skin (HCC) Traumatic hematoma of left lower leg, initial encounter Discharge Instructions * Instructions* Gali Morgan LPN - 12/13/2019 Visit Discharge/Physician Orders: - left leg hematoma drained today - take ibuprofen for pain along with your pain medications Wound Location: Left leg Dressing orders: 1) Gather wound care supplies and arrange on clean table. 2) Wash your hands with soap and water or use alcohol based hand weld technician for 20 seconds ( twice). 3) Cleanse wounds with normal saline or wound cleanser and gauze. Pat dry with clean gauze. 4) Pack in the mesalt rope with applicator. Cover with ABD pad. Wrap with Conor wrap or coban. Keep all dressings clean & dry. Do not shower, take baths or get wound wet, unless otherwise instructed by your Wound Care doctor. Follow up visit: 1 Week 12/20/2019 at 9:45 Keep next scheduled appointment. Please give 24 hour notice if unable to keep appointment. [phone] If you experience any of the following, please call the Wound Care Service during business hours: Thursday through Thursday 8:00 am - 4:30 pm ([phone]). *Increase in pain *Temperature over 101 *Increase in drainage from your wound or a foul odor *Uncontrolled swelling *Need for compression bandage changes due to slippage, breakthrough drainage If you need medical attention outside of business hours, please contact your Primary Care Doctor orgo to the nearest emergency room. documented in this encounter* Instructions* Gali Morgan LPN - 12/20/2019 Visit Discharge/Physician Orders: - Sutures placed today - Keep incision wound dry Wound Location: Left leg Dressing orders: 1) Gather wound care supplies and arrange on clean table. 2) Wash your hands with soap and water or use alcohol based hand weld technician for 20 seconds ( Birth twice). 3) Cleanse wounds with normal saline or wound cleanser and gauze. Pat dry with clean gauze. 4) Cover wound with gauze and tape into place. Keep all dressings clean & dry. Do not shower, take baths or get wound wet, unless otherwise instructed by your Wound Care doctor. Follow up visit: 1 Week 12/27/2019 at 1:15 Keep next scheduled appointment. Please give 24 hour notice if unable to keep appointment. [phone] If you experience any of the following, please call the Wound Care Service during business hours: Thursday through Thursday 8:00 am - 4:30 pm ([phone]). *Increase in pain *Temperature over 101 *Increase in drainage from your wound or a foul odor *Uncontrolled swelling *Need for compression bandage changes due to slippage, breakthrough drainage If you need medical attention outside of business hours, please contact your Primary Care Doctor reanna to the nearest emergency room. documented in this encounter* Instructions* Ivonne Stoll RN - 12/27/2019 Visit Discharge/Physician Orders: -Okay to shower without waterproof bandaid in 2 weeks. Wound Location: Left lower leg incision Dressing orders: Left lower leg incision- Cover with large bandaid. Change daily for 2 weeks then discontinue. Follow up visit: Discharge from Wound Clinic, follow up as needed. Keep next scheduled appointment. Please give 24 hour notice if unable to keep appointment. [phone] If you experience any of the following, please call the Wound Care Service during business hours: Thursday through Thursday 8:00 am - 4:30 pm ([phone]). *Increase in pain *Temperature over 101 *Increase in drainage from your wound or a foul odor *Uncontrolled swelling *Need for compression bandage changes due to slippage, breakthrough drainage If you need medical attention outside of business hours, please contact your Primary Care Doctor reanna to the nearest emergency room. documented in this encounter History of Present Illness * Kaelyn Sierra DPM - 12/13/2019 3:00 PM EDT Teaching Note: Diagnosis: Contusion left leg, hematoma left leg, pain I was present with the resident during the visit and Evacuation of Hematoma left leg. Patient understands the possible risks and complications to the procedure(s) including and not limited to: Pain that may involve CRPS(explained), infection or continued infection needing additional amputation of antibiotics, slow healing or nonhealing to the skin or the bone, bone infection, implant problems or failure, DVT, PE (blood clots), loss of digit, limb, anesthesia risk of numbness, burning, nerve injury(neuropraxia), respiration and heart problems like ARDS or CP with VT, CHF. Patient understands and consents. I discussed the case with the resident and agree with the findings and the plan as documented in the residents note. Kaelyn Sierra DPM, [facility] Podiatric Medicine & Surgery [employer]foot [employer] Residency [facility] documented in this encounter* Laura Jimenez RN - 12/20/2019 9:45 AM EDT Freddy Jimenez R.N. has reviewed and agrees with Lillie Morgan LPN's shift Assessment. Laura Jimenez 12/20/2019 * Kaelyn Sierra DPM - 12/20/2019 9:45 AM EDT Teaching Note: I was present with the resident during the visit and closure of wound x 2cm with anesthesia I discussed the case with the resident and agree with the findings and the plan as documented in the residents note. Kaelyn Sierra DPM, [facility] Podiatric Medicine & Surgery R[employer]foot [employer] Residency [facility] documented in this encounter* Kaelyn Sierra DPM - 12/27/2019 1:15 PM EDT Teaching Note: I was present with the resident during the visit. I discussed the case with the resident and agree with the findings and the plan as documented in the residents note. Kaelyn Sierra DPM, [facility] Podiatric Medicine & Surgery [employer] Residency [facility] * Willis Lake DPM - 12/27/2019 1:15 PM EDT [facility] [place] Progress Note and Procedure Note Wolf Ridley AGE: 54 y.o. GENDER: male : 1965 EPISODE DATE: 12/27/2019 Subjective: Chief Complaint Patient presents with Wound Check Left leg HISTORY of PRESENT ILLNESS HPI Wolf Ridley is a 54 y.o. male Established patient, who presents today for wound/ulcer evaluation. History of Wound Context: hematoma drainage Wound/Ulcer Pain Timing/Severity: none Quality of pain: N/A Severity: 0 / 10 Modifying Factors: None Associated Signs/Symptoms: none Interval History: Patient presents today for follow up on wound/ulcer's progression. The patient is currently not on antibiotics. Current dressing care includes gauze with tape over incision. Patient states it is not painful at all and he has been changing the dressing daily. Patient would prefer to not follow up viola is satisfied with how the wound is progressing and doesn't believe he needs to be seen again. He has no other complaints at this time. PAST MEDICAL HISTORY History reviewed. No pertinent past medical history. PAST SURGICAL HISTORY Past Surgical History: Procedure Laterality Date BACK SURGERY FINGER SURGERY Left 12/23/2016 Left 5th Phalanx Closed Reduction Internal Fixation GASTRIC BYPASS SURGERY HERNIA REPAIR FAMILY HISTORY History reviewed. No pertinent family history. SOCIAL HISTORY Social History Tobacco Use Smoking status: Never Smoker Smokeless tobacco: Never Used Substance Use Topics Alcohol use: No Drug use: No ALLERGIES Allergies Allergen Reactions Morphine Other (See Comments) Extremely mean do not give MEDICATIONS Current Outpatient Medications on File Prior to Encounter Medication Sig Dispense Refill albuterol sulfate HFA 108 (90 Base) MCG/ACT inhaler Inhale 2 puffs into the lungs every 6 hours as needed for Wheezing 1 Inhaler 0 HYDROmorphone (DILAUDID) 2 MG tablet Take 4 mg by mouth daily. Every 24 hours for breakthrough pain. vlomhxsmfi-pguqazjvwokzi-efuncvke (FIORICET, ESGIC) 50-325-40 MG per tablet Take 1 tablet by mouth every 4 hours as needed for Headaches For migraines fentaNYL (DURAGESIC) 25 MCG/HR Place 1 patch onto the skin daily On the lower back . pantoprazole (PROTONIX) 40 MG tablet Take 40 mg by mouth daily traZODone (DESYREL) 100 MG tablet Take 100 mg by mouth 2 times daily orphenadrine (NORFLEX) 100 MG extended release tablet Take 100 mg by mouth 2 times daily DULoxetine (CYMBALTA) 60 MG extended release capsule Take 60 mg by mouth daily methocarbamol (ROBAXIN) 500 MG tablet Take 500 mg by mouth 3 times daily May take up to three timesa day. Amitriptyline HCl (ELAVIL PO) Take 20 mg by mouth nightly carBAMazepine (TEGRETOL) 200 MG tablet Take 200 mg by mouth 2 times daily No current facility-administered medications on file prior to encounter. REVIEW OF SYSTEMS Pertinent items are noted in HPI. Objective: BP 137/77 Pulse 92 Temp 95.6 F (35.3 C) (Tympanic) Resp 16 Ht 6' (1.829 m) Wt 250 lb (113.4 kg) SpO2 94% BMI 33.91 kg/m Wt Readings from Last 3 Encounters: 12/27/19 250 lb (113.4 kg) 12/23/16 215 lb 9.6 oz (97.8 kg) 12/18/16 195 lb (88.5 kg) PHYSICAL EXAM General Appearance: alert and oriented to person, place and time, well-developed and well-nourished, in no acute distress Vascular: Dorsalis pedis and posterior tibial pulses are audible bilaterally. Skin temperature is warm to warm from proximal tibial tuberosity to distal digits. CFT brisk to exposed digits. Hair growth present. Quality of skin good. Dermatologic: incision to left anterior leg well coapted with no signs of dehiscence. No surrounding erythema or edema. No exudate noted. Neurovascular: Light touch sensation intact bilaterally. Musculoskeletal: no tenderness with palpation of anterior aspect of left leg. MST 5/5 in all 4 quadrants. Rigid digital contractures of right second and third digits and left second digit. Incision 12/23/16 Finger (Comment which one) Left (Active) Number of days: 1098 Wound 12/13/19 Pretibial Left (Active) Wound Image 12/27/2019 1:27 PM Wound Traumatic 12/27/2019 1:27 PM Dressing Status Intact 12/27/2019 1:27 PM Dressing Changed Changed/New 12/27/2019 1:27 PM Dressing/Treatment ABD;4x4 12/20/2019 10:54 AM Wound Cleansed Rinsed/Irrigated with saline 12/27/2019 1:27 PM Wound Length (cm) 2 cm 12/27/2019 1:27 PM Wound Width (cm) 0 cm 12/27/2019 1:27 PM Wound Depth (cm) 0 cm 12/27/2019 1:27 PM Wound Surface Area (cm^2) 0 cm^2 12/27/2019 1:27 PM Change in Wound Size % (l*w) 100 12/27/2019 1:27 PM Wound Volume (cm^3) 0 cm^3 12/27/2019 1:27 PM Wound Assessment Edges well approximated 12/27/2019 1:27 PM Drainage Amount None 12/27/2019 1:27 PM Drainage Description Serosanguinous 12/20/2019 10:54 AM Odor None 12/27/2019 1:27 PM Margins Attached edges 12/27/2019 1:27 PM Vilma-wound Assessment Dry 12/27/2019 1:27 PM Red%Wound Bed 100 12/20/2019 10:54 AM Black%Wound Bed 100 12/27/2019 1:27 PM Number of days: 13 LABS CBC: No results found for: WBC, HGB, HCT, MCV, PLT BMP: No results found for: NA, K, CL, CO2, PHOS, BUN, CREATININE PT/INR: No results found for: PROTIME, INR Prealbumin: No results found for: PREALBUMIN Albumin:No results found for: LABALBU Sed Rate:No results found for: SEDRATE CRP: No results found for: CRP Micro: No results found for: BC Hemoglobin A1C: No results found for: LABA1C Assessment: Ulcer Identification: Ulcer Type: surgical incision Contributing Factors: none Wound: N/A Depth of Diabetic/Pressure/Non Pressure Ulcers or Wound: N/A Patient Active Problem List Diagnosis Code Disp fx of proximal phalanx of right little finger with routine heal S62.616D Skin ulcer of left lower leg, limited to breakdown of skin ([facility]) L97.921 Traumatic hematoma of left lower leg S80.12XA Procedure Note Indications: Based on my examination of this patient's wound(s)/ulcer(s) today, debridement is not required to promote healing and evaluate the extent healing. Plan: Patient examined and evaluated Band aid to wound daily for two weeks Keep clean and dry at all times Do not get wet for two weeks Ok to discontinue band aid on 01.10.2020 Ok to shower on 01.10.2020 Will follow up as needed Treatment: No orders of the defined types were placed in this encounter. Antibiotics: No Follow up: 2 weeks Please see attached Discharge Instructions Written patient dismissal instructions given to patient and signed by patient or POA. Discharge Instructions Visit Discharge/Physician Orders: Wound Location: Left lower leg Dressing orders: 1) Gather wound care supplies and arrange on clean table. 2) Wash your hands with soap and water or use alcohol based hand weld technician for 20 seconds (sing Happy Birthday twice). 3) Cleanse wounds with normal saline or wound cleanser and gauze. Pat dry with clean gauze. 4) Left lower leg- Cover wound with gauze and tape into place. Change daily. Keep all dressings clean & dry. Do not shower, take baths or get wound wet, unless otherwise instructed by your Wound Care doctor. Follow up visit: Keep next scheduled appointment. Please give 24 hour notice if unable to keep appointment. [phone] If you experience any of the following, please call the Wound Care Service during business hours: Thursday through Thursday 8:00 am - 4:30 pm ([phone]). *Increase in pain *Temperature over 101 *Increase in drainage from your wound or a foul odor *Uncontrolled swelling *Need for compression bandage changes due to slippage, breakthrough drainage If you need medical attention outside of business hours, please contact your Primary Care Doctor orgo to the nearest emergency room. documented in this encounter Procedure Findings Note PROCEDURE: Bilateral SI join t injection under fluoroscopic guidance. Physician: Leonidas Hayden M.D. PREOP/POSTOP DIAGNOSIS: Pain secondary to sacroiliitis. SOLUTION USED: Marcaine 0.125% plus Depo-Medrol 40 mg, total of 5 mL. COMPLICATIONS: None. ANESTHESIA: Local. PROCEDURE: After informed consent was obtained, the patient brought to the OR and placed in the prone position. The skin overlying the area was prepped and draped in sterile fashion using alcohol, after which a 25 gauge needle was used to access the indicated SI joint under fluoroscopic guidance. Omnipaque contrast dye was injected to show adequate intra-articular placement. After encountering the same we instilled 4 mL of solution. Postoperatively, needles were removed. The patient tolerated the procedure well and was transferred to recovery area in stable condition, to be discharged home after meeting criteria. Follow up as per the treatment plan. This document serves as a record of the services and decisions personally pe (more content not included)... Note PROCEDURE: Bilateral L5-S1 t ransforaminal epidural steroid injection under fluoroscopic guidance. Physician: Leonidas Hayden M.D. PRE- AND POSTOPERATIVE DIAGNOSES: Pain secondary to lumbar spinal stenosis with neurogenic claudication. SOLUTION USED: 80 mg Depo-Medrol, 1 mL 2% preservative free lidocaine, 1 mL 0.9% normal saline, 1 mL 0.125 preservative free Marcaine, 100 MCG Clonidine. COMPLICATIONS: None. ANESTHESIA: Local. PROCEDURE DESCRIPTION: After informed consent was obtained, the patient was brought to the operating room and was placed in the prone position. Standard monitoring was applied. The skin overlying the area was prepped and draped in standard sterile fashion. A 25-gauge spinal needle was inserted through the skin and directed toward the indicated nerve root foramen under fluoroscopic guidance. Omnipaque dye 0.3 mL was injected and appropriate epidural distribution was established without intravascular or intrathecal spread. Subsequently, 1 mL of the corticosteroid and (more content not included)... Reason for Referral Specialty Diagnoses / Procedures Referred By Jayda burton Referred To Contact Pain Management Diagnoses Postlaminectomy syndrome of lumbosacral region Procedures CONSULT TO PAIN MGT Regan Echavarria MD [address] [place] [address] Referral ID Status Reason Start Date Expiration Date Visits Requested Visits Authorized [id number] Ref Not Required PCP Requested Referral 02/08/2022 02/08/2023 1 1 Specialty Diagnoses / Procedures Referred By Jayda burton Referred To Contact Diagnoses Mild persistent asthma without complication Fern Carrillo PA-C [address] [place] [address] Referral ID Status Reason Start Date Expiration Date V isits Requested Visits Authorized [id number] Pending Review 1 1 Medications Administered Section Inactive Administered Medications - up to 3 most recent administrations Medication Order MAR Action Action Date Dose Rate Site diphenhydrAMINE 12.5-50 mg injection (BENADRYL) 12.5-50 mg, INTRAVENOUS, DIRECTED, Starting on Thu04/29/23 at 1100, Until Thu04/29/23 at 1459, DOSING DIRECTED BY PHYSICIAN FOR PROCEDURAL SEDATION ONLY, Intraprocedure Given 04/29/2023 10:37 AM EDT 50 mg fentaNYL 50 mcg/mL 25-100 mcg injection (SUBLIMAZE) 25-100 mcg, INTRAVENOUS, DIRECTED, Starting on Thu04/29/23 at 1100, Until Thu04/29/23 at 1459, DOSING DIRECTED BY PHYSICIAN FOR PROCEDURAL SEDATION ONLY, Intraprocedure Given 04/29/2023 10:40 AM EDT 50 mcg Additional Source Comments (unrecognized sect ion and content) No Status Records FoundNo Status Records FoundNo Status Records FoundNo Status Records FoundNo Status Records FoundNo Status Records Found INFORMATION SOURCE (unrecogn ized section and content) DATE CREATED AUTHOR AUTHOR'S ORGANIZ ATION 12/28/2019 [facility] DATE CREATED AUTHOR AUTHOR'S ORGANIZ ATION 07/04/2020 [facility] DATE CREATED AUTHOR AUTHOR'S ORGANIZ ATION 09/14/2020 [facility] DATE CREATED AUTHOR AUTHOR'S ORGANIZ ATION 03/23/2021 [facility] DATE CREATED AUTHOR AUTHOR'S ORGANIZ ATION 09/29/2023 [facility] Reason for Visit (unrecogniz ed section and content) Reason Comments Wound Check let leg Reason Comments Wound Check left leg Reason Comments Wound Check Left leg Reason Onset Date Comments Refill Request 12/06/2021 Reason Comments F/U 3 Month Specialty Diagnoses / Procedures Referred By Contac t Referred To Contact INTERNAL MEDICINE Diagnoses Primary care Procedures primary care Regan Echavarria MD [address] [place] [address] [facility] [address] [place] [address] Referral ID Status Reason Start Date Expiration Date Visits Requested Visits Authorized [id number] Pending Review OON/Self Pay Override 12/25/2021 03/25/2022 1 1 Reason Comments Patient Request: Pain Management Referra l Reason Comments Prescription Refills Reason Onset Date Comments Refill Request 03/10/2022 Reason Onset Date Comments sinus pressure 03/10/2022 Reason Onset Date Comments Refill Request 04/04/2022 Reason Onset Date Comments ED Follow-up Immunizations 04/16/2022 Flu vaccination Reason Comments Patient Update Patient Question Reason Comments cough and sinus drainage Reason Onset Date Comments Transition Of Care 05/26/2022 Reason Comments Transition Of Care Reason Comments Follow Up Reason Onset Date Comments Refill Request 06/20/2022 Reason Comments Patient Update Reason Comments Nasal Congestion Pt reported Omer pain rated 7, cough. Reason Comments Opened In Error Reason Comments Spirometry Specialty Diagnoses / Procedures Referred By Contac t Referred To Contact [facility] [place] Diagnoses Mild intermittent asthma without complication Procedures SPIROMETRY - BASELINE AND POST DILATOR BRNCDILAT RSPSE SPMTRY PRE&POST-BRNCDILAT ADMN An Ridley MD [address] [place] [address] [facility] [place] [phone] Referral ID Status Reason Start Date Expiration Date V isits Requested Visits Authorized [id number] Closed Auto-Generate d Referral 08/13/2022 09/11/2023 1 1 Specialty Diagnoses / Procedures Referred By Contac t Referred To [facility] [place] Diagnoses Mild intermittent asthma without complication Procedures NITRIC OXIDE, EXHALED NITRIC OXIDE GAS DETERMINATION An Ridley MD [address] [place] [address] [facility] [place] [phone] Referral ID Status Reason Start Date Expiration Date V isits Requested Visits Authorized [id number] Closed Auto-Generate d Referral 08/13/2022 09/11/2023 1 1 Reason Onset Date Comments Refill Request 09/03/2022 Reason Onset Date Comments Refill Request 09/08/2022 Reason Onset Date Comments Refill Request 10/09/2022 Reason Comments Established Patient 3 month follow up as thma Reason Onset Date Comments Refill Request 11/05/2022 Reason Onset Date Comments Refill Request 11/27/2022 Reason Onset Date Comments Refill Request 12/19/2022 Reason Onset Date Comments Refill Request 12/22/2022 Reason Comments Established Patient 2 month follow up Reason Onset Date Comments Refill Request 01/19/2023 Reason Onset Date Comments Refill Request 01/28/2023 Refill Request 01/29/2023 Reason Comments Asthma Reason Onset Date Comments Refill Request 03/02/2023 Reason Comments Medication Problem Reason Onset Date Comments Refill Request 03/09/2023 Reason Onset Date Comments Refill Request 03/21/2023 Reason Onset Date Comments Established Patient 3 month foll ow up asthma Immunizations 06/03/2023 Flu vaccination Reason Onset Date Comments Refill Request 09/14/2023 Refill Request 09/17/2023 Reason Comments New Patient Evaluation Specialty Diagnoses / Procedures Referred By Contruddy t Referred To Contact Diagnoses ANDREW (obstructive sleep apnea) Procedures CONSULT TO SLEEP MEDICINE - ADULT OFFICE/OUTPATIENT NEW HIGH MDM 60-74 MINUTES Rayna Becerra, [employer]OX FIN[employer] [address] [place] [address] Referral ID Status Reason Start Date Expiration Date V isits Requested Visits Authorized [id number] Closed PCP Requested Referral 07/01/2023 06/30/2024 1 1 Source Comments (unrecognize d section and content) In the event this informatio n is protected by the Federal Confidentiality of Alcohol and Drug Abuse Patient Records regulations: The Federal rules restrict any use of the information to criminally investigate or prosecute any alcohol or drug abuse patient.[facility] the event this information is protected by the Federal Confidentiality of Alcohol and Drug Abuse Patient Records regulations: The Federal rules restrict any use of the information to criminally investigate or prosecute any alcohol or drug abuse patient.[facility] SystemIn the event this information is protected by the Federal Confidentiality of Alcohol and Drug Abuse Patient Records regulations: The Federal rules restrict any use of the information to criminally investigate or prosecute any alcohol or drug abuse patient.[facility] SystemIn the event this information is protected by the Federal Confidentiality of Alcohol and Drug Abuse Patient Records regulations: The Federal rules restrict any use of the information to criminally investigate or prosecute any alcohol or drug abuse patient.[facility] SystemIn the event this information is protected by the Federal Confidentiality of Alcohol and Drug Abuse Patient Records regulations: The Federal rules restrict any use of the information to criminally investigate or prosecute any alcohol or drug abuse patient.[facility] SystemIn the event this information is protected by the Federal Confidentiality of Alcohol and Drug Abuse Patient Records regulations: The Federal rules restrict any use of the information to criminally investigate or prosecute any alcohol or drug abuse patient.[facility] SystemIn the event this information is protected by the Federal Confidentiality of Alcohol and Drug Abuse Patient Records regulations: The Federal rules restrict any use of the information to criminally investigate or prosecute any alcohol or drug abuse patient.[facility] SystemIn the event this information is protected by the Federal Confidentiality of Alcohol and Drug Abuse Patient Records regulations: The Federal rules restrict any use of the information to criminally investigate or prosecute any alcohol or drug abuse patient.[facility] SystemIn the event this information is protected by the Federal Confidentiality of Alcohol and Drug Abuse Patient Records regulations: The Federal rules restrict any use of the information to criminally investigate or prosecute any alcohol or drug abuse patient.[facility] SystemIn the event this information is protected by the Federal Confidentiality of Alcohol and Drug Abuse Patient Records regulations: The Federal rules restrict any use of the information to criminally investigate or prosecute any alcohol or drug abuse patient.[facility] SystemIn the event this information is protected by the Federal Confidentiality of Alcohol and Drug Abuse Patient Records regulations: The Federal rules restrict any use of the information to criminally investigate or prosecute any alcohol or drug abuse patient.[facility] SystemIn the event this information is protected by the Federal Confidentiality of Alcohol and Drug Abuse Patient Records regulations: The Federal rules restrict any use of the information to criminally investigate or prosecute any alcohol or drug abuse patient.[facility] SystemIn the event this information is protected by the Federal Confidentiality of Alcohol and Drug Abuse Patient Records regulations: The Federal rules restrict any use of the information to criminally investigate or prosecute any alcohol or drug abuse patient.[facility] SystemIn the event this information is protected by the Federal Confidentiality of Alcohol and Drug Abuse Patient Records regulations: The Federal rules restrict any use of the information to criminally investigate or prosecute any alcohol or drug abuse patient.[facility] SystemIn the event this information is protected by the Federal Confidentiality of Alcohol and Drug Abuse Patient Records regulations: The Federal rules restrict any use of the information to criminally investigate or prosecute any alcohol or drug abuse patient.[facility] SystemIn the event this information is protected by the Federal Confidentiality of Alcohol and Drug Abuse Patient Records regulations: The Federal rules restrict any use of the information to criminally investigate or prosecute any alcohol or drug abuse patient.[facility] SystemIn the event this information is protected by the Federal Confidentiality of Alcohol and Drug Abuse Patient Records regulations: The Federal rules restrict any use of the information to criminally investigate or prosecute any alcohol or drug abuse patient.[facility] SystemIn the event this information is protected by the Federal Confidentiality of Alcohol and Drug Abuse Patient Records regulations: The Federal rules restrict any use of the information to criminally investigate or prosecute any alcohol or drug abuse patient.[facility] SystemIn the event this information is protected by the Federal Confidentiality of Alcohol and Drug Abuse Patient Records regulations: The Federal rules restrict any use of the information to criminally investigate or prosecute any alcohol or drug abuse patient.[facility] SystemIn the event this information is protected by the Federal Confidentiality of Alcohol and Drug Abuse Patient Records regulations: The Federal rules restrict any use of the information to criminally investigate or prosecute any alcohol or drug abuse patient.[facility] SystemIn the event this information is protected by the Federal Confidentiality of Alcohol and Drug Abuse Patient Records regulations: The Federal rules restrict any use of the information to criminally investigate or prosecute any alcohol or drug abuse patient.[facility]In the event this information is protected by the Federal Confidentiality of Alcohol and Drug Abuse Patient Records regulations: The Federal rules restrict any use of the information to criminally investigate or prosecute any alcohol or drug abuse patient.[facility] SystemIn the event this information is protected by the Federal Confidentiality of Alcohol and Drug Abuse Patient Records regulations: The Federal rules restrict any use of the information to criminally investigate or prosecute any alcohol or drug abuse patient.[facility] SystemIn the event this information is protected by the Federal Confidentiality of Alcohol and Drug Abuse Patient Records regulations: The Federal rules restrict any use of the information to criminally investigate or prosecute any alcohol or drug abuse patient.[facility] SystemIn the event this information is protected by the Federal Confidentiality of Alcohol and Drug Abuse Patient Records regulations: The Federal rules restrict any use of the information to criminally investigate or prosecute any alcohol or drug abuse patient.[facility] SystemIn the event this information is protected by the Federal Confidentiality of Alcohol and Drug Abuse Patient Records regulations: The Federal rules restrict any use of the information to criminally investigate or prosecute any alcohol or drug abuse patient.[facility] SystemIn the event this information is protected by the Federal Confidentiality of Alcohol and Drug Abuse Patient Records regulations: The Federal rules restrict any use of the information to criminally investigate or prosecute any alcohol or drug abuse patient.[facility] SystemIn the event this information is protected by the Federal Confidentiality of Alcohol and Drug Abuse Patient Records regulations: The Federal rules restrict any use of the information to criminally investigate or prosecute any alcohol or drug abuse patient.[facility] SystemIn the event this information is protected by the Federal Confidentiality of Alcohol and Drug Abuse Patient Records regulations: The Federal rules restrict any use of the information to criminally investigate or prosecute any alcohol or drug abuse patient.[facility] SystemIn the event this information is protected by the Federal Confidentiality of Alcohol and Drug Abuse Patient Records regulations: The Federal rules restrict any use of the information to criminally investigate or prosecute any alcohol or drug abuse patient.[facility] SystemIn the event this information is protected by the Federal Confidentiality of Alcohol and Drug Abuse Patient Records regulations: The Federal rules restrict any use of the information to criminally investigate or prosecute any alcohol or drug abuse patient.[facility] SystemIn the event this information is protected by the Federal Confidentiality of Alcohol and Drug Abuse Patient Records regulations: The Federal rules restrict any use of the information to criminally investigate or prosecute any alcohol or drug abuse patient.[facility] SystemIn the event this information is protected by the Federal Confidentiality of Alcohol and Drug Abuse Patient Records regulations: The Federal rules restrict any use of the information to criminally investigate or prosecute any alcohol or drug abuse patient.[facility] SystemIn the event this information is protected by the Federal Confidentiality of Alcohol and Drug Abuse Patient Records regulations: The Federal rules restrict any use of the information to criminally investigate or prosecute any alcohol or drug abuse patient.[facility] SystemIn the event this information is protected by the Federal Confidentiality of Alcohol and Drug Abuse Patient Records regulations: The Federal rules restrict any use of the information to criminally investigate or prosecute any alcohol or drug abuse patient.[facility] SystemIn the event this information is protected by the Federal Confidentiality of Alcohol and Drug Abuse Patient Records regulations: The Federal rules restrict any use of the information to criminally investigate or prosecute any alcohol or drug abuse patient.[facility] SystemIn the event this information is protected by the Federal Confidentiality of Alcohol and Drug Abuse Patient Records regulations: The Federal rules restrict any use of the information to criminally investigate or prosecute any alcohol or drug abuse patient.[facility] SystemIn the event this information is protected by the Federal Confidentiality of Alcohol and Drug Abuse Patient Records regulations: The Federal rules restrict any use of the information to criminally investigate or prosecute any alcohol or drug abuse patient.[facility] SystemIn the event this information is protected by the Federal Confidentiality of Alcohol and Drug Abuse Patient Records regulations: The Federal rules restrict any use of the information to criminally investigate or prosecute any alcohol or drug abuse patient.[facility] SystemIn the event this information is protected by the Federal Confidentiality of Alcohol and Drug Abuse Patient Records regulations: The Federal rules restrict any use of the information to criminally investigate or prosecute any alcohol or drug abuse patient.[facility] SystemIn the event this information is protected by the Federal Confidentiality of Alcohol and Drug Abuse Patient Records regulations: The Federal rules restrict any use of the information to criminally investigate or prosecute any alcohol or drug abuse patient.[facility] SystemIn the event this information is protected by the Federal Confidentiality of Alcohol and Drug Abuse Patient Records regulations: The Federal rules restrict any use of the information to criminally investigate or prosecute any alcohol or drug abuse patient.[facility] SystemIn the event this information is protected by the Federal Confidentiality of Alcohol and Drug Abuse Patient Records regulations: The Federal rules restrict any use of the information to criminally investigate or prosecute any alcohol or drug abuse patient.[facility] SystemIn the event this information is protected by the Federal Confidentiality of Alcohol and Drug Abuse Patient Records regulations: The Federal rules restrict any use of the information to criminally investigate or prosecute any alcohol or drug abuse patient.[facility] SystemIn the event this information is protected by the Federal Confidentiality of Alcohol and Drug Abuse Patient Records regulations: The Federal rules restrict any use of the information to criminally investigate or prosecute any alcohol or drug abuse patient.[facility] SystemIn the event this information is protected by the Federal Confidentiality of Alcohol and Drug Abuse Patient Records regulations: The Federal rules restrict any use of the information to criminally investigate or prosecute any alcohol or drug abuse patient.[facility] SystemIn the event this information is protected by the Federal Confidentiality of Alcohol and Drug Abuse Patient Records regulations: The Federal rules restrict any use of the information to criminally investigate or prosecute any alcohol or drug abuse patient.[facility] SystemIn the event this information is protected by the Federal Confidentiality of Alcohol and Drug Abuse Patient Records regulations: The Federal rules restrict any use of the information to criminally investigate or prosecute any alcohol or drug abuse patient.[facility] SystemIn the event this information is protected by the Federal Confidentiality of Alcohol and Drug Abuse Patient Records regulations: The Federal rules restrict any use of the information to criminally investigate or prosecute any alcohol or drug abuse patient.[facility] SystemIn the event this information is protected by the Federal Confidentiality of Alcohol and Drug Abuse Patient Records regulations: The Federal rules restrict any use of the information to criminally investigate or prosecute any alcohol or drug abuse patient.[facility] SystemIn the event this information is protected by the Federal Confidentiality of Alcohol and Drug Abuse Patient Records regulations: The Federal rules restrict any use of the information to criminally investigate or prosecute any alcohol or drug abuse patient.[facility] SystemIn the event this information is protected by the Federal Confidentiality of Alcohol and Drug Abuse Patient Records regulations: The Federal rules restrict any use of the information to criminally investigate or prosecute any alcohol or drug abuse patient.[facility] SystemIn the event this information is protected by the Federal Confidentiality of Alcohol and Drug Abuse Patient Records regulations: The Federal rules restrict any use of the information to criminally investigate or prosecute any alcohol or drug abuse patient.[facility] Care Teams (unrecognized sec tion and content) Bail Agent Relationship Specialty Start Date End Date Regan Echavarria MD [address] [place] [address] PCP - General Internal Medicine 08/19/21 Bail Agent Relationship Specialty Start Date End Date Regan Echavarria MD [address] [place] [address] PCP - General Internal Medicine 08/19/21 Bail Agent Relationship Specialty Start Date End Date Regan Echavarria MD [address] [place] [address] PCP - General Internal Medicine 08/19/21 Bail Agent Relationship Specialty Start Date End Date Regan Echavarria MD [address] [place] [address] PCP - General Internal Medicine 08/19/21 Bail Agent Relationship Specialty Start Date End Date Regan Echavarria MD [facility] [place] [address] PCP - General Internal Medicine 08/19/21 Bail Agent Relationship Specialty Start Date End Date Regan Echavarria MD [facility] [place] [address] PCP - General Internal Medicine 08/19/21 Bail Agent Relationship Specialty Start Date End Date Regan Echavarria MD [address] [facility] [place] [address] PCP - General Internal Medicine 08/19/21 Bail Agent Relationship Specialty Start Date End Date Reagn Echavarria MD [address] [facility] [place] [address] PCP - General Internal Medicine 08/19/21 Bail Agent Relationship Specialty Start Date End Date Regan Echavarria MD [address] [facility] [place] [address] PCP - General Internal Medicine 08/19/21 Bail Agent Relationship Specialty Start Date End Date Regan Echavarria MD [address] [facility] [place] [address] PCP - General Internal Medicine 08/19/21 Bail Agent Relationship Specialty Start Date End Date Regan Echavarria MD [address] [facility] [place] [address] PCP - General Internal Medicine 08/19/21 Bail Agent Relationship Specialty Start Date End Date Regan Echavarria MD [address] [facility] [place] [address] PCP - General Internal Medicine 08/19/21 Bail Agent Relationship Specialty Start Date End Date Regan Echavarria MD [address] [facility] [place] [address] PCP - General Internal Medicine 08/19/21 Bail Agent Relationship Specialty Start Date End Date Regan Echavarria MD [address] [facility] [place] [address] PCP - General Internal Medicine 08/19/21 Bail Agent Relationship Specialty Start Date End Date Regan Echavarria MD [address] [facility] [place] [address] PCP - General Internal Medicine 08/19/21 Bail Agent Relationship Specialty Start Date End Date Regan Echavarria MD [address] [facility] [place] [address] PCP - General Internal Medicine 08/19/21 Bail Agent Relationship Specialty Start Date End Date Regan Echavarria MD [address] [facility] [place] [address] PCP - General Internal Medicine 08/19/21 Bail Agent Relationship Specialty Start Date End Date Regan Echavarria MD [address] [facility] [place] [address] PCP - General Internal Medicine 08/19/21 Bail Agent Relationship Specialty Start Date End Date Regan Echavarria MD [address] [facility] [place] [address] PCP - General Internal Medicine 08/19/21 Bail Agent Relationship Specialty Start Date End Date Regan Echavarria MD [address] [facility] [place] [address] PCP - General Internal Medicine 08/19/21 Bail Agent Relationship Specialty Start Date End Date Regan Echavarria MD [address] [facility] [place] [address] PCP - General Internal Medicine 08/19/21 Bail Agent Relationship Specialty Start Date End Date Regan Echavarria MD [address] [facility] [place] [address] PCP - General Internal Medicine 08/19/21 Bail Agent Relationship Specialty Start Date End Date Regan Echavarria MD [address] [facility] [place] [address] PCP - General Internal Medicine 08/19/21 Bail Agent Relationship Specialty Start Date End Date Regan Echavarria MD [address] [facility] [place] [address] PCP - General Internal Medicine 08/19/21 Bail Agent Relationship Specialty Start Date End Date Regan Echavarria MD [address] [facility] [place] [address] PCP - General Internal Medicine 08/19/21 Bail Agent Relationship Specialty Start Date End Date Regan Echavarria MD [address] [facility] [place] [address] PCP - General Internal Medicine 08/19/21 Bail Agent Relationship Specialty Start Date End Date Regan Echavarria MD [address] [facility] [place] [address] PCP - General Internal Medicine 08/19/21 Bail Agent Relationship Specialty Start Date End Date Regan Echavarria MD [address] [facility] [place] [address] PCP - General Internal Medicine 08/19/21 Bail Agent Relationship Specialty Start Date End Date Regan Echavarria MD [address] [facility] [place] [address] PCP - General Internal Medicine 08/19/21 FOR RECORDS PERTAINING TO PATIENTS WHO ARE OR HAVE BEEN ENROLLED IN A CHEMICAL DEPENDENCY/SUBSTANCEABUSE PROGRAM, SOME INFORMATION MAY BE OMITTED. This clinical summary was aggregated from multiple sources. Caution should be exercised in using it in the provision of clinical care. This summary normalizes information from multiple sources, and as a consequence, information in this document may materially change the coding, format and clinical context of patient data. In addition, data may be omitted in some cases. CLINICAL DECISIONS SHOULD BE BASED ON THE PRIMARY CLINICAL RECORDS. [facility] [employer] [facility]. provides no warranty or guarantee of the accuracy or completeness of information in this document.
== END 2023-10-01 19:38 | disposition home or self-care (01) ==
PROVIDERS: Emergency Provider Emergency Medicine; PCP Internal Medicine; Visit Provider Emergency Medicine
DX: M79.89 Other specified soft tissue disorders (principal); G47.33 Obstructive sleep apnea (adult) (pediatric); I10 Essential (primary) hypertension; Z79.899 Other long term (current) drug therapy; F41.9 Anxiety disorder, unspecified; Z96.659 Presence of unspecified artificial knee joint; J32.9 Chronic sinusitis, unspecified
CPT/HCPCS: 71045; 80048; 83880; 84484; 85025; 93005; 99283; A4216

== ENCOUNTER 2024-03-08 12:38 | Inpatient (IN) | payer BC, SELFPAY ==
[2024-03-08] VITALS (12 sets, daily range): BP systolic 120–168; BP diastolic 62–88; PULSE 80–146; RESP 16–26; TEMP 36.3–37.7; O2SAT 88–150; BMI 36.1; BMI 35.2
--- NOTE | 2024-03-08 13:00 | ED.RN ---
pt desats down to 88% on room air. nasal cannula applied at 2L
--- NOTE | 2024-03-08 13:03 | EX.ED.DYSGE1 ---
HPI History of Present Illness Chief Complaint: General Illness [facility] Medical History Anemia Chronic pain COVID CPAP (continuous positive airway pressure) dependence Hypertension Intestinal adhesions with partial obstruction Leg fracture Migraines Pneumonia Sleep apnea Home Medications ?Medication ?Instructions ?Recorded ?Last Taken ?Type amitriptyline 10 mg tablet 20 mg PO QHS DEPRESSION 04/05/22 05/20/22 History duloxetine 60 mg capsule,delayed 60 mg PO QHS DEPRESSION 04/05/22 05/21/22 History release hydromorphone 4 mg tablet 4 mg PO Q6H PRN BACK PAIN 04/05/22 05/21/22 History lisinopril 40 mg tablet 40 mg PO DAILY BLOOD PRESSURE 04/05/22 05/21/22 History pantoprazole 40 mg tablet,delayed 40 mg PO DAILY GERD 04/05/22 05/21/22 History release trazodone 100 mg tablet 200 mg PO QHS INSOMNIA 04/05/22 05/20/22 History pseudoephedrine-guaifenesin ER 60 1 tab PO BID cold symptoms #14 tabs 05/23/22 Unknown Rx mg-600 mg tablet,extend release 12hr (Mucus D) baclofen 10 mg tablet 10 mg PO TID MUSCLE SPASMS 10/01/23 Unknown History furosemide 40 mg tablet (Lasix) 40 mg PO BID EDEMA #10 tabs 10/01/23 Unknown Rx triamcinolone acetonide 55 mcg 2 spray intranasal DAILY #16.9 mL 10/01/23 Unknown Rx nasal spray aerosol (Nasacort) budesonide 3 mg PO UD CROHNS DISEASE 03/08/24 Unknown History capsule,delayed,extended release vsafhbowdw-adsseyddnqyjw-xgucpunl 1 tab PO Q4H PRN HEADACHE 03/08/24 Unknown History 50 mg-325 mg-40 mg tablet gabapentin 300 mg capsule PO 03/08/24 Unknown History Allergy/AdvReac Type Severity Reaction Status Date / Time ampicillin AdvReac Nausea/Vom/ Verified 03/08/24 12:41 Diarrhea Family History Other Hypertension Surgical History Gastric bypass status for obesity H/O hernia repair H/O spinal fusion Total knee replacement status Social History household members: spouse housing: house Smoking Status: Never smoker alcohol intake: current alcohol intake frequency: 0-2 drinks per day details: Drinks 1 shot of whiskey with soda daily substance use type: does not use EXAM Physical Exam Const Vital Signs: 03/08/24 12:39 03/08/24 12:41 03/08/24 13:15 Temperature 97.4 F L 100 F H Temperature Source Temporal Oral Pulse Rate 146 H 130 H Respiratory Rate 16 26 H Respiratory Effort Normal Non-Labored Blood Pressure 168/88 H 120/75 Blood Pressure Mean 114 90 Pulse Ox 98 88 Oxygen Delivery Method Room Air Room Air Oxygen Flow Rate (L/min) 03/08/24 13:41 03/08/24 14:15 03/08/24 15:00 Temperature 99.9 F H 98.4 F Temperature Source Oral Oral Pulse Rate 113 H 113 H 106 H Respiratory Rate 22 H 22 H 22 H Respiratory Effort Blood Pressure 143/79 H 143/79 H 134/62 H Blood Pressure Mean 100 100 86 Pulse Ox 94 94 97 Oxygen Delivery Method Nasal Cannula Nasal Cannula Room Air Oxygen Flow Rate (L/min) 2 03/08/24 15:00 Temperature Temperature Source Pulse Rate 106 H Respiratory Rate 22 H Respiratory Effort Blood Pressure 134/62 H Blood Pressure Mean 86 Pulse Ox 97 Oxygen Delivery Method Room Air Oxygen Flow Rate (L/min) MDM MDM MDM Narrative Medical decision making narrative: HISTORY OF PRESENT ILLNESS: 58-year-old male here for not feeling well. He endorsed a history of asthma, microscopic colitis currently on oral budesonide. Notes last normal was last night approxi-9 PM before bed. Notes today has been more disoriented. Feels like he is off. Notes he took Dilaudid this morning for pain. He does endorse headache has improved by Dilaudid. He notes headache was not sudden onset is not associated fever or syncope. He notes chest discomfort. Denies shortness of breath. Denies abdominal pain, no vomiting, no nausea, notes chronic diarrhrea. Denies neck stiffness. REVIEW OF SYSTEMS: Pertinent positives: diffuse Weakness, dizziness Pertinent negatives: Abdominal pain, urinary complaints PHYSICAL EXAM: Nursing triage notes reviewed, Vital signs reviewed Constitutional: please see mdm HENT: MMM Eyes: Pupils equal round and reactive to light, Extraocular muscles intact Neck: No stridor, no JVD, full neck ROM Lungs: Clear to auscultation, No wheezing or rales. No increased work of breathing, no conversational dyspnea, no accessory muscle use, no nasal flaring. No respiratory distress noted Heart: Regular rate and rhythm, No murmurs, No rubs and No gallops, 2+ distal pulses (radial, femoral, posterior tibial) in all extremities Abdomen: Soft, there is no tenderness, rigidity, rebound or guarding, no obvious peritoneal signs, no palpable pulsatile abdominal masses, no auscultated abdominal bruit : No CVAT Extremities: No edema Neuro: The patient is alert and orient x 3, (baseline) no focal neurological deficits, cranial nerves II through XII intact, 5/5 strength in all extremities. Intact sensation to light touch in all extremities, 2+ reflexes bilateral patella tendons. Normal gait. No ataxia. Skin: No rash or lesions noted MEDICAL DECISION MAKING: Chief Complaint: Feeling out of it, weak, dizziness External records reviewed: Reviewed prior ED visit Factors affecting care: Migraines, hypertension, intestinal adhesions Social determinants of health: none History obtained from others: Patient's family Consults: Internal medicine MDM Narrative: Patient was initially tachycardic, hypertensive, patient was initially febrile with a temperature of 100 ?F and nontoxic-appearing. Exam without focus of infection. I considered the following differential diagnosis: Toxic ingestion, hypothyroidism, CHF exacerbation, infectious etiology ALL IMAGES (IF OBTAINED) HAVE BEEN PERSONALLY REVIEWED AND INTERPRETED BY MYSELF. EKG with sinus tachycardia rate of 132, normal axis, normal intervals, no STEMI Lactate is wnl indicating no end-organ hypoperfusion and/or hypoxia. High-sensitivity troponin is negative, no evidence of myocardial ischemia Lipase is wnl indicating no pancreatic inflammation. CMP without electrolyte disturbances, no evidence of metabolic acidosis with normal bicarb, no evidence of endorgan or perfusion with a normal anion gap, no SLAVA LFTs show no evidence of hepatobiliary pathology. Upon reassessment patient heart rate improved to 94, blood pressure improved to 134/62. Saturations remained acceptable on the new 2 L oxygen requirement. Repeat abdominal exam it was unremarkable. There is no clear source as of yet the patient's initial tachycardia, fever. I added ABG and a CT scan of his abdomen pelvis to assess hypoxia as well as assess any intra-abdominal infection. DIscussed with Dr. Root. Who recommended admission to PCU Observation. The patient and/or family, caregivers express understanding. The patient and/or family, caregivers agrees with the plan. Shared decision making: I will have a discussion with the patient and or visitors regarding risk/benefits of further testing or admission. They will be made aware of of the risk/benefits inherent in this decision they will be given the opportunity to voice understanding. Total critical care time today provided was at least 0 minutes. This excludes separately billable procedures. Critical care time (if documented) is secondary to the patient having high probability of clinically significant/life threatening deterioration in the patient's condition which required my urgent intervention. Impression: 1. Hypoxia 2. Leukocytosis 3. Tachycardia Dispo: Admit to [facility] This note was generated with [employer] dictation software. It may contain incorrect words, spelling, and punctuation that were not noted in review of the chart prior to signing. Lab Data Labs: Laboratory Results - last 24 hr 03/08/24 13:35 WBC 23.4 H RBC 4.50 L Hgb 13.5 Hct 40.7 MCV 90.4 MCH 30.0 MCHC 33.2 RDW Std Deviation 44.5 H RDW Coeff of Cari 13.3 Plt Count 379 MPV 9.9 Immature Gran % (Auto) 1.100 H Neut % (Auto) 88.3 H Lymph % (Auto) 4.3 L [place] % (Auto) 6.0 Eos % (Auto) 0.0 Baso % (Auto) 0.3 Absolute Neuts (auto) 20.7 H Absolute Lymphs (auto) 1.00 Nucleated RBC % 0 Sodium 137 Potassium 4.6 Chloride 103 Carbon Dioxide 30.0 Anion Gap 4 L BUN 15 Creatinine 1.23 Estim Creat Clear Calc 84.32 Est GFR (MDRD) Af Amer 77 Est GFR (MDRD) Non-Af 64 BUN/Creatinine Ratio 12.2 Glucose 119 H Lactic Acid 1.1 Calcium 8.8 Total Bilirubin 0.80 AST 27 ALT 45 Alkaline Phosphatase 107 Troponin I High Sens 16 Total Protein 6.7 Albumin 2.9 L Globulin 3.8 Albumin/Globulin Ratio 0.8 L Lipase < 10 L Radiography Diagnostic Testing: Clinical Impression(s) from Imaging Studies Brain CT 03/08/24 13:45 IMPRESSION: Questionable 5.7 mm lacuna in the left basal ganglia. Electronically Signed: Aravind Fitch MD at 15:16 EDT , Chest CTA 03/08/24 13:47 IMPRESSION: No evidence of pulmonary embolism. 1.5 cm x 0.9 cm noncalcified nodule in the right lung apex. This was not seen on prior study. A neoplastic process should be ruled out. Electronically Signed: Aravind Fitch MD at 15:20 EDT , Discharge Plan Triage Chief Complaint: General Illness ED Provider: Alexandre Hastings Dx/Rx/DC Orders Prescriptions: No Action trazodone 100 mg Tablet 200 mg PO QHS amitriptyline 10 mg Tablet 20 mg PO QHS pantoprazole 40 mg Tablet,Delayed Release (Dr/Ec) 40 mg PO DAILY hydromorphone 4 mg Tablet 4 mg PO Q6H PRN (Reason: BACK PAIN ) lisinopril 40 mg Tablet 40 mg PO DAILY duloxetine 60 mg Capsule,Delayed Release(Dr/Ec) 60 mg PO QHS pseudoephedrine-guaifenesin [Mucus D] 60-600 mg tablet extended release 12 hr 1 tab PO BID Qty: 14 0RF baclofen 10 mg tablet 10 mg PO TID furosemide [Lasix] 40 mg tablet 40 mg PO BID Qty: 10 0RF triamcinolone acetonide [Nasacort] 55 mcg aerosol,spray 2 spray intranasal DAILY Qty: 16.9 0RF Rx Instructions: administer into each nostril aoplnkfwfw-dqttfnsqrdahx-mxbv 50-325-40 mg tablet 1 tab PO Q4H PRN (Reason: HEADACHE ) gabapentin 300 mg capsule PO budesonide 3 mg capsule,delayed,extend.release PO UD Rx Instructions: TAKE 3 CAPSULES (9MG) BY MOUTH ONCE DAILY FOR ONE MONTH THEN TAKE 2 CAPSULES (6MG) ONCE DAILY FOR ONE MONTH THEN TAKE 1 CAPSULE (3MG) ONCE DAILY FOR ONE MONTH. Primary Care Provider: Regan Tan Referrals: Regan Tan MD [Primary Care Provider] - Print Language: Arabic
--- NOTE | 2024-03-08 13:45 | EKG12_ITS ---
Test Reason : HIGH HR Blood Pressure : / mmHG Vent. Rate : 132 BPM Atrial Rate : 132 BPM P-R Int : 134 ms QRS Dur : 084 ms QT Int : 306 ms P-R-T Axes : 029 054 037 degrees QTc Int : 453 ms Sinus tachycardia Otherwise normal ECG Confirmed by MATIAS PARIS, XENIA ([id number]), online editor HUDSON ADAMSON ([id number]) on 03/11/2024 6:36:01 AM Referred By: Eugenia Casillas Confirmed By:NANCY SALCEDO MD
--- NOTE | 2024-03-08 13:45 | CT_ITS ---
STUDY: CT BRAIN WITHOUT CONTRAST REASON FOR EXAM: Male, 58 years old. AMS. Confusion. Dizziness. RADIATION DOSAGE (If Supplied By Facility): CTDIvol = ( 44.99 ) mGy, DLP = ( 812.98 ) mGycm TECHNIQUE: Transaxial CT imaging of the brain was performed without administration of intravenous contrast material. Individualized dose optimization techniques were used for this CT. COMPARISON: No relevant priors. FINDINGS: Normal soft tissue structures. Normal calvarium. Normal size ventricles and extra-axial spaces for the patient''s age. Normal white matter tracts of the cerebral hemispheres. There is a subtle 5.7 mm hypodensity in the left basal ganglion. Questionable tiny lacunar. Normal brainstem. Normal cerebellum. There is no intracranial hemorrhage. There are no findings of an acute ischemic infarction. Normal visualized paranasal sinuses. CT/Brain/Head without Contrast IMPRESSION: Questionable 5.7 mm lacuna in the left basal ganglia. Electronically Signed: Aravind Fitch MD at 15:16 EDT ,
--- NOTE | 2024-03-08 13:47 | CT_ITS ---
STUDY: CTA CHEST REASON FOR EXAM: Male, 58 years old. Tachycardia SOB, CP r/o PE RADIATION DOSAGE (If Supplied By Facility): CTDIvol = ( 10.86 ) mGy, DLP = ( 941.36 ) mGycm TECHNIQUE: The examination was performed with the intravenous administration of IV 100mL Isovue-370. Post-processing of the angiographic images was performed, with multiplanar reformation and 3D reconstruction. Individualized dose optimization techniques were used for this CT. COMPARISON: Comparison is made with prior study dated May 21, 2022. FINDINGS: Normal enhancement of the main pulmonary artery and right and left pulmonary arteries. Normal enhancement of the bilateral peripheral pulmonary arteries. There is no demonstrated pulmonary embolism. Normal thoracic aorta and visualized great vessels. There is no demonstrated aortic dissection. There are calcifications of the coronary arteries. Minimal anterior pericardial thickening. Normal mediastinum. Normal hilar regions. Normal visualized trachea and bronchi. The lungs are well expanded. There is a 1.5 cm x 0.9 cm nodule in the posterior right lung apex. A 2 mm noncalcified nodule seen along its posterior aspect. Findings suggestive of mild scarring at the lung bases with mild bronchiectasis. Normal pleura. Normal chest wall structures. There are degenerative changes of thoracic spine. There is evidence of a pancreatic atrophy. Prior gastric surgery. CT/CTA Chest W/WO Contrast IMPRESSION: No evidence of pulmonary embolism. 1.5 cm x 0.9 cm noncalcified nodule in the right lung apex. This was not seen on prior study. A neoplastic process should be ruled out. Electronically Signed: Aravind Fitch MD at 15:20 EDT ,
[2024-03-08 13:56] LABS: Absolute Neutrophil Count 20.7 X10^3/uL (2.0-7.7); Basophil# 0.08 X10^3/uL; Basophil% 0.3 % (0-1); Hematocrit 40.7 % (40-54); Hemoglobin 13.5 g/dL (13.0-16.5); Lymphocyte % 4.3 % (19-41); Mean Corp Hgb Conc 33.2 g/dL (32-36); Mean Corpuscular Volume 90.4 fL (80-94); Mean Platelet Vol. 9.9 fl (6.2-12.0); Monocyte# 1.41 X10^3/uL; NRBC Flagged by Analyzer 0 % (0-5); Neutrophil % 88.3 % (47-70); POSITIVE DIFFERENTIAL YES; Platelet Count 379 K/mm3 (150-450); RBC Distribution Width CV 13.3 % (11.6-14.6); RBC Distribution Width SD 44.5 fl (35.1-43.9); White Blood Count 23.4 K/mm3 (4.4-11.0)
[2024-03-08] MEDS: Ketorolac 15 MG/ML Vial IV (14:02)
[2024-03-08] MEDS: Ondansetron 4 MG/2 ML Vial IV (14:02)
[2024-03-08] MEDS: Acetaminophen 500 MG Tablet PO (14:02)
[2024-03-08 14:05] LABS: Differential Indicated SCAN CRITERIA MET
[2024-03-08 14:12] LABS: Lactic Acid 1.1 mmol/L (0.4-1.9)
[2024-03-08 14:15] LABS: ALB/GLOB Ratio 0.8 RATIO (0.9-2.4); AST(SGOT) 27 U/L (15-37); Alanine Aminotransfer ALT/SGPT 45 U/L (16-61); Albumin, Serum 2.9 g/dL (3.2-5.0); Alkaline Phosphatase 107 U/L (45-117); Anion Gap 4 (5-15); BUN 15 mg/dL (7-18); BUN/Creat Ratio 12.2 RATIO (10-20); Calcium,Total 8.8 mg/dL (8.5-10.1); Chloride 103 mmol/L (98-107); Creatinine, Serum 1.23 mg/dL (0.70-1.30); EST Glomerular Filtration Rate 64 mL/min (>60); Est Glom Filt Rate - Afr Amer 77 mL/min (>60); Estimated Creatinine Clearance 84.32 ml/min; Globulin 3.8 g/dL (2.2-4.2); Glucose 119 mg/dL (74-106); Lipase < 10 U/L (13-75); Potassium 4.6 mmol/L (3.5-5.1); Protein, Total 6.7 g/dL (6.4-8.2); Sodium Level 137 mmol/L (136-145); Troponin-I HS 16 pg/mL (3.0-78.0)
[2024-03-08] MEDS: Cefepime HCl 2 GM in 0.9% Normal Saline (100mL MB+) 100 ML IV (14:29)
[2024-03-08] MEDS: 0.9% Normal Saline (1000mL) 1,000 ML 1000 ML IV ×2 (14:29→14:57)
[2024-03-08] MEDS: Vancomycin HCl 1,750 MG in 0.9% Normal Saline (500mL Bag) 500 ML 250 MG IV (14:57)
--- NOTE | 2024-03-08 15:56 | CT_ITS ---
STUDY: CT ABDOMEN AND PELVIS WITHOUT CONTRAST REASON FOR EXAM: Male, 58 years old. pain RADIATION DOSAGE (If Supplied By Facility): CTDIvol = ( 21.40 ) mGy, DLP = ( 1186.83 ) mGycm TECHNIQUE: Transaxial images were obtained from the dome of the diaphragm to the symphysis pubis without oral contrast, and without intravenous contrast. Sagittal and coronal images were reconstructed. Individualized dose optimization techniques were used for this CT. COMPARISON: CTA of the chest dated March 08, 2024 FINDINGS: A cluster of calcified right hilar lymph nodes are present. Mild pulmonary edema is present in both lungs as well as a small focus of consolidation in the medial base of the left lower lobe. A small pericardial effusion is also present. There is decreased attenuation of the liver consistent with steatosis. There are surgical clips in the gallbladder fossa consistent with a prior cholecystectomy. Normal spleen. There is diffuse atrophy of the pancreas. Normal bilateral adrenal glands. There is mild cortical atrophy of the right kidney, consistent with chronic medical renal disease. There is mild cortical atrophy of the left kidney, consistent with chronic medical renal disease. Prior gastric bypass surgery and related changes. No demonstrated bowel dilatation or free air or free fluid.. Normal small intestine. Normal colon. The appendix is visualized and appears normal. There is diffuse atherosclerotic calcification of the abdominal aorta, without a demonstrated aneurysm. Normal inferior vena cava. Normal retroperitoneum. Normal urinary bladder. Chronic postoperative changes of the abdominal wall and hernia mesh material. There are diffuse degenerative changes of the visualized lumbar spine. CT/Abdomen/Pelvis without Cont IMPRESSION: 1. Small left lower lobe pneumonic infiltrate 2. Mild bilateral lower lobe pulmonary edema either due to CHF or developing ARDS 3. Small pericardial effusion 4. No acute process of the abdomen and pelvis. Electronically Signed: Chavez Avelar MD at 17:03 EDT ,
[2024-03-08 16:00] LABS: Mucous, Urine 0 SEEN /hpf (<or=2+); Red Blood Cells-Urine 0 SEEN /hpf (0-5); White Blood Cells 0 SEEN /hpf (0-5)
[2024-03-08 16:07] LABS: Color, Urine Yellow (Yellow); Glucose, Dipstick Normal (Normal); Ketone-Dipstick Negative (Negative); Leukocyte Esterase-Dipstick Negative /ul (Negative); Nitrite-Dipstick Negative (Negative); Occult Blood-Urine Negative /ul (Negative); Protein-Dipstick Negative (Negative); Specific Gravity, Urine 1.005 (1.002-1.030); Urine Bilirubin Dipstick Negative (Negative); Urine Clarity Clear (Clear); Urine Urobilinogen Normal (Normal)
--- NOTE | 2024-03-08 16:09 | PCM.HP.STD ---
HPI - General General Date of Admission: 03/08/24 Date of Service: 03/08/24 Chief Complaint: Acute illness with fever, weakness for last 2 days HPI Narrative ANGELA NG, is a 58 M was brought to ED for not feeling good today when he woke up with generalized weakness, dizzy, sweats and chills. At home fever was not checked but here Tmax 100 Fahrenheit. 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 Patient does not have a recent history of travel, hiking or tracking. He also feels a headache mainly frontal/forehead. Mild sore throat and occasional dry cough. Denies any chest pain, abdominal pain, vomiting or nausea. History was also taken from at the bedside as patient looked more sick. For last couple of months patient was having diarrhea and high WBC count. Workup with colonoscopy showed showed patient has microscopic colitis and was started on budesonide. Patient states his stool is now once a day soft to solid but no more liquid. Prior to that patient had weight loss surgery in 2001 lumbar spine surgery in 2011. He denies neck pain or stiffness. Complain of mild upper back pain thoracic region/posterior chest, 3-4/10 intensity localized. No acute lower extremity weakness. Patient has chronic numbness and tingling and had lumbar spine surgery. No rash In ED, blood pressure in normal range. Patient was sinus tachycardia and tachypnea and mild hypoxia 88% on room air Labs, workup and imaging done in the reviewed [facility] Medical History CPAP (continuous positive airway pressure) dependence Sleep apnea Anemia Pneumonia Leg fracture Intestinal adhesions with partial obstruction Migraines Hypertension Chronic pain COVID Home Medications ?Medication ?Instructions ?Recorded ?Last Taken ?Type amitriptyline 10 mg tablet 20 mg PO QHS DEPRESSION 04/05/22 05/20/22 History duloxetine 60 mg capsule,delayed 60 mg PO QHS DEPRESSION 04/05/22 05/21/22 History release hydromorphone 4 mg tablet 4 mg PO Q6H PRN BACK PAIN 04/05/22 05/21/22 History lisinopril 40 mg tablet 40 mg PO DAILY BLOOD PRESSURE 04/05/22 05/21/22 History pantoprazole 40 mg tablet,delayed 40 mg PO DAILY GERD 04/05/22 05/21/22 History release trazodone 100 mg tablet 200 mg PO QHS INSOMNIA 04/05/22 05/20/22 History pseudoephedrine-guaifenesin ER 60 1 tab PO BID cold symptoms #14 tabs 05/23/22 Unknown Rx mg-600 mg tablet,extend release 12hr (Mucus D) baclofen 10 mg tablet 10 mg PO TID MUSCLE SPASMS 10/01/23 Unknown History furosemide 40 mg tablet (Lasix) 40 mg PO BID EDEMA #10 tabs 10/01/23 Unknown Rx triamcinolone acetonide 55 mcg 2 spray intranasal DAILY #16.9 mL 10/01/23 Unknown Rx nasal spray aerosol (Nasacort) budesonide 3 mg PO UD CROHNS DISEASE 03/08/24 Unknown History capsule,delayed,extended release [id number]-[id number]-pqfalgfl 1 tab PO Q4H PRN HEADACHE 03/08/24 Unknown History 50 mg-325 mg-40 mg tablet gabapentin 300 mg capsule PO 03/08/24 Unknown History Allergy/AdvReac Type Severity Reaction Status Date / Time ampicillin AdvReac Nausea/Vom/ Verified 03/08/24 12:41 Diarrhea Family History Other Hypertension Surgical History Total knee replacement status H/O spinal fusion H/O hernia repair Gastric bypass status for obesity Social History household members: spouse housing: house Smoking Status: Never smoker alcohol intake: current alcohol intake frequency: 0-2 drinks per day details: Drinks 1 shot of whiskey with soda daily substance use type: does not use ROS ROS Narrative Constitutional: Reports acute onset fatigue and weakness. Low-grade fever HEENT: Reports systems reviewed and no addt'l complaints, except as documented Respiratory/Chest: No history of chronic lung disease. Rest as described in HPI CVS: No history of cardiac disease. Rest as described in HPI Gastrointestinal: No abdominal pain. No GI bleed. Rest as described in HPI Genitourinary: Denies burning urination or new urinary tract symptoms Musculoskeletal: Denies acute joint pain or limited range of motion. No acute injury. Neurologic: Denies seizure-like symptoms. Chronic numbness and tingling of lower extremity had lumbar spinal surgery in the past skin: No ulcer. No rash Endocrinology: Reports systems reviewed and no addt'l complaints, except as documented Hematologic/Lymphatic: Reports systems reviewed and no addt'l complaints, except as documented Rest 14 ROS are negative except as mentioned in HPI Vital Signs Vital Signs Vital Signs: 03/08/24 12:39 03/08/24 12:41 03/08/24 13:00 Temperature 97.4 F L 100 F H Temperature Source Temporal Oral Pulse Rate 146 H Respiratory Rate 16 Respiratory Effort Normal Non-Labored Blood Pressure 168/88 H Blood Pressure Mean 114 Pulse Ox 98 Oxygen Delivery Method Room Air Oxygen Flow Rate (L/min) 03/08/24 13:15 03/08/24 13:41 03/08/24 14:15 Temperature 100 F H 99.9 F H Temperature Source Oral Oral Pulse Rate 130 H 113 H 113 H Respiratory Rate 26 H 22 H 22 H Respiratory Effort Blood Pressure 120/75 143/79 H 143/79 H Blood Pressure Mean 90 100 100 Pulse Ox 88 94 94 Oxygen Delivery Method Room Air Nasal Cannula Nasal Cannula Oxygen Flow Rate (L/min) 2 03/08/24 15:00 03/08/24 15:00 Temperature 98.4 F Temperature Source Oral Pulse Rate 106 H 106 H Respiratory Rate 22 H 22 H Respiratory Effort Blood Pressure 134/62 H 134/62 H Blood Pressure Mean 86 86 Pulse Ox 97 97 Oxygen Delivery Method Room Air Nasal Cannula Oxygen Flow Rate (L/min) Weight Weight: 259 lb 2 oz Body Mass Index (BMI) 36.1 Physical Exam Narrative General: Awake, oriented x 3. Fatigue. Looks sick. HEENT: Atraumatic, PERRLA, EOMI, Normocephalic Oral: Oral mucosa dry. No Gingival or Mucosal Lesions/ Ulcerations Neck: Supple, No JVD, Negative Carotid Bruits Chest wall/Lungs: Air entry diminished in bilateral lung bases. No crepitation/rhonchi Cardiovascular: Sinus tachycardia, Normal S1, Normal S2, No M/G/R Abdomen: Bowel Sounds Present, Soft, Non Tender, Non-Distended : No dysuria. No renal angle tenderness. No suprapubic tenderness. Extremities: No edema, Capillary Refill Less than 3 Seconds Skin: No rashes, No breakdown Musculoskeletal: No Tenderness to Palpation of Joints or Extremities. Muscle strength 4+/5 at knees and hip joints Spine: No neck rigidity. No thoracic spinal tenderness. Neurological: Cranial nerves II-XII grossly intact, DTR 2+/4. No acute focal neurological deficit. Psych/Mental Status: Flat affect Results Lab / Micro Data 03/08/24 13:35 03/08/24 13:35 Labs: Laboratory Results - last 24 hr 03/08/24 13:35: WBC 23.4 H, RBC 4.50 L, Hgb 13.5, Hct 40.7, MCV 90.4, MCH 30.0, MCHC 33.2, RDW Std Deviation 44.5 H, RDW Coeff of Cari 13.3, Plt Count 379, MPV 9.9, Immature Gran % (Auto) 1.100 H, Neut % (Auto) 88.3 H, Lymph % (Auto) 4.3 L, Newberry % (Auto) 6.0, Eos % (Auto) 0.0, Baso % (Auto) 0.3, Absolute Neuts (auto) 20.7 H, Absolute Lymphs (auto) 1.00, Nucleated RBC % 0, Sodium 137, Potassium 4.6, Chloride 103, Carbon Dioxide 30.0, Anion Gap 4 L, BUN 15, Creatinine 1.23, Estim Creat Clear Calc 84.32, Est GFR (MDRD) Af Amer 77, Est GFR (MDRD) Non-Af 64, BUN/Creatinine Ratio 12.2, Glucose 119 H, Lactic Acid 1.1, Calcium 8.8, Total Bilirubin 0.80, AST 27, ALT 45, Alkaline Phosphatase 107, Troponin I High Sens 16, Total Protein 6.7, Albumin 2.9 L, Globulin 3.8, Albumin/Globulin Ratio 0.8 L, Lipase < 10 L Micro: Microbiology 03/08/24 14:21 Mucosa - Nose SARS-CoV-2, Influenza & RSV (PCR) - Final Imaging Radiology Impression Brain CT 03/08/24 13:45 IMPRESSION: Questionable 5.7 mm lacuna in the left basal ganglia. Electronically Signed: Aravind Fitch MD at 15:16 EDT , Chest CTA 03/08/24 13:47 IMPRESSION: No evidence of pulmonary embolism. 1.5 cm x 0.9 cm noncalcified nodule in the right lung apex. This was not seen on prior study. A neoplastic process should be ruled out. Electronically Signed: Aravind Fitch MD at 15:20 EDT , Assessment & Plan Assessment/Plan (1) Viral infection: PLAN: Plan This is a 58-year-old gentleman with 1 day of acute onset of sickness including fever, mild cough and mild posterior chest pain 1. Acute febrile illness, exact etiology unclear most likely left lung base pneumonia: Patient had workup in ED. Has leukocytosis with ANC 20,000 but patient on oral steroid, Budesonide. Urinary antigens, strep throat and SARS-CoV-2 influenza and RSV PCR negative. Respiratory panel ordered. Patient empirically started on IV cefepime. Patient also had 1 dose of vancomycin in the ED. ID is consulted as exact focus of infection unclear. Chest CTA negative for pulmonary embolism and does not show acute significant infiltrate or consolidation but CT abdomen reported small left lower lobe pneumonic infiltrate. The imaging was individually reviewed and does not see significant infiltrate 2. Mild hypoxia: Pulse ox was 88% on room air. ABG was done on 2 L of oxygen. 7.3 /. Bicarb 30 on BMP. Electrolytes in normal range. 3. Recent diagnosis of microscopic colitis on Budesonide: For now we will hold oral steroid as patient looks like has infection 4. Chronic migraine headache: Mild frontal headache. On Fioricet as needed for headache. CT abdomen reported questionable 5.7 mm lacuna, possible lacunar infarct in left basal ganglia. Later on when patient is feeling well or stable, MRI of brain can be ordered 5. Mild anxiety and depression: Patient on amitriptyline. 6. Chronic lumbar spinal stenosis, degenerative disease status post lumbar spine surgery: Patient on baclofen, duloxetine and gabapentin. 7. Hypertension: Patient on lisinopril daily but will hold as blood pressure in systolic 130s. 8. Obstructive sleep apnea on CPAP: CPAP ordered. 9. DVT prophylaxis, high risk: Lovenox 40 mg subcu daily ordered Living will/advanced directive/end of life care: Patient does have living will or advanced directive. His is power of transactional attorney for health after discussion of benefits/risks procedures involved with full code, DNR CC arrest and DNR CC, the patient opted for full code. Patient does want artificial life support including intubation, tube feed, ventilator and/chest compression, central venous catheter, vasopressor and DC shock if needed Total time spent in [id number] encounter in discussion of advanced directive 17 minutes. Microbiology Past 72 Hours 03/08/24 16:24 Mucosa - Throat Streptococcus pyogenes (PCR) - Final 03/08/24 15:55 Urine, Clean Catch Legionella Antigen - Final 03/08/24 15:55 Urine, Clean Catch Streptococcus pneumoniae Antigen (M - Final 03/08/24 14:21 Mucosa - Nose SARS-CoV-2, Influenza & RSV (PCR) - Final Laboratory Results 03/08/24 13:35: WBC 23.4 H, RBC 4.50 L, Hgb 13.5, Hct 40.7, MCV 90.4, MCH 30.0, MCHC 33.2, RDW Std Deviation 44.5 H, RDW Coeff of Cari 13.3, Plt Count 379, MPV 9.9, Immature Gran % (Auto) 1.100 H, Neut % (Auto) 88.3 H, Lymph % (Auto) 4.3 L, Newberry % (Auto) 6.0, Eos % (Auto) 0.0, Baso % (Auto) 0.3, Absolute Neuts (auto) 20.7 H, Absolute Lymphs (auto) 1.00, Nucleated RBC % 0, ESR 8, PT 14.9, INR 1.2, APTT 26.5, Sodium 137, Potassium 4.6, Chloride 103, Carbon Dioxide 30.0, Anion Gap 4 L, BUN 15, Creatinine 1.23, Estim Creat Clear Calc 84.32, Est GFR (MDRD) Af Amer 77, Est GFR (MDRD) Non-Af 64, BUN/Creatinine Ratio 12.2, Glucose 119 H, Lactic Acid 1.1, Calcium 8.8, Magnesium Pending, Total Bilirubin 0.80, AST 27, ALT 45, Alkaline Phosphatase 107, Total Creatine Kinase 102, Troponin I High Sens 16, C-React Prot Ext Range 17.40 H, Total Protein 6.7, Albumin 2.9 L, Globulin 3.8, Albumin/Globulin Ratio 0.8 L, Lipase < 10 L 03/08/24 15:56: Urine Color Yellow, Urine Clarity Clear, Urine pH 6.0, Ur Specific Prosperity 1.005, Urine Protein Negative, Urine Glucose (UA) Normal, Urine Ketones Negative, Urine Occult Blood Negative, Urine Nitrite Negative, Urine Bilirubin Negative, Urine Urobilinogen Normal, Ur Leukocyte Esterase Negative, Urine RBC 0 SEEN, Urine WBC 0 SEEN, Ur Squamous Epith Cells 0-5 SEEN, Urine Bacteria RARE, Urine Mucus 0 SEEN 03/08/24 16:07: Specimen Type ART, Sample Site L Radial, pH 7.36, Bicarbonate Actual 27.3 H, Total CO2 29, Base Excess 2, O2 Saturation 93 L, O2 % 2.0, ABG pCO2 48.1 H, ABG pO2 71 L, Roberto Test Positive, O2 Delivery Device Cannula, Vent Mode Not entered Clinical Impression(s) from Imaging Studies Brain CT 03/08/24 13:45 IMPRESSION: Questionable 5.7 mm lacuna in the left basal ganglia. Chest CTA 03/08/24 13:47 IMPRESSION: No evidence of pulmonary embolism. 1.5 cm x 0.9 cm noncalcified nodule in the right lung apex. This was not seen on prior study. A neoplastic process should be ruled out. Abdomen/Pelvis CT 03/08/24 15:56 IMPRESSION: 1. Small left lower lobe pneumonic infiltrate 2. Mild bilateral lower lobe pulmonary edema either due to CHF or developing ARDS 3. Small pericardial effusion 4. No acute process of the abdomen and pelvis. Charges/Coding Visit Charges Inpatient E&M: 31895 Init Hosp L3 Procedures Hospitalists Procedures: 59247 Advncd Care Plan 30 Min
[2024-03-08 16:11] LABS: Allen Test Positive; Base Excess 2 mmol/L (-2 to +2); Bicarbonate 27.3 mmol/L (22-26); Blood Gas Specimen Type ART; Mode Not entered; O2 Delivery Device Cannula; PO2 71 mmHG (75-100); SITE L Radial; SO2 93 % (95-99); Total Carbon Dioxide 29 mmol/L; pCO2 48.1 mmHg (35-45); pH 7.36 (7.35-7.45)
[2024-03-08 16:27] LABS: Bacteria RARE /hpf (None Seen); Squamous Epithelial Cells - UA 0-5 SEEN /hpf (0-5)
[2024-03-08 16:33] LABS: Erythrocyte Sedimentation Rate 8 mm/hr (0-20); International Normalized Ratio 1.2; Partial Thromboplast Time 26.5 Seconds (24.1-36.2); Prothrombin Time (Protime)PT. 14.9 SECONDS (11.7-14.9)
[2024-03-08 16:54] LABS: CPK Total, Creatine Kinase 102 U/L (39-308)
[2024-03-08 17:33] LABS: Magnesium 1.9 mg/dL (1.6-2.6)
[2024-03-08] MEDS: 0.9% Normal Saline (1000mL) 1,000 ML 999 ML IV (18:40)
[2024-03-08] MEDS: 0.9% Normal Saline (1000mL) 1,000 ML 100 ML IV (18:43)
[2024-03-08] MEDS: Enoxaparin 40 MG/0.4 ML Syringe SC (18:45)
[2024-03-08] MEDS: oxyCODONE 5 MG Tablet PO (21:48)
[2024-03-08] MEDS: Acetaminophen 325 MG Tablet 650 MG PO (21:48)
[2024-03-08] MEDS: Cefepime HCl 1 GM in 0.9% Normal Saline (50mL MB+) 50 ML IV (21:56)
[2024-03-09] MEDS: oxyCODONE 5 MG Tablet PO ×4 (02:54→18:40)
[2024-03-09 03:32] VITALS: BP 135/73; PULSE 75; RESP 18; TEMP 36.6; O2SAT 98
[2024-03-09 03:47] VITALS: BMI 34.8
[2024-03-09] MEDS: 0.9% Normal Saline (1000mL) 1,000 ML 100 ML IV (05:07)
[2024-03-09] MEDS: Cefepime HCl 1 GM in 0.9% Normal Saline (50mL MB+) 50 ML IV (05:34)
[2024-03-09 06:16] LABS: Absolute Lymphocyte Count 2.49 X10^3/uL (0.83-4.51); Absolute Neutrophil Count 14.3 X10^3/uL (2.0-7.7); Basophil# 0.06 X10^3/uL; Basophil% 0.3 % (0-1); Eosinophil# 0.14 X10^3/uL; Eosinophils% 0.8 % (0-5); Hematocrit 35.8 % (40-54); Hemoglobin 11.5 g/dL (13.0-16.5); Lymphocyte # 2.49 X10^3/ul (0.83-4.51); Lymphocyte % 13.7 % (19-41); Mean Corp Hgb Conc 32.1 g/dL (32-36); Mean Corpuscular Hgb 30.2 pg (27.0-32.0); Mean Platelet Vol. 9.8 fl (6.2-12.0); Monocyte# 1.04 X10^3/uL; Monocyte% 5.7 % (0-10); NRBC Flagged by Analyzer 0 % (0-5); Neutrophil % 79.1 % (47-70); Platelet Count 277 K/mm3 (150-450); RBC Distribution Width CV 13.6 % (11.6-14.6); RBC Distribution Width SD 46.7 fl (35.1-43.9); Red Blood Count 3.81 M/mm3 (4.6-6.2); White Blood Count 18.1 K/mm3 (4.4-11.0)
--- NOTE | 2024-03-09 06:44 | PN.HOSP_ITS ---
Reason for Visit Reason for Visit: Diagnoses Viral infection, unspecified (03/08/24) Subjective Subjective Patient notes feeling mildly improved from ED evaluation with less fatigue and malaise, requesting advancement of diet and no longer appears confused. Discussed his status with his spouse who did report she was very concerned and notes he was not himself and did appear mildly dyspneic. He denies any marked dyspnea or cough at this time but did discuss his recent workup including infiltrate in the left lower lung and he understands that we do have concern for pneumonia as possible etiology for his presentation. Patient denies fevers, chills, nausea, emesis, abdominal pain, chest pain or dyspnea. Objective Data Objective Data Vital Signs: Vital Signs Temp Pulse Resp BP Pulse Ox O2 Del Method O2 Flow Rate 97.8 F 75 18 135/73 H 98 Nasal Cannula 2 03/09/24 03:32 03/09/24 03:32 03/09/24 03:32 03/09/24 03:32 03/09/24 03:32 03/09/24 03:36 03/09/24 03:36 Oxygen Flow Rate (L/min) 2 Oxygen Delivery Method Nasal Cannula Weight: 256 lb 9.889 oz Body Mass Index (BMI) 34.8 Intake & Output: Intake and Output for Last 24 Hours 03/07/24 03/08/24 03/09/24 23:59 23:59 23:59 Intake Total 3068.34 / 3068.34 1050 / 1050 Balance 3068.34 / 3068.34 1050 / 1050 Lab / Micro Data 03/09/24 05:51 03/09/24 05:51 Labs: Laboratory Results - last 24 hr 03/08/24 13:35: WBC 23.4 H, RBC 4.50 L, Hgb 13.5, Hct 40.7, MCV 90.4, MCH 30.0, MCHC 33.2, RDW Std Deviation 44.5 H, RDW Coeff of Cari 13.3, Plt Count 379, MPV 9.9, Immature Gran % (Auto) 1.100 H, Neut % (Auto) 88.3 H, Lymph % (Auto) 4.3 L, [place] % (Auto) 6.0, Eos % (Auto) 0.0, Baso % (Auto) 0.3, Absolute Neuts (auto) 20.7 H, Absolute Lymphs (auto) 1.00, Nucleated RBC % 0, ESR 8, PT 14.9, INR 1.2, APTT 26.5, Sodium 137, Potassium 4.6, Chloride 103, Carbon Dioxide 30.0, Anion Gap 4 L, BUN 15, Creatinine 1.23, Estim Creat Clear Calc 84.32, Est GFR (MDRD) Af Amer 77, Est GFR (MDRD) Non-Af 64, BUN/Creatinine Ratio 12.2, Glucose 119 H, Lactic Acid 1.1, Calcium 8.8, Magnesium 1.9, Total Bilirubin 0.80, AST 27, ALT 45, Alkaline Phosphatase 107, Total Creatine Kinase 102, Troponin I High Sens 16, C-React Prot Ext Range 17.40 H, Total Protein 6.7, Albumin 2.9 L, Globulin 3.8, Albumin/Globulin Ratio 0.8 L, Lipase < 10 L 03/08/24 15:56: Urine Color Yellow, Urine Clarity Clear, Urine pH 6.0, Ur Specific [place] 1.005, Urine Protein Negative, Urine Glucose (UA) Normal, Urine Ketones Negative, Urine Occult Blood Negative, Urine Nitrite Negative, Urine Bilirubin Negative, Urine Urobilinogen Normal, Ur Leukocyte Esterase Negative, Urine RBC 0 SEEN, Urine WBC 0 SEEN, Ur Squamous Epith Cells 0-5 SEEN, Urine Bacteria RARE, Urine Mucus 0 SEEN 03/09/24 05:51: WBC 18.1 H, RBC 3.81 L, Hgb 11.5 L, Hct 35.8 L, MCV 94.0, MCH 30.2, MCHC 32.1, RDW Std Deviation 46.7 H, RDW Coeff of Cari 13.6, Plt Count 277, MPV 9.8, Immature Gran % (Auto) 0.400, Neut % (Auto) 79.1 H, Lymph % (Auto) 13.7 L, [place] % (Auto) 5.7, Eos % (Auto) 0.8, Baso % (Auto) 0.3, Absolute Neuts (auto) 14.3 H, Absolute Lymphs (auto) 2.49, Nucleated RBC % 0 Micro: Microbiology 03/08/24 20:25 Mucosa - Nasopharyngeal Respiratory Panel (PCR) - Final 03/08/24 22:01 Nasal Secretion MRSA (PCR) - Final 03/08/24 16:24 Mucosa - Throat Streptococcus pyogenes (PCR) - Final 03/08/24 15:55 Urine, Clean Catch Legionella Antigen - Final 03/08/24 15:55 Urine, Clean Catch Streptococcus pneumoniae Antigen (M - Final 03/08/24 14:21 Mucosa - Nose SARS-CoV-2, Influenza & RSV (PCR) - Final ABG Data ABG results: ABG 03/08/24 16:07 Specimen Type ART Sample Site L Radial pH 7.36 Bicarbonate Actual 27.3 H Total CO2 29 Base Excess 2 O2 Saturation 93 L O2 % 2.0 ABG pCO2 48.1 H ABG pO2 71 L Roberto Test Positive O2 Delivery Device Cannula Vent Mode Not entered Radiography Diagnostic Testing: Radiology Impression Brain CT 03/08/24 13:45 IMPRESSION: Questionable 5.7 mm lacuna in the left basal ganglia. Electronically Signed: Aravind Fitch MD at 15:16 EDT , Chest CTA 03/08/24 13:47 IMPRESSION: No evidence of pulmonary embolism. 1.5 cm x 0.9 cm noncalcified nodule in the right lung apex. This was not seen on prior study. A neoplastic process should be ruled out. Electronically Signed: Aravind Fitch MD at 15:20 EDT , Abdomen/Pelvis CT 03/08/24 15:56 IMPRESSION: 1. Small left lower lobe pneumonic infiltrate 2. Mild bilateral lower lobe pulmonary edema either due to CHF or developing ARDS 3. Small pericardial effusion 4. No acute process of the abdomen and pelvis. Electronically Signed: Chavez Avelar MD at 17:03 EDT , Physical Exam Narrative Physical Examination: General: Awake, alert, oriented x 3 and cooperative, seated upright in the PCU bed, mildly diaphoretic and himself and nursing staff note he was recently up and attempting to ambulate, fatigued appearing. Skin: Normal color, normal turgor, no icterus, no cyanosis. HEENT: AT/NC, EOMI, PERRLA, mildly dry MM, noted to be diaphoretic on his face. Lungs: Mildly diminished, left greater than right, appropriate effort, no rales, ronchi or wheezing. Heart: Regular rate and rhythm; no gallop, rub audible. Abdomen: Soft, obese, NTTP, distant BS, no obvious distention noted. Extremities: No cyanosis, no clubbing, pedal to mid dowd chronic not markedly pitting edema Neurological: Patient awake, alert, oriented as noted, cognitive function intact; pupils equally reactive to light and accommodation, cranial nerves grossly normal, moving all 4 extremities, no focal deficits, strength moderately global decreased Psychiatric: Affect appears fatigued but notes feeling improved, no acute evidence of depressive or anxiety feelings. 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 #1. Acute Hypoxia secondary to Acute LLL Pneumonia: Workup in the ED included CBC with WBC 23.4, human 13.5, MCV 90.4, platelet 379 with left shift, unremarkable coags, ABG with pH 7.36, bicarb 27.3, O2 saturation 93, pCO2 48.1, pO2 71 obtained on nasal cannula, CMP with glucose 119, lactic acid 1.1, magnesium 1.9, hepatic profile unremarkable, CRP 17.40, ESR 8, urinalysis unremarkable, CT of the brain with questionable 5.7 mm lacunar in the left basal ganglia, chest CTA with no evidence of PE, 1.5 x 0.9 cm noncalcified nodule in the right lung apex not seen on previous study, CT abdomen pelvis without contrast with a small left lower lobe pneumonic infiltrate, mild bilateral lower lobe pulmonary edema either due to CHF or developing arts, small pericardial effusion with no acute intra-abdominal process. In the ED patient administered IV vancomycin and IV cefepime. Admitted to PCU, maintain on oxygen with wean as tolerated to room air, continue ATC budesonide, PRN albuterol, initially maintained on IV cefepime and also dosed IV vancomycin x 1 in the ED, will transition to IV Rocephin and IV azithromycin, encourage continued HOB, IS parameters w/ pending sputum cultures, negative respiratory viral panel, negative rapid strep, negative MRSA PCR, negative urine antigens and urine antigens. Bld cx x 2 obtained in the ED. #2. Incidental questionable left basal ganglia lacunar: CT of the brain with questionable 5.7 mm lacunar in the left basal ganglia, obtain follow-up MRI of the brain to be cautious with only noted involutional changes and no acute concerning findings. #3. Incidental noncalcified nodule right lung apex: CTA of the chest with 1.5 x 0.9 cm, noncalcified not seen on previous study, given reported weight loss and ongoing issues with last several months certainly suspicious, at this time no IR availability, will need follow-up outpatient to further assess. #4. Chronic anemia, normocytic: Admission hemoglobin 13.5 however suspect falsely elevated, repeat 03/09/2024 hemoglobin 11.5, MCV 94, similar to baseline, continue to trend CBC. #5. Chronic back pain: Status post lumbar surgery as well as chronic cervical pain with chronic paresthesias and neuropathy, continue home gabapentin regimen as well as chronic hydromorphone and baclofen regimen. Encourage frequent positional changes. #6. Hypertension: Given BP improvement since initial presentation we will restart patient home low-dose amlodipine regimen, PRN hydralazine. #7. Anxiety and depression: We will continue patient home amitriptyline and duloxetine home regimen. #8. Chronic bilateral lower extremity peripheral edema: Patient reports he was remotely on Lasix, no longer on, will place send fabiana wraps. #9. Recent history chronic diarrhea with diagnosis of microscopic colitis: Recent diagnosis, stools more normalized, upon admission patient's budesonide oral regimen temporarily held. #10. Chronic migraines: If necessary will have patient home chronic but/acetaminophen/caf regimen added. #11. GERD: Previously had been on Protonix however this is recently been discontinued secondary to microscopic colitis history he notes. #12. ANDREW: CPAP nightly. #13. DVT prophylaxis: Lovenox. Charges/Coding Visit Charges Inpatient E&M: 72362 [facility] Hosp L3
[2024-03-09 06:51] LABS: ALB/GLOB Ratio 0.7 RATIO (0.9-2.4); AST(SGOT) 23 U/L (15-37); Alanine Aminotransfer ALT/SGPT 35 U/L (16-61); Albumin, Serum 2.3 g/dL (3.2-5.0); Alkaline Phosphatase 81 U/L (45-117); Anion Gap 3 (5-15); BUN 11 mg/dL (7-18); BUN/Creat Ratio 12.3 RATIO (10-20); Calcium,Total 7.9 mg/dL (8.5-10.1); Chloride 107 mmol/L (98-107); EST Glomerular Filtration Rate 92 mL/min (>60); Est Glom Filt Rate - Afr Amer 111 mL/min (>60); Globulin 3.2 g/dL (2.2-4.2); Glucose 132 mg/dL (74-106); Potassium 3.9 mmol/L (3.5-5.1); Protein, Total 5.5 g/dL (6.4-8.2); Sodium Level 139 mmol/L (136-145); Thyroid Stim Hormone (TSH) 0.676 uIU/mL (0.358-3.740)
[2024-03-09] MEDS: Acetaminophen 325 MG Tablet 650 MG PO (06:54)
--- NOTE | 2024-03-09 07:14 | MRI_ITS ---
STUDY: MRI BRAIN WITHOUT CONTRAST REASON FOR EXAM: Male, [address] brain TECHNIQUE: Standardized multiplanar fat and water weighted pulse sequences were obtained. COMPARISON: CT 03/08/2024 FINDINGS: Normal size of the ventricles and extra-axial spaces for the patient''s age. There are a limited number of small white matter hyperintensities, distributed throughout the deep white matter tracts of the cerebral hemispheres, consistent with mild chronic white matter ischemic changes. There is no evidence for recent intracranial ischemia or other cause of cytotoxic edema on diffusion weighted imaging (DWI). Normal T2* images of the brain without demonstrated susceptibility artifact. There is no demonstrated hemosiderin stain. There are prominent perivascular spaces (PVS) involving the basal ganglia. Normal thalami. There is no extra-axial fluid accumulation. Normal flow voids within the major intracranial circulation suggesting patency by spin echo criteria. Normal sella turcica, pituitary gland, infundibular stalk, optic chiasm and hypothalamus. Normal tectal plate and pineal gland. Normal midbrain, doug and medulla. Normal cerebellum. Normal basal cisterns. Normal bilateral temporal bones. Normal bilateral internal auditory canals. No demonstrated orbital abnormality, within the constraints of a routine brain study. Normal visualized paranasal sinuses. Normal calvarium and skull base. Normal visualized soft tissue structures. Normal visualized upper cervical spine. MRI/Brain without Contrast IMPRESSION: Involutional changes of the brain, as described above. Electronically Signed: Anuj Cunha MD at 10:47 EDT ,
[2024-03-09] MEDS: Budesonide Respules 0.5 MG/2 ML AMPUL.NEB. INHALATION (07:44)
[2024-03-09 07:45] VITALS: PULSE 78; RESP 18; O2SAT 93
[2024-03-09] MEDS: Lisinopril 40 MG Tablet PO (10:17)
[2024-03-09] MEDS: Furosemide 40 MG Tablet PO (10:18)
[2024-03-09 10:20] VITALS: BP 155/74; PULSE 72; RESP 16; TEMP 36.7; O2SAT 96
[2024-03-09] MEDS: Ceftriaxone 2 GM in 0.9% Normal Saline (50mL MB+) 50 ML IV (10:28)
--- NOTE | 2024-03-09 10:30 | CASEMGMT ---
RN CM Face to Face with patient for initial transition planning/care coordination assessment. RN CM introduced self and role at [facility]. Patient lying in bed, alert and oriented, family at bedside. Patient willing to participate in assessment and is able to answer all questions appropriately. Care providers, pharmacy, and demographics verified. Strata: 1 PCP: Dominick Specialists: Freddy Ridley, water pollution specialist; Salas, pain; [facility]. Preferred Pharmacy: [facility] Insurance: [employer] Prescription Benefit: yes Living Will/HPOA: yes, Estella Ridley LNOK: Living Arrangements: Patient lives with in a single story home with 3 steps and railing to enter the home. Patient states he is independent at home. Transportation: self, DME/HHC: Patient states he has shower chair, raised toilet, cane, walker, wheelchair, lift chair, grab bars, and nebulizer at home. no previous HHC or SNF. Patient wishes to discharge home, denies need for home health at this time. Patient states he has no further needs or concerns at this time. CM to follow for discharge planning needs that may arise. Disposition Plan: Patient to discharge home with family support and follow-up plans in place. Ana Luisa GRIFFIN, RN, CM
--- NOTE | 2024-03-09 13:40 | PCM.CONS.GEN ---
Assessment & Plan Assessment/Plan (1) Pneumonia: PLAN: On ceftriaxone, feeling better, wbc improved, no fever here, fatigue is improved. UAg neg. Resp pcr panel neg. Will follow, thank you HPI Consult Data Date of Consult: 03/09/24 HPI Narrative Reason for Consultation: pneumonia HPI Narrative: ANGELA NG, is a 58 M with h/o microscopic colitis, presented with sx starting afternoon 8 with fever, chills, severe fatigue. No sick contacts. No focal complaints. Denies cough or SOB. Came to ED, admitted on cefepime, changed to ceftriaxone today. Feeling better. Full ROS performed and neg except as noted above. [facility] Medical History CPAP (continuous positive airway pressure) dependence Sleep apnea Anemia Pneumonia Leg fracture Intestinal adhesions with partial obstruction Migraines Hypertension Chronic pain COVID Home Medications ?Medication ?Instructions ?Recorded ?Last Taken ?Type amitriptyline 10 mg tablet 20 mg PO QHS DEPRESSION 04/05/22 05/20/22 History duloxetine 60 mg capsule,delayed 60 mg PO QHS DEPRESSION 04/05/22 05/21/22 History release hydromorphone 4 mg tablet 4 mg PO Q6H PRN BACK PAIN 04/05/22 05/21/22 History lisinopril 40 mg tablet 40 mg PO DAILY BLOOD PRESSURE 04/05/22 05/21/22 History pantoprazole 40 mg tablet,delayed 40 mg PO DAILY GERD 04/05/22 05/21/22 History release trazodone 100 mg tablet 200 mg PO QHS INSOMNIA 04/05/22 05/20/22 History pseudoephedrine-guaifenesin ER 60 1 tab PO BID cold symptoms #14 tabs 05/23/22 Unknown Rx mg-600 mg tablet,extend release 12hr (Mucus D) baclofen 10 mg tablet 10 mg PO TID MUSCLE SPASMS 10/01/23 Unknown History triamcinolone acetonide 55 mcg 2 spray intranasal DAILY #16.9 mL 10/01/23 Unknown Rx nasal spray aerosol (Nasacort) budesonide 3 mg PO UD CROHNS DISEASE 03/08/24 Unknown History capsule,delayed,extended release [id number]-[id number] 1 tab PO Q4H PRN HEADACHE 03/08/24 Unknown History 50 mg-325 mg-40 mg tablet gabapentin 300 mg capsule PO 03/08/24 Unknown History amlodipine 2.5 mg tablet 2.5 mg PO DAILY Blood pressure 03/09/24 Unknown History Allergy/AdvReac Type Severity Reaction Status Date / Time ampicillin AdvReac Nausea/Vom/ Verified 03/08/24 12:41 Diarrhea Family History Other Hypertension Surgical History Total knee replacement status H/O spinal fusion H/O hernia repair Gastric bypass status for obesity Social History household members: spouse housing: house Smoking Status: Never smoker alcohol intake: current alcohol intake frequency: 0-2 drinks per day details: Drinks 1 shot of whiskey with soda daily substance use type: does not use Physical Exam Const alert, oriented x3 and no apparent distress General Appearance: cooperative HEENT normocephalic and head/scalp atraumatic Eyes PERRL and EOMs intact bilaterally Neck supple and No nodes Resp normal air movement and clear to auscultation bilaterally Cardio regular rate and regular rhythm GI soft to palpation, non-tender and non-distended Extremity General Extremity: Negative for edema Skin no rashes or lesions noted Neuro CN's II-XII intact bilaterally Lab / Micro Data Attestation: I reviewed the patient's lab results. 03/09/24 05:51 03/09/24 05:51 Labs: Laboratory Results - last 24 hr 03/08/24 13:35: WBC 23.4 H, RBC 4.50 L, Hgb 13.5, Hct 40.7, MCV 90.4, MCH 30.0, MCHC 33.2, RDW Std Deviation 44.5 H, RDW Coeff of Cari 13.3, Plt Count 379, MPV 9.9, Immature Gran % (Auto) 1.100 H, Neut % (Auto) 88.3 H, Lymph % (Auto) 4.3 L, [place] % (Auto) 6.0, Eos % (Auto) 0.0, Baso % (Auto) 0.3, Absolute Neuts (auto) 20.7 H, Absolute Lymphs (auto) 1.00, Nucleated RBC % 0, ESR 8, PT 14.9, INR 1.2, APTT 26.5, Sodium 137, Potassium 4.6, Chloride 103, Carbon Dioxide 30.0, Anion Gap 4 L, BUN 15, Creatinine 1.23, Estim Creat Clear Calc 84.32, Est GFR (MDRD) Af Amer 77, Est GFR (MDRD) Non-Af 64, BUN/Creatinine Ratio 12.2, Glucose 119 H, Lactic Acid 1.1, Calcium 8.8, Magnesium 1.9, Total Bilirubin 0.80, AST 27, ALT 45, Alkaline Phosphatase 107, Total Creatine Kinase 102, Troponin I High Sens 16, C-React Prot Ext Range 17.40 H, Total Protein 6.7, Albumin 2.9 L, Globulin 3.8, Albumin/Globulin Ratio 0.8 L, Lipase < 10 L 03/08/24 15:56: Urine Color Yellow, Urine Clarity Clear, Urine pH 6.0, Ur Specific [place] 1.005, Urine Protein Negative, Urine Glucose (UA) Normal, Urine Ketones Negative, Urine Occult Blood Negative, Urine Nitrite Negative, Urine Bilirubin Negative, Urine Urobilinogen Normal, Ur Leukocyte Esterase Negative, Urine RBC 0 SEEN, Urine WBC 0 SEEN, Ur Squamous Epith Cells 0-5 SEEN, Urine Bacteria RARE, Urine Mucus 0 SEEN 03/09/24 05:51: WBC 18.1 H, RBC 3.81 L, Hgb 11.5 L, Hct 35.8 L, MCV 94.0, MCH 30.2, MCHC 32.1, RDW Std Deviation 46.7 H, RDW Coeff of Cari 13.6, Plt Count 277, MPV 9.8, Immature Gran % (Auto) 0.400, Neut % (Auto) 79.1 H, Lymph % (Auto) 13.7 L, [place] % (Auto) 5.7, Eos % (Auto) 0.8, Baso % (Auto) 0.3, Absolute Neuts (auto) 14.3 H, Absolute Lymphs (auto) 2.49, Nucleated RBC % 0, Sodium 139, Potassium 3.9, Chloride 107, Carbon Dioxide 29.0, Anion Gap 3 L, BUN 11, Creatinine 0.90, Estim Creat Clear Calc 116.40, Est GFR (MDRD) Af Amer 111, Est GFR (MDRD) Non-Af 92, BUN/Creatinine Ratio 12.3, Glucose 132 H, Calcium 7.9 L, Total Bilirubin 0.80, AST 23, ALT 35, Alkaline Phosphatase 81, Total Protein 5.5 L, Albumin 2.3 L, Globulin 3.2, Albumin/Globulin Ratio 0.7 L, TSH 0.676 Micro: Microbiology 03/08/24 20:25 Mucosa - Nasopharyngeal Respiratory Panel (PCR) - Final 03/08/24 22:01 Nasal Secretion MRSA (PCR) - Final 03/08/24 16:24 Mucosa - Throat Streptococcus pyogenes (PCR) - Final 03/08/24 15:55 Urine, Clean Catch Legionella Antigen - Final 03/08/24 15:55 Urine, Clean Catch Streptococcus pneumoniae Antigen (M - Final 03/08/24 14:21 Mucosa - Nose SARS-CoV-2, Influenza & RSV (PCR) - Final ABG Data ABG results: ABG 03/08/24 16:07 Specimen Type ART Sample Site L Radial pH 7.36 Bicarbonate Actual 27.3 H Total CO2 29 Base Excess 2 O2 Saturation 93 L O2 % 2.0 ABG pCO2 48.1 H ABG pO2 71 L Roberto Test Positive O2 Delivery Device Cannula Vent Mode Not entered Imaging Radiology Impression Brain CT 03/08/24 13:45 IMPRESSION: Questionable 5.7 mm lacuna in the left basal ganglia. Electronically Signed: Aravind Fitch MD at 15:16 EDT , Chest CTA 03/08/24 13:47 IMPRESSION: No evidence of pulmonary embolism. 1.5 cm x 0.9 cm noncalcified nodule in the right lung apex. This was not seen on prior study. A neoplastic process should be ruled out. Electronically Signed: Aravind Fitch MD at 15:20 EDT , Abdomen/Pelvis CT 03/08/24 15:56 IMPRESSION: 1. Small left lower lobe pneumonic infiltrate 2. Mild bilateral lower lobe pulmonary edema either due to CHF or developing ARDS 3. Small pericardial effusion 4. No acute process of the abdomen and pelvis. Electronically Signed: Chavez Avelar MD at 17:03 EDT , Brain MRI 03/09/24 07:14 IMPRESSION: Involutional changes of the brain, as described above. Electronically Signed: Anuj Cunha MD at 10:47 EDT ,
[2024-03-09] MEDS: Baclofen 10 MG Tablet PO ×2 (14:09→20:34)
[2024-03-09 15:00] VITALS: BP 150/88; PULSE 93; RESP 18; TEMP 36.7; O2SAT 95
[2024-03-09] MEDS: Acetaminophen/Butalbital/Caffe 1 Tablet PO (15:06)
--- NOTE | 2024-03-09 16:19 | CHAPLAIN ---
Type of Pastoral Visit ___ Initial Visit ___ Follow-up Visit ___ On-call Visit ___ General Patient Visit ___ Spiritual Assessment ___ Family Conference ___ Bereavement ___ Rapid Response ___ Code Blue ___ Other (describe below) Pastoral Care Referral From ___ Patient ___ Family ___ Nurse ___ Physician ___ Curtains [employer] Dra[employer] Salesperson ___ Mine Analyst ___ Other (describe below) Sacrament/Intervention ___ Active listening ___ Anointing ___ Pentecostalism ___ Bereavement ___ Communion ___ Digna exploration ___ ___ Life review ___ Prayer ___ Reconciliation ___ Sacrament of Sick ___ Supportive presence ___ Wedding ___ Other (describe below) Pastoral Comments patient declined visit today stating it is not a good time and responding positively for a visit tomorrow
[2024-03-09] MEDS: 0.9% Saline Lock 10 ML Syringe IV (16:44)
[2024-03-09] MEDS: Enoxaparin 40 MG/0.4 ML Syringe SC (18:34)
[2024-03-09 20:27] VITALS: BP 164/90; PULSE 88; RESP 18; TEMP 36.1; O2SAT 96
[2024-03-09] MEDS: Amitriptyline 10 MG Tablet 20 MG PO (20:34)
[2024-03-09] MEDS: traZODone 100 MG Tablet 200 MG PO (20:34)
[2024-03-09] MEDS: Nystatin Powder 15gm Bottle 1 APPLIC TOPICAL (20:34)
[2024-03-09 21:39] VITALS: BP 157/63; PULSE 83; RESP 18; TEMP 36.1; O2SAT 95
[2024-03-09] MEDS: amLODIPine 2.5 MG Tablet PO (21:41)
--- NOTE | 2024-03-09 22:00 | NURSING ---
Pt refused night dose of duloxetine stating that he does not take the medication anymore d/t reaction to other medications and dx of microscopic colitis. Pt also stated to taking home amlodipine at night, pharmacy called and changed administration time for amlodipine to be given at night.
[2024-03-10 03:40] VITALS: BP 153/74; PULSE 77; RESP 16; TEMP 36.1; O2SAT 95
[2024-03-10] MEDS: Acetaminophen 325 MG Tablet 650 MG PO ×2 (04:41→09:01)
[2024-03-10] MEDS: oxyCODONE 5 MG Tablet PO ×2 (04:41→09:02)
[2024-03-10] MEDS: Baclofen 10 MG Tablet PO (06:23)
[2024-03-10] MEDS: Nystatin Powder 15gm Bottle 1 APPLIC TOPICAL (06:23)
--- NOTE | 2024-03-10 06:24 | PN.HOSP_ITS ---
Reason for Visit Reason for Visit: Diagnoses Viral infection, unspecified (03/09/24) Pneumonia, unspecified organism (03/09/24) Subjective Subjective Patient with no acute events overnight per self and per nursing report. Patient notes feeling well, ambulating without any dyspnea, transition to room air and eager for discharge. Patient amenable to transition to oral antibiotic therapy for coverage of noted left lower lobe infiltrate consistent with pneumonia as initial presentation some concern about etiology for SIRS presentation. Patient denies fevers, chills, nausea, emesis, abdominal pain, chest pain or dyspnea. Objective Data Objective Data Vital Signs: Vital Signs Temp Pulse Resp BP Pulse Ox O2 Del Method O2 Flow Rate 96.9 F L 77 16 153/74 H 95 Room Air 2 03/10/24 03:40 03/10/24 03:40 03/10/24 03:40 03/10/24 03:40 03/10/24 03:40 03/10/24 03:45 03/10/24 03:40 Oxygen Flow Rate (L/min) 2 Oxygen Delivery Method Room Air Weight: 256 lb 9.889 oz Body Mass Index (BMI) 34.8 Intake & Output: Intake and Output for Last 24 Hours 03/08/24 03/09/24 03/10/24 23:59 23:59 23:59 Intake Total 3068.34 / 3068.34 2945 / 2945 Balance 3068.34 / 3068.34 2945 / 2945 Lab / Micro Data 03/10/24 06:08 03/10/24 06:08 Labs: Laboratory Results - last 24 hr 03/09/24 05:51: Sodium 139, Potassium 3.9, Chloride 107, Carbon Dioxide 29.0, A nion Gap 3 L, BUN 11, Creatinine 0.90, Estim Creat Clear Calc 116.40, Est GFR (MDRD) Af Amer 111, Est GFR (MDRD) Non-Af 92, BUN/Creatinine Ratio 12.3, Glucose 132 H, Calcium 7.9 L, Total Bilirubin 0.80, AST 23, ALT 35, Alkaline Phosphatase 81, Total Protein 5.5 L, Albumin 2.3 L, Globulin 3.2, Albumin/Globulin Ratio 0.7 L, TSH 0.676 Micro: Microbiology 03/08/24 20:25 Mucosa - Nasopharyngeal Respiratory Panel (PCR) - Final 03/08/24 22:01 Nasal Secretion MRSA (PCR) - Final 03/08/24 16:24 Mucosa - Throat Streptococcus pyogenes (PCR) - Final 03/08/24 15:55 Urine, Clean Catch Legionella Antigen - Final 03/08/24 15:55 Urine, Clean Catch Streptococcus pneumoniae Antigen (M - Final 03/08/24 14:21 Mucosa - Nose SARS-CoV-2, Influenza & RSV (PCR) - Final Radiography Diagnostic Testing: Radiology Impression Brain MRI 03/09/24 07:14 IMPRESSION: Involutional changes of the brain, as described above. Electronically Signed: Anuj Cunha MD at 10:47 EDT , Physical Exam Narrative Physical Examination: General: Awake, alert, oriented x 3 and cooperative, seated upright in the PCU bed, improved appearance, eager for discharge. Skin: Normal color, normal turgor, no icterus, no cyanosis. HEENT: AT/NC, EOMI, PERRLA, MMM. Lungs: Mildly diminished, left greater than right, appropriate effort, no rales, ronchi or wheezing. Heart: Regular rate and rhythm; no gallop, rub audible. Abdomen: Soft, obese, NTTP, distant BS, no obvious distention noted. Extremities: No cyanosis, no clubbing, pedal to mid dowd chronic not markedly pitting edema. Neurological: Patient awake, alert, oriented as noted, cognitive function intact; pupils equally reactive to light and accommodation, cranial nerves grossly normal, moving all 4 extremities, no focal deficits, strength improved, mildly decreased. Psychiatric: Affect appears improved, interactive, no acute evidence of depressive or anxiety feelings. 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 #1. Acute Hypoxia secondary to Acute LLL Pneumonia: Workup in the ED included CBC with WBC 23.4, human 13.5, MCV 90.4, platelet 379 with left shift, unremarkable coags, ABG with pH 7.36, bicarb 27.3, O2 saturation 93, pCO2 48.1, pO2 71 obtained on nasal cannula, CMP with glucose 119, lactic acid 1.1, magnesium 1.9, hepatic profile unremarkable, CRP 17.40, ESR 8, urinalysis unremarkable, CT of the brain with questionable 5.7 mm lacunar in the left basal ganglia, chest CTA with no evidence of PE, 1.5 x 0.9 cm noncalcified nodule in the right lung apex not seen on previous study, CT abdomen pelvis without contrast with a small left lower lobe pneumonic infiltrate, mild bilateral lower lobe pulmonary edema either due to CHF or developing arts, small pericardial effusion with no acute intra-abdominal process. In the ED patient administered IV vancomycin and IV cefepime. Admitted to PCU, maintain on oxygen with wean as tolerated to room air, continue ATC budesonide, PRN albuterol, initially maintained on IV cefepime and also dosed IV vancomycin x 1 in the ED, will transition to IV Rocephin and IV azithromycin, encourage continued HOB, IS parameters, negative respiratory viral panel, negative rapid strep, negative MRSA PCR, negative urine antigens and urine antigens. Bld cx x 2 obtained in the ED and preliminary no growth. 03/10/2024 patient completely weaned to room air, clinically improved, requesting discharge to home and given clinical improvement from initial presentation felt clinically appropriate for transition to an outpatient follow-up care setting. At discharge patient transitioned to oral cefdinir and oral azithromycin. #2. Incidental questionable left basal ganglia lacunar: CT of the brain with questionable 5.7 mm lacunar in the left basal ganglia, obtain follow-up MRI of the brain to be cautious with only noted involutional changes and no acute concerning findings. #3. Incidental noncalcified nodule right lung apex: CTA of the chest with 1.5 x 0.9 cm, noncalcified not seen on previous study, given reported weight loss and ongoing issues with last several months certainly suspicious, at this time no IR availability, will need follow-up outpatient to further assess. #4. Chronic anemia, normocytic: Admission hemoglobin 13.5 however suspect falsely elevated, repeat 03/09/2024 hemoglobin 11.5, MCV 94-> 03/10/2024 hemoglobin 11.6, MCV 93, similar to baseline. #5. Chronic back pain: Status post lumbar surgery as well as chronic cervical pain with chronic paresthesias and neuropathy, continue home gabapentin regimen as well as chronic hydromorphone and baclofen regimen. Encourage frequent positional changes. #6. Hypertension: Given BP improvement since initial presentation, restarted amlodipine, as needed hydralazine. #7. Anxiety and depression: Continued on patient home amitriptyline regimen. Verify duloxetine no longer taken. #8. Chronic bilateral lower extremity peripheral edema: Patient reports he was remotely on Lasix, no longer on, will place send fabiana wraps. #9. Recent history chronic diarrhea with diagnosis of microscopic colitis: Recent diagnosis, stools more normalized, upon admission patient's budesonide oral regimen temporarily held. Recommended hold on budesonide until completion of antibiotic therapy. #10. Chronic migraines: If necessary will have patient home chronic but/acetaminophen/caf regimen added. #11. GERD: Previously had been on Protonix however this is recently been discontinued secondary to microscopic colitis history he notes. #12. ANDREW: CPAP nightly. #13. DVT prophylaxis: Lovenox. Charges/Coding Visit Charges Inpatient E&M: 00845 Subs Hosp L2
[2024-03-10 07:08] LABS: Absolute Lymphocyte Count 1.41 X10^3/uL (0.83-4.51); Basophil# 0.08 X10^3/uL; Basophil% 0.8 % (0-1); Eosinophil# 0.16 X10^3/uL; Eosinophils% 1.7 % (0-5); Hematocrit 35.8 % (40-54); Hemoglobin 11.6 g/dL (13.0-16.5); Lymphocyte # 1.41 X10^3/ul (0.83-4.51); Lymphocyte % 14.8 % (19-41); Mean Corp Hgb Conc 32.4 g/dL (32-36); Mean Corpuscular Hgb 30.1 pg (27.0-32.0); Mean Platelet Vol. 10.8 fl (6.2-12.0); Monocyte# 0.83 X10^3/uL; Monocyte% 8.7 % (0-10); NRBC Flagged by Analyzer 0 % (0-5); Neutrophil % 73.7 % (47-70); Platelet Count 310 K/mm3 (150-450); RBC Distribution Width CV 13.2 % (11.6-14.6); RBC Distribution Width SD 44.7 fl (35.1-43.9); Red Blood Count 3.85 M/mm3 (4.6-6.2); White Blood Count 9.5 K/mm3 (4.4-11.0)
[2024-03-10] MEDS: Budesonide Respules 0.5 MG/2 ML AMPUL.NEB. INHALATION (07:32)
[2024-03-10 07:42] LABS: ALB/GLOB Ratio 0.7 RATIO (0.9-2.4); AST(SGOT) 25 U/L (15-37); Alanine Aminotransfer ALT/SGPT 38 U/L (16-61); Albumin, Serum 2.4 g/dL (3.2-5.0); Alkaline Phosphatase 92 U/L (45-117); Anion Gap 4 (5-15); BUN 6 mg/dL (7-18); BUN/Creat Ratio 8.6 RATIO (10-20); Calcium,Total 8.5 mg/dL (8.5-10.1); Chloride 106 mmol/L (98-107); EST Glomerular Filtration Rate 122 mL/min (>60); Est Glom Filt Rate - Afr Amer 148 mL/min (>60); Estimated Creatinine Clearance 149.66 ml/min; Globulin 3.4 g/dL (2.2-4.2); Glucose 99 mg/dL (74-106); Potassium 3.6 mmol/L (3.5-5.1); Protein, Total 5.8 g/dL (6.4-8.2); Sodium Level 140 mmol/L (136-145)
[2024-03-10 08:24] VITALS: PULSE 80; RESP 17
[2024-03-10 09:00] VITALS: BP 155/83; PULSE 78; RESP 18; TEMP 36.7; O2SAT 95
[2024-03-10] MEDS: Ceftriaxone 2 GM in 0.9% Normal Saline (50mL MB+) 50 ML IV (09:02)
[2024-03-10] MEDS: Lisinopril 40 MG Tablet PO (09:03)
[2024-03-10 09:18] VITALS: O2SAT 92; O2SAT 95
--- NOTE | 2024-03-10 09:20 | CASEMGMT ---
Addendum entered by Zaida Payne 03/10/24 10:56: DALJIT ESPINOZA into pt room, pt denies any homegoing needs at this time. Original Note: Pt does not qualify for home oxygen at this time.
--- NOTE | 2024-03-10 10:58 | DS.PCM_ITS ---
Providers Date of Admission: 03/09/24 Date of Discharge: 03/10/24 Primary Care Physician: Dr. Regan Tan MD Consultations 03/08/24 17:44 Consult: Infectious Disease Routine Consulting Provider: Jian Hansen Reason for Consult: Fever, source unclear, viral? EMERGENT Consult: No MD Notified: Yes Date Notified: 03/08/24 Time Notified: 17:08 Method of Notification: Text Reason For Visit: SIRS CRITERIA Diagnosis Discharge Diagnosis (1) Pneumonia: Status: Acute Code(s): J18.9 - Pneumonia, unspecified organism Plan: DISCHARGE DIAGNOSES: #1. Acute Hypoxia secondary to Acute LLL Pneumonia, community acquired, unclear organism #2. Incidental questionable left basal ganglia lacunar with normal MRI brain, abnormality ruled out #3. Incidental noncalcified nodule right lung apex #4. Chronic anemia, normocytic #5. Chronic back pain #6. Hypertension #7. Anxiety and depression #8. Chronic bilateral lower extremity peripheral edema #9. Recent history chronic diarrhea with diagnosis of microscopic colitis #10. Chronic migraines #11. GERD #12. ANDREW Medications at Discharge Home Medications amitriptyline 10 mg tablet 30 mg PO QHS DEPRESSION 04/05/22 hydromorphone 4 mg tablet 4 mg PO Q6H PRN BACK PAIN 04/05/22 lisinopril 40 mg tablet 40 mg PO QHS BLOOD PRESSURE 04/05/22 trazodone 100 mg tablet 200 mg PO QHS INSOMNIA 04/05/22 baclofen 10 mg tablet 10 mg PO TID MUSCLE SPASMS 10/01/23 triamcinolone acetonide 55 mcg nasal spray aerosol (Nasacort) 2 spray intranasal DAILY allergies #16.9 mL 10/01/23 budesonide 3 mg capsule,delayed,extended release 2 mg PO QHS CROHNS DISEASE 03/08/24 qofuzqfecp-owsyscmmycgaw-nldvatym 50 mg-325 mg-40 mg tablet 2 tab PO Q4H PRN HEADACHE 03/08/24 gabapentin 300 mg capsule 600 mg PO QHS NEURPATHY 03/08/24 amlodipine 2.5 mg tablet 2.5 mg PO QHS Blood pressure 03/09/24 azithromycin 500 mg tablet 500 mg PO DAILY Pneumonia 4 days #4 tabs 03/10/24 cefdinir 300 mg capsule 300 mg PO Q12H Pneumonia 5 days #10 caps 03/10/24 nystatin 100,000 unit/gram topical powder (Nyamyc) 1 applic topical TID 14 days #30 grams 03/10/24 Hospital Course Operations None Procedures EKG Summary of Care Provided Minutes Spent on Discharge: 35 Hospital Course: The patient is a 58 y/o M w/ PMHx: Microscopic colitis on budesonide oral therapy, Chronic back pain status post previous lumbar surgery with chronic paresthesias/neuropathy, ANDREW on CPAP, HTN, HLD, Chronic migraines, Hx partial SBO secondary to adhesions, HTN, Chronic LE edema, GERD, Anxiety and Depression who presented to the [facility] ED on 03/08/2024 with history of fatigue, malaise, dizziness, diaphoresis and chills 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 Workup in the ED included CBC with WBC 23.4, human 13.5, MCV 90.4, platelet 379 with left shift, unremarkable coags, ABG with pH 7.36, bicarb 27.3, O2 saturation 93, pCO2 48.1, pO2 71 obtained on nasal cannula, CMP with glucose 119, lactic acid 1.1, magnesium 1.9, hepatic profile unremarkable, CRP 17.40, ESR 8, urinalysis unremarkable, CT of the brain with questionable 5.7 mm lacunar in the left basal ganglia, chest CTA with no evidence of PE, 1.5 x 0.9 cm noncalcified nodule in the right lung apex not seen on previous study, CT abdomen pelvis without contrast with a small left lower lobe pneumonic infiltrate, mild bilateral lower lobe pulmonary edema either due to CHF or developing arts, small pericardial effusion with no acute intra-abdominal process. In the ED patient administered IV vancomycin and IV cefepime. Admitted to PCU, maintain on oxygen with wean as tolerated to room air, continue ATC budesonide, PRN albuterol, initially maintained on IV cefepime and also dosed IV vancomycin x 1 in the ED, will transition to IV Rocephin and IV azithromycin, encourage continued HOB, IS parameters, negative respiratory viral panel, negative rapid strep, negative MRSA PCR, negative urine antigens and urine antigens. Bld cx x 2 obtained in the ED and preliminary no growth. During presentation upon ED evaluation had noted CT of the brain with questionable 5.7 mm lacunar in the left basal ganglia, obtained follow-up MRI of the brain to be cautious with only noted involutional changes and no acute concerning findings. Also, discussed presentation CTA of the chest with 1.5 x 0.9 cm, noncalcified not seen on previous study, given reported weight loss and ongoing issues with last several months certainly suspicious with plan for follow-up of the nodule with primary care physician outpatient. Admission hemoglobin 13.5 however suspect falsely elevated, repeat 03/09/2024 hemoglobin 11.5, MCV 94-> 03/10/2024 hemoglobin 11.6, MCV 93, similar to baseline. 03/10/2024 patient completely weaned to room air, clinically improved, requesting discharge to home and given clinical improvement from initial presentation felt clinically appropriate for transition to an outpatient follow-up care setting. At discharge patient transitioned to oral cefdinir and oral azithromycin. Weight / BMI Weight Weight: 256 lb 9.889 oz Body Mass Index (BMI) 34.8 ABG / Lab / Microbiology Data 03/10/24 06:08 03/10/24 06:08 Laboratory: Laboratory Results - last 24 hr 03/10/24 06:08: WBC 9.5, RBC 3.85 L, Hgb 11.6 L, Hct 35.8 L, MCV 93.0, MCH 30.1, MCHC 32.4, RDW Std Deviation 44.7 H, RDW Coeff of Cari 13.2, Plt Count 310, MPV 10.8, Immature Gran % (Auto) 0.300, Neut % (Auto) 73.7 H, Lymph % (Auto) 14.8 L, [place] % (Auto) 8.7, Eos % (Auto) 1.7, Baso % (Auto) 0.8, Absolute Neuts (auto) 7.0, Absolute Lymphs (auto) 1.41, Nucleated RBC % 0, Sodium 140, Potassium 3.6, Chloride 106, Carbon Dioxide 30.0, Anion Gap 4 L, BUN 6 L, Creatinine 0.70, Estim Creat Clear Calc 149.66, Est GFR (MDRD) Af Amer 148, Est GFR (MDRD) Non-Af 122, BUN/Creatinine Ratio 8.6 L, Glucose 99, Calcium 8.5, Total Bilirubin 0.40, AST 25, ALT 38, Alkaline Phosphatase 92, Total Protein 5.8 L, Albumin 2.4 L, Globulin 3.4, Albumin/Globulin Ratio 0.7 L Microbiology: Microbiology 03/08/24 13:35 Blood Culture (Wb) - Anticubital Right Blood Culture - Preliminary No growth in 48 hours. 03/08/24 20:25 Mucosa - Nasopharyngeal Respiratory Panel (PCR) - Final 03/08/24 22:01 Nasal Secretion MRSA (PCR) - Final 03/08/24 16:24 Mucosa - Throat Streptococcus pyogenes (PCR) - Final 03/08/24 15:55 Urine, Clean Catch Legionella Antigen - Final 03/08/24 15:55 Urine, Clean Catch Streptococcus pneumoniae Antigen (M - Final 03/08/24 14:21 Mucosa - Nose SARS-CoV-2, Influenza & RSV (PCR) - Final D/C Instructions Discharge Diet: Low fat / Low cholesterol May resume sexual activity in: - (Encourage completion of antibiotic therapy and primary care re-evaluation prior to aggressive/heavy activities.) Weight Bearing Status: Weight bearing as tolerated Call your doctor if you observe: Fever of 101 or Higher, Shortness of breath, Dizziness, Swelling in the ankles, Chest pain, Increased palpitations (irregular heartbeat), Calf discomfort and Uncontrolled pain Meaningful Use Info Meaningful Use Meaningful Use Diagnoses (Choose all that apply): None applicable Ischemic Stroke Statin Dosing Therapy Reference: STATIN DOSE THERAPY REFERENCE: * Patients > 75 years receive moderate or high dose statin therapy. * Patients 75 years or YOUNGER should receive HIGH intensity statin dose unless contraindicated. You will be required to document reason for non-treatment if statin daily dose does not meet guidelines. HIGH DOSE STATIN THERAPY DAILY Atorvastatin > than or = to 40 mg Rosuvastatin > than or = to 20 mg Amlodipine + Atorvastatin > than or = to 2.5/40 mg Ezetimibe + Simvastatin 10/80 mg Simvastatin 80mg Discharge Plan Admission Admit Date/Time: 03/09/24 07:46 Primary Reason for Your Visit: Hypoxia, LLL Pneumonia, Incidental lung nodule Attending Provider: Eugenia Casillas Primary Care Provider: Regan Tan Consulting Providers: Jian Hansen; Oswald Root Instructions Patient Instructions: ED Pneumonia (Adult) Additional Instructions / Restrictions: ADDITIONAL DISCHARGE INSTRUCTIONS/INFORMATION/FOLLOW-UP CARE PLAN: #1. Acute Hypoxia secondary to Acute LLL Pneumonia: --Chest CTA with no evidence of PE, 1.5 x 0.9 cm noncalcified nodule in the right lung apex not seen on previous study, CT abdomen pelvis without contrast with a small left lower lobe pneumonic infiltrate, mild bilateral lower lobe pulmonary edema either due to CHF or developing arts, small pericardial effusion with no acute intra-abdominal process. --Treated with initially IV vancomycin and IV cefepime transitioned to IV rocephin and IV azithromycin once identified pulmonary infiltrate and narrowed care to treatment of the left lower lobe pneumonia. --You initially requested low supplemental oxygen but were sucessfully weaned off. --A full respiratory viral panel and urine antigens were negative. --Please continue oral omnicef/cefdinir 300 mg twice daily for an additional 5 days and oral azithromycin for an additional 4 days. #2. Incidental questionable left basal ganglia lacunar: --CT of the brain with questionable 5.7 mm lacunar in the left basal ganglia; however, obtained follow-up MRI of the brain to be cautious with only noted involutional changes and no acute concerning findings. #3. Incidental noncalcified nodule right lung apex: --CTA of the chest with 1.5 x 0.9 cm, noncalcified not seen on previous study, given reported weight loss and ongoing issues with last several months certainly suspicious and recommend follow-up with your primary care physician to arrange outpatient further assessment. #4. Chronic anemia, normocytic: --Admission hemoglobin 13.5 however suspect falsely elevated, repeat 03/10/2024 hemoglobin 11.6, MCV 93, similar to baseline. Encourage continued outpatient evaluation and treatment if appropriate. #5. Chronic bilateral lower extremity peripheral edema: --Encourage bilateral lower extremity compression hoses in addition to elevation of your lower extremities above your heart while laying down or seated if able to also assist. #9. Recent history chronic diarrhea with diagnosis of microscopic colitis: --Recent diagnosis, stools more normalized, upon admission budesonide oral regimen temporarily held with recommendation for hold until complete antibiotic therapies. #10: Skin fold intertrigo: Please continue nystatin topical application to folds. It is best to cleanse folds with soap and water, pat dry and then apply topical agent. Please continue until completely resolved. Discharge Orders/Prescriptions Prescriptions: New nystatin [[facility]] 100,000 unit/gram Powder 1 applic topical TID 14 Days Qty: 30 0RF Protocol: *Topical Application Instructions APPLICATION INSTRUCTIONS: Abdominal folds Rx Instructions: Use until redness in skin folds resolved. cefdinir 300 mg capsule 300 mg PO Q12H 5 Days Qty: 10 0RF azithromycin 500 mg tablet 500 mg PO DAILY 4 Days Qty: 4 0RF Continued trazodone 100 mg Tablet 200 mg PO QHS amitriptyline 10 mg Tablet 30 mg PO QHS hydromorphone 4 mg Tablet 4 mg PO Q6H PRN (Reason: BACK PAIN ) lisinopril 40 mg Tablet 40 mg PO QHS baclofen 10 mg tablet 10 mg PO TID triamcinolone acetonide [Nasacort] 55 mcg aerosol,spray 2 spray intranasal DAILY Qty: 16.9 0RF Rx Instructions: administer into each nostril hovssifgvg-nyczckgtuerpo-vjdt 50-325-40 mg tablet 2 tab PO Q4H PRN (Reason: HEADACHE ) gabapentin 300 mg capsule 600 mg PO QHS amlodipine 2.5 mg tablet 2.5 mg PO QHS Held budesonide 3 mg capsule,delayed,extend.release 2 mg PO QHS Hold Instructions: Resume on 03/15/24. May resume once complete abx therapy for acute pneumonia presentation. Rx Instructions: TAKE 3 CAPSULES (9MG) BY MOUTH ONCE DAILY FOR ONE MONTH THEN TAKE 2 CAPSULES (6MG) ONCE DAILY FOR ONE MONTH THEN TAKE 1 CAPSULE (3MG) ONCE DAILY FOR ONE MONTH. Referrals / Follow Up: Regan Tan MD [Primary Care Provider] - (Follow-up within 3-5 days to review admission and plan of care.) Disposition Disposition (needs filled in before D/C Order can be placed): Home, Self Care Charges/Coding Visit Charges Inpatient E&M: 33441 Disch Hosp >30min
--- NOTE | 2024-03-10 10:59 | PCM.PN.ID ---
Physical Exam Narrative Feeling well, nearly back to normal, was walking in the [place]. No fever, no cough. Const alert and no apparent distress General Appearance: cooperative Resp normal air movement and clear to auscultation bilaterally Cardio regular rate and regular rhythm GI soft to palpation, non-tender and non-distended Skin no rashes or lesions noted ID ID: Route of nutrition/ use of supplements: [] Nutritional Intake: [] IV Site: [] Ryan Catheter: [] Assessment & Plan Assessment/Plan (1) Pneumonia: PLAN: On ceftriaxone, feeling better, wbc back to normal, no fever here, fatigue is improved. UAg neg. Resp pcr panel neg. Ok for home with two days po cefdinir 300mg bid for 5 days total of abx. Will follow prn
--- NOTE | 2024-03-10 16:13 | CHAPLAIN ---
Type of Pastoral Visit _x__ Initial Visit ___ Follow-up Visit ___ On-call Visit ___ General Patient Visit ___ Spiritual Assessment ___ Family Conference ___ Bereavement ___ Rapid Response ___ Code Blue ___ Other (describe below) Pastoral Care Referral From _x__ Patient ___ Family ___ Nurse ___ Physician ___ Hospital Ward Clerk ___ Protective Signal Superintendent ___ Other (describe below) Sacrament/Intervention _x__ Active listening ___ Anointing ___ Islam ___ Bereavement ___ Communion _x__ Digna exploration ___ _x__ Life review _x__ Prayer ___ Reconciliation ___ Sacrament of Sick _x__ Supportive presence ___ Wedding ___ Other (describe below) Pastoral Comments patient was very welcoming today; pt stated that he would be going home today but gave a review of his health of this last week and the care given for improvement; 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
== END 2024-03-10 14:40 | disposition home or self-care (01) | DRG 194 ==
LOC: ED 13:24 → PCU 16:42
PROVIDERS: Admitting Provider Internal Medicine; Emergency Provider Emergency Medicine; PCP Internal Medicine; Referring Provider Family Medicine; Visit Provider Family Medicine
DX: J18.9 Pneumonia, unspecified organism (principal); I31.39 Other pericardial effusion (noninflammatory); I10 Essential (primary) hypertension; F32.A Depression, unspecified; D64.9 Anemia, unspecified; K52.839 Microscopic colitis, unspecified; G62.9 Polyneuropathy, unspecified; E78.5 Hyperlipidemia, unspecified; K21.9 Gastro-esophageal reflux disease without esophagitis; G43.709 Chronic migraine without aura, not intractable, without status migrainosus; G47.33 Obstructive sleep apnea (adult) (pediatric); F41.9 Anxiety disorder, unspecified; M54.9 Dorsalgia, unspecified; B34.9 Viral infection, unspecified; R41.0 Disorientation, unspecified; R53.1 Weakness; Z86.16 Personal history of COVID-19; G89.29 Other chronic pain; R42 Dizziness and giddiness; Z79.891 Long term (current) use of opiate analgesic; Z98.1 Arthrodesis status; Z98.84 Bariatric surgery status
CPT/HCPCS: 36415; 36600; 70450; 70551; 71275; 74176; 80053; 81001; 82550; 82803; 83605; 83690; 83735; 84443; 84484; 85025; 85610; 85652; 85730; 86140; 87040; 87086; 87449; 87631; 87633; 87641; 87651; 93005; 94640; 94668; 94762; 99285; J7030; J7040; Q9967; A4216; J0696; J2405

== ENCOUNTER 2024-08-11 07:47 | Inpatient (IN) | payer BC, SELFPAY ==
[2024-08-11] VITALS (16 sets, daily range): BP systolic 110–132; BP diastolic 49–115; PULSE 84–98; RESP 13–21; TEMP 36.4–37.4; O2SAT 86–98; BMI 38.5; BMI 36.4
--- NOTE | 2024-08-11 08:07 | EKG12_ITS ---
Test Reason : SOB Blood Pressure : */* mmHG Vent. Rate : 93 BPM Atrial Rate : 93 BPM P-R Int : 150 ms QRS Dur : 84 ms QT Int : 354 ms P-R-T Axes : 43 52 52 degrees QTcB Int : 440 ms Normal sinus rhythm Normal ECG Confirmed by MATIAS PARIS, XENIA ([id number]), graphics editor HUDSON ADAMSON ([id number]) on 08/16/2024 7:12:03 AM Referred By: JAMAAL Confirmed By: XENIA SALCEDO MD
--- NOTE | 2024-08-11 08:08 | EX.ED.DYSGE1 ---
HPI History of Present Illness Chief Complaint: Shortness of Breath Informant: patient, spouse/S.O. and EMS Narrative Narrative: 59-year-old male presenting to the emergency room with weakness and cough. Apparently the patient has been sick since May. 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 states that he is very weak today. She notes rhonchorous breathing at night. He has sleep apnea but does not wear CPAP due to the anxiety of suffocating. No reported fevers. No recent diarrhea or vomiting. EMS was called because of the weakness they noted he was 88% on room air and gave him a breathing treatment. states that he was admitted into the hospital in February with pneumonia but does not show up on any imaging. He has a history of microscopic colitis. He also has asthma and hypertension. He has had prior negative heart catheterization. [facility] Medical History GERD (gastroesophageal reflux disease) Microscopic colitis Sleep apnea Anemia Pneumonia Leg fracture Intestinal adhesions with partial obstruction Migraines Hypertension Chronic pain COVID Home Medications ?Medication ?Instructions ?Recorded ?Last Taken ?Type amitriptyline 10 mg tablet 30 mg PO QHS DEPRESSION 04/05/22 08/10/24 History lisinopril 40 mg tablet 40 mg PO QHS BLOOD PRESSURE 04/05/22 08/10/24 History trazodone 100 mg tablet 200 mg PO QHS INSOMNIA 04/05/22 08/10/24 History baclofen 10 mg tablet 10 mg PO TID MUSCLE SPASMS 10/01/23 08/10/24 History triamcinolone acetonide 55 mcg 2 spray intranasal DAILY allergies 10/01/23 08/10/24 Rx nasal spray aerosol (Nasacort) #16.9 mL budesonide 3 mg 3 mg PO QHS CROHNS DISEASE 03/08/24 08/10/24 History capsule,delayed,extended release zkhssjswia-skrhjlzjqsady-pebfvxdj 2 tab PO Q4H PRN HEADACHE 03/08/24 Unknown History 50 mg-325 mg-40 mg tablet gabapentin 300 mg capsule 300 mg PO DAILY NEURPATHY 03/08/24 08/10/24 History amlodipine 2.5 mg tablet 2.5 mg PO QHS Blood pressure 03/09/24 08/10/24 History nystatin 100,000 unit/gram topical 1 applic topical TID 14 days #30 03/10/24 08/10/24 Rx powder (Nyamyc) grams albuterol sulfate 2.5 mg/3 mL 2.5 mg inhalation Q4H PRN wheezing 08/11/24 08/10/24 History (0.083 %) solution for nebulization albuterol sulfate 90 mcg/actuation 2 inh inhalation Q4H PRN shortness 08/11/24 Unknown History aerosol inhaler (Ventolin HFA) of breath or wheezing gabapentin 300 mg capsule 300 mg PO 1600 08/11/24 08/10/24 History gabapentin 300 mg capsule 600 mg PO QHS 08/11/24 08/10/24 History hydromorphone 4 mg tablet 4 mg PO Q6H PRN pain 08/11/24 08/10/24 History sildenafil 100 mg tablet 100 mg PO PRN 08/11/24 Unknown History Allergy/AdvReac Type Severity Reaction Status Date / Time ampicillin AdvReac Nausea/Vom/ Verified 07/04/24 14:41 Diarrhea Family History Grandfather Alcoholism Father Heart disease Myocardial infarction Hypertension Depression High cholesterol Mother Cancer cervical and colon Depression Sister Asthma Depression Grandmother Diabetes Surgical History H/O hand surgery S/P laparoscopic procedure S/P ORIF (open reduction internal fixation) fracture History of tonsillectomy History of lung biopsy Total knee replacement status H/O spinal fusion H/O hernia repair Gastric bypass status for obesity Social History household members: spouse housing: house current occupational status: employed 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 Smoking Status: Never smoker alcohol intake: current alcohol intake frequency: 0-2 drinks per day details: Drinks 1 shot of whiskey with soda daily substance use type: does not use seatbelt use: always do you feel safe at home: Yes ROS ROS ED ROS Narrative Generalized weakness Constitutional Constitutional ED: Denies chills, fever(s) or weight loss Eyes Eyes: Denies change in vision or diplopia ENT ENT ED: Reports rhinorrhea; Denies ear pain or sore throat Cardiovascular Cardiovascular: Denies chest pain, orthopnea, palpitations or racing heartbeat Respiratory/Chest Respiratory/Chest: Reports cough, dyspnea and dyspnea on exertion; Denies orthopnea Gastrointestinal Gastrointestinal: Denies abdominal pain, diarrhea, nausea or vomiting Genitourinary Genitourinary ED: Denies dysuria, hematuria or urinary frequency Musculoskeletal Musculoskeletal: Reports back pain and myalgias; Denies arthralgias Integumentary Denies abscess or rash Neurologic Neurologic: Denies headache(s) or weakness Psychiatric Psychiatric: Reports anxiety; Denies depression, suicidal ideation or suicidal thoughts Endocrine Endocrinology: Denies polydipsia, polyphagia or polyuria Allergic/Immunologic Allergic/Immunologic ED: Denies mouth swelling, tongue swelling or urticaria EXAM Physical Exam Narrative Exam Narrative: 59-year-old laying back in the bed head is tilted back mouth is open. He does not speak much but when he does he can speak in a full sentence. He has upper airway rhonchi that improved with coughing he does not appear in any distress Const Vital Signs: 08/11/24 07:48 08/11/24 07:56 08/11/24 08:25 Temperature 97.6 F L 97.6 F L Temperature Source Oral Oral Pulse Rate 91 89 Respiratory Rate 18 18 Respiratory Effort Normal Short of Breath Respiratory Depth Normal Respiratory Pattern Normal Blood Pressure 126/115 H 111/49 L Blood Pressure Mean 118 69 Pulse Ox 94 92 Oxygen Delivery Method Room Air Room Air Room Air 08/11/24 08:57 08/11/24 10:00 08/11/24 10:02 Temperature 97.8 F 97.8 F Temperature Source Oral Oral Pulse Rate 87 91 Respiratory Rate 18 16 Respiratory Effort Respiratory Depth Respiratory Pattern Blood Pressure 122/67 H 115/59 L 115/59 L Blood Pressure Mean 85 77 77 Pulse Ox 93 95 Oxygen Delivery Method Room Air Room Air 08/11/24 11:00 Temperature 97.6 F L Temperature Source Oral Pulse Rate 93 Respiratory Rate 13 Respiratory Effort Respiratory Depth Respiratory Pattern Blood Pressure 132/63 H Blood Pressure Mean 86 Pulse Ox 93 Oxygen Delivery Method Room Air Positive well nourished, well developed and obese General Appearance ED: well developed and NAD Nutritional Appearance: obese HEENT Reports normocephalic, head/scalp atraumatic and moist mucous membranes Eyes PERRL and EOMs intact bilaterally Neck no lymphadenopathy, supple and no JVD Resp normal respiratory effort and clear to auscultation bilaterally Auscultation: rhonchi Cardio regular rate, regular rhythm and no murmurs GI normal to inspection, nondistended, normoactive bowel sounds and non-tender Palpation: soft Back/Spine no CVA tenderness and normal ROM Extremity General Extremety ED: Yes edema General Extremity: edema bilateral lower extremity Details: mild Neuro oriented x3 and CN's II-XII intact bilaterally Sensorium / Orientation: alert Motor Exam: strength 5/5 throughout Skin no rashes or lesions noted and no wounds MDM MDM MDM Narrative Medical decision making narrative: Differential diagnosis includes but not limited to pneumonia bronchitis congestive heart failure sepsis renal/liver dysfunction dehydration UTI Patient's white count is elevated 22.2 hemoglobin 12.2 platelet count of 339 INR is 1.1 PTT 25.8. Creatinine is significantly elevated off its baseline at 3.03 with a BUN of 34 normal sodium and potassium. Glucose is 117 normal LFTs. Urinalysis demonstrates 5-10 white cells 1+ bacteria 2+ calcium oxalate crystals no nitrates. BMP is normal at 38.5 troponin is 5. My independent interpretation of the chest x-ray is no definitive infiltrate. CT of the chest abdomen pelvis without contrast due to the renal function was obtained which is negative for significant hydronephrosis or perinephric stranding. No intra-abdominal findings to explain the patient's symptomology. I do not see a definitive infiltrate on his chest chest CT. Please see radiologist read for full details. Patient received a liter of IV fluids as well as ceftriaxone and azithromycin. He requested his home pain medications which were administered. Plan of care is to admission to hospital History & Record Review Discussion w/independent historian: EMS personnel, Patient and Significant other Additional record(s) reviewed:: Prior inpatient record, Prior ED visit and Prior labs Lab Data Attestation: I reviewed the patient's lab results. Labs: Laboratory Results - last 24 hr 08/11/24 08/11/24 08:00 10:25 WBC 22.2 H RBC 3.94 L Hgb 12.2 L Hct 37.9 L MCV 96.2 H MCH 31.0 MCHC 32.2 RDW Std Deviation 49.9 H RDW Coeff of Cari 14.0 Plt Count 339 MPV 9.5 Immature Gran % (Auto) 0.800 Neut % (Auto) 87.2 H Lymph % (Auto) 6.5 L [place] % (Auto) 5.1 Eos % (Auto) 0.1 Baso % (Auto) 0.3 Absolute Neuts (auto) 19.4 H Absolute Lymphs (auto) 1.44 Nucleated RBC % 0 PT 14.1 INR 1.1 APTT 25.8 Sodium 136 Potassium 5.1 Chloride 103 Carbon Dioxide 22.0 Anion Gap 10 BUN 34 H Creatinine 3.03 H Estim Creat Clear Calc 36.00 Est GFR (MDRD) Af Amer 27 L Est GFR (MDRD) Non-Af 23 L BUN/Creatinine Ratio 11.2 Glucose 117 H Lactic Acid 2.1 H* Calcium 8.5 Total Bilirubin 0.70 AST 20 ALT 34 Alkaline Phosphatase 98 Troponin I High Sens 5 B-Natriuretic Peptide 38.8 Total Protein 7.2 Albumin 3.4 Globulin 3.8 Albumin/Globulin Ratio 0.9 Urine Color Yellow Urine Clarity Clear Urine pH 5.0 Ur Specific Margaret 1.015 Urine Protein 30 H Urine Glucose (UA) Normal Urine Ketones Negative Urine Occult Blood 10 H Urine Nitrite Negative Urine Bilirubin Negative Urine Urobilinogen Normal Ur Leukocyte Esterase 25 H Urine RBC 0 SEEN Urine WBC 5-10 SEEN Ur Squamous Epith Cells 0 SEEN Ur Transition Epith Cell 0-5 SEEN Calcium Oxalate Crystal 2+ Urine Bacteria 1+ Hyaline Casts 0-5 SEEN Fine Granular Casts 0-5 SEEN Urine Mucus 0 SEEN Radiography Diagnostic Testing: Clinical Impression(s) from Imaging Studies Chest X-Ray 08/11/24 08:17 IMPRESSION: No radiographic evidence of acute cardiopulmonary disease and unchanged. Electronically Signed: Jason Feliz MD at 8:33 EST , Abdomen/Pelvis CT 08/11/24 09:06 IMPRESSION: 1. No acute findings in the abdomen or pelvis. 2. Chronic tree-in-bud groundglass opacities in the posterior lower lobes are unchanged. 3. Mild decrease in small anterior pericardial effusion. 4. No significant interval change when compared to 03/08/2024. Electronically Signed: Jason Feliz MD at 10:07 EST , Chest CT 08/11/24 09:06 IMPRESSION: 1. Right upper lobe perifissural nodule containing 2 areas of calcifications is presumably from prior granulomatous exposure. This measures 1.4 x 0.6 cm and is unchanged. 2. Multiple tree in bud centrilobular infiltrates/groundglass opacities in the posterior lower lobes. These were present previously and are chronic findings. Electronically Signed: Jason Feliz MD at 9:58 EST , EKG Initial EKG: Attestation: I personally reviewed and interpreted this EKG as follows: Comments: Normal sinus rhythm ventricular rate of 93 bpm Management Discussion w/another healthcare provider: Hospitalist (Dr Gordon) Discharge Plan Dx/Rx/DC Orders Clinical Impression: Respiratory illness, SLAVA (acute kidney injury), Elevated lactic acid level Disposition Disposition: Acute Care Hospital [facility]
--- NOTE | 2024-08-11 08:17 | RAD_ITS ---
EXAM: XR CHEST, 1 VIEW CLINICAL INDICATION: cough TECHNIQUE: Frontal view of the chest. COMPARISON: 10/01/2023. FINDINGS: LUNGS AND PLEURAL SPACES: Unremarkable. No consolidation or edema. No pneumothorax. No effusion. HEART: Unremarkable. Cardiac silhouette not enlarged. MEDIASTINUM: Central airways and mediastinal contour are unremarkable. BONES/JOINTS: Unremarkable. No acute fracture. SOFT TISSUES: Unremarkable. RAD/Chest 1 View (Portable) IMPRESSION: No radiographic evidence of acute cardiopulmonary disease and unchanged. Electronically Signed: Jason Feliz MD at 8:33 EST ,
[2024-08-11 08:32] LABS: Absolute Lymphocyte Count 1.44 X10^3/uL (0.83-4.51); Absolute Neutrophil Count 19.4 X10^3/uL (2.0-7.7); Basophil# 0.06 X10^3/uL; Basophil% 0.3 % (0-1); Eosinophil# 0.03 X10^3/uL; Eosinophils% 0.1 % (0-5); Hematocrit 37.9 % (40-54); Hemoglobin 12.2 g/dL (13.0-16.5); Lymphocyte # 1.44 X10^3/ul (0.83-4.51); Lymphocyte % 6.5 % (19-41); Mean Corp Hgb Conc 32.2 g/dL (32-36); Mean Corpuscular Volume 96.2 fL (80-94); Mean Platelet Vol. 9.5 fl (6.2-12.0); Monocyte# 1.13 X10^3/uL; Monocyte% 5.1 % (0-10); NRBC Flagged by Analyzer 0 % (0-5); Neutrophil # 19.35 X10^3/uL (2.7-7.7); Neutrophil % 87.2 % (47-70); Platelet Count 339 K/mm3 (150-450); RBC Distribution Width SD 49.9 fl (35.1-43.9); Red Blood Count 3.94 M/mm3 (4.6-6.2); White Blood Count 22.2 K/mm3 (4.4-11.0)
[2024-08-11 08:36] LABS: International Normalized Ratio 1.1; Partial Thromboplast Time 25.8 Seconds (24.1-36.2); Prothrombin Time (Protime)PT. 14.1 SECONDS (11.7-14.9)
[2024-08-11 08:40] LABS: ALB/GLOB Ratio 0.9 RATIO (0.9-2.4); AST(SGOT) 20 U/L (15-37); Alanine Aminotransfer ALT/SGPT 34 U/L (16-61); Albumin, Serum 3.4 g/dL (3.2-5.0); Alkaline Phosphatase 98 U/L (45-117); Anion Gap 10 (5-15); BUN 34 mg/dL (7-18); BUN/Creat Ratio 11.2 RATIO (10-20); Calcium,Total 8.5 mg/dL (8.5-10.1); Chloride 103 mmol/L (98-107); Creatinine, Serum 3.03 mg/dL (0.70-1.30); EST Glomerular Filtration Rate 23 mL/min (>60); Est Glom Filt Rate - Afr Amer 27 mL/min (>60); Globulin 3.8 g/dL (2.2-4.2); Glucose 117 mg/dL (74-106); Potassium 5.1 mmol/L (3.5-5.1); Protein, Total 7.2 g/dL (6.4-8.2); Sodium Level 136 mmol/L (136-145); Troponin-I HS 5 pg/mL (3.0-78.0)
[2024-08-11 08:56] LABS: Lactic Acid 2.1 mmol/L (0.4-1.9)
--- NOTE | 2024-08-11 09:01 | NURSING ---
BASED ON SEPSIS CRITERIA PT SEPSIS ALERT. NOTIFIED.
--- NOTE | 2024-08-11 09:06 | CT_ITS ---
EXAM: CT ABDOMEN AND PELVIS WITHOUT INTRAVENOUS CONTRAST CLINICAL INDICATION: Renal failure. TECHNIQUE: Helically acquired images were obtained of the abdomen and pelvis without intravenous contrast. This CT exam was performed using one or more of the following dose reduction techniques: automated exposure control, adjustment of the mA and/or kV according to patient size, and/or use of iterative reconstruction technique. RADIATION DOSE: CTDIvol = 26.08 mGy, DLP = 1441.32 mGy-cm COMPARISON: CT abdomen and pelvis without contrast 03/08/2024. FINDINGS: LOWER THORAX: Faint centrilobular groundglass opacities in the posterior lower lobes are chronic findings. Mild decrease in anterior pericardial effusion. ABDOMEN: LIVER: Unremarkable. Homogeneous. GALLBLADDER AND BILE DUCTS: Surgical clips in the gallbladder fossa area from cholecystectomy. No intrahepatic or extrahepatic biliary ductal dilatation. PANCREAS: Unremarkable. No focal cystic mass. SPLEEN: Unremarkable. Normal size without focal cystic or solid mass. ADRENALS: Unremarkable. No nodules. KIDNEYS AND URETERS: Unremarkable. Normal renal size and position. No hydronephrosis. STOMACH AND BOWEL: Surgical clips in the stomach. Surgical sutures in the small bowel in the midabdomen. No stomach or bowel distention. No focal inflammatory change. PELVIS: APPENDIX: The appendix is not visualized but there are no secondary signs of acute appendicitis. BLADDER: Unremarkable. REPRODUCTIVE: Unremarkable as visualized. No mass. ABDOMEN and PELVIS: INTRAPERITONEAL SPACE: Unremarkable. No ascites or other fluid collection. No free air. BONES/JOINTS: Metallic rods and pedicular screws causing streak artifacts with disc implant at L5-L6 disc space level. There are 6 lumbar type vertebral bodies due to lumbarization of S1. Mild anterior wedging of the upper T11 vertebral body is from remote injury and unchanged. L4-L5 degenerative disc space narrowing with degenerative vacuum phenomenon and is unchanged. No lytic or blastic lesions. SOFT TISSUES: Surgical clips in the anterior abdominal wall. No discrete abdominal or pelvic wall hernia. VASCULATURE: Unremarkable. Abdominal aorta is non-dilated. LYMPH NODES: Calcified node in the right hilum. CT/Abdomen/Pelvis without Cont IMPRESSION: 1. No acute findings in the abdomen or pelvis. 2. Chronic tree-in-bud groundglass opacities in the posterior lower lobes are unchanged. 3. Mild decrease in small anterior pericardial effusion. 4. No significant interval change when compared to 03/08/2024. Electronically Signed: Jason Feliz MD at 10:07 EST ,
--- NOTE | 2024-08-11 09:06 | CT_ITS ---
EXAM: CT CHEST WITHOUT INTRAVENOUS CONTRAST CLINICAL INDICATION: Pneumonia. TECHNIQUE: Helically acquired images were obtained of the chest without intravenous contrast. This CT exam was performed using one or more of the following dose reduction techniques: automated exposure control, adjustment of the mA and/or kV according to patient size, and/or use of iterative reconstruction technique. RADIATION DOSE: CTDIvol = 22.37 mGy, DLP = 905.08 mGy-cm COMPARISON: CTA chest 03/08/2024. FINDINGS: LUNGS AND PLEURAL SPACES: Right upper lobe perifissural nodule containing 2 areas of calcifications is presumably from prior granulomatous exposure. This measures 1.4 x 0.6 cm and is unchanged. Multiple tree in bud centrilobular infiltrates/groundglass opacities in the posterior lower lobes. These were present previously and are chronic findings. No pleural effusion or thickening. No pneumothorax. HEART: Unremarkable. Heart size is normal. Normal cardiac size. Mild decrease in anterior pericardial effusion. No visible coronary artery calcifications. MEDIASTINUM: Unremarkable. Esophagus is unremarkable. No hiatal hernia. No mediastinal or hilar lymphadenopathy. THYROID: Unremarkable. No thyroid lesions. BONES/JOINTS: Mild old anterior wedge compression fractures of the upper T8 and upper T11 vertebral bodies. No lytic or blastic lesions. VASCULATURE: See above. LYMPH NODES: Calcified nodes in the right hilum. GALLBLADDER AND BILE DUCTS: Surgical clips in the gallbladder fossa from cholecystectomy. CT/Chest without Contrast IMPRESSION: 1. Right upper lobe perifissural nodule containing 2 areas of calcifications is presumably from prior granulomatous exposure. This measures 1.4 x 0.6 cm and is unchanged. 2. Multiple tree in bud centrilobular infiltrates/groundglass opacities in the posterior lower lobes. These were present previously and are chronic findings. Electronically Signed: Jason Feliz MD at 9:58 EST ,
[2024-08-11] MEDS: 0.9% Normal Saline (1000mL) 1,000 ML 999 ML IV (09:19)
[2024-08-11 09:47] LABS: BNP,B-Type NATRIURETIC PEPTIDE 38.8 pg/mL (0-100)
--- NOTE | 2024-08-11 10:13 | CM.ED ---
Social work/validation of advance directives Reason for referral: validation of advance directives Referral source: case find This SW identified need to validate patient advance directives. This SW entered patient's room, introducing self and role at [facility]. Patient welcomed SW visit and asked for patient's , Estella, to remain in room at patient's bedside. This SW actively listened to patient and patient's discuss patient's recent health issues, including [facility] admission in February 2024 and continual illness since May 2024. Patient validated advance directives on file since February 2024: patient's , Estella, is first HCPOA and patient's daughter, Lianna, is second HCPOA. Patient stated believing that patient would need oxygen at home due to consistently having trouble breathing. Patient is still receiving a full work up in the ED, so SW to follow with discharge planning needs at a later time. Patient and patient's denied further needs at this time. Brittney Verdugo, BUS PERSON, PUMP TENDER
[2024-08-11 10:45] LABS: Mucous, Urine 0 SEEN /hpf (<or=2+); Red Blood Cells-Urine 0 SEEN /hpf (0-5); Squamous Epithelial Cells - UA 0 SEEN /hpf (0-5)
[2024-08-11 11:20] LABS: Glucose, Dipstick Normal (Normal); Ketone-Dipstick Negative (Negative); Leukocyte Esterase-Dipstick 25 /ul (Negative); Nitrite-Dipstick Negative (Negative); Occult Blood-Urine 10 /ul (Negative); Protein-Dipstick 30 mg/dl (Negative); Specific Gravity, Urine 1.015 (1.002-1.030); Urine Bilirubin Dipstick Negative (Negative); Urine Urobilinogen Normal (Normal)
[2024-08-11 11:21] LABS: Color, Urine Yellow (Yellow); Urine Clarity Clear (Clear)
[2024-08-11 11:23] LABS: Fine Granular Cast- Urine 0-5 SEEN /lpf (0-5); Hyaline Cast 0-5 SEEN /lpf (0-5)
[2024-08-11 11:35] LABS: White Blood Cells 5-10 SEEN /hpf (0-5)
[2024-08-11 11:36] LABS: Transitional Epithelial - Ur 0-5 SEEN /hpf (0-5)
[2024-08-11 11:37] LABS: Bacteria 1+ /hpf (None Seen); Calcium Oxalate Crystals Ur 2+ /hpf (<or=2+)
[2024-08-11] MEDS: Ceftriaxone 1 GM/50 ML BAG IV (11:39)
--- NOTE | 2024-08-11 11:42 | CM.ED ---
Social work/validation of advance directives Reason for referral: validation of advance directives Referral source: case find This SW identified need to validate patient advance directives. This SW entered patient's room, introducing self and role at [facility]. Patient welcomed SW visit and asked for patient's , Estella, to remain in room at patient's bedside. This SW actively listened to patient and patient's discuss patient's recent health issues, including [facility] admission in February 2024 and continual illness since May 2024. Patient validated advance directives on file since February 2024: patient's , Estella, is first HCPOA and patient's daughter, Lianna, is second HCPOA. Patient stated believing that patient would need oxygen at home due to consistently having trouble breathing. Patient is still receiving a full work up in the ED, so SW to follow with discharge planning needs at a later time. Patient and patient's denied further needs at this time. Brittney Verdugo, GENERAL PEDIATRICIAN, [employer]
[2024-08-11] MEDS: HYDROmorphone 2 MG TABLET 4 MG PO ×3 (11:57→20:00)
[2024-08-11] MEDS: Gabapentin 600 MG Tablet PO (11:58)
[2024-08-11] MEDS: Baclofen 10 MG Tablet PO ×3 (11:58→21:48)
[2024-08-11] MEDS: Azithromycin 500 MG in 0.9% Normal Saline (250mL Bag) 250 ML 255 MG IV (12:03)
[2024-08-11 12:15] LABS: Reflex Lactate? Y
--- NOTE | 2024-08-11 12:32 | CASEMGMT ---
Care Management Face to Face with patient for initial transition planning/care coordination assessment in the ED. This writer producer introduced self and role at [facility]. Patient alert and oriented. Patient willing to participate in assessment and is able to answer all questions for patient appropriately. Patient's , Estella, bedside. Patient gave permission to speak in front of patient's . Admitting Diagnosis: Respiratory illness, SLAVA (acute kidney injury), Elevated lactic acid level Other diagnosis history: Sleep apnea, Anemia, Pneumonia, Leg fracture PCP: Leonor Obregon Specialists: An Ridley, medical parasitologist. Dr. Harrell, pain management. Dr. Walsh, GI at [facility]. Preferred Pharmacy: [facility] Insurance: [place] Prescription Benefit: yes Living Will/HPOA: yes, both documents on file. First HCPOA is , Estella; second HCPOA is daughter, Lianna. LNOK: , Estella. Daughter, Lianna. Living Arrangements: lives with , single story home with 3 steps to enter, railing both inside and outside the home, independent with all ADLs. Transportation: patient and both drive. DME: shower chair, raised toilet, cane, walker, wheelchair, lift chair, grab bars, nebulizer. Patient also has a CPAP, but patient reports not being able to use it due to anxiety/belief that patient will be smothered while sleeping (patient reports working with patient's PCP regarding alternatives for patient's sleep apnea). HHC: none SNF/Rehab: none Patient goals: Patient wishes to discharge home and states possibility of needing HHC if determined I need IV antibiotics. Patient stated being frustrated with patient's medical situation over the last 2 years and patient's agreed. Patient stated that when patient is sent home without IV antibiotics and given oral medication instead, patient gets the same infection again. Patient also stated patient may need an O2 prescription for home due to O2 dropping often at home. Disposition Plan: admission to acute; RN CM/SW to follow for discharge planning needs that may arise. Brittney Verdugo, HOSPICE COORDINATOR, [employer] MACHINE WORKER
[2024-08-11 13:04] LABS: Lactic Acid 0.8 mmol/L (0.4-1.9)
[2024-08-11] MEDS: 0.9% Normal Saline (1000mL) 1,000 ML 150 ML IV ×2 (16:11→23:01)
--- NOTE | 2024-08-11 16:45 | HP.PCM.HOS_ITS ---
HPI - General General Date of Admission: 08/11/24 Date of Service: 08/11/24 Chief Complaint: weakness. HPI Narrative ANGELA NG, is a 59 M who presents presents with weakness. Is patient with a history of chronic pain due to history of back surgeries that did did not lead to improvement. Patient chronically takes hydromorphone and gabapentin. Today he got up and felt very weak and unable to walk. This was sudden. He states he has been feeling well but has noticed increased myoclonus of his upper extremities. Initially states that myoclonus is new but the later states that it gets worse when he gets sick and had this previously with Pregabalin but that was discontinued and patient has been started on gabapentin. 3 presented to the emergency room for evaluation. His white count was noted to be 22,000, his creatinine was 3.03 which was up from February of last year at 0.7. CT abdomen pelvis was unremarkable. Chest x-ray showed right upper lobe perifissural nodule and 2 areas of calcification. Multiple tree-in-bud centrilobular infiltrate/groundglass opacities in the posterior lower lobes. Noted that these are present and appear to be chronic findings. Patient received IV fluids as well as antibiotics with ceftriaxone and azithromycin. [facility] Medical History (Updated 08/11/24 @ 16:[address] Petr Gordon, ) Pneumonia Asthma DVT (deep venous thrombosis) GERD (gastroesophageal reflux disease) Microscopic colitis Sleep apnea Anemia Leg fracture Intestinal adhesions with partial obstruction Migraines Hypertension Chronic pain COVID Home Medications ?Medication ?Instructions ?Recorded ?Last Taken ?Type amitriptyline 10 mg tablet 30 mg PO QHS DEPRESSION 04/05/22 08/10/24 History lisinopril 40 mg tablet 40 mg PO QHS BLOOD PRESSURE 04/05/22 08/10/24 History trazodone 100 mg tablet 200 mg PO QHS INSOMNIA 04/05/22 08/10/24 History baclofen 10 mg tablet 10 mg PO TID MUSCLE SPASMS 10/01/23 08/10/24 History triamcinolone acetonide 55 mcg 2 spray intranasal DAILY allergies 10/01/23 08/10/24 Rx nasal spray aerosol (Nasacort) #16.9 mL budesonide 3 mg 3 mg PO QHS CROHNS DISEASE 03/08/24 08/10/24 History capsule,delayed,extended release [id number]-[id number]-[id number] 2 tab PO Q4H PRN HEADACHE 03/08/24 Unknown History 50 mg-325 mg-40 mg tablet gabapentin 300 mg capsule 300 mg PO DAILY NEUROPATHY 03/08/24 08/10/24 History amlodipine 2.5 mg tablet 2.5 mg PO QHS Blood pressure 03/09/24 08/10/24 History albuterol sulfate 2.5 mg/3 mL 2.5 mg inhalation Q4H PRN wheezing 08/11/24 08/10/24 History (0.083 %) solution for nebulization albuterol sulfate 90 mcg/actuation 2 inh inhalation Q4H PRN shortness 08/11/24 Unknown History aerosol inhaler (Ventolin HFA) of breath or wheezing gabapentin 300 mg capsule 300 mg PO 1600 NEUROPATHY 08/11/24 08/10/24 History gabapentin 300 mg capsule 600 mg PO QHS NEUROPATHY 08/11/24 08/10/24 History hydromorphone 4 mg tablet 4 mg PO Q6H PRN pain 08/11/24 08/10/24 History nystatin 100,000 unit/gram topical 1 applic topical TID SKIN 08/11/24 08/10/24 History powder (Nyamyc) IRRITATION sildenafil 100 mg tablet 100 mg PO PRN ERECTILE DYSFUNCTION 08/11/24 Unknown History Allergy/AdvReac Type Severity Reaction Status Date / Time ampicillin AdvReac Nausea/Vom/ Verified 07/04/24 14:41 Diarrhea Family History Grandfather Alcoholism Father Heart disease Myocardial infarction Hypertension Depression High cholesterol Mother Cancer cervical and colon Depression Sister Asthma Depression Grandmother Diabetes Surgical History History of cholecystectomy H/O hand surgery S/P laparoscopic procedure S/P ORIF (open reduction internal fixation) fracture History of tonsillectomy History of lung biopsy Total knee replacement status H/O spinal fusion H/O hernia repair Gastric bypass status for obesity Social History household members: spouse housing: house current occupational status: employed 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 Has felt short of breath. No fever or chills. Noted increased myoclonus with shortness of breath. All review of systems were negative except as mentioned above in the history of present illness and the other review of systems. Vital Signs Vital Signs Vital Signs: 08/11/24 07:48 08/11/24 07:56 08/11/24 08:25 Temperature 36.4 C L 36.4 C L Temperature Source Oral Oral Pulse Rate 91 89 Respiratory Rate 18 18 Respiratory Effort Normal Short of Breath Respiratory Depth Normal Respiratory Pattern Normal Blood Pressure 126/115 H 111/49 L Blood Pressure Mean 118 69 Blood Pressure Source Blood Pressure Position Blood Pressure Location Pulse Ox 94 92 Oxygen Delivery Method Room Air Room Air Room Air 08/11/24 08:57 08/11/24 10:00 08/11/24 10:02 Temperature 36.6 C 36.6 C Temperature Source Oral Oral Pulse Rate 87 91 Respiratory Rate 18 16 Respiratory Effort Respiratory Depth Respiratory Pattern Blood Pressure 122/67 H 115/59 L 115/59 L Blood Pressure Mean 85 77 77 Blood Pressure Source Blood Pressure Position Blood Pressure Location Pulse Ox 93 95 Oxygen Delivery Method Room Air Room Air 08/11/24 10:03 08/11/24 11:00 08/11/24 11:00 Temperature 36.4 C L Temperature Source Oral Pulse Rate 89 93 90 Respiratory Rate 17 13 21 H Respiratory Effort Respiratory Depth Respiratory Pattern Blood Pressure 115/79 132/63 H 117/57 L Blood Pressure Mean 90 86 76 Blood Pressure Source Blood Pressure Position Blood Pressure Location Pulse Ox 96 93 98 Oxygen Delivery Method Room Air 08/11/24 12:00 08/11/24 12:00 08/11/24 12:00 Temperature 36.4 C L Temperature Source Oral Pulse Rate 85 84 Respiratory Rate 17 17 Respiratory Effort Respiratory Depth Respiratory Pattern Blood Pressure 128/63 H 128/63 H 128/63 H Blood Pressure Mean 80 84 84 Blood Pressure Source Blood Pressure Position Blood Pressure Location Pulse Ox 97 95 Oxygen Delivery Method Room Air 08/11/24 12:35 08/11/24 13:00 08/11/24 14:00 Temperature 36.6 C 36.4 C L Temperature Source Oral Pulse Rate 89 90 84 Respiratory Rate 19 H 17 16 Respiratory Effort Respiratory Depth Respiratory Pattern Blood Pressure 126/69 H 110/62 130/62 H Blood Pressure Mean 88 78 84 Blood Pressure Source Blood Pressure Position Blood Pressure Location Pulse Ox 93 93 97 Oxygen Delivery Method Room Air 08/11/24 15:50 Temperature 36.6 C Temperature Source Oral Pulse Rate 86 Respiratory Rate 18 Respiratory Effort Respiratory Depth Respiratory Pattern Blood Pressure 132/69 H Blood Pressure Mean 90 Blood Pressure Source Monitor Blood Pressure Position Semi-Fowlers Blood Pressure Location Right Forearm Pulse Ox 98 Oxygen Delivery Method Room Air Weight Weight: 122 kg Body Mass Index (BMI) 36.4 Physical Exam Const alert and no apparent distress Constitutional Narrative: Speaking very fluidly without any conversational dyspnea. On room air. No respiratory distress. General Appearance: cooperative HEENT normocephalic and head/scalp atraumatic Eyes Eyes Narrative: Glasses. No icterus Resp normal respiratory effort and no retractions Resp Narrative: Coarse upper respiratory breath sounds radiating throughout. Cardio regular rate, regular rhythm, S1 normal heart sound and S2 normal heart sound GI normal to inspection, nondistended, normoactive bowel sounds, soft to palpation, non-tender and non-distended Extremity normal to inspection Skin Skin Narrative: No rashes or lesions Neuro moves all extremities Neuro Narrative: Noted myoclonus of bilateral upper extremities. Sensorium / Orientation: awake and alert Results Lab / Micro Data 08/11/24 08:00 08/11/24 08:00 Labs: Laboratory Results - last 24 hr 08/11/24 08:00: WBC 22.2 H, RBC 3.94 L, Hgb 12.2 L, Hct 37.9 L, MCV 96.2 H, MCH 31.0, MCHC 32.2, RDW Std Deviation 49.9 H, RDW Coeff of Cari 14.0, Plt Count 339, MPV 9.5, Immature Gran % (Auto) 0.800, Neut % (Auto) 87.2 H, Lymph % (Auto) 6.5 L, [place] % (Auto) 5.1, Eos % (Auto) 0.1, Baso % (Auto) 0.3, Absolute Neuts (auto) 19.4 H, Absolute Lymphs (auto) 1.44, Nucleated RBC % 0, PT 14.1, INR 1.1, APTT 25.8, Sodium 136, Potassium 5.1, Chloride 103, Carbon Dioxide 22.0, Anion Gap 10, BUN 34 H, Creatinine 3.03 H, Estim Creat Clear Calc 36.00, Est GFR (MDRD) Af Amer 27 L, Est GFR (MDRD) Non-Af 23 L, BUN/Creatinine Ratio 11.2, Glucose 117 H, Lactic Acid 2.1 H*, Calcium 8.5, Total Bilirubin 0.70, AST 20, ALT 34, Alkaline Phosphatase 98, Troponin I High Sens 5, B-Natriuretic Peptide 38.8, Total Protein 7.2, Albumin 3.4, Globulin 3.8, Albumin/Globulin Ratio 0.9 08/11/24 10:25: Urine Color Yellow, Urine Clarity Clear, Urine pH 5.0, Ur Specific [place] 1.015, Urine Protein 30 H, Urine Glucose (UA) Normal, Urine Ketones Negative, Urine Occult Blood 10 H, Urine Nitrite Negative, Urine Bilirubin Negative, Urine Urobilinogen Normal, Ur Leukocyte Esterase 25 H, Urine RBC 0 SEEN, Urine WBC 5-10 SEEN, Ur Squamous Epith Cells 0 SEEN, Ur Transition Epith Cell 0-5 SEEN, Calcium Oxalate Crystal 2+, Urine Bacteria 1+, Hyaline Casts 0-5 SEEN, Fine Granular Casts 0-5 SEEN, Urine Mucus 0 SEEN 08/11/24 12:25: Lactic Acid 0.8 Micro: Microbiology 08/11/24 08:15 Mucosa - Nose SARS-CoV-2, Influenza & RSV (PCR) - Final Imaging Radiology Impression Chest X-Ray 08/11/24 08:17 IMPRESSION: No radiographic evidence of acute cardiopulmonary disease and unchanged. Electronically Signed: Jason Feliz MD at 8:33 EST , Abdomen/Pelvis CT 08/11/24 09:06 IMPRESSION: 1. No acute findings in the abdomen or pelvis. 2. Chronic tree-in-bud groundglass opacities in the posterior lower lobes are unchanged. 3. Mild decrease in small anterior pericardial effusion. 4. No significant interval change when compared to 03/08/2024. Electronically Signed: Jason Feliz MD at 10:07 EST , Chest CT 08/11/24 09:06 IMPRESSION: 1. Right upper lobe perifissural nodule containing 2 areas of calcifications is presumably from prior granulomatous exposure. This measures 1.4 x 0.6 cm and is unchanged. 2. Multiple tree in bud centrilobular infiltrates/groundglass opacities in the posterior lower lobes. These were present previously and are chronic findings. Electronically Signed: Jason Feliz MD at 9:58 EST , Assessment & Plan Assessment/Plan (1) SLAVA (acute kidney injury): PLAN: Unclear etiology. Patient does not appear to be dehydrated. Continue with IV fluids Check kidney ultrasound. Check urine studies. Hold off on nephrology evaluation. Certainly no need for renal replacement therapy at this time. (2) Elevated lactic acid level: PLAN: Patient not septic. Unclear significance. No additional workup at this time. May be related with the acute kidney injury. (3) Pneumonia: PLAN: Suspected pneumococcal although his CAT scan does not appear to be any different than previous. He does have a history of what sounds like histoplasmosis in the past. Will check pneumonia workup. Antibiotics with ceftriaxone and azithromycin. 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 I would be concerned about this being at least partially if not all being attributable to his gabapentin and SLAVA. Organ to hold off his gabapentin. Discussed with the patient and he is agreeable at this time. Will observe. No additional workup necessary at this point. PLAN: Plan Chronic pain. Patient takes hydromorphone. He is very particular about the time that he does take that. Got the information from him about the time that he does take and that will be given to him on a scheduled basis. VTE prophylaxis with subcu heparin. Charges/Coding Visit Charges Inpatient E&M: 54053 Init Hosp L3
--- NOTE | 2024-08-11 16:52 | US_ITS ---
EXAM: US RETROPERITONEAL LIMITED, RENAL CLINICAL INDICATION: SLAVA TECHNIQUE: Limited grayscale and color Doppler sonographic evaluation of the retroperitoneum was performed. COMPARISON: August 11, [address] abdomen and pelvis. FINDINGS: RIGHT KIDNEY: Unremarkable. No hydronephrosis. No shadowing calculus. No focal lesion. No perinephric collection is demonstrated. LEFT KIDNEY: Unremarkable. No hydronephrosis. No shadowing calculus. No focal lesion. No perinephric collection is demonstrated. US/Kidney and Bladder IMPRESSION: Unremarkable limited retroperitoneal ultrasound. Electronically Signed: Nick Golden MD at 19:33 EST ,
[2024-08-11 21:38] LABS: Urine Sodium 56 mmol/L (Not Establ.)
[2024-08-11] MEDS: Heparin Injection (Vial) 5,000 UNIT/ML VIAL 5000 UNIT SC (21:46)
[2024-08-11] MEDS: Nystatin Powder 15gm Bottle 1 APPLIC TOPICAL (21:47)
[2024-08-11] MEDS: guaiFENesin 1,200 MG Tablet 1200 MG PO (21:47)
[2024-08-11] MEDS: Amitriptyline 10 MG Tablet 30 MG PO (21:48)
[2024-08-11] MEDS: traZODone 100 MG Tablet 200 MG PO (21:48)
[2024-08-11] MEDS: amLODIPine 2.5 MG Tablet PO (21:49)
[2024-08-11] MEDS: Budesonide 3 MG CAPSULE.EC PO (21:49)
[2024-08-12 06:22] LABS: Absolute Lymphocyte Count 1.67 X10^3/uL (0.83-4.51); Absolute Neutrophil Count 10.1 X10^3/uL (2.0-7.7); Basophil# 0.04 X10^3/uL; Basophil% 0.3 % (0-1); Eosinophil# 0.16 X10^3/uL; Eosinophils% 1.2 % (0-5); Hematocrit 33.7 % (40-54); Hemoglobin 11.2 g/dL (13.0-16.5); Lymphocyte # 1.67 X10^3/ul (0.83-4.51); Mean Corp Hgb Conc 33.2 g/dL (32-36); Mean Corpuscular Hgb 31.3 pg (27.0-32.0); Mean Corpuscular Volume 94.1 fL (80-94); Mean Platelet Vol. 9.5 fl (6.2-12.0); Monocyte# 0.83 X10^3/uL; Monocyte% 6.4 % (0-10); NRBC Flagged by Analyzer 0 % (0-5); Neutrophil # 10.11 X10^3/uL (2.7-7.7); Neutrophil % 78.6 % (47-70); Platelet Count 293 K/mm3 (150-450); RBC Distribution Width SD 48.3 fl (35.1-43.9); Red Blood Count 3.58 M/mm3 (4.6-6.2); White Blood Count 12.9 K/mm3 (4.4-11.0)
[2024-08-12] MEDS: Baclofen 10 MG Tablet PO ×2 (06:40→15:01)
[2024-08-12 06:43] VITALS: BP 140/66; PULSE 84; RESP 17; TEMP 36.8; O2SAT 98
--- NOTE | 2024-08-12 07:18 | PCM.PN.HOSP ---
Reason for Visit Reason for Visit: Diagnoses Myoclonus (08/11/24) Pneumonia, unspecified organism (08/11/24) Acute kidney failure, unspecified (08/11/24) Other specified abnormal findings of blood chemistry (08/11/24) Subjective Subjective Upset that I focused on his kidneys and not his respiratory issues yesterday. Demanded a pulmonary consultation despite being on room air and already has a pulmonogist. Objective Data Objective Data Vital Signs: Vital Signs Temp Pulse Resp BP Pulse Ox O2 Del Method O2 Flow Rate 36.8 C 84 17 140/66 H 98 Nasal Cannula 2 08/12/24 06:43 08/12/24 06:43 08/12/24 06:43 08/12/24 06:43 08/12/24 06:43 08/12/24 06:43 08/12/24 06:43 Oxygen Flow Rate (L/min) 2 Oxygen Delivery Method Nasal Cannula Weight: 122 kg Body Mass Index (BMI) 36.4 Intake & Output: Intake and Output for Last 24 Hours 08/10/24 08/11/24 08/12/24 23:59 23:59 23:59 Intake Total 2305 / 2305 1700 / 1700 Balance 2305 / 2305 1700 / 1700 Lab / Micro Data 08/12/24 06:01 08/12/24 06:01 Labs: Laboratory Results - last 24 hr 08/11/24 08:00: WBC 22.2 H, RBC 3.94 L, Hgb 12.2 L, Hct 37.9 L, MCV 96.2 H, MCH 31.0, MCHC 32.2, RDW Std Deviation 49.9 H, RDW Coeff of Cari 14.0, Plt Count 339, MPV 9.5, Immature Gran % (Auto) 0.800, Neut % (Auto) 87.2 H, Lymph % (Auto) 6.5 L, [place] % (Auto) 5.1, Eos % (Auto) 0.1, Baso % (Auto) 0.3, Absolute Neuts (auto) 19.4 H, Absolute Lymphs (auto) 1.44, Nucleated RBC % 0, PT 14.1, INR 1.1, APTT 25.8, Sodium 136, Potassium 5.1, Chloride 103, Carbon Dioxide 22.0, Anion Gap 10, BUN 34 H, Creatinine 3.03 H, Estim Creat Clear Calc 36.00, Est GFR (MDRD) Af Amer 27 L, Est GFR (MDRD) Non-Af 23 L, BUN/Creatinine Ratio 11.2, Glucose 117 H, Lactic Acid 2.1 H*, Calcium 8.5, Total Bilirubin 0.70, AST 20, ALT 34, Alkaline Phosphatase 98, Troponin I High Sens 5, B-Natriuretic Peptide 38.8, Total Protein 7.2, Albumin 3.4, Globulin 3.8, Albumin/Globulin Ratio 0.9 08/11/24 10:25: Urine Color Yellow, Urine Clarity Clear, Urine pH 5.0, Ur Specific [place] 1.015, Urine Protein 30 H, Urine Glucose (UA) Normal, Urine Ketones Negative, Urine Occult Blood 10 H, Urine Nitrite Negative, Urine Bilirubin Negative, Urine Urobilinogen Normal, Ur Leukocyte Esterase 25 H, Urine RBC 0 SEEN, Urine WBC 5-10 SEEN, Ur Squamous Epith Cells 0 SEEN, Ur Transition Epith Cell 0-5 SEEN, Calcium Oxalate Crystal 2+, Urine Bacteria 1+, Hyaline Casts 0-5 SEEN, Fine Granular Casts 0-5 SEEN, Urine Mucus 0 SEEN 08/11/24 12:25: Lactic Acid 0.8 08/11/24 21:05: Ur Random Sodium 56, Urine Creatinine 88.70 08/12/24 06:01: WBC 12.9 H, RBC 3.58 L, Hgb 11.2 L, Hct 33.7 L, MCV 94.1 H, MCH 31.3, MCHC 33.2, RDW Std Deviation 48.3 H, RDW Coeff of Cari 14.0, Plt Count 293, MPV 9.5, Immature Gran % (Auto) 0.500, Neut % (Auto) 78.6 H, Lymph % (Auto) 13.0 L, [place] % (Auto) 6.4, Eos % (Auto) 1.2, Baso % (Auto) 0.3, Absolute Neuts (auto) 10.1 H, Absolute Lymphs (auto) 1.67, Nucleated RBC % 0 Micro: Microbiology 08/11/24 08:15 Mucosa - Nose SARS-CoV-2, Influenza & RSV (PCR) - Final Radiography Diagnostic Testing: Radiology Impression Chest X-Ray 08/11/24 08:17 IMPRESSION: No radiographic evidence of acute cardiopulmonary disease and unchanged. Electronically Signed: Jason Feliz MD at 8:33 EST , Abdomen/Pelvis CT 08/11/24 09:06 IMPRESSION: 1. No acute findings in the abdomen or pelvis. 2. Chronic tree-in-bud groundglass opacities in the posterior lower lobes are unchanged. 3. Mild decrease in small anterior pericardial effusion. 4. No significant interval change when compared to 03/08/2024. Electronically Signed: Jason Feliz MD at 10:07 EST , Chest CT 08/11/24 09:06 IMPRESSION: 1. Right upper lobe perifissural nodule containing 2 areas of calcifications is presumably from prior granulomatous exposure. This measures 1.4 x 0.6 cm and is unchanged. 2. Multiple tree in bud centrilobular infiltrates/groundglass opacities in the posterior lower lobes. These were present previously and are chronic findings. Electronically Signed: Jason Feliz MD at 9:58 EST , Renal Ultrasound 08/11/24 16:52 IMPRESSION: Unremarkable limited retroperitoneal ultrasound. Electronically Signed: Nick Golden MD at 19:33 EST , Physical Exam Const alert and no apparent distress Constitutional Narrative: no respiratory distress. no conversational dyspnea. HEENT head/scalp atraumatic and moist oral mucous membranes Resp normal respiratory effort, no retractions, no use of accessory muscles and clear to auscultation bilaterally Resp Narrative: coarse upper respiratory breath sound, improved from 08/11. Cardio regular rate and regular rhythm GI normal to inspection, nondistended, normoactive bowel sounds and soft to palpation Neuro Sensorium / Orientation: awake and alert Assessment & Plan Assessment/Plan (1) SLAVA (acute kidney injury): PLAN: Resolved. Unclear etiology. Patient does not appear to be dehydrated. Kidney ultrasound negative. Check urine studies. Hold off on nephrology evaluation. Certainly no need for renal replacement therapy at this time. (2) Elevated lactic acid level: PLAN: Patient not septic. Unclear significance. No additional workup at this time. May be related with the acute kidney injury. (3) Pneumonia: PLAN: Ruled out. [facility] consulted and felt the CT findings are chronic and did not recommend antibiotics. He does have a history of what sounds like histoplasmosis in the past. 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 I would be concerned about this being at least partially if not all being attributable to his gabapentin and SLAVA. Organ to hold off his gabapentin. Discussed with the patient and he is agreeable at this time. Will observe. No additional workup necessary at this point. PLAN: Plan Chronic pain. Patient takes hydromorphone. He is very particular about the time that he does take that. Got the information from him about the time that he does take and that will be given to him on a scheduled basis. VTE prophylaxis with subcu heparin. Charges/Coding Visit Charges Inpatient E&M: 55581 Subs Hosp L2
[2024-08-12 07:47] LABS: Anion Gap 5 (5-15); BUN 19 mg/dL (7-18); BUN/Creat Ratio 21.1 RATIO (10-20); Calcium,Total 8.8 mg/dL (8.5-10.1); Chloride 111 mmol/L (98-107); EST Glomerular Filtration Rate 91 mL/min (>60); Est Glom Filt Rate - Afr Amer 111 mL/min (>60); Estimated Creatinine Clearance 117.73 ml/min; Glucose 111 mg/dL (74-106); Sodium Level 138 mmol/L (136-145)
[2024-08-12 07:56] VITALS: BP 147/92; PULSE 95; RESP 19; TEMP 37.4; O2SAT 97
[2024-08-12] MEDS: HYDROmorphone 2 MG TABLET 4 MG PO ×3 (07:58→16:58)
[2024-08-12] MEDS: Heparin Injection (Vial) 5,000 UNIT/ML VIAL 5000 UNIT SC (08:01)
[2024-08-12] MEDS: guaiFENesin 1,200 MG Tablet 1200 MG PO (08:05)
[2024-08-12] MEDS: Ceftriaxone 2 GM in 0.9% Normal Saline (50mL MB+) 50 ML IV (08:09)
--- NOTE | 2024-08-12 09:14 | EX.PCM.CONCC ---
Assessment & Plan Assessment/Plan (1) History of asthma: PLAN: Plan RECOMMENDATIONS: 1. As needed bronchodilator therapy can be provided to the patient while admitted to the hospital. 2. The patient was encouraged to contact his poolroom/poolhall manager office to make them aware of his intolerance to the previously prescribed inhalers. 3. Antibiotics can be discontinued from my perspective. Findings noted on CT imaging appear chronic in nature. 4. Follow-up with primary poolroom/poolhall manager, as scheduled, in August. 5. Will sign off at this time. Please call with any additional questions. IMPRESSIONS: 1. History of asthma and histoplasmosis The patient is currently followed by Dr. An Ridley of pulmonary medicine at [facility] due to a history of asthma and biopsy-proven pulmonary histoplasmosis. The patient reported that he has been struggling since May, but admitted that he was intolerant of the previously prescribed inhaler regimen. Nevertheless, the patient never contacted his poolroom/poolhall manager office to make them aware of this. He is currently scheduled to follow-up with his poolroom/poolhall manager in August. I did recommend that the patient may contact with her office, in case an alternative inhaler regimen could be prescribed to him prior to his appointment. In the interim, I do feel that the findings noted on CT imaging the chest appear chronic in nature. From that standpoint, I do feel that antibiotics can be discontinued. The patient is otherwise stable from a respiratory perspective on room air. If he remains admitted to the hospital, as needed bronchodilator therapy can be provided to him. 2. Acute kidney injury Appears most likely prerenal in etiology, given resolution of the patient's SLAVA with fluid hydration. Renal ultrasound was unremarkable. 3. History of sleep apnea/chronic pain syndrome/hypertension/obesity Complicates care, management, recovery and prognosis. Continue home medications as indicated. Again, recommend outpatient pulmonary follow-up to address sleep apnea related issues. This note was generated with [employer] dictation software. It may contain incorrect words, spelling, and punctuation that were not noted in checking the note before signing. HPI Consult Data Date of Consult: 08/12/24 HPI Narrative Reason for Consultation: Asthma HPI Narrative: The patient is a 59-year-old male, with a history as outlined below, who presented to the emergency department on August 11 due to generalized weakness and shortness of breath. The patient has a reported history of asthma and obstructive sleep apnea. He is currently followed by Dr. An Ridley at [facility]. In addition, the patient has a history of right upper lobe calcified nodularity, which was biopsied in the past and proven to be histoplasmosis. He also has unspecified tree-in-bud opacities in the bilateral lower lobes, which is also a chronic finding. The patient reported that he was intolerant of the dry powder inhaler that was provided for him by his poolroom/poolhall manager at his last office visit. He is currently scheduled to follow-up with An Ridley in mid August 2024. The patient reported that he has been feeling generally unwell since May. When asked about his current asthma symptoms, the patient reported that he experiences gurgling in his throat on a nightly basis. The patient never contacted his poolroom/poolhall manager office to make them aware of his intolerance to the previously prescribed inhaler regimen. The patient did have a positive bronchoprovocation challenge completed in November 2022. Of note, the patient is noncompliant with nocturnal PAP therapy due to a feeling of suffocation and anxiety. On presentation to the emergency department, the patient was documented to be afebrile and hemodynamically stable. He was maintaining appropriate oxygen saturations on room air. Initial laboratory evaluation revealed a white blood cell count of 22,000. Coagulation profile was within normal limits. Chemistry profile was notable for a creatinine of 3.03. Urine analysis was unremarkable. Chest CT demonstrated chronic findings including a right upper lobe calcified granuloma and groundglass opacities in the posterior lower lobes. COVID, influenza and RSV PCR's were negative. The patient was ultimately placed on antimicrobials. The patient was hydrated with subsequent resolution of his acute kidney injury. Renal ultrasound was unremarkable. [facility] Medical History (Updated 08/12/24 @ 09:[address] Pawan Ridley, DO) Pneumonia Asthma DVT (deep venous thrombosis) GERD (gastroesophageal reflux disease) Microscopic colitis Sleep apnea Anemia Leg fracture Intestinal adhesions with partial obstruction Migraines Hypertension Chronic pain COVID Home Medications ?Medication ?Instructions ?Recorded ?Last Taken ?Type amitriptyline 10 mg tablet 30 mg PO QHS DEPRESSION 04/05/22 08/10/24 History lisinopril 40 mg tablet 40 mg PO QHS BLOOD PRESSURE 04/05/22 08/10/24 History trazodone 100 mg tablet 200 mg PO QHS INSOMNIA 04/05/22 08/10/24 History baclofen 10 mg tablet 10 mg PO TID MUSCLE SPASMS 10/01/23 08/10/24 History triamcinolone acetonide 55 mcg 2 spray intranasal DAILY allergies 10/01/23 08/10/24 Rx nasal spray aerosol (Nasacort) #16.9 mL budesonide 3 mg 3 mg PO QHS CROHNS DISEASE 03/08/24 08/10/24 History capsule,delayed,extended release zatjrsxpsd-graxjmklrihap-lvxfrvih 2 tab PO Q4H PRN HEADACHE 03/08/24 Unknown History 50 mg-325 mg-40 mg tablet gabapentin 300 mg capsule 300 mg PO DAILY NEUROPATHY 03/08/24 08/10/24 History amlodipine 2.5 mg tablet 2.5 mg PO QHS Blood pressure 03/09/24 08/10/24 History albuterol sulfate 2.5 mg/3 mL 2.5 mg inhalation Q4H PRN wheezing 08/11/24 08/10/24 History (0.083 %) solution for nebulization albuterol sulfate 90 mcg/actuation 2 inh inhalation Q4H PRN shortness 08/11/24 Unknown History aerosol inhaler (Ventolin HFA) of breath or wheezing gabapentin 300 mg capsule 300 mg PO 1600 NEUROPATHY 08/11/24 08/10/24 History gabapentin 300 mg capsule 600 mg PO QHS NEUROPATHY 08/11/24 08/10/24 History hydromorphone 4 mg tablet 4 mg PO Q6H PRN pain 08/11/24 08/10/24 History nystatin 100,000 unit/gram topical 1 applic topical TID SKIN 08/11/24 08/10/24 History powder (Nyamy) IRRITATION sildenafil 100 mg tablet 100 mg PO PRN ERECTILE DYSFUNCTION 08/11/24 Unknown History Allergy/AdvReac Type Severity Reaction Status Date / Time ampicillin AdvReac Nausea/Vom/ Verified 07/04/24 14:41 Diarrhea Family History Grandfather Alcoholism Father Heart disease Myocardial infarction Hypertension Depression High cholesterol Mother Cancer cervical and colon Depression Sister Asthma Depression Grandmother Diabetes Surgical History History of cholecystectomy H/O hand surgery S/P laparoscopic procedure S/P ORIF (open reduction internal fixation) fracture History of tonsillectomy History of lung biopsy Total knee replacement status H/O spinal fusion H/O hernia repair Gastric bypass status for obesity Social History household members: spouse housing: house current occupational status: employed 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 Physical Exam Const alert, oriented x3 and no apparent distress Constitutional Narrative: Obese. Resting comfortably in bed. HEENT normocephalic, head/scalp atraumatic and moist oral mucous membranes Eyes PERRL, EOMs intact bilaterally and conjunctivae normal Neck supple General: trachea midline Chest inspection of chest normal Resp normal respiratory effort Auscultation: Negative for rales, rhonchi or wheezes Cardio regular rate and regular rhythm GI normal to inspection, nondistended, normoactive bowel sounds Extremity no clubbing, cyanosis or edema Skin no rashes or lesions noted Neuro CN's II-XII intact bilaterally, moves all extremities and no focal motor deficits Psych Mood & Affect: anxious Lab / Micro Data 08/12/24 06:01 08/12/24 06:01 Labs: Laboratory Results - last 24 hr 08/11/24 08:00: B-Natriuretic Peptide 38.8 08/11/24 10:25: Urine Color Yellow, Urine Clarity Clear, Urine pH 5.0, Ur Specific [place] 1.015, Urine Protein 30 H, Urine Glucose (UA) Normal, Urine Ketones Negative, Urine Occult Blood 10 H, Urine Nitrite Negative, Urine Bilirubin Negative, Urine Urobilinogen Normal, Ur Leukocyte Esterase 25 H, Urine RBC 0 SEEN, Urine WBC 5-10 SEEN, Ur Squamous Epith Cells 0 SEEN, Ur Transition Epith Cell 0-5 SEEN, Calcium Oxalate Crystal 2+, Urine Bacteria 1+, Hyaline Casts 0-5 SEEN, Fine Granular Casts 0-5 SEEN, Urine Mucus 0 SEEN 08/11/24 12:25: Lactic Acid 0.8 08/11/24 21:05: Ur Random Sodium 56, Urine Creatinine 88.70 08/12/24 06:01: WBC 12.9 H, RBC 3.58 L, Hgb 11.2 L, Hct 33.7 L, MCV 94.1 H, MCH 31.3, MCHC 33.2, RDW Std Deviation 48.3 H, RDW Coeff of Cari 14.0, Plt Count 293, MPV 9.5, Immature Gran % (Auto) 0.500, Neut % (Auto) 78.6 H, Lymph % (Auto) 13.0 L, [place] % (Auto) 6.4, Eos % (Auto) 1.2, Baso % (Auto) 0.3, Absolute Neuts (auto) 10.1 H, Absolute Lymphs (auto) 1.67, Nucleated RBC % 0, Sodium 138, Potassium 5.0, Chloride 111 H, Carbon Dioxide 22.0, Anion Gap 5, BUN 19 H, Creatinine 0.90, Estim Creat Clear Calc 117.73, Est GFR (MDRD) Af Amer 111, Est GFR (MDRD) Non-Af 91, BUN/Creatinine Ratio 21.1 H, Glucose 111 H, Calcium 8.8 Micro: Microbiology 08/11/24 08:15 Mucosa - Nose SARS-CoV-2, Influenza & RSV (PCR) - Final Imaging Radiology Impression Abdomen/Pelvis CT 08/11/24 09:06 IMPRESSION: 1. No acute findings in the abdomen or pelvis. 2. Chronic tree-in-bud groundglass opacities in the posterior lower lobes are unchanged. 3. Mild decrease in small anterior pericardial effusion. 4. No significant interval change when compared to 03/08/2024. Electronically Signed: Jason Feliz MD at 10:07 EST , Chest CT 08/11/24 09:06 IMPRESSION: 1. Right upper lobe perifissural nodule containing 2 areas of calcifications is presumably from prior granulomatous exposure. This measures 1.4 x 0.6 cm and is unchanged. 2. Multiple tree in bud centrilobular infiltrates/groundglass opacities in the posterior lower lobes. These were present previously and are chronic findings. Electronically Signed: Jason Feliz MD at 9:58 EST , Renal Ultrasound 08/11/24 16:52 IMPRESSION: Unremarkable limited retroperitoneal ultrasound. Electronically Signed: Nick Golden MD at 19:33 EST , Charges/Coding Visit Charges Inpatient E&M: 80747 Init Hosp L2
[2024-08-12] MEDS: Azithromycin 500 MG in 0.9% Normal Saline (250mL Bag) 250 ML 255 MG IV (11:58)
[2024-08-12] MEDS: Acetaminophen/Butalbital/Caffe 1 Tablet 2 TABLET PO ×2 (12:28)
--- NOTE | 2024-08-12 12:55 | PCM.DC.SUM ---
Providers Date of Admission: 08/11/24 Primary Care Physician: Dr. Leonor Obregon MD Consultations 08/12/24 09:12 Consult: Human Relations Professor / Pulmonary Medicine Routine Consulting Provider: Intensivists/Pulmonary Med Reason for Consult: dyspnea. asthma EMERGENT Consult: No MD Notified: Yes Date Notified: 08/12/24 Time Notified: 09:12 Method of Notification: Verbal Reason For Visit: SLAVA Diagnosis Discharge Diagnosis (1) SLAVA (acute kidney injury): Status: Acute Code(s): N17.9 - Acute kidney failure, unspecified Plan: Resolved. Unclear etiology. Patient does not appear to be dehydrated. Kidney ultrasound negative. Check urine studies. Hold off on nephrology evaluation. Certainly no need for renal replacement therapy at this time. (2) Elevated lactic acid level: Status: Acute Code(s): R79.89 - Other specified abnormal findings of blood chemistry Plan: Patient not septic. Unclear significance. No additional workup at this time. May be related with the acute kidney injury. (3) Pneumonia: Status: Acute Code(s): J18.9 - Pneumonia, unspecified organism Plan: Ruled out. [facility] consulted and felt the CT findings are chronic and did not recommend antibiotics. He does have a history of what sounds like histoplasmosis in the past. 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 I would be concerned about this being at least partially if not all being attributable to his gabapentin and SLAVA. Organ to hold off his gabapentin. Discussed with the patient and he is agreeable at this time. Will observe. No additional workup necessary at this point. Plan Chronic pain. Patient takes hydromorphone. He is very particular about the time that he does take that. Got the information from him about the time that he does take and that will be given to him on a scheduled basis. Asthma exacerbation: prednisone burst. Follow up with Dr. Freddy Ridley of pulmonary VTE prophylaxis with subcu heparin. Medications at Discharge Home Medications amitriptyline 10 mg tablet 30 mg PO QHS DEPRESSION 04/05/22 trazodone 100 mg tablet 200 mg PO QHS INSOMNIA 04/05/22 baclofen 10 mg tablet 10 mg PO TID MUSCLE SPASMS 10/01/23 triamcinolone acetonide 55 mcg nasal spray aerosol (Nasacort) 2 spray intranasal DAILY allergies #16.9 mL 10/01/23 budesonide 3 mg capsule,delayed,extended release 3 mg PO QHS CROHNS DISEASE 03/08/24 filhhirniy-hhlnwxvmkqjsb-slljtigj 50 mg-325 mg-40 mg tablet 2 tab PO Q4H PRN HEADACHE 03/08/24 gabapentin 300 mg capsule 300 mg PO DAILY NEUROPATHY 03/08/24 amlodipine 2.5 mg tablet 2.5 mg PO QHS Blood pressure 03/09/24 albuterol sulfate 2.5 mg/3 mL (0.083 %) solution for nebulization 2.5 mg inhalation Q4H PRN wheezing 08/11/24 albuterol sulfate 90 mcg/actuation aerosol inhaler (Ventolin HFA) 2 inh inhalation Q4H PRN shortness of breath or wheezing 08/11/24 gabapentin 300 mg capsule 300 mg PO 1600 NEUROPATHY 08/11/24 gabapentin 300 mg capsule 600 mg PO QHS NEUROPATHY 08/11/24 hydromorphone 4 mg tablet 4 mg PO Q6H PRN pain 08/11/24 nystatin 100,000 unit/gram topical powder (Nyamyc) 1 applic topical TID SKIN IRRITATION 08/11/24 sildenafil 100 mg tablet 100 mg PO PRN ERECTILE DYSFUNCTION 08/11/24 guaifenesin 1,200 mg tablet, extended release 12 hr (Mucus Relief ER) 1,200 mg PO BID #10 tabs 08/12/24 prednisone 20 mg tablet 40 mg (2 x 20 mg) PO DAILY #10 tabs 08/12/24 sodium chloride 0.65 % nasal spray aerosol (Deep Sea Nasal) 2 spray NASAL TID PRN PRN NASAL DRYNESS #0 mL 08/12/24 Hospital Course Operations None Procedures None Summary of Care Provided Hospital Course: Greater than 35 minutes spent on discharge. Patient presented for shortness of breath. He was found to have acute kidney injury with a creatinine of 3 with a baseline around 0.7. Patient received IV fluids. He had a tree-in-bud noted on his CAT scan that was noted previously. Concern was that he may have pneumonia. Today, I walked into the room and the patient was explaining how upset he was with me as I did not take his respiratory symptoms seriously and instead was focused on his kidney. I advised him that it is not an either/or type phenomenon and the fact that I was treating his respiratory issues with antibiotics which I felt at that time was appropriate. He demanded to speak to a dust collector. I consulted Dr. Pawan Ridley to see him. He reviewed the patient's images and felt that they are chronic and advised against additional antibiotics. Patient had a lot of questions about his pulmonary issues to which he was directed to continue to follow-up with An Rildey, his dust collector on regards to his queries and further follow-up which patient has an appointment in August. Went back to talk to the patient again today and he will be discharged home with a prednisone burst of 40 mg for 5 days. Weight / BMI Weight Weight: 122 kg Body Mass Index (BMI) 36.4 ABG / Lab / Microbiology Data 08/12/24 06:01 08/12/24 06:01 Laboratory: Laboratory Results - last 24 hr 08/11/24 12:25: Lactic Acid 0.8 08/11/24 21:05: Ur Random Sodium 56, Urine Creatinine 88.70 08/12/24 06:01: WBC 12.9 H, RBC 3.58 L, Hgb 11.2 L, Hct 33.7 L, MCV 94.1 H, MCH 31.3, MCHC 33.2, RDW Std Deviation 48.3 H, RDW Coeff of Cari 14.0, Plt Count 293, MPV 9.5, Immature Gran % (Auto) 0.500, Neut % (Auto) 78.6 H, Lymph % (Auto) 13.0 L, [place] % (Auto) 6.4, Eos % (Auto) 1.2, Baso % (Auto) 0.3, Absolute Neuts (auto) 10.1 H, Absolute Lymphs (auto) 1.67, Nucleated RBC % 0, Sodium 138, Potassium 5.0, Chloride 111 H, Carbon Dioxide 22.0, Anion Gap 5, BUN 19 H, Creatinine 0.90, Estim Creat Clear Calc 117.73, Est GFR (MDRD) Af Amer 111, Est GFR (MDRD) Non-Af 91, BUN/Creatinine Ratio 21.1 H, Glucose 111 H, Calcium 8.8 Microbiology: Microbiology 08/11/24 10:25 Urine, Clean Catch Urine Culture - Preliminary Culture exhibits no growth. 01/23/25 08:15 Mucosa - Nose SARS-CoV-2, Influenza & RSV (PCR) - Final Radiography Diagnostic Testing: Radiology Impression Renal Ultrasound 08/11/24 16:52 IMPRESSION: Unremarkable limited retroperitoneal ultrasound. Electronically Signed: Nick Golden MD at 19:33 EST Reading Location ID and State: [address] [place] [address] Tel , Service support , D/C Instructions Discharge Diet: No restrictions DC O2, CPAP, BIPAP Needs Home O2 Discharge instructions: No Meaningful Use Info Meaningful Use Meaningful Use Diagnoses (Choose all that apply): None applicable Ischemic Stroke Statin Dosing Therapy Reference: STATIN DOSE THERAPY REFERENCE: * Patients > 75 years receive moderate or high dose statin therapy. * Patients 75 years or YOUNGER should receive HIGH intensity statin dose unless contraindicated. You will be required to document reason for non-treatment if statin daily dose does not meet guidelines. HIGH DOSE STATIN THERAPY DAILY Atorvastatin > than or = to 40 mg Rosuvastatin > than or = to 20 mg Amlodipine + Atorvastatin > than or = to 2.5/40 mg Ezetimibe + Simvastatin 10/80 mg Simvastatin 80mg Discharge Plan Admission Admit Date/Time: 08/11/24 12:00 Primary Reason for Your Visit: Acute kidney injury. Attending Provider: Petr Gordon Primary Care Provider: Leonor Obregon Instructions Additional Instructions / Restrictions: He had a acute kidney injury when he presented. Resolved with IV fluids. I am going to have you hold off on your lisinopril for now until he can follow with your primary care doctor. Treating you for possible flareup of your asthma with prednisone 40 mg daily for 5 days. Please follow-up with Dr. An Ridley at your next scheduled appointment or sooner if needed. Discharge Orders/Prescriptions Prescriptions: New Deep Sea Nasal 0.65 % Aerosol,[place] 2 spray NASAL TID PRN PRN (Reason: NASAL DRYNESS) Qty: 0 0RF guaifenesin [Mucus Relief ER] 1,200 mg Tablet Extended Release 12hr 1,200 mg PO BID Qty: 10 0RF prednisone 20 mg tablet 40 mg PO DAILY Qty: 10 0RF Continued trazodone 100 mg Tablet 200 mg PO QHS amitriptyline 10 mg Tablet 30 mg PO QHS baclofen 10 mg tablet 10 mg PO TID triamcinolone acetonide [Nasacort] 55 mcg aerosol,spray 2 spray intranasal DAILY Qty: 16.9 0RF Rx Instructions: administer into each nostril hodvfrozhq-fllesuejawyje-txyj 50-325-40 mg tablet 2 tab PO Q4H PRN (Reason: HEADACHE ) gabapentin 300 mg capsule 300 mg PO DAILY Rx Instructions: TAKE 1 CAPSULE BY MOUTH IN THE MORNING, 1 TABLET AT 4PM, AND 2 CAPSULES AT BEDTIME budesonide 3 mg capsule,delayed,extend.release 3 mg PO QHS amlodipine 2.5 mg tablet 2.5 mg PO QHS sildenafil 100 mg tablet 100 mg PO PRN albuterol sulfate 2.5 mg /3 mL (0.083 %) solution for nebulization 2.5 mg inhalation Q4H PRN (Reason: wheezing) gabapentin 300 mg capsule 300 mg PO 1600 Rx Instructions: TAKE 1 CAPSULE BY MOUTH IN THE MORNING, 1 TABLET AT 4PM, AND 2 CAPSULES AT BEDTIME gabapentin 300 mg capsule 600 mg PO QHS Rx Instructions: TAKE 1 CAPSULE BY MOUTH IN THE MORNING, 1 TABLET AT 4PM, AND 2 CAPSULES AT BEDTIME albuterol sulfate [Ventolin HFA] 90 mcg/actuation HFA aerosol inhaler 2 inh inhalation Q4H PRN (Reason: shortness of breath or wheezing) hydromorphone 4 mg tablet 4 mg PO Q6H PRN (Reason: pain) nystatin [Nyamyc] 100,000 unit/gram Powder 1 applic topical TID Protocol: *Topical Application Instructions APPLICATION INSTRUCTIONS: Abdominal folds Discontinued lisinopril 40 mg Tablet 40 mg PO QHS Referrals / Follow Up: Leonor Obregon MD [Primary Care Provider] - Within 2 Weeks An Ridley MD [Non-Staff] - (follow up at next appointment) Disposition Disposition (needs filled in before D/C Order can be placed): Home, Self Care Charges/Coding Visit Charges Inpatient E&M: 94808 Disch Hosp >30min
--- NOTE | 2024-08-12 13:14 | CASEMGMT ---
Pt has an order for DC placed. Pt did well with therapy, see notes. RN CM to pt room at this time. Pt states that he feels safe returning home with his today and denies further concerns. See MD notes regarding ATBs and oxygen. Pt 6-Click score is 24. Pt plans to follow up with his Manager Environmental (Freddy Ridley @ ) in August. Pt states that he feels safe with this plan and denies further needs including HH, OP Tx, or CCN. Pt denies further concerns at this time.
== END 2024-08-12 17:19 | disposition home or self-care (01) | DRG 683 ==
LOC: ED 11:42 → MS3 15:21
PROVIDERS: Emergency Provider Emergency Medicine; PCP Internal Medicine
DX: N17.9 Acute kidney failure, unspecified (principal); J45.901 Unspecified asthma with (acute) exacerbation; G25.3 Myoclonus; I10 Essential (primary) hypertension; E66.9 Obesity, unspecified; G47.30 Sleep apnea, unspecified; Z86.16 Personal history of COVID-19; Z79.51 Long term (current) use of inhaled steroids; G89.4 Chronic pain syndrome; Z98.1 Arthrodesis status; Z98.84 Bariatric surgery status; Z86.718 Personal history of other venous thrombosis and embolism
CPT/HCPCS: 36415; 71045; 71250; 74176; 76770; 80048; 80053; 81001; 82570; 83605; 83880; 84300; 84484; 85025; 85610; 85730; 87040; 87086; 87631; 93005; 97161; 97166; 99285; A4216; J0696

== ENCOUNTER → 2024-09-27 | Outpatient (CLI) | payer BC, SELFPAY ==
[2024-09-27 12:51] LABS: Absolute Neutrophil Count 5.1 X10^3/uL (2.0-7.7); Basophil# 0.04 X10^3/uL; Basophil% 0.5 % (0-1); Eosinophil# 0.27 X10^3/uL; Eosinophils% 3.5 % (0-5); Hematocrit 37.9 % (40-54); Hemoglobin 12.4 g/dL (13.0-16.5); Lymphocyte % 20.5 % (19-41); Mean Corp Hgb Conc 32.7 g/dL (32-36); Mean Corpuscular Hgb 30.8 pg (27.0-32.0); Mean Corpuscular Volume 94.3 fL (80-94); Mean Platelet Vol. 10.1 fl (6.2-12.0); Monocyte# 0.76 X10^3/uL; Monocyte% 9.7 % (0-10); NRBC Flagged by Analyzer 0 % (0-5); Neutrophil # 5.12 X10^3/uL (2.7-7.7); Neutrophil % 65.4 % (47-70); Platelet Count 297 K/mm3 (150-450); RBC Distribution Width CV 13.1 % (11.6-14.6); RBC Distribution Width SD 45.2 fl (35.1-43.9); Red Blood Count 4.02 M/mm3 (4.6-6.2); White Blood Count 7.8 K/mm3 (4.4-11.0)
[2024-09-27 13:19] LABS: Cholesterol 173 mg/dL (<=200); High Density Lipoprotein 56 mg/dL; Low Density Lipoprotein Calc. 104 mg/dL; Triglycerides 65 mg/dL; Very Low Density Lipoprotein 13 mg/dL (5-40); cholesterol:hdl ratio screen 3.11
[2024-09-27 13:24] LABS: ALB/GLOB Ratio 1.5 RATIO (0.9-2.4); AST(SGOT) 24 U/L (<=37); Alanine Aminotransfer ALT/SGPT 24 U/L (<=46); Albumin, Serum 3.9 g/dL (3.4-4.8); Alkaline Phosphatase 95 U/L (40-129); Anion Gap 11 (5-15); BUN 16 mg/dL (4-19); BUN/Creat Ratio 17.3 RATIO (10-20); Calcium,Total 8.9 mg/dL (7.6-11.0); Carbon Dioxide 25.2 mmol/L (21.0-32.0); Chloride 101 mmol/L (98-108); EST Glomerular Filtration Rate 98 (>60); Globulin 2.6 g/dL (2.2-4.2); Glucose 106 mg/dL (70-99); Potassium 4.5 mmol/L (3.3-5.1); Protein, Total 6.5 g/dL (5.9-8.4); Rheumatoid Factor < 10.0 IU/mL (<15); Sodium Level 137 mmol/L (133-145); Total Bilirubin 0.29 mg/dL (0.00-1.30)
[2024-09-27 16:38] LABS: Vitamin D,25 Hydroxy 20.6 ng/mL (30-100)
[2024-09-27 16:39] LABS: Vitamin B12 731 pg/mL (180-914)
[2024-09-28 17:08] LABS: Anti-Centromere B Ab <0.2 AI (0.0-0.9); Anti-Chromatin <0.2 AI (0.0-0.9); Anti-Jo <0.2 AI (0.0-0.9); Anti-Nuclear Antibody Test Negative (.); Anti-Scleroderma-70 AB <0.2 AI (0.0-0.9); Anti-dsDNA Ab <1 IU/mL (0-9); RNP Ab <0.2 AI (0.0-0.9); SJOGREN'S Anti-SS-A test < 0.2 AI (0.0-0.9); SJOGREN'S Anti-SS-B test < 0.2 AI (0.0-0.9); Smith Ab <0.2 AI (0.0-0.9)
[2024-10-06 10:08] LABS: CCP IgG Antibodies 3 units (0-19); Cytoplasmic Ab (C-ANCA) <1:20 titer (Neg:<1:20); Lyme Scn Total Ab w/Rflx Negative (Negative); Perinuclear Ab (P-ANCA) <1:20 titer (Neg:<1:20); Testosterone, % Free 1.34 % (1.50-4.20); Testosterone, Free 8.09 ng/dL (5.00-21.00); Testosterone, Total 604 ng/dL (264-916)
== END | disposition home or self-care (01) ==
LOC: BIMLAB 08:48
PROVIDERS: PCP Internal Medicine; Referring Provider Internal Medicine; Visit Provider Internal Medicine
DX: N17.9 Acute kidney failure, unspecified (principal); J84.10 Pulmonary fibrosis, unspecified; I10 Essential (primary) hypertension; R53.83 Other fatigue
CPT/HCPCS: 36415; 80053; 80061; 82306; 82607; 84402; 84403; 85025; 86037; 86038; 86200; 86225; 86235; 86431; 86618